=== PATIENT | female | born 1950 | race Caucasian/White ===

== ENCOUNTER → 2020-01-07 | Outpatient (CLI) | payer MEDICARE, OTHER ==
--- NOTE | 2020-01-07 09:48 | Diagnostic Imaging Report ---
Indication: Right foot pain and swelling. Time of exam: 9: 02 AM 3 views of the right foot were obtained. There does appear to be some dorsal soft tissue swelling present. Metatarsals are intact. Midfoot and hindfoot are unremarkable apart from a plantar calcaneal spur. Phalanges are intact. There are no fractures. IMPRESSION: Soft tissue swelling. No acute bony abnormality is detected. Dictated by: Dictated on workstation # [id number]
[2020-01-07 09:54] LABS: ALKALINE PHOSPHATASE 55 U/L (40-136); BILIRUBIN,TOTAL 0.4 MG/DL (0.1-1.0); BUN/CREATININE RATIO 21; CALCIUM 9.8 MG/DL (8.5-10.1); CARBON DIOXIDE 26 MMOL/L (21-32); CHLORIDE 105 MMOL/L (98-107); CREATININE SERUM 0.87 MG/DL (0.60-1.30); GFR ESTIMATED > 60; GLUCOSE 109 MG/DL (70-105); POTASSIUM 4.3 MMOL/L (3.6-5.0); SODIUM 144 MMOL/L (135-145)
[2020-01-07 09:55] LABS: ALANINE AMINOTRANSFERASE 8 U/L (0-55); TOTAL PROTEIN 6.8 GM/DL (6.4-8.2)
[2020-01-07 15:15] LABS: CHOLESTEROL 193 MG/DL (< 200); HDL CHOLESTEROL 59 MG/DL (40-60); TRIGLYCERIDES 145 MG/DL (<150); VLDL CHOLESTEROL 29 MG/DL (5-40)
== END ==
LOC: LAB FS 08:37
PROVIDERS: ATTEND Family Medicine
DX: E11.9 Type 2 diabetes mellitus without complications (principal); M79.671 Pain in right foot
CPT/HCPCS: 36415; 73630; 80053; 80061; 83036

== ENCOUNTER 2020-04-24 11:45 | Inpatient (IN) | payer MEDICARE, OTHER ==
[~2020-04-24] VITALS: Ht 162.5 cm; Wt 139.8 kg
--- NOTE | 2020-04-24 11:45 | NUR ---
Patient arrival to ED via [facility] as weakness but SOA reported. EMS report patient with 3 day hx of this. Weakness was primary discussion but pt reports may have been feeling bad since Tuesday. Pt's dgt in ER Tuesday feeling sx and tested for COVID and since found out it was positive and quarantined. Pt has been around her dgt last week and even Tuesday. Pt is placed in Negative pressure room ED 5 for isolation. Pt is on n.c. at 4L and SaO2 is in upper 70's and O2 turned up to 6L/min while consulting expert opinion of Dr Andersen. At 6L/m patient is beginning to enter low to mid 80's peaking 85%. entering room to assess patient and lung sounds.
--- NOTE | 2020-04-24 12:08 | ED Respiratory ---
General Chief Complaint: Respiratory Problems Stated Complaint: SOB; WEAKNESS Source: patient, EMS Exam Limitations: no limitations History of Present Illness Date Seen by Provider: Apr 24, 2020 Time Seen by Provider: 12:00 Initial Comments 69-year-old female presents with shortness of air today. The previous 3 days she has had a cough which has been nonproductive. Denies fever or body aches, just feeling generalized weakness. States that her daughter, whom she does not live with, but sees frequently was recently tested positive for COVID-19. Denies any heart or lung disease. On EMS arrival, noted to have significant low oxygen saturations in the 60s, however patient alert and awake and in no distress. On arrival oxygen saturation in the mid 80s on 5 L per nasal cannula and patient in no distress Allergies and Home Medications Allergies Coded Allergies: No Known Allergies (Unverified Allergy, Unknown, 04/24/20) Patient Home Medication List Home Medication List Reviewed: Yes Review of Systems Review of Systems Constitutional: see HPI; No chills, No diaphoresis, No dizziness, No fever; malaise, weakness EENTM: no symptoms reported; No ear pain, No eye pain, No nose pain, No throat pain, No throat swelling Respiratory: cough; No hemoptysis, No orthopnea; short of breath; No stridor; wheezing Cardiovascular: No chest pain, No edema, No palpitations, No syncope Gastrointestinal: No abdominal pain, No nausea, No vomiting Genitourinary: No dysuria, No frequency, No hematuria Musculoskeletal: No back pain, No joint pain Skin: No change in color, No rash Psychiatric/Neurological: Denies Headache, Denies Numbness Past [place]zz[place]-Dhedjk Hx Past Med/Social Hx: Reviewed Nursing Past Med/Soc Hx Physical Exam Vital Signs - First Documented 04/24/20 11:45 Temp 37.2 Pulse 99 Resp 28 B/P (MAP) 108/62 (77) Pulse Ox 79 O2 Delivery Nasal Cannula O2 Flow Rate 4.00 Capillary Refill : Height: '" Weight: lbs. oz. kg; BMI Method: General Appearance: WD/WN, no apparent distress Eyes: Bilateral Eye Normal Inspection, Bilateral Eye PERRL, Bilateral Eye EOMI HEENT: PERRL/EOMI, normal ENT inspection Neck: non-tender, supple Respiratory: chest non-tender, no respiratory distress, no accessory muscle use, decreased breath sounds, wheezing, expiration Cardiovascular: regular rate, rhythm, no edema Gastrointestinal: non tender, soft Extremities: normal range of motion, non-tender Neurologic/Psychiatric: alert, normal mood/affect, oriented x 3 Skin: normal color, warm/dry Focused Exam Lactate Level 04/24/20 12:10: Lactic Acid Level 2.35*H Lactic Acid Level Laboratory Tests Test 04/24/20 12:10 Lactic Acid Level 2.35 MMOL/L (0.50-2.00) *H Progress/Results/Core Measures Suspected Sepsis SIRS Temperature: Pulse: Respiratory Rate: Laboratory Tests 04/24/20 12:10: White Blood Count 11.9H Blood Pressure / Mean: 04/24/20 12:10: Lactic Acid Level 2.35*H Laboratory Tests 04/24/20 12:10: Creatinine 0.87, Platelet Count 208, Total Bilirubin 0.8 Results/Orders Lab Results Laboratory Tests Test 04/24/20 12:10 04/24/20 12:15 04/24/20 13:50 Range/Units White Blood Count 11.9 H 4.3-11.0 10^3/uL Red Blood Count 4.32 L 4.35-5.85 10^6/uL Hemoglobin 11.8 11.5-16.0 G/DL Hematocrit 36 35-52 % Mean Corpuscular Volume 83 80-99 FL Mean Corpuscular Hemoglobin 27 25-34 PG Mean Corpuscular Hemoglobin Concent 33 32-36 G/DL Red Cell Distribution Width 15.5 H 10.0-14.5 % Platelet Count 208 130-400 10^3/uL Mean Platelet Volume 10.1 7.4-10.4 FL Immature Granulocyte % (Auto) 1 % Neutrophils (%) (Auto) 91 H 42-75 % Lymphocytes (%) (Auto) 6 L 12-44 % Monocytes (%) (Auto) 3 0-12 % Eosinophils (%) (Auto) 0 0-10 % Basophils (%) (Auto) 0 0-10 % Neutrophils # (Auto) 10.8 H 1.8-7.8 X 10^3 Lymphocytes # (Auto) 0.7 L 1.0-4.0 X 10^3 Monocytes # (Auto) 0.4 0.0-1.0 X 10^3 Eosinophils # (Auto) 0.0 0.0-0.3 10^3/uL Basophils # (Auto) 0.0 0.0-0.1 10^3/uL Immature Granulocyte # (Auto) 0.1 0.0-0.1 10^3/uL Neutrophils % (Manual) 75 % Lymphocytes % (Manual) 8 % Monocytes % (Manual) 5 % Eosinophils % (Manual) 0 % Basophils % (Manual) 0 % Band Neutrophils 12 % Blood Morphology Comment NORMAL Activated Partial Thromboplast Time 29 24-35 SEC D-Dimer 2.11 H 0.00-0.49 UG/ML Sodium Level 133 L 135-145 MMOL/L Potassium Level 4.2 3.6-5.0 MMOL/L Chloride Level 96 L 98-107 MMOL/L Carbon Dioxide Level 22 21-32 MMOL/L Anion Gap 15 H 5-14 MMOL/L Blood Urea Nitrogen 20 H 7-18 MG/DL Creatinine 0.87 0.60-1.30 MG/DL Estimat Glomerular Filtration Rate > 60 BUN/Creatinine Ratio 23 Glucose Level 271 H 70-105 MG/DL Lactic Acid Level 2.35 *H 0.50-2.00 MMOL/L Calcium Level 8.9 8.5-10.1 MG/DL Corrected Calcium 9.7 8.5-10.1 MG/DL Total Bilirubin 0.8 0.1-1.0 MG/DL Aspartate Amino Transf (AST/SGOT) 56 H 5-34 U/L Alanine Aminotransferase (ALT/SGPT) 33 0-55 U/L Alkaline Phosphatase 81 40-136 U/L Troponin I < 0.30 <0.30 NG/ML C-Reactive Protein 22.42 H <0.50 MG/DL Pro-B-Type Natriuretic Peptide 1051.0 H <75.0 PG/ML Total Protein 6.1 L 6.4-8.2 GM/DL Albumin 3.0 L 3.2-4.5 GM/DL Procalcitonin 0.29 H <0.10 NG/ML Blood Gas Puncture Site RT RAD Blood Gas Patient Temperature 37.1 Arterial Blood pH 7.45 H 7.37-7.43 Arterial Blood Partial Pressure CO2 39 35-45 MMHG Arterial Blood Partial Pressure O2 42 L 79-93 MMHG Arterial Blood HCO3 27 23-27 MMOL/L Arterial Blood Total CO2 28.3 21.0-31.0 MMOL/L Arterial Blood Oxygen Saturation 80 L 94-100 % Arterial Blood Base Excess 3.0 H -2.5-2.5 MMOL/L Alexys Test YES-POS Blood Gas Ventilator Setting NO Blood Gas Inspired Oxygen 6L Micro Results Microbiology 04/24/20 Influenza Types A,B Antigen (MARLYS) - Final, Complete My Orders Orders - SAMEERA GLEASON DO Procalcitonin (Pct) (04/24/20 12:04) Ed Iv/Invasive Line Start (04/24/20 12:04) Chest 1 View Ap/Pa Only (04/24/20 12:04) Cbc With Automated Diff (04/24/20 12:04) Comprehensive Metabolic Panel (04/24/20 12:04) Arterial Blood Gas (04/24/20 12:04) Blood Culture (04/24/20 12:04) Influenza A And B Antigens (04/24/20 12:04) Lactic Acid Analyzer (04/24/20 12:04) Partial Thromboplastin Time (04/24/20 12:04) Probnp Fs (04/24/20 12:04) Troponin I Fs (04/24/20 12:04) Dexamethasone Injection (Decadron Inje (04/24/20 12:30) Albuterol/Ipra Inhalation Soln (Duoneb I (04/24/20 12:30) Svn Small Volume Nebulizer (04/24/20 12:21) Manual Differential (04/24/20 12:10) Coronavirus Sars-Cov-2 So 2019 (04/24/20 12:39) Fibrin Degradation Products (04/24/20 12:41) Blood Culture (04/24/20 12:25) Crp Fs (04/24/20 12:10) Ct Angio Chest W (04/24/20 14:02) Enoxaparin Injection (Lovenox Injection) (04/24/20 14:15) Iohexol Injection (Omnipaque 350 Mg/Ml 1 (04/24/20 14:15) Received Contrast (Hold Metformin- Contr (04/24/20 14:15) Sodium Chloride Flush (Catheter Flush Sy (04/24/20 14:15) Ns (Ivpb) (Sodium Chloride 0.9% Ivpb Bag (04/24/20 14:15) Ekg Tracing (04/24/20 14:57) Medications Given in ED Current Medications Medications Dose Ordered Sig/Ainsley Route Start Time Stop Time Status Last Admin Dose Admin Albuterol/ Ipratropium 3 ml ONCE ONCE INH 04/24/20 12:30 04/24/20 12:31 DC 04/24/20 12:37 3 ML Dexamethasone Sodium Phosphate 10 mg ONCE ONCE IV 04/24/20 12:30 04/24/20 12:31 DC 04/24/20 12:38 10 MG Enoxaparin Sodium 120 mg ONCE ONCE SC 04/24/20 14:15 04/24/20 14:16 DC 04/24/20 14:28 120 MG Iohexol 125 ml ONCE ONCE IV 04/24/20 14:15 04/24/20 14:16 DC 04/24/20 14:55 125 ML Sodium Chloride 10 ml NEEDED PRN IV 04/24/20 14:15 04/24/20 14:55 10 ML Sodium Chloride 100 ml ONCE ONCE IV 04/24/20 14:15 04/24/20 14:16 DC 04/24/20 14:55 100 ML Vital Signs/I&O 04/24/20 11:45 Temp 37.2 Pulse 99 Resp 28 B/P (MAP) 108/62 (77) Pulse Ox 79 O2 Delivery Nasal Cannula O2 Flow Rate 4.00 Capillary Refill : Diagnostic Imaging Diagonstic Imaging: Xray Comments IMPRESSION: 1. No findings of pulmonary embolus. 2. Diffuse patchy opacities throughout both lungs, compatible with a multifocal pneumonia. 3. A 1.3 cm right thyroid nodule. Consider dedicated thyroid ultrasound for better characterization in a nonemergent setting. Departure Communication (Admissions) Time/Spoke to Admitting Phy: 15:30 Discussed presentation, HPI, labs, RAD studies and vitals. Max O2 sat @ 88% on NRB. CT r/o PE and confirms patchy infiltrates c/w viral pneumonia. Covid pending. accepts for ICU admission w PUI precautions Impression Primary Impression: Hypoxia Additional Impression: Viral pneumonia Disposition: ADMITTED INPATIENT Condition: Stable Admissions Decision to Admit Reason: Admit from ER (General) Decision to Admit/Date: Apr 24, 2020 Time/Decision to Admit Time: 12:04 Departure-Patient Inst. Referrals: CLIFF BENÍTEZ MD (PCP/Family) Primary Care Physician SAMEERA GLEASON DO Apr 24, 2020 12:08
[2020-04-24] MEDS ORDERED: SUCCINYLCHOLINE INJ 100 MG/5 ML SYR/VIAL INJ ONE (12:18)
[2020-04-24] MEDS ORDERED: MIDAZOLAM 5 MG/5 ML (VERSED) VIAL IJ ONE (12:18)
[2020-04-24] MEDS ORDERED: ROCURONIUM 10 MG/ML 5 ML SYRINGE IV ONE (12:18)
[2020-04-24] MEDS ORDERED: ETOMIDATE IV SOLN 20 MG/10 ML VIAL IV ONE (12:18)
[2020-04-24] MEDS ORDERED: RT-ALBUTEROL/IPRATROPIUM 3 ML (DUONEB) VIAL INH ONE (12:30)
[2020-04-24 12:34] LABS: BASOPHILS % (AUTO) 0 % (0-10); EOSINOPHILS % (AUTO) 0 % (0-10); HEMATOCRIT 36 % (35-52); HEMOGLOBIN 11.8 G/DL (11.5-16.0); LYMPHOCYTES # (AUTO) 0.7 X 10^3 (1.0-4.0); LYMPHOCYTES % (AUTO) 6 % (12-44); MEAN CORPUSCULAR HEMOGLOBIN 27 PG (25-34); MEAN CORPUSCULAR HGB CONC 33 G/DL (32-36); MEAN CORPUSCULAR VOLUME 83 FL (80-99); MEAN PLATELET VOLUME 10.1 FL (7.4-10.4); MONOCYTES # (AUTO) 0.4 X 10^3 (0.0-1.0); MONOCYTES % (AUTO) 3 % (0-12); NEUTROPHILS # (AUTO) 10.8 X 10^3 (1.8-7.8); NEUTROPHILS % (AUTO) 91 % (42-75); PLATELET COUNT 208 10^3/uL (130-400); WHITE BLOOD COUNT 11.9 10^3/uL (4.3-11.0)
--- NOTE | 2020-04-24 12:37 | Diagnostic Imaging Report ---
INDICATION: Cough for three days. TIME OF EXAM: 12:19 p.m. COMPARISON: No prior studies are available for comparison. FINDINGS: Heart size is normal. There are patchy airspace infiltrates throughout both lungs consistent with pneumonia. No effusion or pneumothorax is identified. IMPRESSION: Patchy bilateral airspace pulmonary infiltrates consistent with pneumonia. Dictated by: Dictated on workstation # [id number]
--- NOTE | 2020-04-24 12:37 | NUR ---
DuoNeb began 1237, Decadron 10 IV at 1238.
[2020-04-24 13:05] LABS: BUN/CREATININE RATIO 23; CARBON DIOXIDE 22 MMOL/L (21-32); CHLORIDE 96 MMOL/L (98-107); CREATININE SERUM 0.87 MG/DL (0.60-1.30); GFR ESTIMATED > 60; POTASSIUM 4.2 MMOL/L (3.6-5.0); SODIUM 133 MMOL/L (135-145)
[2020-04-24 13:06] LABS: ALANINE AMINOTRANSFERASE 33 U/L (0-55); ALKALINE PHOSPHATASE 81 U/L (40-136); BILIRUBIN,TOTAL 0.8 MG/DL (0.1-1.0); CALCIUM 8.9 MG/DL (8.5-10.1); GLUCOSE 271 MG/DL (70-105); TOTAL PROTEIN 6.1 GM/DL (6.4-8.2)
[2020-04-24 13:07] LABS: BAND NEUTROPHILS 12 %; BASOPHILS % (MANUAL) 0 %; EOSINOPHILS % (MANUAL) 0 %; LYMPHOCYTES % (MANUAL) 8 %; MONOCYTES % (MANUAL) 5 %; NEUTROPHILS % (MANUAL) 75 %; RBC MORPH NORMAL
[2020-04-24 13:57] LABS: ABG PCO2 39 MMHG (35-45); ABG PH 7.45 (7.37-7.43); ABG PO2 42 MMHG (79-93)
[2020-04-24 13:58] LABS: ABG OXYGEN SATURATION 80 % (94-100); ABG TCO2 28.3 MMOL/L (21.0-31.0); ALLENS TEST YES-POS; INSPIRED O2 6L; PATIENT TEMP 37.1; VENTILATOR NO
[2020-04-24] MEDS ORDERED: IOHEXOL 350 MG/ML 150 ML (OMNIPAQUE 350) VIAL IV ONE (14:15)
[2020-04-24] MEDS ORDERED: NS 100 ML (IVPB) BAG IV ONE (14:15)
[2020-04-24] MEDS ORDERED: CATHETER FLUSH 10 ML SYR IV PRN ×2 (14:15→18:30)
[2020-04-24] MEDS ORDERED: ENOXAPARIN 60 MG/0.6 ML (LOVENOX) SYR SC ONE (14:15)
[2020-04-24] MEDS ORDERED: HOLD METFORMIN - RECEIVED CONTRAST 20 ML VIAL IV SCH (14:15)
--- NOTE | 2020-04-24 14:30 | NUR ---
20 ga SL to LAC (3rd SL placed) but requirement to administer contrast for a CT chest Angio.
--- NOTE | 2020-04-24 14:40 | NUR ---
To CT monitoring patient and to assist in moving patient. Again very poor activity tolerance noted and pt too weak to move self over to CT table.
--- NOTE | 2020-04-24 15:00 | NUR ---
Patient notified due to activity intolerance in bed changing position and poor tolerance to using BSC earlier with desaturating, Dr order vergara catheter placement. Pt was prepared for procedure and the catheter placed per aseptic technique with immediate returns of cookie urine. Urine collected for UA.
--- NOTE | 2020-04-24 15:00 | NUR ---
Patient has been returned to room and maintain all monitoring. Pt is positioned up in bed with [address] scan and slowly returns to upper 80's (87-88%).
--- NOTE | 2020-04-24 15:22 | Diagnostic Imaging Report ---
EXAMINATION: CT angiography of the chest. TECHNIQUE: Contrast enhanced thin section helical images were obtained through the chest with intravenous contrast timed for the optimal opacification of the arterial structures per CTA protocol. Post-processing, reconstructions and interpretation of angiographic images of the vessels was performed. 3D MIP reconstructions were performed and reviewed. All CT scans use one or more of the following dose optimizing techniques: automated exposure control, MA and/or KvP adjustment based on a patient size and exam type, or iterative reconstruction. HISTORY: hypoxia, elevated D-dimer COMPARISON: Chest radiograph of 04/24/2020. FINDINGS: Vascular: No filling defects within the pulmonary arteries. Thoracic aorta is normal in caliber. Calcification of the aorta and coronary vessels. Thyroid: There is a 1.3 cm hypodensity within the right lobe of the thyroid gland (series 3 image 15). Mediastinum: Heart size is normal without significant pericardial effusion. There are multiple mildly enlarged mediastinal lymph nodes measuring up to 1.0 cm in short axis which are likely reactive (series 2 image 30). Lungs and airways: There are diffuse bilateral patchy groundglass opacities and consolidation throughout both lungs with scattered air bronchograms. No pleural effusion or pneumothorax. Upper abdomen: The subphrenic structures are normal. Musculoskeletal: Degenerative changes of the spine without suspicious osseous lesion or compression fracture. IMPRESSION: 1. No findings of pulmonary embolus. 2. Diffuse patchy opacities throughout both lungs, compatible with a multifocal pneumonia. 3. A 1.3 cm right thyroid nodule. Consider dedicated thyroid ultrasound for better characterization in a nonemergent setting. Dictated by: Dictated on workstation # [id number]
--- NOTE | 2020-04-24 16:00 | NUR ---
Report to ICU Parul CURRIE for Julianna CURRIE.
--- NOTE | 2020-04-24 16:15 | NUR ---
EMS notified for transfer to [place].
[2020-04-24 16:29] LABS: CLARITY,URINE CLEAR; COLOR,URINE YELLOW
[2020-04-24 16:30] LABS: BACTERIA,URINE NEGATIVE /HPF; BILIRUBIN,URINE NEGATIVE (NEGATIVE); GLUCOSE, URINE (UA) TRACE (NEGATIVE); KETONES,URINE NEGATIVE (NEGATIVE); LEUKOCYTE ESTERASE ,URINE NEGATIVE (NEGATIVE); NITRITE,URINE NEGATIVE (NEGATIVE); PROTEIN,URINE NEGATIVE (NEGATIVE)
--- NOTE | 2020-04-24 16:45 | NUR ---
Patient being transferred at this time to [place] [facility] ICU. Pt remains on NRB 15 L/m with SaO2 92-94% if not actively moving to commode, transferring to CT table and requesting to sit up on edge of bed. SaO2 is rapid decline to upper 70's with these activities. Sinus Rhythm 80's on monitor, vergara catheter patent, and SL intact L Hand, LAC, and R wrist.
[2020-04-24] MEDS ORDERED: ACETAMINOPHEN 325 MG TABLET PO PRN (18:30)
[2020-04-24] MEDS ORDERED: ENOXAPARIN 100 MG/1 ML (LOVENOX) SYR SC SCH (18:30)
[2020-04-24] MEDS ORDERED: FLU QUAD HIGH DOSE 240 MCG/0.7 ML 2020-21 (FLUZONE) IM ONE (18:30)
[2020-04-24] MEDS ORDERED: ONDANSETRON 4 MG/5 ML ORAL SOLN (ZOFRAN) 5 ML PO PRN (18:30)
[2020-04-24] MEDS ORDERED: guaiFENesin SYRUP 100 MG/5 ML 10 ML (ROBITUSSIN SF) PO PRN (18:30)
[2020-04-24] MEDS ORDERED: RT-ALBUTEROL/IPRATROPIUM 3 ML (DUONEB) VIAL IH PRN (18:30)
[2020-04-24] MEDS: CEFEPIME 1,000 MG/SWFI 10 ML IV PUSH IV SCH ×2 (20:09)
[2020-04-24] MEDS: LACTATED RINGERS 1,000 ML IV SCH (20:09)
[2020-04-24] MEDS: CATHETER FLUSH 10 ML SYR IV SCH (20:10)
[2020-04-24] MEDS ORDERED: NS IV 1000 ML 1,000 ML ONE (20:29)
[2020-04-24] MEDS ORDERED: PROPOFOL DRIP (ICU) 100 ML IV ONE (20:32)
[2020-04-24 21:00] VITALS: BP 180/108
[2020-04-24] MEDS ORDERED: CEFEPIME INJECTION 1,000 MG in NS (IVPB) 50 ML IV SCH (21:00)
--- NOTE | 2020-04-24 21:25 | Diagnostic Imaging Report ---
EXAMINATION: Chest 1 view. HISTORY: Intubated. COMPARISON: Chest radiograph performed earlier the same date. CTA chest performed earlier the same date. FINDINGS: Interval placement of an endotracheal tube is seen with the tip overlying the trachea approximately 2 cm above the martha. Enteric tube is seen descending below the diaphragm with tip not included on this exam. Continued diffuse opacities are seen throughout both lungs, greatest in the right hemithorax. No pleural effusion. No evidence of pneumothorax. The cardiac silhouette is obscured. IMPRESSION: 1. Diffuse consolidative opacities throughout the lungs, concerning for multifocal pneumonia. 2. Interval placement of an endotracheal tube with the tip overlying the trachea approximately 2 cm above the martha. Enteric tube has also been placed with the tip descending below the diaphragm. Dictated by: Dictated on workstation # [id number]
[2020-04-24] MEDS: PROPOFOL DRIP (ICU) 100 ML IV SCH ×2 (21:27→23:37)
--- NOTE | 2020-04-24 21:40 | Anesthesia-Procedure Note ---
Procedures/Interventions Procedure Start/Stop/Diagnosis Date of Procedure: Apr 24, 2020 Start Time: 20:30 Brief History Called to ICU 4 by Carmina dope dry house operator for intubation on Covid + patient. Patient awake, A/0 x3. Introduced myself to patient. Obtained brief history including NKDA. Patient aware of plan to intubate and sedate and agreed. Denied questions. SaO2 88-91% pre-intubation. 100% O2. Versed 2mg, Etomidate 20mg, Succs 100mg given followed by 7.5 ett placed with Martínez x blade. Grade 1 view, easy, atraumatic intubation to 22 cm at teeth. BBS, BCR, positive color change on Etco2 indicator. RT present to take over securing ett and vent settings. After 10 minutes, Rocuronium 50mg given followed by placement of 20g Arterial line in right radial. Pulsatile blood flow noted, followed by easy thread of the catheter and good waveform noted on monitor that correlates with NIBP. Noted high pressure. Propofol gtt started per RN. Art line secured with opsite. State CXR taken for ett placement. Reported off to RT and KUSH Qureshi. Will be available for further consultation as needed. Stop Time: 21:02 Intubation RSI: Yes 100% pre-Ox, [id number]: Yes Intubation Method: orotracheal Videoscope used: Yes (Martínez) Grade View: 1 Medications: Etomidate (20 mg), Rocuronium (50mg), Succinylcholine (100mg), Versed (2mg) Mask Ventilation: negative Positive End Tide CO2: Yes Breath Sounds after Intubation: bilateral-equal ETT Securred @ (cm): 22 Intubated with ease: Yes Intubation Complications: no complications Post Intubation Xray-done: Yes Care turned over to: KUSH Qureshi Arterial Line Arterial Line Catheter: 20G Type: Radial Location: Right Procedure: prepped, draped in sterile fashion, good wave-form was obtained, patient tolerated procedure well, post procedure area cleaned, post procedure dressing applied ALESSANDRA MONTELONGO CRNA Apr 24, 2020 21:40
[2020-04-24 21:48] VITALS: BP 147/61
[2020-04-24] MEDS ORDERED: NOREPINEPHRINE 4 MG/250 ML 250 ML IV ONE (22:21)
[2020-04-24] MEDS: NOREPINEPHRINE 4 MG/250 ML 250 ML IV SCH (22:34)
--- NOTE | 2020-04-24 22:46 | NUR ---
telephone order from Dr. Alford to consult surgery for central line placement d/t need for vasopressors. Hasmukh Ferrer APRN in ED free to insert at this time.
--- NOTE | 2020-04-24 23:32 | NUR ---
*TIMELINE NOTE* 1955 - E-ICU NOTIFIED OF 02 SATS IN THE MID TO UPPER 80'S ON MAX VAPO THERM, RECEIVED ORDER TO INTUBATE AT THIS TIME. NOTIFIED HOUSE SUP WHOM CONTACTED ANESTHESIA 2029 - ANESTHESIA IN ROOM 2039 - 2 VERSED, 20 ETOMODATE, 100 SUCCS 2041 - COLOR CHANGE ACHIEVED. ETT 7.5, 23 @ TEETH, TV 450, RATE 26, PEEP 10, FiO2 100% 2049 - PROP GTT STARTED, 50 MADI GIVEN FOR ART LINE 2099 - RIGHT RADIAL ART LINE PLACED AND RESTRAINTS ON AT THIS TIME DAUGHTER JUANCHO, NOTIFIED BY THIS RN
[2020-04-25] VITALS (14 sets, daily range): BP systolic 87–153; BP diastolic 43–85
[2020-04-25] MEDS ORDERED: ENOXAPARIN 100 MG/1 ML (LOVENOX) SYR ONE (01:14)
[2020-04-25] MEDS ORDERED: ENOXAPARIN 30 MG/0.3 ML (LOVENOX) SYR ONE (01:15)
[2020-04-25] MEDS: PROPOFOL DRIP (ICU) 100 ML IV SCH ×7 (01:16→21:33)
[2020-04-25] MEDS: CEFEPIME 1,000 MG/SWFI 10 ML IV PUSH IV SCH ×8 (01:27→18:16)
[2020-04-25] MEDS: NOREPINEPHRINE 4 MG/250 ML 250 ML IV SCH ×4 (01:42→22:36)
[2020-04-25 01:52] LABS: ABG BASE EXCESS -3.2 MMOL/L (-2.5-2.5); ABG OXYGEN SATURATION 98 % (94-100); ABG PCO2 30 MMHG (35-45); ABG PH 7.44 (7.37-7.43); ABG PO2 102 MMHG (79-93); ABG TCO2 21.4 MMOL/L (21.0-31.0)
[2020-04-25 01:53] LABS: ALLENS TEST POSITIVE; INSPIRED O2 95; VENTILATOR YES
[2020-04-25 02:16] LABS: CHLORIDE 106 MMOL/L (98-107); POTASSIUM 3.9 MMOL/L (3.6-5.0); SODIUM 134 MMOL/L (135-145)
[2020-04-25 02:17] LABS: CALCIUM 7.6 MG/DL (8.5-10.1); GLUCOSE 343 MG/DL (70-105)
[2020-04-25 02:19] LABS: CARBON DIOXIDE 16 MMOL/L (21-32)
[2020-04-25 02:21] LABS: GFR ESTIMATED > 60; PHOSPHORUS 1.8 MG/DL (2.3-4.7)
[2020-04-25 02:22] LABS: BUN/CREATININE RATIO 21
[2020-04-25 02:23] LABS: MAGNESIUM 1.7 MG/DL (1.6-2.4)
[2020-04-25 02:24] LABS: BASOPHILS % (AUTO) 0 % (0-10); EOSINOPHILS % (AUTO) 0 % (0-10); HEMATOCRIT 35 % (35-52); LYMPHOCYTES # (AUTO) 0.6 10^3/uL (1.0-4.0); LYMPHOCYTES % (AUTO) 5 % (12-44); MEAN CORPUSCULAR HEMOGLOBIN 27 pg (25-34); MEAN CORPUSCULAR HGB CONC 32 g/dL (32-36); MEAN CORPUSCULAR VOLUME 85 fL (80-99); MEAN PLATELET VOLUME 10.8 fL (9.0-12.2); MONOCYTES # (AUTO) 0.4 10^3/uL (0.0-1.0); MONOCYTES % (AUTO) 3 % (0-12); NEUTROPHILS # (AUTO) 11.5 10^3/uL (1.8-7.8); NEUTROPHILS % (AUTO) 91 % (42-75); PLATELET COUNT 257 10^3/uL (130-400); WHITE BLOOD COUNT 12.7 10^3/uL (4.3-11.0)
[2020-04-25] MEDS ORDERED: ENOXAPARIN 300 MG/3 ML (LOVENOX) MULTI-DOSE VIAL SQ SCH (03:00)
[2020-04-25] MEDS: POTASSIUM CL 10MEQ/50ML IVPB 50 ML IV SCH (04:24)
[2020-04-25] MEDS: MAGNESIUM 1 GM/100 ML IVPB 100 ML IV SCH ×3 (04:25→06:04)
[2020-04-25] MEDS: KCL 20 MEQ TAB (K-DUR) PO SCH (04:25)
[2020-04-25] MEDS ORDERED: inSUlin ASPART (NovoLOG) 1 UNIT/0.01 ML (CHARGE PER UNIT) ONE (04:27)
[2020-04-25] MEDS: CATHETER FLUSH 10 ML SYR IV SCH ×3 (04:38→22:37)
[2020-04-25] MEDS: inSUlin ASPART (NovoLOG) 1 UNIT/0.01 ML (CHARGE PER UNIT) SC SCH ×4 (04:39→23:27)
--- NOTE | 2020-04-25 07:39 | NUR ---
THIS RN CALLED PT'S DAUGHTER, JUANCHO, TO OBTAIN PHONE CONSENT FOR A CENTRAL LINE PLACEMENT. PHONE CONSENT VERIFIED BY KUSH BOYD.
--- NOTE | 2020-04-25 07:40 | Diagnostic Imaging Report ---
CHEST 1 VIEW, AP/PA ONLY Indication: Central line placement attempt. COMPARISON: 04/24/2020. FINDINGS: No change in multifocal consolidations throughout the lungs, that remain most confluent in the right upper lung zone. Stable ET and enteric tubes. No appreciable pneumothorax. No pleural effusion. Stable cardiac mediastinal silhouette IMPRESSION: 1. No appreciable pneumothorax on either side. 2. No change in diffuse pulmonary consolidation. 3. Stable support devices. Dictated by: Dictated on workstation # [id number]
[2020-04-25] MEDS: PANTOPRAZOLE 40 MG (PROTONIX) VIAL IV SCH (08:03)
[2020-04-25] MEDS ORDERED: NS IV 500 ML 500 ML IV SCH (09:10)
[2020-04-25] MEDS ORDERED: REMDESIVIR INJ 200 MG in NS (IVPB) 210 ML IV NR (09:15)
--- NOTE | 2020-04-25 09:20 | NUR ---
THIS RN CALLED PHARMACY TO NOTIFY THEM OF CHANGE IN PT'S WEIGHT. DOCUMENTED WEIGHT ON ADMISSION WAS 130KG, PT WEIGHED BY BRUSHER TENDER AT 109.3KG. PT HAD LOVENOX ORDERED AT 130MG, AYESHA FROM PHARMACY STATED SHE WOULD CHANGE LOVENOX TO 100MG.
--- NOTE | 2020-04-25 10:09 | History & Physical-Hospitalist ---
History of Present Illness HPI/Chief Complaint Pt is a 69yoCF with a PMH of HTN and NIDDMII who presented to the ER via EMS due to SOB. EMS arrived to her house and she was satting in the 60s. She was placed on 5lpm and only improved to the 70s upon arrival to the ER so was placed on a NRB and got sats around 90. She was transferred here to the ICU and had worsenin g work of breathing so was intubated. Thus all history is obtained from the records and from conversation with her daughterKavya and her PCP Dr Constantino. She was seen in Dr Constantino's clinic on 04/21 for knee pain but otherwise was well. Throughout the week she developed a nonproductive cough and shortness of breath along with weakness. Her daughter was COVID positive and is currently on day 9 of symptoms. Rapid test was performed and Ms Mckeon is positive for COVID as well. Source: patient Date Seen 04/25/20 Time Seen by a Provider: 09:58 Attending Physician Mehdi Tafoya MD PCP Marina Constantino MD Referring Physician Date of Admission Apr 24, 2020 at 17:40 Home Medications & Allergies Home Medications Reviewed patient Home Medication Reconciliation performed by pharmacy medication reconciliations er medical technician and/or nursing. Patients Allergies have been reviewed. Allergies Allergies Coded Allergies No Known Allergies (Unverified Allergy, Unknown, 04/24/20) Past Pggjxph-Gpfzrr-Czevrk Hx Past Med/Social Hx: Reviewed Nursing Past Med/Soc Hx Patient Social History Alcohol Use: Denies Use Recreational Drug Use: No Smoking Status: Never a Smoker 2nd Hand Smoke Exposure: No Recent Foreign Travel: No Contact w/other who traveled: No Recent Hopitalizations: No Recent Infectious Disease Expo: No Immunizations Up To Date Date of Pneumonia Vaccine: Apr 17, 2019 Seasonal Allergies Seasonal Allergies: Yes Past Medical History Cardiac: Hypertension Hx : 2 Hx Para: 2 Endocrine: Diabetes, Non-Insulin dep History of Blood Disorders: No Review of Systems ROS-Unable to Obtain: due to clinical condition Constitutional: see HPI Physical Exam Physical Exam Vital Signs Vital Signs - First Documented 04/24/20 04/24/20 11:45 18:00 Temp 37.2 Pulse 99 Resp 28 B/P (MAP) 108/62 (77) Pulse Ox 79 O2 Delivery Nasal Cannula O2 Flow Rate 4.00 FiO2 80 Capillary Refill : Less Than 3 Seconds Height, Weight, BMI Height: '" Weight: lbs. oz. kg; 49.00 BMI Method: General Appearance: Other (sedated on a vent) HEENT: PERRL/EOMI, Moist Mucous Membranes, Other (ETT in place, OGT) Respiratory: No Crackles; Rhonci; No Wheezing Cardiovascular: Regular Rate, Rhythm, No JVD, No Murmur Gastrointestinal: Normal Bowel Sounds, Non Tender, Soft Genital/Rectal: Other (vergara ) Extremity: No Calf Tenderness, No Pedal Edema Neurologic/Psychiatric: Other (sedated, appears comfortable) Skin: Normal Color, Warm/Dry Results Results/Procedures Labs Laboratory Tests 04/25/20 01:35 04/26/20 02:20 Patient resulted labs reviewed. Assessment/Plan Admission Diagnosis Acute hypoxic respiratory failure Admission Status: Inpatient Order (span 2 midnights) Reason for Inpatient Admission: see below Assessment and Plan Acute hypoxic respiratory failure COVID19 Undifferentiated shock Maintain on vent eICU consulted, appreciate assistance- vent management per them Discussed EUA status of remdesivir and plasma with daughter, she consents to treatment with both- ordered Lovenox Currently on pressors, will attempt to wean sedation and see if BP improves MAT protocol Decadron ordered NIDDMII Anticipate high BS with steroids SSI HTN hypotensive so will monitor DVT ppx: Lovenox Critical Care Critically Ill Patient Diagnosis/Problems Diagnosis/Problems (1) Acute respiratory failure (2) COVID-19 (3) Essential (primary) hypertension (4) Non-insulin dependent type 2 diabetes mellitus (5) Prophylactic measure (6) Shock Clinical Quality Measures DVT/VTE Risk/Contraindication: Risk Factor Score Per Nursin RFS Level Per Nursing on Admit: 4+=Very High MEHDI TAFOYA MD Apr 25, 2020 10:09
--- NOTE | 2020-04-25 10:44 | Procedure/Intervention Note ---
Procedures/Interventions Lumen: triple Central Line Procedure: betadine prep, sterile drapes applied, sterile dressing applied Position: internal jugular (L) Anesthesia: Lidocaine Volume Anesthetic (ccs): 5 Complications: none attempted left IJ central line placement x1 unsuccessful. no complications. Date of ETT Placement: Apr 24, 2020 Time of ETT Placement: 2041 Intubation Method: orotracheal Tube Size: 7.50 Medications: Etomidate (20 mg), Rocuronium (50mg), Succinylcholine (100mg), Versed (2mg) Positive End Tide CO2: Yes Breath Sounds after Intubation: bilateral-equal Intubation Complications: no complications Post Intubation Xray: Yes ELIZABETH HILARIO APRN Apr 25, 2020 10:44
--- NOTE | 2020-04-25 11:38 | NUR ---
THIS RN NOTIFIED DR. CASILLAS OF TWO CONSECUTIVE BLOOD SUGARS >250 PER THE NOVOLOG INSTRUCTION LISTED ON THE E-MAR. NO ORDERS OBTAINED.
--- NOTE | 2020-04-25 12:47 | Diagnostic Imaging Report ---
CLINICAL INDICATION: PICC line placement. Covid positive patient. EXAM: Portable chest x-ray, semiupright view. COMPARISON: Portable chest x-ray semiupright view dated 04/24/2020. FINDINGS: ET tube again seen in good position with tip at the upper T5 vertebral body level. Feeding tube is again seen overlying the left upper quadrant region, but its distal portion not imaged on this exam. There is interval placement of right PICC line with tip overlying the expected region of the mid superior vena cava. There is stable cardiomegaly. Pulmonary vasculature is obscured. There are diffuse bilateral lung infiltrates again seen with some sparing of the left upper lobe which has not significantly changed in interim. There is no pleural effusion or pneumothorax. IMPRESSION: 1: There is no significant change to the diffuse bilateral lung infiltrates with some sparing of the left upper lobe. 2: There is interval placement of a right PICC line with tip in the mid superior vena cava region. 3: The remainder of this exam shows no significant interval change compared to the prior study of comparison. Dictated by: Dictated on workstation # [id number]
[2020-04-25 13:32] LABS: ABG BASE EXCESS -0.1 MMOL/L (-2.5-2.5); ABG OXYGEN SATURATION 99 % (94-100); ABG PCO2 32 MMHG (35-45); ABG PH 7.47 (7.37-7.43); ABG PO2 131 MMHG (79-93); ABG TCO2 24.2 MMOL/L (21.0-31.0); INSPIRED O2 90%; VENTILATOR NO
[2020-04-25 13:33] LABS: PATIENT TEMP 36.8
--- NOTE | 2020-04-25 14:25 | NUR ---
"TF ASSESSMENT Est kcal needs: 1650 kcal | 15 kcal/kg Est Pro needs: 65 g Pro | 0.6 g Pro/kg Note pt currently intubated and NPO x1d, per chart review. If pt is to remain NPO for more than 3days, would recommend the following TF: Pulmocare 1.5 kcal at goal rate of 50ml/hr. Begin at 10ml/hr and increase by 10ml q6h as medically able and as tolerated. Monitor gastric residuals for tolerance. At goal rate, provides 1800 kcal (16 kcal/kg); 75 g Pro (0.7 g Pro/kg); and 942ml free water. Flush with 75ml water q4h for hydration status. With flushes, provides 1394ml free water. Will continue to follow and reassess as pt needs, intake, and status change. Janak Pierson, MS RD LD [phone] (cell)"
--- NOTE | 2020-04-25 16:15 | NUR ---
Received request through RN that pts (a pt here in [phone]) wanted someone to pray over phone where pt could hear it. PCT took phone into room and this commercial leasing manager said prayer for pt and her .
--- NOTE | 2020-04-25 17:54 | NUR ---
DR. CASILLAS NOTIFIED OF DECREASED URINE OUTPUT.
[2020-04-25] MEDS: LACTATED RINGERS 1,000 ML IV SCH (18:01)
[2020-04-25] MEDS: ENOXAPARIN 100 MG/1 ML (LOVENOX) SYR SC SCH (23:10)
[2020-04-26] VITALS (30 sets, daily range): BP systolic 89–172; BP diastolic 45–91
[2020-04-26] MEDS: NOREPINEPHRINE 4 MG/250 ML 250 ML IV SCH ×5 (00:36→23:48)
[2020-04-26] MEDS: PROPOFOL DRIP (ICU) 100 ML IV SCH ×7 (00:36→23:48)
[2020-04-26] MEDS: CEFEPIME 1,000 MG/SWFI 10 ML IV PUSH IV SCH ×8 (02:20→20:24)
[2020-04-26 02:35] LABS: BASOPHILS % (AUTO) 0 % (0-10); EOSINOPHILS % (AUTO) 0 % (0-10); HEMATOCRIT 32 % (35-52); HEMOGLOBIN 10.5 g/dL (11.5-16.0); LYMPHOCYTES # (AUTO) 0.5 10^3/uL (1.0-4.0); LYMPHOCYTES % (AUTO) 6 % (12-44); MEAN CORPUSCULAR HEMOGLOBIN 27 pg (25-34); MEAN CORPUSCULAR HGB CONC 33 g/dL (32-36); MEAN CORPUSCULAR VOLUME 84 fL (80-99); MEAN PLATELET VOLUME 10.5 fL (9.0-12.2); MONOCYTES # (AUTO) 0.2 10^3/uL (0.0-1.0); MONOCYTES % (AUTO) 3 % (0-12); NEUTROPHILS # (AUTO) 8.1 10^3/uL (1.8-7.8); NEUTROPHILS % (AUTO) 91 % (42-75); PLATELET COUNT 243 10^3/uL (130-400); WHITE BLOOD COUNT 8.9 10^3/uL (4.3-11.0)
[2020-04-26 02:36] LABS: ABG BASE EXCESS 1.4 MMOL/L (-2.5-2.5); ABG OXYGEN SATURATION 95 % (94-100); ABG PCO2 38 MMHG (35-45); ABG PH 7.43 (7.37-7.43); ABG PO2 74 MMHG (79-93); ABG TCO2 26.7 MMOL/L (21.0-31.0)
[2020-04-26 02:40] LABS: ALLENS TEST POSITIVE; INSPIRED O2 60; PATIENT TEMP 36.2; VENTILATOR YES
[2020-04-26 02:46] LABS: CHLORIDE 104 MMOL/L (98-107); POTASSIUM 4.1 MMOL/L (3.6-5.0); SODIUM 137 MMOL/L (135-145)
[2020-04-26 02:47] LABS: CALCIUM 8.2 MG/DL (8.5-10.1)
[2020-04-26 02:48] LABS: GLUCOSE 195 MG/DL (70-105)
[2020-04-26 02:49] LABS: CARBON DIOXIDE 22 MMOL/L (21-32)
[2020-04-26 02:50] LABS: BILIRUBIN,TOTAL 0.7 MG/DL (0.1-1.0)
[2020-04-26 02:51] LABS: ALKALINE PHOSPHATASE 43 U/L (40-136); PHOSPHORUS 2.1 MG/DL (2.3-4.7)
[2020-04-26 02:52] LABS: GFR ESTIMATED > 60
[2020-04-26 02:53] LABS: BUN/CREATININE RATIO 28
[2020-04-26 02:54] LABS: ALANINE AMINOTRANSFERASE 22 U/L (0-55); MAGNESIUM 2.3 MG/DL (1.6-2.4)
[2020-04-26] MEDS: inSUlin ASPART (NovoLOG) 1 UNIT/0.01 ML (CHARGE PER UNIT) SC SCH ×4 (06:47→23:51)
[2020-04-26] MEDS: KCL 20 MEQ TAB (K-DUR) PO SCH (06:47)
[2020-04-26] MEDS: MAGNESIUM 1 GM/100 ML IVPB 100 ML IV SCH (06:47)
[2020-04-26] MEDS: CATHETER FLUSH 10 ML SYR IV SCH ×3 (06:48→22:00)
[2020-04-26] MEDS: POTASSIUM CL 10MEQ/50ML IVPB 50 ML IV SCH (06:48)
[2020-04-26] MEDS: LACTATED RINGERS 1,000 ML IV SCH (07:48)
[2020-04-26] MEDS: REMDESIVIR INJ 100 MG in NS (IVPB) 230 ML IV SCH (07:49)
[2020-04-26] MEDS: PANTOPRAZOLE 40 MG (PROTONIX) VIAL IV SCH (07:49)
[2020-04-26] MEDS ORDERED: NS IV 1000 ML 1,000 ML ONE (09:55)
[2020-04-26 09:57] LABS: BILIRUBIN,URINE NEGATIVE (NEGATIVE); CLARITY,URINE CLEAR; COLOR,URINE ORANGE; GLUCOSE, URINE (UA) NEGATIVE (NEGATIVE); KETONES,URINE TRACE (NEGATIVE); LEUKOCYTE ESTERASE ,URINE NEGATIVE (NEGATIVE); NITRITE,URINE NEGATIVE (NEGATIVE); PH,URINE 5.5 (5-9); PROTEIN,URINE 2+ (NEGATIVE)
--- NOTE | 2020-04-26 10:10 | Progress Note - Hospitalist ---
Subjective HPI/CC On Admission Date Seen by Provider: Apr 26, 2020 Time Seen by Provider: 10:00 Pt is a 69yoCF with a PMH of HTN and NIDDMII who presented to the ER via EMS due to SOB. EMS arrived to her house and she was satting in the 60s. She was placed on 5lpm and only improved to the 70s upon arrival to the ER so was placed on a NRB and got sats around 90. She was transferred here to the ICU and had worsening work of breathing so was intubated. Thus all history is obtained from the records and from conversation with her daughter, Kavya and her PCP Dr Constantino. She was seen in Dr Constantino's clinic on 04/21 for knee pain but otherwise was well. Throughout the week she developed a nonproductive cough and shortness of breath along with weakness. Her daughter was COVID positive and is currently on day 9 of symptoms. Rapid test was performed and Ms Mckeon is positive for COVID as well. Subjective/Events-last exam Pt remains intubated and sedated. Discussed with RN. Urine very dark and only 60ml/ 4 hours this morning. Focused Exam Lactate Level 04/24/20 12:10: Lactic Acid Level 2.35*H 04/25/20 09:50: Lactic Acid Level 1.33 Objective Exam Vital Signs Vital Signs Date Time Temp Pulse Resp B/P (MAP) Pulse Ox O2 Delivery O2 Flow Rate FiO2 04/26/20 09:00 56 23 135/64 (87) 95 Mechanical Ventilator 50.00 04/26/20 07:46 36.2 04/26/20 07:44 50 Capillary Refill : Less Than 3 Seconds General Appearance: Other (sedatated and intubated) Respiratory: Rhonci, Other (on vent) Cardiovascular: Regular Rate, Rhythm, No Murmur Gastrointestinal: Normal Bowel Sounds, Non Tender, Soft Genital/Rectal: Other (vergara in place, dark urine) Neurologic/Psychiatric: Other (sedated, appears comfortable) Results/Procedures Lab Laboratory Tests 04/26/20 02:20 Patient resulted labs reviewed. Assessment/Plan Assessment and Plan Assess & Plan/Chief Complaint Acute hypoxic respiratory failure COVID19 Undifferentiated shock Maintain on vent eICU consulted, appreciate assistance- vent management per them Continue Remdesivir s/p plasma x1 Lovenox Off pressors MAT protocol Decadron ordered Oliguria Will give 1 liter bolus Monitor UOP following that Creatinine normal not acidotic NIDDMII Anticipate high BS with steroids SSI HTN hypotensive so will monitor DVT ppx: Lovenox I called and updated daughter with patient status. No concerns or questions. Expressed appreciation of all the care her mom and dad are receiving. Critical Care Critically Ill Patient Diagnosis/Problems Diagnosis/Problems (1) Acute respiratory failure (2) COVID-19 (3) Essential (primary) hypertension (4) Non-insulin dependent type 2 diabetes mellitus (5) Prophylactic measure (6) Shock Clinical Quality Measures DVT/VTE Risk/Contraindication: Risk Factor Score Per Nursin RFS Level Per Nursing on Admit: 4+=Very High MEHDI CASILLAS MD Apr 26, 2020 10:10
[2020-04-26 10:11] LABS: WBC,URINE RARE /HPF
[2020-04-26 10:12] LABS: AMORPHOUS SEDIMENT,UR FEW AMOR URATES /LPF; HYALINE CASTS, URINE 0-2 /LPF; SQUAMOUS EPITHELIAL CELL,UR 0-2 /HPF
[2020-04-26] MEDS ORDERED: NS IV 1000 ML 1,000 ML IV ONE (10:15)
[2020-04-26 10:18] LABS: BACTERIA,URINE NEGATIVE /HPF
[2020-04-26] MEDS: ENOXAPARIN 100 MG/1 ML (LOVENOX) SYR SC SCH ×2 (11:15→23:47)
[2020-04-27] VITALS (30 sets, daily range): BP systolic 106–175; BP diastolic 46–77
[2020-04-27] MEDS: CEFEPIME 1,000 MG/SWFI 10 ML IV PUSH IV SCH ×8 (01:51→17:01)
[2020-04-27] MEDS: NOREPINEPHRINE 4 MG/250 ML 250 ML IV SCH ×4 (01:52→16:56)
[2020-04-27 01:58] LABS: ABG BASE EXCESS -0.3 MMOL/L (-2.5-2.5); ABG OXYGEN SATURATION 94 % (94-100); ABG PCO2 37 MMHG (35-45); ABG PH 7.42 (7.37-7.43); ABG PO2 74 MMHG (79-93); ABG TCO2 24.8 MMOL/L (21.0-31.0)
[2020-04-27 01:59] LABS: BASOPHILS % (AUTO) 0 % (0-10); EOSINOPHILS % (AUTO) 0 % (0-10); MEAN CORPUSCULAR HGB CONC 32 g/dL (32-36); MEAN CORPUSCULAR VOLUME 85 fL (80-99); MEAN PLATELET VOLUME 10.3 fL (9.0-12.2)
[2020-04-27 02:01] LABS: INSPIRED O2 50; PATIENT TEMP 36.7; VENTILATOR YES
[2020-04-27 02:09] LABS: GLUCOSE 120 MG/DL (70-105)
[2020-04-27 02:12] LABS: PHOSPHORUS 1.5 MG/DL (2.3-4.7)
[2020-04-27 02:13] LABS: CREATININE SERUM 0.42 MG/DL (0.60-1.30); GFR ESTIMATED > 60
[2020-04-27 02:14] LABS: BUN/CREATININE RATIO 36
[2020-04-27 02:15] LABS: MAGNESIUM 1.4 MG/DL (1.6-2.4)
[2020-04-27] MEDS: PROPOFOL DRIP (ICU) 100 ML IV SCH ×6 (02:54→18:46)
[2020-04-27 03:21] LABS: HEMATOCRIT 33 % (35-52); HEMOGLOBIN 10.4 g/dL (11.5-16.0); MEAN CORPUSCULAR HEMOGLOBIN 27 pg (25-34)
[2020-04-27 03:22] LABS: LYMPHOCYTES % (AUTO) 9 % (12-44); MONOCYTES % (AUTO) 5 % (0-12); NEUTROPHILS # (AUTO) 5.9 10^3/uL (1.8-7.8); NEUTROPHILS % (AUTO) 84 % (42-75); PLATELET COUNT 287 10^3/uL (130-400)
[2020-04-27 03:23] LABS: LYMPHOCYTES # (AUTO) 0.7 10^3/uL (1.0-4.0); MONOCYTES # (AUTO) 0.3 10^3/uL (0.0-1.0)
[2020-04-27 03:40] LABS: CALCIUM 7.9 MG/DL (8.5-10.1); CHLORIDE 105 MMOL/L (98-107); POTASSIUM 3.8 MMOL/L (3.6-5.0); SODIUM 138 MMOL/L (135-145)
[2020-04-27 03:41] LABS: ALANINE AMINOTRANSFERASE 20 U/L (0-55); ALBUMIN 2.8 GM/DL (3.2-4.5); ALKALINE PHOSPHATASE 47 U/L (40-136); BILIRUBIN,TOTAL 0.5 MG/DL (0.1-1.0); BUN/CREATININE RATIO 33; CARBON DIOXIDE 23 MMOL/L (21-32); GFR ESTIMATED > 60; GLUCOSE 161 MG/DL (70-105); TOTAL PROTEIN 5.7 GM/DL (6.4-8.2)
[2020-04-27] MEDS: POTASSIUM CL 10MEQ/50ML IVPB 50 ML IV SCH (05:53)
[2020-04-27] MEDS: MAGNESIUM 1 GM/100 ML IVPB 100 ML IV SCH ×3 (05:55→07:52)
[2020-04-27] MEDS: KCL 20 MEQ TAB (K-DUR) PO SCH (05:55)
[2020-04-27] MEDS: inSUlin ASPART (NovoLOG) 1 UNIT/0.01 ML (CHARGE PER UNIT) SC SCH ×3 (05:56→18:04)
[2020-04-27] MEDS: CATHETER FLUSH 10 ML SYR IV SCH ×2 (06:01→13:51)
[2020-04-27] MEDS: PANTOPRAZOLE 40 MG (PROTONIX) VIAL IV SCH (07:52)
[2020-04-27] MEDS: REMDESIVIR INJ 100 MG in NS (IVPB) 230 ML IV SCH (08:09)
--- NOTE | 2020-04-27 08:18 | Progress Note - Hospitalist ---
Subjective HPI/CC On Admission Date Seen by Provider: Apr 27, 2020 Time Seen by Provider: 08:12 Pt is a 69yoCF with a PMH of HTN and NIDDMII who presented to the ER via EMS due to SOB. EMS arrived to her house and she was satting in the 60s. She was placed on 5lpm and only improved to the 70s upon arrival to the ER so was placed on a NRB and got sats around 90. She was transferred here to the ICU and had worsening work of breathing so was intubated. Thus all history is obtained from the records and from conversation with her daughter, Kavya and her PCP Dr Constantino. She was seen in Dr Constantino's clinic on 04/21 for knee pain but otherwise was well. Throughout the week she developed a nonproductive cough and shortness of breath along with weakness. Her daughter was COVID positive and is currently on day 9 of symptoms. Rapid test was performed and Ms Mckeon is positive for COVID as well. Subjective/Events-last exam Pt remains intubated and sedated. No ROS possible. RN states no new concerns. Focused Exam Lactate Level 04/24/20 12:10: Lactic Acid Level 2.35*H 04/25/20 09:50: Lactic Acid Level 1.33 Objective Exam Vital Signs Vital Signs Date Time Temp Pulse Resp B/P (MAP) Pulse Ox O2 Delivery O2 Flow Rate FiO2 04/27/20 07:53 58 134/53 04/27/20 06:00 27 95 Mechanical Ventilator 50.00 04/27/20 04:00 50 04/27/20 03:00 37.0 Capillary Refill : Less Than 3 Seconds General Appearance: Obese, Other (intubated and sedated) HEENT: Other (ETT, OGT) Respiratory: Rhonci (diffuse), Other (on vent) Cardiovascular: No Murmur, Bradycardia (50s) Gastrointestinal: Normal Bowel Sounds, Non Tender, Soft Genital/Rectal: Other (vergara in place) Neurologic/Psychiatric: Other (sedated, appears comfortable) Results/Procedures Lab Laboratory Tests 04/27/20 01:38 Patient resulted labs reviewed. Assessment/Plan Assessment and Plan Assess & Plan/Chief Complaint Acute hypoxic respiratory failure COVID19 Undifferentiated shock Maintain on vent eICU consulted, appreciate assistance- vent management per them Continue Remdesivir s/p plasma x1 Consider another unit in the next day or two if no improvement Lovenox MAT protocol Decadron Oliguria Improved some yesterday, slightly under goal Monitor closely, otherwise Creatinine and Bicarb normal Increased IVF and add trophic feeds per dietary recs NIDDMII Anticipate high BS with steroids SSI HTN hypotensive so will monitor DVT ppx: Lovenox Critical Care Critically Ill Patient Diagnosis/Problems Diagnosis/Problems (1) Acute respiratory failure Status: Acute Qualifiers: Respiratory failure complication: hypoxia Qualified Codes: J96.01 - Acute respiratory failure with hypoxia (2) COVID-19 Status: Acute (3) Essential (primary) hypertension Status: Chronic (4) Non-insulin dependent type 2 diabetes mellitus Status: Chronic (5) Prophylactic measure Status: Chronic (6) Shock Status: Resolved Resolution Date/Time: 04/27/20 @ 08:18 Clinical Quality Measures DVT/VTE Risk/Contraindication: Risk Factor Score Per Nursin RFS Level Per Nursing on Admit: 4+=Very High MEHDI CASILLAS MD Apr 27, 2020 08:18
[2020-04-27] MEDS: ENOXAPARIN 100 MG/1 ML (LOVENOX) SYR SC SCH (11:27)
[2020-04-27] MEDS: LACTATED RINGERS 1,000 ML IV SCH (16:56)
[2020-04-28] VITALS (33 sets, daily range): BP systolic 103–174; BP diastolic 45–68
[2020-04-28] MEDS: NOREPINEPHRINE 4 MG/250 ML 250 ML IV SCH ×6 (00:24→22:52)
[2020-04-28] MEDS: ENOXAPARIN 100 MG/1 ML (LOVENOX) SYR SC SCH ×3 (00:25→22:50)
[2020-04-28] MEDS: inSUlin ASPART (NovoLOG) 1 UNIT/0.01 ML (CHARGE PER UNIT) SC SCH ×5 (00:25→22:51)
[2020-04-28] MEDS: CATHETER FLUSH 10 ML SYR IV SCH ×4 (00:26→22:50)
[2020-04-28] MEDS: CEFEPIME 1,000 MG/SWFI 10 ML IV PUSH IV SCH ×8 (00:34→19:50)
[2020-04-28] MEDS: PROPOFOL DRIP (ICU) 100 ML IV SCH ×8 (00:34→22:52)
--- NOTE | 2020-04-28 01:45 | NUR ---
TIMELINE NOTE: 0145 - NOTED PATIENT DESATING AFTER BEING PLACED IN SUPINE POSITION. ATTEMPTED TO OXYGENATE BY INCREASING FIO2 AND ENDOTRACHEAL SUCTIONING, RT NOTIFIED 0215 - PATIENT CONTINUE TO DESAT DESPITE EFFORTS, ORDERED STAT CXR TO CHECK TUBE PLACEMENT. RT INITIATE BAGGING OF PATIENT WITH NO CHANGE. ET TUBE REMOVED PER RT AND BAG AND MASK PLACED, OXYGEN STATS RISING 0230 - ANESTHESIA PRESENT TO REINTUBATE PATIENT, 2 ATTEMPTS MADE. PATIENT HAS THICK SECRETIONS . 100 SUCCS GIVEN AND 10 PROPOFOL. PROPOFOL DRIP INCREASED TO 80CC/HR PATIENT IS COUGHING AND RESTLESS 0245 - 7.5 ET TUBE PLACED, COLOR CHANGE NOTED AND BREATH SOUNDS EQUAL BILATERALLY ON AUSCULTATION. 23 AT THE LIP 0315 - CXR TAKEN AND VERIFIED THAT ET TUBE AND OG TUBE ARE IN THE CORRECT PLACE.
[2020-04-28 02:07] LABS: ABG BASE EXCESS -0.7 MMOL/L (-2.5-2.5); ABG OXYGEN SATURATION 95 % (94-100); ABG PCO2 43 MMHG (35-45); ABG PH 7.36 (7.37-7.43); ABG PO2 85 MMHG (79-93); ABG TCO2 25.2 MMOL/L (21.0-31.0)
[2020-04-28 02:08] LABS: INSPIRED O2 50; PATIENT TEMP 37.4; VENTILATOR YES
[2020-04-28 02:10] LABS: BASOPHILS % (AUTO) 0 % (0-10); EOSINOPHILS % (AUTO) 0 % (0-10); HEMATOCRIT 35 % (35-52); HEMOGLOBIN 11.6 g/dL (11.5-16.0); LYMPHOCYTES # (AUTO) 0.8 10^3/uL (1.0-4.0); LYMPHOCYTES % (AUTO) 8 % (12-44); MEAN CORPUSCULAR HEMOGLOBIN 28 pg (25-34); MEAN CORPUSCULAR HGB CONC 33 g/dL (32-36); MEAN CORPUSCULAR VOLUME 84 fL (80-99); MEAN PLATELET VOLUME 9.7 fL (9.0-12.2); MONOCYTES # (AUTO) 0.4 10^3/uL (0.0-1.0); MONOCYTES % (AUTO) 4 % (0-12); NEUTROPHILS # (AUTO) 8.6 10^3/uL (1.8-7.8); NEUTROPHILS % (AUTO) 86 % (42-75); PLATELET COUNT 356 10^3/uL (130-400)
[2020-04-28] MEDS ORDERED: proPOfol 200 MG/20 ML (DIPRIVAN) VIAL IV ONE (02:33)
[2020-04-28 02:34] LABS: ALBUMIN 2.9 GM/DL (3.2-4.5); CHLORIDE 107 MMOL/L (98-107); SODIUM 139 MMOL/L (135-145)
[2020-04-28 02:35] LABS: CALCIUM 8.1 MG/DL (8.5-10.1)
[2020-04-28 02:36] LABS: GLUCOSE 159 MG/DL (70-105); TOTAL PROTEIN 6.1 GM/DL (6.4-8.2)
[2020-04-28 02:37] LABS: CARBON DIOXIDE 21 MMOL/L (21-32)
[2020-04-28 02:38] LABS: BILIRUBIN,TOTAL 0.7 MG/DL (0.1-1.0)
[2020-04-28 02:40] LABS: ALKALINE PHOSPHATASE 45 U/L (40-136); CREATININE SERUM 0.68 MG/DL (0.60-1.30); GFR ESTIMATED > 60; PHOSPHORUS 2.2 MG/DL (2.3-4.7)
[2020-04-28 02:41] LABS: BUN/CREATININE RATIO 28
[2020-04-28 02:43] LABS: ALANINE AMINOTRANSFERASE 19 U/L (0-55); MAGNESIUM 2.4 MG/DL (1.6-2.4)
--- NOTE | 2020-04-28 03:11 | Anesthesia-Procedure Note ---
Procedures/Interventions Procedure Start/Stop/Diagnosis Date of Procedure: Apr 28, 2020 Start Time: 02:40 Referring Physician: Lottie Preprocedural Diagnosis: Covid Resp Failure Brief History Called by warehouse production worker for emergency intubation on extubated covid pt. On arrival pt was being ventilated by RT with ambu. Pt was minimally sedated and had copious oral secretions. Initially attemptedto intubated with glidescope without paralysis but was unable to visualize. RN administered propofol 100 mg and Anectine 100mg with GR1 view, #7.0 ETT +ETCO2 per capnography and sats increased to low 90's. Sats pre intubation were 70-80's. Tube secured at 23cm per RT. Left pt in care of RN with report. Stop Time: 02:55 Postprocedural Diagnosis: Covid Resp Failure Intubation RSI: Yes 100% pre-Ox, [id number]: No Videoscope used: Yes Grade View: 1 Medications: Propofol, Succinylcholine Mask Ventilation: positive Positive End Tide CO2: Yes Breath Sounds after Intubation: bilateral-equal Intubated with ease: No Intubation Complications: O2 saturation decreased SERAFIN POZO GLASSWARE FINISHER Apr 28, 2020 03:10
--- NOTE | 2020-04-28 04:25 | Pulmonary Consultation ---
History of Present Illness History of Present Illness Date Seen by Provider: Apr 28, 2020 Time Seen by Provider: 04:20 Date of Admission History of Present Illness 69yo presented to ED via EMS secondary to worsening SOB, and weakness that started 3 days prior. Pt's daughter tested positive for COVID recently. Pt was found to be hypoxic on admission and placed on oxygen. No prior episodes like this in the past. Allergies and Home Medications Allergies Coded Allergies: No Known Allergies (Unverified Allergy, Unknown, 04/24/20) Home Medications Glipizide 2.5 Mg Tab, 2.5 MG PO DAILY, (Reported) Lisinopril 10 Mg Tablet, 10 MG PO DAILY, (Reported) Metformin HCl 500 Mg Tablet, 1,000 MG PO BID PRN, (Reported) TAKES 2 (500MG) TABS Past Fmyixnp-Znumym-Wyguwx Hx Past Med/Social Hx: Reviewed Nursing Past Med/Soc Hx Patient Social History Alcohol Use: Denies Use Recreational Drug Use: No Smoking Status: Never a Smoker 2nd Hand Smoke Exposure: No Recent Foreign Travel: No Contact w/Someone Who Travel: No Recent Infectious Disease Expo: No Recent Hopitalizations: No Physical Abuse: No Sexual Abuse: No Mistreated: No Fear: No Immunizations Up To Date Date of Pneumonia Vaccine: Apr 17, 2019 Seasonal Allergies Seasonal Allergies: Yes Past Medical History Surgeries: Yes Respiratory: No Cardiac: Yes Hypertension Neurological: No Hx : 2 Hx Para: 2 Genitourinary: No Gastrointestinal: No Musculoskeletal: No Endocrine: Yes (DM Type II) Diabetes, Non-Insulin dep HEENT: No Cancer: No Psychosocial: No Integumentary: No Blood Disorders: No Review of Systems Time Seen by Provider: 05:14 Sepsis Event Evaluation Height, Weight, BMI Height: '" Weight: lbs. oz. kg; 49.00 BMI Method: Exam Exam Vital Signs Date Time Temp Pulse Resp B/P (MAP) Pulse Ox O2 Delivery O2 Flow Rate FiO2 04/28/20 03:27 67 24 97 50 04/28/20 03:23 37.7 94 Mechanical Ventilator 100.00 04/28/20 03:18 119/52 04/28/20 01:45 37.4 04/28/20 01:25 74 27 94 50 04/28/20 00:34 165/64 04/28/20 00:00 37.0 04/28/20 00:00 95 Mechanical Ventilator 50 04/28/20 00:00 77 25 152/61 (91) 92 Mechanical Ventilator 50.00 04/27/20 23:00 70 23 156/67 (96) 93 Mechanical Ventilator 50.00 04/27/20 22:00 68 23 163/66 (98) 94 Mechanical Ventilator 50.00 04/27/20 21:36 66 24 93 50 04/27/20 21:00 64 24 160/64 (96) 95 Mechanical Ventilator 50.00 04/27/20 20:00 66 159/66 (97) 95 Mechanical Ventilator 50.00 04/27/20 19:55 95 Mechanical Ventilator 50 04/27/20 19:49 36.4 68 18 154/65 (94) 93 Mechanical Ventilator 50.00 04/27/20 19:00 68 18 158/68 (98) 95 Mechanical Ventilator 50.00 04/27/20 19:00 68 04/27/20 18:46 69 154/67 04/27/20 18:46 69 154/67 04/27/20 18:42 68 24 92 50 04/27/20 18:00 68 24 166/70 (102) 95 Mechanical Ventilator 50.00 04/27/20 17:00 79 25 143/71 (95) 95 Mechanical Ventilator 50.00 04/27/20 16:00 92 Mechanical Ventilator 50 04/27/20 16:00 37.1 04/27/20 16:00 67 26 175/77 (109) 98 Mechanical Ventilator 50.00 04/27/20 15:00 66 24 148/69 (95) 93 Mechanical Ventilator 50.00 04/27/20 14:46 66 25 91 50 04/27/20 14:00 58 28 160/65 (96) 93 Mechanical Ventilator 50.00 04/27/20 13:51 61 141/59 04/27/20 13:50 61 141/59 04/27/20 13:00 51 29 137/58 (84) 96 Mechanical Ventilator 50.00 04/27/20 12:28 60 04/27/20 12:00 57 28 123/52 (75) 94 Mechanical Ventilator 50.00 04/27/20 12:00 92 Mechanical Ventilator 50 04/27/20 12:00 36.4 04/27/20 11:10 63 24 92 50 04/27/20 11:00 55 31 158/70 (99) 96 Mechanical Ventilator 50.00 04/27/20 10:00 57 22 106/46 (66) 96 Mechanical Ventilator 50.00 04/27/20 09:00 60 24 130/48 (75) 95 Mechanical Ventilator 50.00 04/27/20 08:00 92 Mechanical Ventilator 50 04/27/20 08:00 37.0 63 26 151/53 (85) 90 Mechanical Ventilator 50.00 04/27/20 08:00 63 91 Mechanical Ventilator 70.00 04/27/20 07:53 58 134/53 04/27/20 07:45 53 97 Mechanical Ventilator 70.00 04/27/20 07:30 53 96 Mechanical Ventilator 70.00 04/27/20 07:15 54 96 Mechanical Ventilator 70.00 04/27/20 07:00 53 95 Mechanical Ventilator 70.00 04/27/20 07:00 54 04/27/20 06:10 58 31 91 50 04/27/20 06:01 156/56 04/27/20 06:00 60 27 154/55 (88) 95 Mechanical Ventilator 50.00 04/27/20 05:00 61 25 156/55 (88) 94 Mechanical Ventilator 50.00 I & O 04/28/20 07:00 Intake Total 400 ml Output Total 1300 ml Balance -900 ml Height & Weight Height: '" Weight: lbs. oz. kg; 49.00 BMI Method: General Appearance: Mild Distress, Obese, Other (intubated and sedated) HEENT: Normal ENT Inspection, Pharynx Normal, Other (ETT, OGT) Neck: Full Range of Motion, Non Tender, Supple Respiratory: Crackles, Decreased Breath Sounds, Rhonci (diffuse), Other (on vent) Cardiovascular: No Murmur, Bradycardia (50s) Capillary Refill: Less Than 3 Seconds Gastrointestinal: non tender, soft Extremity: No Calf Tenderness, No Pedal Edema Neurologic/Psychiatric: Other (sedated, appears comfortable) Skin: Normal Color, Warm/Dry Results Lab Laboratory Tests 04/27/20 01:38 04/28/20 01:48 Assessment/Plan Assessment/Plan Acute respiratory failure secondary to COVID19 with ARDS Pa02/Fi02 is 170 -Maintain on vent- Intubated 04/24 Vt is 450, RR 24, PEEP is 14. -ET tube bacame dislodged during proning early this morning and anesthesia reintubated. -Continue Propofol and add Fentanyl gtt eICU assisted with management through the weekend Continue Remdesivir s/p plasma x1 -- repeat X 1 Lovenox MAT protocol Decadron- Increase to 20mg for now. Will plan on decrease within 2-3 days. -Check BNP Oliguria -improved -Currently on LR at 75cc/hr Monitor closely, otherwise Creatinine and Bicarb normal I trophic feeds NIDDMII Anticipate high BS with steroids SSI HTN - resolved DVT ppx: Lovenox SANGEETHA SWEET DO Apr 28, 2020 04:25
[2020-04-28] MEDS ORDERED: fentaNYL (OMNICELL DRIP KIT ONLY) 250 MCG/5 ML AMP ONE (05:23)
[2020-04-28] MEDS ORDERED: NS (IVPB) 100 ML ONE (05:23)
[2020-04-28] MEDS: POTASSIUM CL 10MEQ/50ML IVPB 50 ML IV SCH (05:36)
[2020-04-28] MEDS: MAGNESIUM 1 GM/100 ML IVPB 100 ML IV SCH (05:36)
[2020-04-28] MEDS: KCL 20 MEQ TAB (K-DUR) PO SCH (05:36)
[2020-04-28] MEDS: fentaNYL INJECTION 1,250 MCG in NS (IVPB) 250 ML IV SCH ×2 (07:07→15:25)
[2020-04-28] MEDS: LACTATED RINGERS 1,000 ML IV SCH ×2 (07:13→19:50)
--- NOTE | 2020-04-28 07:29 | Diagnostic Imaging Report ---
INDICATION: Evaluate tube placement. FINDINGS: Endotracheal tube is at the level of the martha and should be withdrawn a couple of centimeters. Diffuse infiltrate in the right lung. Heart size is normal. Some venous congestion. No pneumothorax. IMPRESSION: The endotracheal tube is at the level of the martha and should be withdrawn approximately 2 cm. Diffuse bilateral airspace disease right greater than left with some likely superimposed central pulmonary venous congestion. Called to Melinda at 7:25 a.m. by cvb. Dictated by: Dictated on workstation # [id number]
[2020-04-28] MEDS ORDERED: NS (IVPB) 250 ML ONE (08:17)
[2020-04-28] MEDS: REMDESIVIR INJ 100 MG in NS (IVPB) 230 ML IV SCH (10:23)
[2020-04-28] MEDS: PANTOPRAZOLE 40 MG (PROTONIX) VIAL IV SCH (10:23)
[2020-04-28] MEDS: dexAMETHasone INJECTION 20 MG in NS (IVPB) 50 ML IV SCH (10:24)
[2020-04-28] MEDS: RT-ALBUTEROL INHALER HFA (VENTOLIN HFA) 18 GM IH SCH ×4 (10:29→21:14)
[2020-04-28] MEDS ORDERED: SUCCINYLCHOLINE INJ 100 MG/5 ML SYR/VIAL INJ ONE (13:44)
[2020-04-28] MEDS ORDERED: METF-397 PO (15:22)
[2020-04-28] MEDS ORDERED: NF-GLIP2.5 PO (15:22)
[2020-04-28] MEDS ORDERED: LISI10TA2 PO (15:22)
--- NOTE | 2020-04-28 15:23 | NUR ---
UNABLE TO SPEAK WITH THE PT AT THIS TIME- I DID CALL JUANCHO (DAUGHTER) BUT SHE UNFORTUNATELY COULD NOT ANSWER ANY QUESTIONS REGARDING HER MOTHERS MEDICATIONS. JUANCHO LET ME KNOW THE PT GOES TO [facility] IN [place], I THEN CALLED [facility] AND HAD THEM SEND OVER AN ACTIVE MEDICATION LIST. WHAT I HAVE ENTERED ON THE MED REC COMES FROM THE EXT MED HISTORY AND THE ACTIVE MED LIST. WHEN I AM ABLE TO SPEAK WITH THE PT I WILL UPDATE NOTES/MED REC WAS NEEDED
--- NOTE | 2020-04-28 15:54 | NUR ---
"TF FOLLOW-UP Est kcal needs: 1650 kcal | 15 kcal/kg Est Pro needs: 65 g Pro | 0.6 g Pro/kg Note pt currently intubated and receiving TF of Pulmocare at rate of 15ml/hr, with bolus flushes. At current rate, provides 540 kcal (5 kcal/kg); 23 g Pro (0.2 g Pro/kg); and 283ml free water. Would recommend continuation of current TF of Pulmocare 1.5 kcal toward goal rate of 50ml/hr. Would recommend increase by 10ml q6h as medically able and as tolerated. At goal rate, provides 1800 kcal (16 kcal/kg); 75 g Pro (0.7 g Pro/kg); and 942ml free water. Flush with 75ml water q4h for hydration status. With flushes, provides 1394ml free water. Will continue to follow and reassess as pt needs, intake, and status change. Janak Pierson MS RD LD [phone] (cell)"
--- NOTE | 2020-04-28 19:50 | NUR ---
Oral care and assessment performed at this time, tube feeding held d/t tube feeding dripping out of pt's mouth and all over bed. Held at this time, OG to LIWS, will reevaluate later.
[2020-04-29] VITALS (33 sets, daily range): BP systolic 118–178; BP diastolic 52–70
[2020-04-29] MEDS: CEFEPIME 1,000 MG/SWFI 10 ML IV PUSH IV SCH ×6 (00:02→14:20)
[2020-04-29] MEDS: RT-ALBUTEROL INHALER HFA (VENTOLIN HFA) 18 GM IH SCH ×6 (01:53→21:03)
[2020-04-29 03:52] LABS: ABG BASE EXCESS -0.9 MMOL/L (-2.5-2.5); ABG OXYGEN SATURATION 97 % (94-100); ABG PCO2 34 MMHG (35-45); ABG PH 7.43 (7.37-7.43); ABG PO2 80 MMHG (79-93); ABG TCO2 24.1 MMOL/L (21.0-31.0)
[2020-04-29 04:00] LABS: ALLENS TEST ART LINE; INSPIRED O2 50%; PATIENT TEMP 35.8; VENTILATOR YES
[2020-04-29 04:13] LABS: BASOPHILS % (AUTO) 0 % (0-10); EOSINOPHILS % (AUTO) 0 % (0-10); HEMATOCRIT 30 % (35-52); HEMOGLOBIN 9.5 g/dL (11.5-16.0); LYMPHOCYTES # (AUTO) 0.5 10^3/uL (1.0-4.0); LYMPHOCYTES % (AUTO) 9 % (12-44); MEAN CORPUSCULAR HEMOGLOBIN 27 pg (25-34); MEAN CORPUSCULAR HGB CONC 32 g/dL (32-36); MEAN CORPUSCULAR VOLUME 85 fL (80-99); MEAN PLATELET VOLUME 10.1 fL (9.0-12.2); MONOCYTES # (AUTO) 0.3 10^3/uL (0.0-1.0); MONOCYTES % (AUTO) 5 % (0-12); NEUTROPHILS # (AUTO) 4.3 10^3/uL (1.8-7.8); NEUTROPHILS % (AUTO) 82 % (42-75); PLATELET COUNT 317 10^3/uL (130-400); WHITE BLOOD COUNT 5.2 10^3/uL (4.3-11.0)
[2020-04-29 04:14] LABS: ALBUMIN 2.4 GM/DL (3.2-4.5); CHLORIDE 106 MMOL/L (98-107); POTASSIUM 4.1 MMOL/L (3.6-5.0); SODIUM 138 MMOL/L (135-145)
[2020-04-29 04:16] LABS: CALCIUM 7.7 MG/DL (8.5-10.1)
[2020-04-29 04:17] LABS: GLUCOSE 215 MG/DL (70-105); TOTAL PROTEIN 5.4 GM/DL (6.4-8.2)
[2020-04-29 04:18] LABS: CARBON DIOXIDE 23 MMOL/L (21-32)
[2020-04-29 04:19] LABS: BILIRUBIN,TOTAL 0.6 MG/DL (0.1-1.0)
[2020-04-29 04:20] LABS: ALKALINE PHOSPHATASE 41 U/L (40-136); CREATININE SERUM 0.62 MG/DL (0.60-1.30); GFR ESTIMATED > 60; PHOSPHORUS 2.2 MG/DL (2.3-4.7)
[2020-04-29 04:22] LABS: BUN/CREATININE RATIO 32
[2020-04-29 04:23] LABS: ALANINE AMINOTRANSFERASE 21 U/L (0-55)
[2020-04-29 04:24] LABS: MAGNESIUM 2.6 MG/DL (1.6-2.4)
[2020-04-29] MEDS: PROPOFOL DRIP (ICU) 100 ML IV SCH ×6 (04:57→21:17)
[2020-04-29] MEDS: inSUlin ASPART (NovoLOG) 1 UNIT/0.01 ML (CHARGE PER UNIT) SC SCH ×4 (04:58→23:01)
[2020-04-29] MEDS: NOREPINEPHRINE 4 MG/250 ML 250 ML IV SCH ×3 (05:12→15:43)
[2020-04-29] MEDS: KCL 20 MEQ TAB (K-DUR) PO SCH (05:15)
[2020-04-29] MEDS: POTASSIUM CL 10MEQ/50ML IVPB 50 ML IV SCH (05:15)
[2020-04-29] MEDS: MAGNESIUM 1 GM/100 ML IVPB 100 ML IV SCH (05:15)
--- NOTE | 2020-04-29 06:00 | NUR ---
DR. SWEET NOTIFIED THAT CHEST X-RAY WAS DONE AFTER TURNING PATIENT FROM PRONE TO SUPINE TO CONFIRM ET TUBE PLACEMENT.
[2020-04-29] MEDS: CATHETER FLUSH 10 ML SYR IV SCH ×3 (06:15→23:01)
--- NOTE | 2020-04-29 07:39 | Diagnostic Imaging Report ---
INDICATION: Intubated patient. Respiratory failure. COMPARISON: 04/28/2020 FINDINGS: Single frontal radiographic view of the chest was obtained and demonstrates interval partial retraction of indwelling endotracheal tube. Endotracheal tube now terminates approximately 1.2 cm above the martha. Indwelling gastric tube extends inferiorly beyond the [id number]. Right upper extremity PICC line is seen with tip in the high SVC. Lungs continue to show scattered bilateral patchy and confluent infiltrates, right greater than left. There is more nodular opacity within the right base that measures 2.6 cm. Overall, aeration is unchanged. There is no large effusion or pneumothorax. Cardiac silhouette and pulmonary vasculature are within normal limits. IMPRESSION: 1. Lines and tubes as above. May want to consider withdrawing indwelling endotracheal tube 4 cm and reimaging. 2. Persistent stable bilateral infiltrates Dictated by: Dictated on workstation # [id number]
--- NOTE | 2020-04-29 07:42 | Pulmonary Progress Note ---
Subjective Time Seen by a Provider: 07:38 Subjective/Events-last exam Sedated on vent. Sepsis Event Evaluation Height, Weight, BMI Height: '" Weight: lbs. oz. kg; 49.00 BMI Method: Exam Exam Vital Signs Date Time Temp Pulse Resp B/P (MAP) Pulse Ox O2 Delivery O2 Flow Rate FiO2 04/29/20 07:14 47 23 94 85 04/29/20 06:21 47 23 130/54 (79) 95 Mechanical Ventilator 65.00 04/29/20 06:00 48 24 128/53 (78) 95 Mechanical Ventilator 75.00 04/29/20 05:00 51 24 145/55 (85) 92 Mechanical Ventilator 75.00 04/29/20 04:58 51 143/54 04/29/20 04:57 51 143/56 04/29/20 04:00 51 23 127/57 (80) 95 Mechanical Ventilator 45.00 04/29/20 04:00 93 Mechanical Ventilator 75 04/29/20 03:00 51 23 121/57 (78) 95 Mechanical Ventilator 45.00 04/29/20 02:00 52 24 121/57 (78) 95 Mechanical Ventilator 45.00 04/29/20 01:53 52 24 95 45 04/29/20 01:00 52 23 120/56 (77) 94 Mechanical Ventilator 45.00 04/29/20 01:00 52 04/29/20 00:05 Mechanical Ventilator 45.00 04/29/20 00:00 56 12 118/56 (76) 95 Mechanical Ventilator 50.00 04/29/20 00:00 94 Mechanical Ventilator 45 04/28/20 23:00 67 23 138/58 (84) 94 Mechanical Ventilator 50.00 04/28/20 22:56 35.9 Mechanical Ventilator 50.00 04/28/20 22:52 52 129/60 04/28/20 22:50 52 129/60 04/28/20 22:00 53 24 122/57 (78) 97 Mechanical Ventilator 50.00 04/28/20 21:14 52 24 95 60 04/28/20 21:00 54 24 122/58 (79) 95 Mechanical Ventilator 50.00 04/28/20 20:00 59 128/58 (81) 94 Mechanical Ventilator 50.00 04/28/20 20:00 97 Mechanical Ventilator 50 04/28/20 19:53 35.9 Mechanical Ventilator 50.00 10/12/20 19:00 62 04/28/20 19:00 Mechanical Ventilator 60.00 04/28/20 19:00 62 24 126/60 (82) 98 Mechanical Ventilator 60.00 04/28/20 18:58 65 133/62 04/28/20 18:05 65 24 98 60 04/28/20 18:00 64 27 132/62 (85) 99 Mechanical Ventilator 80.00 04/28/20 17:00 62 24 128/60 (82) 98 Mechanical Ventilator 80.00 04/28/20 16:51 97 Mechanical Ventilator 60 04/28/20 16:45 65 141/65 04/28/20 16:00 65 23 129/60 (83) 93 Mechanical Ventilator 80.00 04/28/20 15:00 68 23 136/61 (86) 94 Mechanical Ventilator 80.00 04/28/20 14:04 64 24 94 60 04/28/20 14:00 61 24 114/53 (73) 96 Mechanical Ventilator 80.00 04/28/20 13:00 66 24 112/52 (72) 94 Mechanical Ventilator 80.00 04/28/20 12:34 79 04/28/20 12:00 76 24 114/50 (71) 92 Mechanical Ventilator 80.00 04/28/20 12:00 97 Mechanical Ventilator 60 04/28/20 11:00 81 24 113/50 (71) 96 Mechanical Ventilator 80.00 04/28/20 10:54 79 121/54 04/28/20 10:42 37.8 79 37.8 37.2 04/28/20 10:29 73 24 92 60 04/28/20 10:00 80 23 124/53 (76) 98 Mechanical Ventilator 80.00 04/28/20 09:00 78 15 124/55 (78) 97 Mechanical Ventilator 80.00 04/28/20 08:40 65 123/54 04/28/20 08:25 97 Mechanical Ventilator 60 04/28/20 08:00 73 26 122/53 (76) 96 Mechanical Ventilator 80.00 I & O 04/29/20 07:00 Intake Total 1814 ml Output Total 895 ml Balance 919 ml Height & Weight Height: '" Weight: lbs. oz. kg; 49.00 BMI Method: General Appearance: Obese, Other (intubated and sedated) HEENT: Other (ETT, OGT) Respiratory: Rhonci (diffuse), Other (on vent) Cardiovascular: No Murmur, Bradycardia (50s) Capillary Refill: Less Than 3 Seconds Gastrointestinal: non tender, soft Extremity: No Calf Tenderness, No Pedal Edema Neurologic/Psychiatric: Other (sedated, appears comfortable) Skin: Normal Color, Warm/Dry Results Lab Laboratory Tests 04/28/20 01:48 04/29/20 03:22 Assessment/Plan Assessment/Plan Acute respiratory failure secondary to COVID19 with ARDS Pa02/Fi02 is 160 -Maintain on vent- Intubated 04/24 Vt is 450, RR 24, PEEP is 14. -ET tube became dislodged during proning early this morning and anesthesia reintubated. -Continue Propofol and add Fentanyl gtt eICU assisted with management through the weekend Continue Remdesivir s/p plasma x2 -Give Lasix 40mgj IV x 1 Lovenox- therapeutic dosing MAT protocol Decadron- Increase to 20mg for now. Will plan on decrease within 2-3 days. trophic feeds NIDDMII Anticipate high BS with steroids SSI Anemia -Monitor HTN - resolved DVT ppx: Lovenox SANGEETHA SWEET DO Apr 29, 2020 07:42
[2020-04-29] MEDS ORDERED: FUROSEMIDE 40 MG/4 ML INJ (LASIX) IVP NR (07:45)
[2020-04-29] MEDS: dexAMETHasone INJECTION 20 MG in NS (IVPB) 50 ML IV SCH (08:55)
[2020-04-29] MEDS: REMDESIVIR INJ 100 MG in NS (IVPB) 230 ML IV SCH (08:55)
[2020-04-29] MEDS: PANTOPRAZOLE 40 MG (PROTONIX) VIAL IV SCH (08:55)
[2020-04-29] MEDS: LACTATED RINGERS 1,000 ML IV SCH ×2 (09:01→21:18)
--- NOTE | 2020-04-29 10:42 | Diagnostic Imaging Report ---
EXAMINATION: Chest 1 view HISTORY: COVID positive. Intubated. COMPARISON: Chest radiograph performed earlier the same date. FINDINGS: Endotracheal tube is seen overlying the trachea now approximately 3 cm above the martha. Enteric tube is visualized descending below the diaphragm with the tip not included on this exam. The right PICC is stable with the tip overlying the mid SVC. Patchy consolidative opacities are again seen throughout the lungs with relative sparing of the lung apices. These appear more consolidative in the right perihilar and basilar region. The cardiac silhouette is stable. No large pleural effusion or pneumothorax. No acute osseous abnormalities. IMPRESSION: 1. Interval retraction of the endotracheal tube with the tip now overlying the trachea approximately 3 cm above the martha. The remaining support devices are stable in configuration. 2. Interval increase in patchy and consolidative opacities throughout the lungs with the greatest involvement in the right perihilar and basilar region. Dictated by: Dictated on workstation # [id number]
[2020-04-29] MEDS: ENOXAPARIN 100 MG/1 ML (LOVENOX) SYR SC SCH ×2 (11:22→23:00)
--- NOTE | 2020-04-29 14:37 | NUR ---
"TF FOLLOW-UP Est kcal needs: 1650 kcal | 15 kcal/kg Est Pro needs: 65 g Pro | 0.6 g Pro/kg Note pt currently intubated and receiving TF of Pulmocare at rate of 15ml/hr, with flushes of 75ml q6h. At current rate, provides 540 kcal (5 kcal/kg); 23 g Pro (0.2 g Pro/kg); and 583ml free water. Would recommend continuation of current TF of Pulmocare 1.5 kcal toward goal rate of 50ml/hr. Would recommend increase by 10ml q6h as medically able and as tolerated. At goal rate, provides 1800 kcal (16 kcal/kg); 75 g Pro (0.7 g Pro/kg); and 942ml free water. Flush with 75ml water q6h for hydration status. With flushes, provides 1242ml free water. Will continue to follow and reassess as pt needs, intake, and status change. Janak Pierson MS RD LD [phone] (cell)"
[2020-04-29] MEDS: fentaNYL INJECTION 1,250 MCG in NS (IVPB) 250 ML IV SCH (15:06)
--- NOTE | 2020-04-29 15:25 | NUR ---
PT PRONE AND BP NOTED TO BE HIGHER, ART LINE READING NOTED AT 178/68 DR SWEET NOTIFIED AWAITING NEW ORDERS.
[2020-04-29] MEDS ORDERED: ENALAPRILAT 1.25 MG/1 ML (VASOTEC) 1 ML VIAL IV PRN (16:00)
[2020-04-29] MEDS: LORazepam INJ 2 MG/ML (ATIVAN) VIAL IV PRN (16:37)
[2020-04-30] VITALS (30 sets, daily range): BP systolic 112–183; BP diastolic 42–67
[2020-04-30] MEDS: PROPOFOL DRIP (ICU) 100 ML IV SCH ×5 (02:16→20:29)
[2020-04-30] MEDS: RT-ALBUTEROL INHALER HFA (VENTOLIN HFA) 18 GM IH SCH ×6 (02:20→22:43)
[2020-04-30] MEDS ORDERED: fentaNYL (OMNICELL DRIP KIT ONLY) 250 MCG/5 ML AMP ONE (02:22)
[2020-04-30] MEDS ORDERED: NS (IVPB) 100 ML ONE (02:22)
[2020-04-30] MEDS: fentaNYL INJECTION 1,250 MCG in NS (IVPB) 250 ML IV SCH ×2 (02:34→08:57)
[2020-04-30 03:19] LABS: BASOPHILS % (AUTO) 0 % (0-10); EOSINOPHILS % (AUTO) 0 % (0-10); HEMATOCRIT 31 % (35-52); HEMOGLOBIN 9.9 g/dL (11.5-16.0); LYMPHOCYTES # (AUTO) 0.5 10^3/uL (1.0-4.0); LYMPHOCYTES % (AUTO) 8 % (12-44); MEAN CORPUSCULAR HEMOGLOBIN 27 pg (25-34); MEAN CORPUSCULAR HGB CONC 33 g/dL (32-36); MEAN CORPUSCULAR VOLUME 85 fL (80-99); MONOCYTES # (AUTO) 0.4 10^3/uL (0.0-1.0); MONOCYTES % (AUTO) 6 % (0-12); NEUTROPHILS # (AUTO) 4.8 10^3/uL (1.8-7.8); NEUTROPHILS % (AUTO) 80 % (42-75); PLATELET COUNT 351 10^3/uL (130-400); WHITE BLOOD COUNT 5.9 10^3/uL (4.3-11.0)
[2020-04-30 03:45] LABS: ALANINE AMINOTRANSFERASE 20 U/L (0-55); ALBUMIN 2.4 GM/DL (3.2-4.5); ALKALINE PHOSPHATASE 44 U/L (40-136); BILIRUBIN,TOTAL 0.5 MG/DL (0.1-1.0); BUN/CREATININE RATIO 33; CALCIUM 7.7 MG/DL (8.5-10.1); CARBON DIOXIDE 24 MMOL/L (21-32); CHLORIDE 105 MMOL/L (98-107); GFR ESTIMATED > 60; GLUCOSE 255 MG/DL (70-105); MAGNESIUM 2.5 MG/DL (1.6-2.4); PHOSPHORUS 2.1 MG/DL (2.3-4.7); POTASSIUM 3.7 MMOL/L (3.6-5.0); SODIUM 138 MMOL/L (135-145); TOTAL PROTEIN 5.5 GM/DL (6.4-8.2)
[2020-04-30] MEDS: POTASSIUM CL 10MEQ/50ML IVPB 50 ML IV SCH (03:48)
[2020-04-30] MEDS: KCL 20 MEQ TAB (K-DUR) PO SCH (03:49)
[2020-04-30] MEDS: MAGNESIUM 1 GM/100 ML IVPB 100 ML IV SCH (03:49)
[2020-04-30 04:03] LABS: ABG BASE EXCESS 0.9 MMOL/L (-2.5-2.5); ABG OXYGEN SATURATION 96 % (94-100); ABG PCO2 34 MMHG (35-45); ABG PH 7.47 (7.37-7.43); ABG PO2 70 MMHG (79-93); ABG TCO2 25.5 MMOL/L (21.0-31.0); ALLENS TEST ART LINE; INSPIRED O2 35%; PATIENT TEMP 35.9; VENTILATOR YES
[2020-04-30] MEDS: LORazepam INJ 2 MG/ML (ATIVAN) VIAL IV PRN (04:05)
[2020-04-30] MEDS: CATHETER FLUSH 10 ML SYR IV SCH ×3 (04:07→23:33)
[2020-04-30] MEDS: inSUlin ASPART (NovoLOG) 1 UNIT/0.01 ML (CHARGE PER UNIT) SC SCH ×4 (04:10→23:41)
--- NOTE | 2020-04-30 05:37 | Pulmonary Progress Note ---
Subjective Time Seen by a Provider: 05:34 Subjective/Events-last exam Pt is sedated on vent. Sepsis Event Evaluation Height, Weight, BMI Height: '" Weight: lbs. oz. kg; 49.00 BMI Method: Exam Exam Vital Signs Date Time Temp Pulse Resp B/P (MAP) Pulse Ox O2 Delivery O2 Flow Rate FiO2 04/30/20 04:00 96 Mechanical Ventilator 35.00 04/30/20 03:00 46 30 172/66 (101) 93 Mechanical Ventilator 35.00 04/30/20 02:27 45 167/65 04/30/20 02:20 46 24 93 60 04/30/20 02:16 46 159/63 04/30/20 02:13 46 24 155/62 (93) 97 Mechanical Ventilator 35.00 04/30/20 02:00 46 24 172/66 (101) 97 Mechanical Ventilator 45.00 04/30/20 01:00 44 04/30/20 01:00 44 23 168/66 (100) 97 Mechanical Ventilator 45.00 04/30/20 00:00 44 167/66 (99) 97 Mechanical Ventilator 45.00 04/30/20 00:00 97 Mechanical Ventilator 45.00 04/29/20 23:00 44 23 156/62 (93) 98 Mechanical Ventilator 45.00 04/29/20 22:57 48 25 156/65 (95) 97 Mechanical Ventilator 45.00 04/29/20 22:00 46 22 164/65 (98) 99 Mechanical Ventilator 55.00 04/29/20 21:17 160/63 04/29/20 21:16 161/64 04/29/20 21:04 48 24 97 60 04/29/20 21:00 46 24 155/62 (93) 98 Mechanical Ventilator 55.00 04/29/20 20:30 47 24 154/61 (92) 98 Mechanical Ventilator 55.00 04/29/20 20:00 45 24 145/59 (87) 98 Mechanical Ventilator 65.00 04/29/20 20:00 99 Mechanical Ventilator 65.00 04/29/20 19:54 35.8 04/29/20 19:00 50 04/29/20 19:00 50 24 152/62 (92) 98 Mechanical Ventilator 65.00 04/29/20 18:55 48 24 97 60 04/29/20 18:00 52 23 142/59 (86) 98 Mechanical Ventilator 65.00 04/29/20 17:00 55 24 159/58 (91) 98 Mechanical Ventilator 65.00 04/29/20 16:32 64 178/76 04/29/20 16:00 52 23 167/63 (97) 98 Mechanical Ventilator 65.00 04/29/20 15:43 97 Mechanical Ventilator 65.00 04/29/20 15:27 36.5 04/29/20 15:06 36.5 04/29/20 15:04 58 24 97 65 04/29/20 15:00 64 28 178/70 (106) 97 Mechanical Ventilator 65.00 04/29/20 14:00 54 28 160/62 (94) 98 Mechanical Ventilator 65.00 04/29/20 13:00 45 23 127/56 (79) 96 Mechanical Ventilator 65.00 04/29/20 12:48 46 04/29/20 12:30 36.5 04/29/20 12:00 94 Mechanical Ventilator 65 04/29/20 12:00 46 24 131/56 (81) 94 Mechanical Ventilator 65.00 04/29/20 11:32 46 24 93 65 04/29/20 11:00 47 161/71 04/29/20 11:00 59 27 160/68 (98) 91 Mechanical Ventilator 65.00 04/29/20 10:00 47 24 129/56 (80) 96 Mechanical Ventilator 65.00 04/29/20 09:00 50 24 131/55 (80) 93 Mechanical Ventilator 65.00 04/29/20 08:35 94 Mechanical Ventilator 65 04/29/20 08:07 35.6 04/29/20 08:00 46 23 129/54 (79) 94 Mechanical Ventilator 65.00 04/29/20 07:14 47 23 94 85 04/29/20 07:00 48 24 129/53 (78) 95 Mechanical Ventilator 65.00 04/29/20 06:50 48 04/29/20 06:21 47 23 130/54 (79) 95 Mechanical Ventilator 65.00 04/29/20 06:00 48 24 128/53 (78) 95 Mechanical Ventilator 75.00 I & O 04/30/20 06:59 Intake Total 1500 ml Output Total 2950 ml Balance -1450 ml Height & Weight Height: '" Weight: lbs. oz. kg; 49.00 BMI Method: General Appearance: Obese, Other (intubated and sedated) HEENT: Other (ETT, OGT) Respiratory: Rhonci (diffuse), Other (on vent) Cardiovascular: No Murmur, Bradycardia (50s) Capillary Refill: Less Than 3 Seconds Gastrointestinal: non tender, soft Extremity: No Calf Tenderness, No Pedal Edema Neurologic/Psychiatric: Other (sedated, appears comfortable) Skin: Normal Color, Warm/Dry Results Lab Laboratory Tests 04/29/20 03:22 04/30/20 03:15 Assessment/Plan Assessment/Plan Acute respiratory failure secondary to COVID19 with ARDS Pa02/Fi02 160. Now improved to 200 -Maintain on vent- Intubated 04/24 Vt is 450, RR 24, PEEP is 14. -Continue Propofol and add Fentanyl gtt eICU assisted with management through the weekend Continue Remdesivir s/p plasma x2 -Give Lasix 40mgj IV x 1 Lovenox- therapeutic dosing MAT protocol Decadron- Increase to 20mg for now. Will plan on decrease within 2-3 days. trophic feeds Hypertension -Hydralazine PRN -Can use BB secondary to bradycardia -Continue Lisinopril and PRN Vasotec- however may have to hold if renal failure worsens -Norvasc NIDDMII Anticipate high BS with steroids SSI Anemia -Monitor HTN - resolved DVT ppx: Lovenox SANGEETHA SWEET DO Apr 30, 2020 05:37
[2020-04-30] MEDS: PANTOPRAZOLE 40 MG (PROTONIX) VIAL IV SCH (08:04)
[2020-04-30] MEDS: dexAMETHasone INJECTION 20 MG in NS (IVPB) 50 ML IV SCH (08:04)
[2020-04-30] MEDS: hydrALAZINE (APESOLINE) 20 MG/ML VIAL IV SCH ×5 (08:05→23:34)
[2020-04-30] MEDS: amLODIPine 5 MG (NORVASC) TAB PO SCH (08:06)
[2020-04-30] MEDS: lisINopril 10 MG (PRINIVIL) TABLET PO SCH (08:16)
[2020-04-30] MEDS: ARTIFICIAL TEARS OINT (LACRI-LUBE) 3.5 GM TUBE OU SCH ×2 (08:27→20:30)
[2020-04-30] MEDS: ENOXAPARIN 100 MG/1 ML (LOVENOX) SYR SC SCH ×2 (11:26→23:33)
--- NOTE | 2020-04-30 14:24 | NUR ---
"TF FOLLOW-UP Est kcal needs: 1650 kcal | 15 kcal/kg Est Pro needs: 65 g Pro | 0.6 g Pro/kg Note pt currently intubated and receiving TF of Pulmocare at rate of 35ml/hr, with flushes of 75ml q6h. At current rate, provides 1260 kcal (12 kcal/kg); 53 g Pro (0.5 g Pro/kg); and 959ml free water (with flushes). Would recommend continuation of current TF rate until pt is medically stable to progress toward goal rate of 50ml/hr. At goal rate, provides 1800 kcal (16 kcal/kg); 75 g Pro (0.7 g Pro/kg); and 942ml free water. Flush with 75ml water q6h for hydration status. With flushes, provides 1242ml free water. Will continue to follow and reassess as pt needs, intake, and status change. Janak Bell MS RD LD [phone] (cell) Addendum: 04/30/20 at [address] Used wrong wt to calculate calories provided per kg. Note corrected information: At current rate of 35ml/hr, provides 1260 kcal (11 kcal/kg); 53 g Pro (0.5 g Pro/kg); and 959ml free water (with flushes)."
[2020-05-01] VITALS (30 sets, daily range): BP systolic 77–156; BP diastolic 35–53
[2020-05-01] MEDS: fentaNYL INJECTION 1,250 MCG in NS (IVPB) 250 ML IV SCH (00:30)
[2020-05-01] MEDS: PROPOFOL DRIP (ICU) 100 ML IV SCH ×5 (02:14→18:36)
[2020-05-01] MEDS: RT-ALBUTEROL INHALER HFA (VENTOLIN HFA) 18 GM IH SCH ×6 (02:28→22:37)
[2020-05-01 02:50] LABS: CHLORIDE 104 MMOL/L (98-107); POTASSIUM 3.9 MMOL/L (3.6-5.0); SODIUM 138 MMOL/L (135-145)
[2020-05-01] MEDS: POTASSIUM CL 10MEQ/50ML IVPB 50 ML IV SCH ×5 (02:50→11:15)
[2020-05-01 02:51] LABS: CALCIUM 7.7 MG/DL (8.5-10.1)
[2020-05-01] MEDS: KCL 20 MEQ TAB (K-DUR) PO SCH (02:51)
[2020-05-01 02:52] LABS: GLUCOSE 200 MG/DL (70-105)
[2020-05-01 02:53] LABS: CARBON DIOXIDE 24 MMOL/L (21-32)
[2020-05-01 02:55] LABS: CREATININE SERUM 0.63 MG/DL (0.60-1.30); GFR ESTIMATED > 60; PHOSPHORUS 2.2 MG/DL (2.3-4.7)
[2020-05-01 02:56] LABS: BUN/CREATININE RATIO 44
[2020-05-01 02:58] LABS: MAGNESIUM 2.5 MG/DL (1.6-2.4)
[2020-05-01] MEDS: MAGNESIUM 1 GM/100 ML IVPB 100 ML IV SCH (03:00)
[2020-05-01 03:08] LABS: BASOPHILS % (AUTO) 0 % (0-10); EOSINOPHILS % (AUTO) 0 % (0-10); HEMATOCRIT 34 % (35-52); HEMOGLOBIN 10.6 g/dL (11.5-16.0); LYMPHOCYTES # (AUTO) 0.6 10^3/uL (1.0-4.0); LYMPHOCYTES % (AUTO) 7 % (12-44); MEAN CORPUSCULAR HEMOGLOBIN 27 pg (25-34); MEAN CORPUSCULAR HGB CONC 32 g/dL (32-36); MEAN CORPUSCULAR VOLUME 84 fL (80-99); MEAN PLATELET VOLUME 10.1 fL (9.0-12.2); MONOCYTES # (AUTO) 0.6 10^3/uL (0.0-1.0); MONOCYTES % (AUTO) 7 % (0-12); NEUTROPHILS # (AUTO) 7.4 10^3/uL (1.8-7.8); NEUTROPHILS % (AUTO) 80 % (42-75); PLATELET COUNT 431 10^3/uL (130-400); WHITE BLOOD COUNT 9.2 10^3/uL (4.3-11.0)
[2020-05-01 03:26] LABS: ABG BASE EXCESS 1.8 MMOL/L (-2.5-2.5); ABG OXYGEN SATURATION 97 % (94-100); ABG PCO2 39 MMHG (35-45); ABG PH 7.44 (7.37-7.43); ABG PO2 91 MMHG (79-93); ABG TCO2 26.9 MMOL/L (21.0-31.0)
[2020-05-01 03:27] LABS: ALLENS TEST ARTLINE; INSPIRED O2 50%; VENTILATOR YES
[2020-05-01 03:28] LABS: PATIENT TEMP 36.8
[2020-05-01 03:53] LABS: LYMPHOCYTES % (MANUAL) 7 %; MONOCYTES % (MANUAL) 9 %; NEUTROPHILS % (MANUAL) 84 %; RBC MORPH NORMAL
--- NOTE | 2020-05-01 04:16 | Pulmonary Progress Note ---
Subjective Time Seen by a Provider: 04:10 Subjective/Events-last exam Pt is sedated on vent. Sepsis Event Evaluation Height, Weight, BMI Height: '" Weight: lbs. oz. kg; 49.00 BMI Method: Exam Exam Vital Signs Date Time Temp Pulse Resp B/P (MAP) Pulse Ox O2 Delivery O2 Flow Rate FiO2 05/01/20 04:00 69 23 103/46 (65) 96 Mechanical Ventilator 50.00 05/01/20 03:00 71 23 115/47 (69) 95 Mechanical Ventilator 50.00 05/01/20 02:28 73 24 94 50 05/01/20 02:15 71 126/53 05/01/20 02:14 71 123/53 05/01/20 02:00 71 26 124/52 (76) 96 Mechanical Ventilator 50.00 05/01/20 01:00 73 23 112/47 (68) 96 Mechanical Ventilator 50.00 05/01/20 01:00 73 05/01/20 00:00 74 24 119/49 (72) 96 Mechanical Ventilator 50.00 04/30/20 23:32 36.3 04/30/20 23:00 76 24 123/47 (72) 96 Mechanical Ventilator 50.00 04/30/20 22:44 71 24 96 50 04/30/20 22:00 72 23 144/55 (84) 96 Mechanical Ventilator 50.00 04/30/20 21:00 70 24 135/51 (79) 95 Mechanical Ventilator 50.00 04/30/20 21:00 96 Mechanical Ventilator 50.00 04/30/20 20:29 71 164/70 04/30/20 20:29 71 163/69 04/30/20 20:00 36.0 04/30/20 20:00 64 27 142/60 (87) 96 Mechanical Ventilator 50.00 04/30/20 19:39 62 24 96 50 04/30/20 19:00 67 04/30/20 19:00 63 24 147/60 (89) 96 Mechanical Ventilator 50.00 04/30/20 18:00 64 23 152/63 (92) 96 Mechanical Ventilator 50.00 04/30/20 17:00 60 33 155/63 (93) 96 Mechanical Ventilator 50.00 04/30/20 16:28 35.8 04/30/20 16:00 61 150/62 (91) 96 Mechanical Ventilator 50.00 04/30/20 15:17 Mechanical Ventilator 50.00 04/30/20 15:00 67 28 157/66 (96) 94 Mechanical Ventilator 35.00 04/30/20 14:34 62 24 96 55 04/30/20 14:29 63 140/58 04/30/20 14:00 53 27 112/42 (65) 94 Mechanical Ventilator 35.00 04/30/20 13:00 61 25 149/50 (83) 92 Mechanical Ventilator 35.00 04/30/20 12:42 61 04/30/20 12:00 65 26 139/49 (79) 95 Mechanical Ventilator 35.00 04/30/20 11:28 35.8 04/30/20 11:00 45 24 168/62 (97) 93 Mechanical Ventilator 35.00 04/30/20 10:55 47 24 93 55 04/30/20 10:00 44 24 147/53 (84) 93 Mechanical Ventilator 35.00 04/30/20 09:00 49 28 138/48 (78) 96 Mechanical Ventilator 35.00 04/30/20 08:22 96 Mechanical Ventilator 55.00 04/30/20 08:22 35.6 04/30/20 08:16 58 159/60 04/30/20 08:00 50 24 94 55 04/30/20 08:00 41 48 139/52 (81) 94 Mechanical Ventilator 35.00 04/30/20 07:00 43 35 145/53 (83) 96 Mechanical Ventilator 35.00 04/30/20 06:55 44 04/30/20 06:00 58 19 159/60 (93) 94 Mechanical Ventilator 35.00 04/30/20 05:00 46 24 183/67 (105) 95 Mechanical Ventilator 35.00 I & O 05/01/20 07:00 Intake Total 747 ml Output Total 750 ml Balance -3 ml Height & Weight Height: '" Weight: lbs. oz. kg; 49.00 BMI Method: General Appearance: Obese, Other (intubated and sedated) HEENT: Other (ETT, OGT) Respiratory: Rhonci (diffuse), Other (on vent) Cardiovascular: No Murmur, Bradycardia (50s) Capillary Refill: Less Than 3 Seconds Gastrointestinal: non tender, soft Extremity: No Calf Tenderness, No Pedal Edema Neurologic/Psychiatric: Other (sedated, appears comfortable) Skin: Normal Color, Warm/Dry Results Lab Laboratory Tests 04/30/20 03:15 05/01/20 02:25 Assessment/Plan Assessment/Plan Acute respiratory failure secondary to COVID19 with ARDS Pa02/Fi02 160. Now i mproved to 200 -Maintain on vent- Intubated 04/24 Vt is 450, RR 24, PEEP is 14. -- Decrease Vt to 420 and repeat ABG in 1hr - Propofol and add Fentanyl gtt Continue Remdesivir s/p plasma x2 -Give Lasix 40mgj IV x 1 Lovenox- therapeutic dosing MAT protocol Decadron- Increase to 20mg for now. Will plan on decrease within 2-3 days. trophic feeds Hypertension -Hydralazine PRN -Can use BB secondary to bradycardia -Continue Lisinopril and PRN Vasotec- however may have to hold if renal failure worsens -Norvasc NIDDMII Anticipate high BS with steroids SSI Anemia -Monitor HTN - resolved DVT ppx: -Theraputic dose Lovenox -Protonix SANGEETHA SWEET DO May 01, 2020 04:16
[2020-05-01] MEDS: hydrALAZINE (APESOLINE) 20 MG/ML VIAL IV SCH ×6 (04:29→23:30)
--- NOTE | 2020-05-01 05:00 | NUR ---
DR. SWEET NOTIFIED OF DECREASED URINE OUTPUT. RECEIVED ORDERS TO RESTART FLUIDS. SEE EMAR FOR DETAILS. WILL CONTINUE TO MONITOR.
[2020-05-01] MEDS: inSUlin ASPART (NovoLOG) 1 UNIT/0.01 ML (CHARGE PER UNIT) SC SCH ×4 (05:32→23:31)
[2020-05-01] MEDS: LACTATED RINGERS 1,000 ML IV SCH ×2 (05:32→20:09)
[2020-05-01] MEDS: CATHETER FLUSH 10 ML SYR IV SCH ×3 (05:32→23:30)
[2020-05-01 05:45] LABS: ABG BASE EXCESS 1.7 MMOL/L (-2.5-2.5); ABG OXYGEN SATURATION 98 % (94-100); ABG PCO2 40 MMHG (35-45); ABG PH 7.42 (7.37-7.43); ABG PO2 104 MMHG (79-93)
[2020-05-01 05:48] LABS: ALLENS TEST ART LINE; INSPIRED O2 50%; PATIENT TEMP 36.8; VENTILATOR YES
[2020-05-01] MEDS: lisINopril 10 MG (PRINIVIL) TABLET PO SCH (09:00)
[2020-05-01] MEDS: dexAMETHasone INJECTION 20 MG in NS (IVPB) 50 ML IV SCH (09:00)
[2020-05-01] MEDS ORDERED: SODIUM PHOSPHATE INJ 30 MM in NS (IVPB) 250 ML IV ONE (09:00)
[2020-05-01] MEDS: amLODIPine 5 MG (NORVASC) TAB PO SCH (09:00)
[2020-05-01] MEDS: ARTIFICIAL TEARS OINT (LACRI-LUBE) 3.5 GM TUBE OU SCH ×2 (09:01→20:10)
[2020-05-01] MEDS: PANTOPRAZOLE 40 MG (PROTONIX) VIAL IV SCH (09:01)
[2020-05-01] MEDS: FUROSEMIDE 40 MG/4 ML INJ (LASIX) IVP NR ×2 (10:15→10:43)
[2020-05-01] MEDS: ENOXAPARIN 100 MG/1 ML (LOVENOX) SYR SC SCH ×2 (10:44→23:29)
--- NOTE | 2020-05-01 15:13 | NUR ---
"TF FOLLOW-UP Est kcal needs: 1650 kcal | 15 kcal/kg Est Pro needs: 65 g Pro | 0.6 g Pro/kg Note pt currently intubated and receiving TF of Pulmocare at rate of 15ml/hr, with flushes of 75ml q6h. During care rounds, plan of care is to conservatively increase TF by 10ml q8h as medically able and as tolerated. Per Dr. Willams, pt can receive TF while proning unless there is pooling of TF in pt's mouth. Note goal rate of 50ml/hr. At goal rate, provides 1800 kcal (16 kcal/kg); 75 g Pro (0.7 g Pro/kg); and 942ml free water. Flush with 75ml water q6h for hydration status. With flushes, provides 1242ml free water. Will continue to follow and reassess as pt needs, intake, and status change. Janak Pierson, MS RD LD [phone] (cell)"
[2020-05-02] VITALS (32 sets, daily range): BP systolic 100–173; BP diastolic 34–76
[2020-05-02] MEDS: RT-ALBUTEROL INHALER HFA (VENTOLIN HFA) 18 GM IH SCH ×5 (02:55→21:48)
[2020-05-02] MEDS: PROPOFOL DRIP (ICU) 100 ML IV SCH ×3 (03:19→20:15)
[2020-05-02 03:20] LABS: ABG BASE EXCESS 2.2 MMOL/L (-2.5-2.5); ABG OXYGEN SATURATION 95 % (94-100); ABG PCO2 46 MMHG (35-45); ABG PH 7.38 (7.37-7.43); ABG PO2 78 MMHG (79-93); ABG TCO2 28.3 MMOL/L (21.0-31.0); BASOPHILS % (AUTO) 0 % (0-10); EOSINOPHILS # (AUTO) 0.1 10^3/uL (0.0-0.3); EOSINOPHILS % (AUTO) 1 % (0-10); HEMATOCRIT 32 % (35-52); HEMOGLOBIN 10.2 g/dL (11.5-16.0); LYMPHOCYTES # (AUTO) 0.7 10^3/uL (1.0-4.0); LYMPHOCYTES % (AUTO) 8 % (12-44); MEAN CORPUSCULAR HEMOGLOBIN 27 pg (25-34); MEAN CORPUSCULAR HGB CONC 32 g/dL (32-36); MEAN CORPUSCULAR VOLUME 85 fL (80-99); MEAN PLATELET VOLUME 9.8 fL (9.0-12.2); MONOCYTES # (AUTO) 0.6 10^3/uL (0.0-1.0); MONOCYTES % (AUTO) 6 % (0-12); NEUTROPHILS # (AUTO) 7.4 10^3/uL (1.8-7.8); NEUTROPHILS % (AUTO) 80 % (42-75); PLATELET COUNT 387 10^3/uL (130-400); WHITE BLOOD COUNT 9.3 10^3/uL (4.3-11.0)
[2020-05-02 03:21] LABS: ALLENS TEST ART LINE; INSPIRED O2 70%; VENTILATOR YES
[2020-05-02] MEDS: hydrALAZINE (APESOLINE) 20 MG/ML VIAL IV SCH ×6 (03:21→23:45)
[2020-05-02 03:28] LABS: CHLORIDE 106 MMOL/L (98-107); POTASSIUM 3.9 MMOL/L (3.6-5.0); SODIUM 140 MMOL/L (135-145)
[2020-05-02 03:29] LABS: CALCIUM 7.7 MG/DL (8.5-10.1); GLUCOSE 144 MG/DL (70-105)
[2020-05-02 03:31] LABS: CARBON DIOXIDE 24 MMOL/L (21-32)
[2020-05-02 03:33] LABS: CREATININE SERUM 0.62 MG/DL (0.60-1.30); GFR ESTIMATED > 60
[2020-05-02 03:34] LABS: BUN/CREATININE RATIO 50
[2020-05-02 03:36] LABS: MAGNESIUM 2.3 MG/DL (1.6-2.4)
[2020-05-02] MEDS: POTASSIUM CL 10MEQ/50ML IVPB 50 ML IV SCH (04:09)
[2020-05-02] MEDS: KCL 20 MEQ TAB (K-DUR) PO SCH (04:10)
[2020-05-02] MEDS: MAGNESIUM 1 GM/100 ML IVPB 100 ML IV SCH (04:10)
[2020-05-02] MEDS: inSUlin ASPART (NovoLOG) 1 UNIT/0.01 ML (CHARGE PER UNIT) SC SCH ×4 (04:10→23:55)
--- NOTE | 2020-05-02 05:47 | Pulmonary Progress Note ---
Subjective Time Seen by a Provider: 05:41 Subjective/Events-last exam Pt is sedated on vent. Sepsis Event Evaluation Height, Weight, BMI Height: '" Weight: lbs. oz. kg; 49.00 BMI Method: Exam Exam Vital Signs Date Time Temp Pulse Resp B/P (MAP) Pulse Ox O2 Delivery O2 Flow Rate FiO2 05/02/20 04:00 66 26 129/39 (69) 94 Mechanical Ventilator 70.00 05/02/20 03:19 70 132/38 05/02/20 03:19 70 132/38 05/02/20 03:00 37.0 05/02/20 03:00 77 20 139/76 (97) 93 Mechanical Ventilator 70.00 05/02/20 02:56 68 26 93 60 05/02/20 02:00 74 24 115/38 (63) 94 Mechanical Ventilator 70.00 05/02/20 01:00 82 05/02/20 01:00 82 22 119/39 (65) 94 Mechanical Ventilator 70.00 05/02/20 00:00 86 20 115/40 (65) 94 Mechanical Ventilator 70.00 05/01/20 23:30 Mechanical Ventilator 70.00 05/01/20 23:00 93 26 127/45 (72) 91 Mechanical Ventilator 60.00 05/01/20 22:37 96 29 90 60 05/01/20 22:00 97 29 127/46 (73) 92 Mechanical Ventilator 60.00 05/01/20 21:00 98 24 129/46 (73) 91 Mechanical Ventilator 60.00 05/01/20 21:00 92 Mechanical Ventilator 60.00 05/01/20 20:00 98 27 126/46 (72) 92 Mechanical Ventilator 60.00 05/01/20 20:00 37.3 05/01/20 19:08 98 32 92 60 05/01/20 19:00 100 05/01/20 19:00 99 30 129/49 (75) 93 Mechanical Ventilator 60.00 05/01/20 18:36 130/48 05/01/20 18:36 133/51 05/01/20 18:00 105 33 127/49 (75) 91 Mechanical Ventilator 60.00 05/01/20 17:00 106 29 129/49 (75) 92 Mechanical Ventilator 60.00 05/01/20 16:00 93 29 114/51 (72) 85 Mechanical Ventilator 60.00 10/15/20 15:59 37.2 05/01/20 15:00 99 30 126/47 (73) 93 Mechanical Ventilator 60.00 05/01/20 14:53 94 29 97 80 05/01/20 14:00 82 31 89/39 (56) 95 Mechanical Ventilator 80.00 05/01/20 13:03 81 05/01/20 13:00 79 26 100/42 (61) 93 Mechanical Ventilator 80.00 05/01/20 12:00 80 27 115/44 (67) 89 Mechanical Ventilator 80.00 05/01/20 11:29 37.3 05/01/20 11:00 80 26 84/35 (51) 90 Mechanical Ventilator 80.00 05/01/20 10:43 66 25 92 61 05/01/20 10:00 72 22 89/42 (58) 90 Mechanical Ventilator 50.00 05/01/20 09:00 81 28 156/53 (87) 85 Mechanical Ventilator 50.00 05/01/20 08:00 90 Mechanical Ventilator 55.00 05/01/20 08:00 37.2 05/01/20 08:00 74 28 122/46 (71) 92 Mechanical Ventilator 50.00 05/01/20 07:40 74 24 93 50 05/01/20 07:16 71 101/50 05/01/20 07:14 72 101/50 05/01/20 07:05 76 05/01/20 07:00 70 33 105/43 (63) 94 Mechanical Ventilator 50.00 05/01/20 06:00 72 24 113/47 (69) 95 Mechanical Ventilator 50.00 I & O 05/02/20 07:00 Intake Total 200 ml Output Total 1530 ml Balance -1330 ml Height & Weight Height: '" Weight: lbs. oz. kg; 49.00 BMI Method: General Appearance: Obese, Other (intubated and sedated) HEENT: Other (ETT, OGT) Respiratory: Rhonci (diffuse), Other (on vent) Cardiovascular: No Murmur, Bradycardia (50s) Capillary Refill: Less Than 3 Seconds Gastrointestinal: non tender, soft Extremity: No Calf Tenderness, No Pedal Edema Neurologic/Psychiatric: Other (sedated, appears comfortable) Skin: Normal Color, Warm/Dry Results Lab Laboratory Tests 05/01/20 02:25 05/02/20 03:00 Assessment/Plan Assessment/Plan Acute respiratory failure secondary to COVID19 with ARDS Pa02/Fi02 160. Now improved to 200 -Maintain on vent- Intubated 04/24 Vt is 450, RR 24, PEEP is 14. -- Decrease Vt to 420 and repeat ABG in 1hr - Propofol and add Fentanyl gtt s/p Remdesivir s/p plasma x2 -Proning Lovenox- therapeutic dosing MAT protocol Decadron- Increase to 20mg for now. Will plan on decrease within 2-3 days. Restart tube feeds at 15cc/hr increase to goal as tolerated. Hypertension -Hydralazine PRN -Can use BB secondary to bradycardia -Continue Lisinopril and PRN Vasotec- however may have to hold if renal failure worsens -Norvasc NIDDMII Anticipate high BS with steroids SSI Anemia -Monitor HTN - resolved DVT ppx: -Theraputic dose Lovenox -Protonix SANGEETHA SWEET DO May 02, 2020 05:47
[2020-05-02] MEDS: fentaNYL INJECTION 1,250 MCG in NS (IVPB) 250 ML IV SCH (06:07)
[2020-05-02] MEDS: CATHETER FLUSH 10 ML SYR IV SCH ×3 (06:07→20:14)
[2020-05-02] MEDS: dexAMETHasone INJECTION 20 MG in NS (IVPB) 50 ML IV SCH (08:47)
[2020-05-02] MEDS: PANTOPRAZOLE 40 MG (PROTONIX) VIAL IV SCH (08:47)
[2020-05-02] MEDS: lisINopril 10 MG (PRINIVIL) TABLET PO SCH (09:00)
[2020-05-02] MEDS: amLODIPine 5 MG (NORVASC) TAB PO SCH (09:00)
[2020-05-02] MEDS: ARTIFICIAL TEARS OINT (LACRI-LUBE) 3.5 GM TUBE OU SCH ×2 (09:00→20:11)
--- NOTE | 2020-05-02 09:00 | NUR ---
Pt sat 80%, FIO2 increased to 100%, Dr. Willams et RT notified.
--- NOTE | 2020-05-02 09:14 | Diagnostic Imaging Report ---
INDICATION: Shortness of breath. Frontal chest obtained at 8:42 a.m. and compared to 04/29/2020. FINDINGS: Study is technically limited. ET tube tip appears to be just below the thoracic inlet in the upper trachea. NG tube tip is not well visualized. There is cardiomegaly. There are extensive bilateral infiltrates which are unchanged. IMPRESSION: Limited study. No change in extensive bilateral infiltrates. ET tube tip appears to be just below the thoracic inlet. Dictated by: Dictated on workstation # [id number]
--- NOTE | 2020-05-02 09:40 | NUR ---
Noticed diffuse maculo-papular rash from mid chest to upper thighs. Dr. Willams outside room et notified. Benadryl IV ordered
[2020-05-02] MEDS ORDERED: diphenhydrAMINE 50 MG/ML INJ (BENADRYL) ONE (09:53)
[2020-05-02] MEDS ORDERED: diphenhydrAMINE 50 MG/ML INJ (BENADRYL) IVP NR (10:00)
--- NOTE | 2020-05-02 10:00 | NUR ---
Dr. Willams notified of decreased urine output
[2020-05-02] MEDS ORDERED: NS IV 500 ML 500 ML ONE (12:55)
[2020-05-02] MEDS: ENOXAPARIN 100 MG/1 ML (LOVENOX) SYR SC SCH ×2 (13:00→23:45)
--- NOTE | 2020-05-02 13:31 | NUR ---
"TF FOLLOW-UP Est kcal needs: 1650 kcal | 15 kcal/kg Est Pro needs: 65 g Pro | 0.6 g Pro/kg Note pt currently intubated and receiving TF of Pulmocare at rate of 15ml/hr, with flushes of 75ml q6h. Note plan of care is to conservatively increase TF by 10ml q8h as tolerated. Note goal rate of 50ml/hr. At goal rate, provides 1800 kcal (16 kcal/kg); 75 g Pro (0.7 g Pro/kg); and 942ml free water. Flush with 75ml water q6h for hydration status. With flushes, provides 1242ml free water. Will continue to follow and reassess as pt needs, intake, and status change. Janak Pierson MS RD LD [phone] (cell)"
--- NOTE | 2020-05-02 15:00 | NUR ---
Pt placed in prone position
[2020-05-02] MEDS: LACTATED RINGERS 1,000 ML IV SCH (16:06)
[2020-05-02 16:07] LABS: ABG BASE EXCESS 1.4 MMOL/L (-2.5-2.5); ABG OXYGEN SATURATION 97 % (94-100); ABG PCO2 47 MMHG (35-45); ABG PH 7.37 (7.37-7.43); ABG PO2 89 MMHG (79-93); ABG TCO2 27.5 MMOL/L (21.0-31.0)
[2020-05-02 16:13] LABS: INSPIRED O2 100%; PATIENT TEMP 37.2; VENTILATOR YES
[2020-05-03] VITALS (30 sets, daily range): BP systolic 97–161; BP diastolic 34–60
[2020-05-03] MEDS: PROPOFOL DRIP (ICU) 100 ML IV SCH ×6 (01:24→22:51)
[2020-05-03 01:59] LABS: ABG BASE EXCESS 1.9 MMOL/L (-2.5-2.5); ABG OXYGEN SATURATION 95 % (94-100); ABG PCO2 42 MMHG (35-45); ABG PH 7.41 (7.37-7.43); ABG PO2 75 MMHG (79-93); ABG TCO2 27.7 MMOL/L (21.0-31.0)
[2020-05-03 02:02] LABS: ALLENS TEST YES-POS; INSPIRED O2 80%; PATIENT TEMP 36.2; VENTILATOR YES
[2020-05-03] MEDS: RT-ALBUTEROL INHALER HFA (VENTOLIN HFA) 18 GM IH SCH ×6 (02:06→21:49)
[2020-05-03 02:08] LABS: BASOPHILS % (AUTO) 0 % (0-10); EOSINOPHILS % (AUTO) 0 % (0-10); HEMATOCRIT 33 % (35-52); HEMOGLOBIN 10.4 g/dL (11.5-16.0); LYMPHOCYTES # (AUTO) 0.5 10^3/uL (1.0-4.0); LYMPHOCYTES % (AUTO) 4 % (12-44); MEAN CORPUSCULAR HEMOGLOBIN 27 pg (25-34); MEAN CORPUSCULAR HGB CONC 32 g/dL (32-36); MEAN CORPUSCULAR VOLUME 85 fL (80-99); MEAN PLATELET VOLUME 9.9 fL (9.0-12.2); MONOCYTES # (AUTO) 0.6 10^3/uL (0.0-1.0); MONOCYTES % (AUTO) 5 % (0-12); NEUTROPHILS # (AUTO) 11.8 10^3/uL (1.8-7.8); NEUTROPHILS % (AUTO) 88 % (42-75); PLATELET COUNT 371 10^3/uL (130-400); WHITE BLOOD COUNT 13.3 10^3/uL (4.3-11.0)
[2020-05-03 02:12] LABS: CHLORIDE 108 MMOL/L (98-107)
[2020-05-03 02:13] LABS: SODIUM 141 MMOL/L (135-145)
[2020-05-03 02:14] LABS: GLUCOSE 166 MG/DL (70-105)
[2020-05-03 02:16] LABS: CARBON DIOXIDE 24 MMOL/L (21-32)
[2020-05-03 02:18] LABS: CREATININE SERUM 0.62 MG/DL (0.60-1.30); GFR ESTIMATED > 60; PHOSPHORUS 2.1 MG/DL (2.3-4.7)
[2020-05-03 02:19] LABS: BUN/CREATININE RATIO 52
[2020-05-03 02:20] LABS: MAGNESIUM 2.5 MG/DL (1.6-2.4)
[2020-05-03] MEDS: KCL 20 MEQ TAB (K-DUR) PO SCH (02:52)
[2020-05-03] MEDS: POTASSIUM CL 10MEQ/50ML IVPB 50 ML IV SCH (02:52)
[2020-05-03] MEDS: MAGNESIUM 1 GM/100 ML IVPB 100 ML IV SCH (02:52)
[2020-05-03] MEDS: hydrALAZINE (APESOLINE) 20 MG/ML VIAL IV SCH ×6 (04:19→23:01)
--- NOTE | 2020-05-03 05:20 | Pulmonary Progress Note ---
Subjective Time Seen by a Provider: 05:15 Sepsis Event Evaluation Height, Weight, BMI Height: '" Weight: lbs. oz. kg; 49.00 BMI Method: Exam Exam Vital Signs Date Time Temp Pulse Resp B/P (MAP) Pulse Ox O2 Delivery O2 Flow Rate FiO2 05/03/20 04:00 74 20 135/43 (73) 100 Mechanical Ventilator 80.00 05/03/20 03:00 82 22 153/47 (82) 94 Mechanical Ventilator 80.00 05/03/20 02:06 89 28 91 80 05/03/20 02:00 87 14 161/47 (85) 93 Mechanical Ventilator 80.00 05/03/20 01:24 75 138/43 05/03/20 01:20 Mechanical Ventilator 80.00 05/03/20 01:00 75 20 131/40 (70) 100 Mechanical Ventilator 90.00 05/03/20 01:00 76 05/03/20 00:00 86 20 137/41 (73) 94 Mechanical Ventilator 90.00 05/02/20 23:45 36.9 Mechanical Ventilator 90.00 05/02/20 23:00 90 15 165/55 (91) 95 Mechanical Ventilator 80.00 05/02/20 22:00 92 14 153/49 (83) 95 Mechanical Ventilator 80.00 05/02/20 21:49 93 34 95 80 05/02/20 21:00 95 Mechanical Ventilator 80 05/02/20 21:00 97 15 173/55 (94) 95 Mechanical Ventilator 80.00 05/02/20 20:17 Mechanical Ventilator 80.00 05/02/20 20:15 82 151/52 05/02/20 20:00 86 25 166/60 (95) 99 Mechanical Ventilator 90.00 05/02/20 20:00 37.1 85 24 165/55 (91) 98 Mechanical Ventilator 90.00 05/02/20 19:00 97 05/02/20 19:00 98 25 160/59 (92) 96 Mechanical Ventilator 90.00 05/02/20 18:36 101 29 98 100 05/02/20 18:00 99 28 170/63 (98) 98 Mechanical Ventilator 100.00 05/02/20 17:00 106 35 137/56 (83) Mechanical Ventilator 100.00 05/02/20 16:06 76 148/59 05/02/20 16:00 36.6 05/02/20 16:00 96 26 124/53 (76) 93 Mechanical Ventilator 100.00 05/02/20 15:00 76 35 148/59 (88) 91 Mechanical Ventilator 100.00 05/02/20 14:37 77 24 97 100 05/02/20 14:00 76 20 100/41 (60) 97 Mechanical Ventilator 100.00 05/02/20 13:00 88 24 110/43 (65) 96 Mechanical Ventilator 100.00 05/02/20 12:58 37.6 89 24 111/44 96 Mechanical Ventilator 100 05/02/20 12:50 37.6 93 24 126/46 94 Mechanical Ventilator 05/02/20 12:42 83 05/02/20 12:00 87 24 117/46 (69) 90 Mechanical Ventilator 70.00 05/02/20 11:00 76 17 105/40 (61) 97 Mechanical Ventilator 70.00 05/02/20 10:00 89 25 113/34 (60) 93 Mechanical Ventilator 70.00 05/02/20 09:51 75 35 97 100 05/02/20 09:00 88 Mechanical Ventilator 100.00 05/02/20 09:00 80 29 158/45 (82) 98 Mechanical Ventilator 70.00 05/02/20 08:00 84 29 148/42 (77) 94 Mechanical Ventilator 70.00 05/02/20 07:58 37.2 05/02/20 07:17 75 35 97 100 05/02/20 07:00 75 05/02/20 07:00 69 28 162/45 (84) 92 Mechanical Ventilator 70.00 05/02/20 06:00 37.1 05/02/20 06:00 64 25 133/39 (70) 93 Mechanical Ventilator 70.00 I & O 05/03/20 07:00 Intake Total 3126 ml Output Total 825 ml Balance 2301 ml Height & Weight Height: '" Weight: lbs. oz. kg; 49.00 BMI Method: General Appearance: Obese, Other (intubated and sedated) HEENT: Other (ETT, OGT) Respiratory: Rhonci (diffuse), Other (on vent) Cardiovascular: No Murmur, Bradycardia (50s) Capillary Refill: Less Than 3 Seconds Gastrointestinal: non tender, soft Extremity: No Calf Tenderness, No Pedal Edema Neurologic/Psychiatric: Other (sedated, appears comfortable) Skin: Normal Color, Warm/Dry Results Lab Laboratory Tests 05/02/20 03:00 05/03/20 01:45 Assessment/Plan Assessment/Plan Acute respiratory failure secondary to COVID19 with ARDS Pa02/Fi02 160. Now improved to 200 -Maintain on vent- Intubated 04/24 Vt is 450, RR 24, PEEP is 14. -- Decrease Vt to 420 and repeat ABG in 1hr - Propofol and add Fentanyl gtt s/p Remdesivir s/p plasma x2 -Proning Lovenox- therapeutic dosing MAT protocol Decadron- Increase to 20mg for now. Will plan on decrease within 2-3 days. Restart tube feeds at 15cc/hr increase to goal as tolerated. Hypertension -Hydralazine PRN -Can use BB secondary to bradycardia -Continue Lisinopril and PRN Vasotec- however may have to hold if renal failure worsens -Norvasc NIDDMII Anticipate high BS with steroids SSI Anemia -Monitor HTN - resolved DVT ppx: -Theraputic dose Lovenox -Protonix SANGEETHA SWEET DO May 03, 2020 05:20
[2020-05-03] MEDS ORDERED: FUROSEMIDE 40 MG/4 ML INJ (LASIX) ONE (05:25)
[2020-05-03] MEDS: inSUlin ASPART (NovoLOG) 1 UNIT/0.01 ML (CHARGE PER UNIT) SC SCH ×4 (05:31→23:01)
[2020-05-03] MEDS: fentaNYL INJECTION 1,250 MCG in NS (IVPB) 250 ML IV SCH ×2 (05:32→10:35)
[2020-05-03] MEDS: CATHETER FLUSH 10 ML SYR IV SCH ×3 (05:32→20:06)
[2020-05-03 06:27] LABS: BILIRUBIN,URINE NEGATIVE (NEGATIVE); CLARITY,URINE CLEAR; COLOR,URINE YELLOW; GLUCOSE, URINE (UA) NEGATIVE (NEGATIVE); KETONES,URINE NEGATIVE (NEGATIVE); LEUKOCYTE ESTERASE ,URINE NEGATIVE (NEGATIVE); NITRITE,URINE NEGATIVE (NEGATIVE); PROTEIN,URINE NEGATIVE (NEGATIVE)
[2020-05-03 06:54] LABS: BACTERIA,URINE NEGATIVE /HPF; RBC,URINE RARE /HPF
[2020-05-03 06:55] LABS: SQUAMOUS EPITHELIAL CELL,UR RARE /HPF
[2020-05-03] MEDS: amLODIPine 5 MG (NORVASC) TAB PO SCH (08:42)
[2020-05-03] MEDS: FUROSEMIDE 40 MG/4 ML INJ (LASIX) IVP SCH ×2 (08:42→20:02)
[2020-05-03] MEDS: lisINopril 10 MG (PRINIVIL) TABLET PO SCH (08:42)
[2020-05-03] MEDS: PANTOPRAZOLE 40 MG (PROTONIX) VIAL IV SCH (08:43)
[2020-05-03] MEDS: ARTIFICIAL TEARS OINT (LACRI-LUBE) 3.5 GM TUBE OU SCH ×2 (08:43→20:02)
[2020-05-03] MEDS: dexAMETHasone INJECTION 20 MG in NS (IVPB) 50 ML IV SCH (08:44)
[2020-05-03] MEDS ORDERED: POTASSIUM PHOSPHATE INJ 30 MM in NS (IVPB) 250 ML IV ONE (09:00)
--- NOTE | 2020-05-03 09:09 | Diagnostic Imaging Report ---
INDICATION: Tube evaluation Portable AP view of the chest is obtained with comparison made to study of one day earlier. Endotracheal tube is in place with tip at the level of the thoracic inlet. Nasogastric tube reaches the upper stomach. Right upper extremity PICC is in place with catheter tip projecting over the upper to mid superior vena cava. There is bilateral airspace disease which is likely mildly improved compared to previous study. No pneumothorax or new infiltrate is seen. IMPRESSION: Bilateral airspace disease which may be due to edema or superimposed pneumonia. Overall findings have shown mild improvement without new abnormality detected. Dictated by: Dictated on workstation # [id number]
[2020-05-03] MEDS: ENOXAPARIN 100 MG/1 ML (LOVENOX) SYR SC SCH ×3 (11:33→22:50)
--- NOTE | 2020-05-03 15:00 | NUR ---
Pt placed in prone position
[2020-05-03] MEDS: LACTATED RINGERS 1,000 ML IV SCH (20:17)
[2020-05-04] VITALS (29 sets, daily range): BP systolic 99–153; BP diastolic 36–63
[2020-05-04] MEDS: RT-ALBUTEROL INHALER HFA (VENTOLIN HFA) 18 GM IH SCH ×5 (01:52→20:37)
--- NOTE | 2020-05-04 02:00 | NUR ---
Tube feeding stopped at this time. Tube feed suctioned from patient mouth. Dr Willams aware. Tube feed will be started when patient is back to supine position.
[2020-05-04] MEDS: hydrALAZINE (APESOLINE) 20 MG/ML VIAL IV SCH ×6 (03:04→23:34)
[2020-05-04] MEDS: PROPOFOL DRIP (ICU) 100 ML IV SCH ×5 (03:05→23:30)
[2020-05-04 03:06] LABS: ABG BASE EXCESS 5.1 MMOL/L (-2.5-2.5); ABG OXYGEN SATURATION 94 % (94-100); ABG PCO2 45 MMHG (35-45); ABG PH 7.43 (7.37-7.43); ABG PO2 68 MMHG (79-93)
[2020-05-04 03:07] LABS: BASOPHILS % (AUTO) 0 % (0-10); EOSINOPHILS % (AUTO) 0 % (0-10); HEMATOCRIT 31 % (35-52); HEMOGLOBIN 9.8 g/dL (11.5-16.0); INSPIRED O2 45; LYMPHOCYTES # (AUTO) 0.5 10^3/uL (1.0-4.0); LYMPHOCYTES % (AUTO) 3 % (12-44); MEAN CORPUSCULAR HEMOGLOBIN 27 pg (25-34); MEAN CORPUSCULAR HGB CONC 31 g/dL (32-36); MEAN CORPUSCULAR VOLUME 86 fL (80-99); MEAN PLATELET VOLUME 10.2 fL (9.0-12.2); MONOCYTES # (AUTO) 0.6 10^3/uL (0.0-1.0); MONOCYTES % (AUTO) 4 % (0-12); NEUTROPHILS # (AUTO) 13.8 10^3/uL (1.8-7.8); NEUTROPHILS % (AUTO) 91 % (42-75); PATIENT TEMP 36.2; PLATELET COUNT 348 10^3/uL (130-400); VENTILATOR YES; WHITE BLOOD COUNT 15.1 10^3/uL (4.3-11.0)
[2020-05-04 03:27] LABS: BUN/CREATININE RATIO 57; CALCIUM 8.2 MG/DL (8.5-10.1); CARBON DIOXIDE 26 MMOL/L (21-32); CHLORIDE 106 MMOL/L (98-107); CREATININE SERUM 0.67 MG/DL (0.60-1.30); GFR ESTIMATED > 60; GLUCOSE 183 MG/DL (70-105); MAGNESIUM 2.5 MG/DL (1.6-2.4); PHOSPHORUS 2.4 MG/DL (2.3-4.7); POTASSIUM 3.9 MMOL/L (3.6-5.0); SODIUM 143 MMOL/L (135-145)
[2020-05-04] MEDS: POTASSIUM CL 10MEQ/50ML IVPB 50 ML IV SCH ×3 (03:31→20:15)
[2020-05-04] MEDS: MAGNESIUM 1 GM/100 ML IVPB 100 ML IV SCH (03:31)
[2020-05-04] MEDS: KCL 20 MEQ TAB (K-DUR) PO SCH (03:31)
--- NOTE | 2020-05-04 04:59 | Pulmonary Progress Note ---
Subjective Time Seen by a Provider: 04:58 Sepsis Event Evaluation Height, Weight, BMI Height: '" Weight: lbs. oz. kg; 49.00 BMI Method: Focused Exam Lactate Level 05/03/20 05:45: Lactic Acid Level 1.28 Exam Exam Vital Signs Date Time Temp Pulse Resp B/P (MAP) Pulse Ox O2 Delivery O2 Flow Rate FiO2 05/04/20 03:05 76 148/45 05/04/20 03:00 80 23 124/40 (68) 93 Mechanical Ventilator 50.00 05/04/20 02:54 Mechanical Ventilator 50.00 05/04/20 02:51 36.2 Mechanical Ventilator 45.00 05/04/20 02:20 Mechanical Ventilator 45.00 05/04/20 02:00 74 21 121/39 (66) 93 Mechanical Ventilator 50.00 05/04/20 01:52 47 27 96 50 05/04/20 01:00 79 18 126/39 (68) 97 Mechanical Ventilator 50.00 05/04/20 01:00 80 05/04/20 00:00 80 16 127/40 (69) 97 Mechanical Ventilator 50.00 05/03/20 23:00 84 24 148/48 (81) 95 Mechanical Ventilator 50.00 05/03/20 22:51 94 145/46 05/03/20 22:49 37.1 Mechanical Ventilator 50.00 05/03/20 22:00 70 23 124/41 (68) 96 Mechanical Ventilator 50.00 05/03/20 21:49 72 26 96 50 05/03/20 21:21 Mechanical Ventilator 50.00 05/03/20 21:00 73 17 122/42 (68) 97 Mechanical Ventilator 60.00 05/03/20 20:15 96 Mechanical Ventilator 60 05/03/20 20:00 36.8 74 24 131/43 (72) 98 Mechanical Ventilator 60.00 05/03/20 19:00 86 16 126/40 (68) 99 Mechanical Ventilator 70.00 05/03/20 19:00 Mechanical Ventilator 70.00 05/03/20 19:00 80 05/03/20 18:34 78 27 97 70 05/03/20 18:09 75 159/60 05/03/20 18:00 75 22 159/60 (93) 99 Mechanical Ventilator 80.00 05/03/20 17:00 68 14 112/39 (63) 100 Mechanical Ventilator 80.00 05/03/20 16:00 68 13 97/34 (55) 100 Mechanical Ventilator 80.00 05/03/20 15:54 Mechanical Ventilator 80.00 05/03/20 15:04 77 24 98 90 05/03/20 15:00 79 21 108/38 (61) 100 Mechanical Ventilator 100.00 05/03/20 14:00 100 19 145/53 (83) 100 Mechanical Ventilator 100.00 05/03/20 13:45 36.8 05/03/20 13:06 80 136/52 05/03/20 13:00 79 29 129/46 (73) 98 Mechanical Ventilator 100.00 05/03/20 12:48 80 05/03/20 12:00 79 21 147/53 (84) 100 Mechanical Ventilator 100.00 05/03/20 11:00 80 19 140/52 (81) Mechanical Ventilator 100.00 05/03/20 10:44 77 26 97 100 05/03/20 10:00 72 16 116/38 (64) 99 Mechanical Ventilator 100.00 05/03/20 09:00 83 31 134/44 (74) 90 Mechanical Ventilator 100.00 05/03/20 08:51 36.6 05/03/20 08:51 96 Mechanical Ventilator 100 05/03/20 08:43 65 112/38 05/03/20 08:00 65 14 112/38 (62) 100 Mechanical Ventilator 100.00 05/03/20 07:00 70 05/03/20 07:00 76 23 124/39 (67) 95 Mechanical Ventilator 100.00 05/03/20 06:23 75 28 99 100 05/03/20 06:00 80 20 151/44 (79) 94 Mechanical Ventilator 100.00 05/03/20 05:58 Mechanical Ventilator 100.00 05/03/20 05:31 82 159/50 05/03/20 05:00 71 15 133/42 (72) 99 Mechanical Ventilator 80.00 I & O 05/04/20 07:00 Intake Total 2677 ml Output Total 2625 ml Balance 52 ml Height & Weight Height: '" Weight: lbs. oz. kg; 49.00 BMI Method: General Appearance: Obese, Other (intubated and sedated) HEENT: Other (ETT, OGT) Respiratory: Rhonci (diffuse), Other (on vent) Cardiovascular: No Murmur, Bradycardia (50s) Capillary Refill: Less Than 3 Seconds Gastrointestinal: non tender, soft Extremity: No Calf Tenderness, No Pedal Edema Neurologic/Psychiatric: Other (sedated, appears comfortable) Skin: Normal Color, Warm/Dry Results Lab Laboratory Tests 05/03/20 01:45 05/04/20 02:50 Assessment/Plan Assessment/Plan Acute respiratory failure secondary to COVID19 with ARDS Pa02/Fi02 160. Now improved to 200 -Maintain on vent- Intubated 04/24 Vt is 450, RR 24, PEEP is 14. -- Decrease Vt to 420 and repeat ABG in 1hr - Propofol and add Fentanyl gtt -Lasix BID with KCL -Start Reglan 10mg daily secondary to TF intol s/p Remdesivir s/p plasma x2 -Proning Lovenox- therapeutic dosing MAT protocol Decadron- Increase to 20mg for now. Will plan on decrease within 2-3 days. Restart tube feeds at 15cc/hr increase to goal as tolerated. Hypertension -Hydralazine PRN -Can use BB secondary to bradycardia -Continue Lisinopril and PRN Vasotec- however may have to hold if renal failure worsens -Norvasc NIDDMII Anticipate high BS with steroids SSI Anemia -Monitor HTN - resolved DVT ppx: -Theraputic dose Lovenox -Protonix SANGEETHA SWEET DO May 04, 2020 04:59
[2020-05-04] MEDS ORDERED: PIPERACILLIN/TAZO 4.5 GM VIAL (ZOSYN) IV ONE (05:09)
[2020-05-04] MEDS ORDERED: NS (IVPB) 100 ML ONE (05:09)
[2020-05-04] MEDS ORDERED: METOCLOPRAMIDE INJ 10 MG/2 ML (REGLAN) ONE (05:10)
[2020-05-04] MEDS ORDERED: PIPERACILLIN/TAZOBACTAM (BULK) 4.5 GM in NS (IVPB) 100 ML IV SCH (05:15)
[2020-05-04] MEDS: CATHETER FLUSH 10 ML SYR IV SCH ×3 (06:02→22:37)
[2020-05-04] MEDS: inSUlin ASPART (NovoLOG) 1 UNIT/0.01 ML (CHARGE PER UNIT) SC SCH ×4 (06:12→23:48)
--- NOTE | 2020-05-04 07:18 | NUR ---
TF restated at this time 15ml/hr.
[2020-05-04] MEDS: FUROSEMIDE 40 MG/4 ML INJ (LASIX) IVP SCH ×2 (08:55→20:15)
[2020-05-04] MEDS: dexAMETHasone INJECTION 20 MG in NS (IVPB) 50 ML IV SCH (08:55)
[2020-05-04] MEDS: PANTOPRAZOLE 40 MG (PROTONIX) VIAL IV SCH (08:55)
[2020-05-04] MEDS: METOCLOPRAMIDE INJ 10 MG/2 ML (REGLAN) IVP SCH (08:55)
[2020-05-04] MEDS: lisINopril 10 MG (PRINIVIL) TABLET PO SCH (08:56)
[2020-05-04] MEDS: amLODIPine 5 MG (NORVASC) TAB PO SCH (08:56)
[2020-05-04] MEDS: ARTIFICIAL TEARS OINT (LACRI-LUBE) 3.5 GM TUBE OU SCH ×2 (08:56→20:15)
[2020-05-04] MEDS: fentaNYL INJECTION 1,250 MCG in NS (IVPB) 250 ML IV SCH (09:10)
--- NOTE | 2020-05-04 09:20 | Diagnostic Imaging Report ---
Indication: Dyspnea. Comparison: 05/03/2020. Discussion: Single portable upright view of the chest was obtained. Endotracheal tube is stable. Enteric tube tip remains in the distal esophagus, stable. Right upper extremity PICC line is stable with tip in the SVC. Stable heart size. Severe pulmonary infiltrates are not significantly changed given differences in technique. Impression: 1. Stable chest. Endotracheal tube remains in the distal esophagus. Severe infiltrates are again noted. Dictated by: Dictated on workstation # [id number]
[2020-05-04] MEDS: ENOXAPARIN 100 MG/1 ML (LOVENOX) SYR SC SCH ×2 (11:39→23:27)
[2020-05-04] MEDS: PIPERACILLIN/TAZOBACTAM (BULK) 4.5 GM in NS (IVPB) 100 ML IV SCH ×2 (11:39→18:33)
--- NOTE | 2020-05-04 15:15 | NUR ---
Pt placed in prone position
[2020-05-05] VITALS (31 sets, daily range): BP systolic 78–153; BP diastolic 38–61
[2020-05-05] MEDS: RT-ALBUTEROL INHALER HFA (VENTOLIN HFA) 18 GM IH SCH ×4 (03:08→21:38)
[2020-05-05] MEDS: hydrALAZINE (APESOLINE) 20 MG/ML VIAL IV SCH ×6 (03:27→23:20)
[2020-05-05] MEDS: PIPERACILLIN/TAZOBACTAM (BULK) 4.5 GM in NS (IVPB) 100 ML IV SCH ×3 (03:27→17:32)
[2020-05-05 03:39] LABS: ABG BASE EXCESS 8.3 MMOL/L (-2.5-2.5); ABG OXYGEN SATURATION 96 % (94-100); ABG PCO2 50 MMHG (35-45); ABG PH 7.44 (7.37-7.43); ABG PO2 86 MMHG (79-93); ABG TCO2 34.1 MMOL/L (21.0-31.0)
[2020-05-05 03:42] LABS: BASOPHILS % (AUTO) 0 % (0-10); EOSINOPHILS % (AUTO) 0 % (0-10); HEMATOCRIT 29 % (35-52); HEMOGLOBIN 9.3 g/dL (11.5-16.0); LYMPHOCYTES # (AUTO) 0.6 10^3/uL (1.0-4.0); LYMPHOCYTES % (AUTO) 4 % (12-44); MEAN CORPUSCULAR HEMOGLOBIN 27 pg (25-34); MEAN CORPUSCULAR HGB CONC 32 g/dL (32-36); MEAN CORPUSCULAR VOLUME 85 fL (80-99); MEAN PLATELET VOLUME 10.5 fL (9.0-12.2); MONOCYTES # (AUTO) 0.8 10^3/uL (0.0-1.0); MONOCYTES % (AUTO) 5 % (0-12); NEUTROPHILS % (AUTO) 89 % (42-75); PLATELET COUNT 358 10^3/uL (130-400); WHITE BLOOD COUNT 14.5 10^3/uL (4.3-11.0)
[2020-05-05 03:43] LABS: ALLENS TEST ART LINE; INSPIRED O2 60%; PATIENT TEMP 37.7; VENTILATOR YES
[2020-05-05 03:55] LABS: CHLORIDE 103 MMOL/L (98-107); POTASSIUM 3.9 MMOL/L (3.6-5.0); SODIUM 143 MMOL/L (135-145)
[2020-05-05 03:56] LABS: CALCIUM 8.1 MG/DL (8.5-10.1); GLUCOSE 169 MG/DL (70-105)
[2020-05-05 03:58] LABS: CARBON DIOXIDE 29 MMOL/L (21-32)
[2020-05-05 04:00] LABS: CREATININE SERUM 0.71 MG/DL (0.60-1.30); GFR ESTIMATED > 60; PHOSPHORUS 2.6 MG/DL (2.3-4.7)
[2020-05-05 04:01] LABS: BUN/CREATININE RATIO 52
[2020-05-05 04:02] LABS: MAGNESIUM 2.1 MG/DL (1.6-2.4)
[2020-05-05] MEDS: LACTATED RINGERS 1,000 ML IV SCH ×2 (04:14→05:36)
[2020-05-05] MEDS: PROPOFOL DRIP (ICU) 100 ML IV SCH ×5 (04:21→21:35)
--- NOTE | 2020-05-05 04:54 | Pulmonary Progress Note ---
Sepsis Event Evaluation Height, Weight, BMI Height: '" Weight: lbs. oz. kg; 49.00 BMI Method: Focused Exam Lactate Level 05/03/20 05:45: Lactic Acid Level 1.28 Exam Exam Vital Signs Date Time Temp Pulse Resp B/P (MAP) Pulse Ox O2 Delivery O2 Flow Rate FiO2 05/05/20 04:33 102 23 121/49 (73) 94 Mechanical Ventilator 50.00 05/05/20 04:21 100 132/55 05/05/20 04:00 100 23 121/48 (72) 98 Mechanical Ventilator 60.00 05/05/20 03:08 86 24 95 60 05/05/20 03:00 101 23 121/48 (72) 97 Mechanical Ventilator 60.00 05/05/20 02:00 99 21 123/49 (73) 96 Mechanical Ventilator 60.00 05/05/20 01:00 95 18 135/53 (80) 96 Mechanical Ventilator 60.00 05/05/20 01:00 95 05/05/20 00:37 89 24 96 60 05/05/20 00:00 87 23 134/50 (78) 96 Mechanical Ventilator 60.00 05/04/20 23:30 87 141/50 05/04/20 23:00 84 23 127/48 (74) 98 Mechanical Ventilator 60.00 05/04/20 22:00 88 23 142/51 (81) 98 Mechanical Ventilator 60.00 05/04/20 21:00 84 24 138/51 (80) 98 Mechanical Ventilator 60.00 05/04/20 20:37 79 24 98 60 05/04/20 20:33 93 Mechanical Ventilator 60 05/04/20 20:00 77 23 130/48 (75) 99 Mechanical Ventilator 60.00 05/04/20 20:00 37.7 Mechanical Ventilator 60.00 05/04/20 19:23 36.6 05/04/20 19:00 84 24 140/52 (81) 99 Mechanical Ventilator 60.00 05/04/20 19:00 84 05/04/20 18:33 82 126/42 05/04/20 18:00 82 23 126/42 (70) 98 Mechanical Ventilator 70.00 05/04/20 17:00 90 24 121/43 (69) 98 Mechanical Ventilator 70.00 05/04/20 16:00 96 23 153/56 (88) 100 Mechanical Ventilator 70.00 05/04/20 15:24 37.0 05/04/20 15:00 84 24 100/44 (62) 96 Mechanical Ventilator 70.00 05/04/20 14:30 91 27 97 60 05/04/20 14:00 98 21 117/45 (69) 100 Mechanical Ventilator 70.00 05/04/20 13:49 93 116/45 05/04/20 13:00 93 22 116/45 (68) 100 Mechanical Ventilator 70.00 05/04/20 12:58 95 05/04/20 12:00 91 23 124/46 (72) 98 Mechanical Ventilator 70.00 05/04/20 12:00 37.1 05/04/20 11:20 82 27 97 70 05/04/20 11:00 64 18 135/63 (87) 90 Mechanical Ventilator 80.00 05/04/20 10:00 86 19 143/52 (82) 97 Mechanical Ventilator 80.00 05/04/20 09:53 91 Mechanical Ventilator 80 05/04/20 09:00 81 21 141/50 (80) 96 Mechanical Ventilator 80.00 05/04/20 08:54 73 167/51 05/04/20 08:00 37.4 05/04/20 08:00 73 28 114/38 (63) 97 Mechanical Ventilator 80.00 05/04/20 07:20 Mechanical Ventilator 80.00 05/04/20 07:19 Mechanical Ventilator 75.00 05/04/20 07:00 75 22 115/36 (62) 93 Mechanical Ventilator 50.00 05/04/20 07:00 75 05/04/20 06:40 78 25 93 50 05/04/20 06:00 84 18 131/42 (71) 93 Mechanical Ventilator 50.00 05/04/20 05:00 84 19 127/41 (69) 93 Mechanical Ventilator 50.00 I & O 05/05/20 07:00 Intake Total 1117 ml Output Total 3195 ml Balance -2078 ml Height & Weight Height: '" Weight: lbs. oz. kg; 49.00 BMI Method: General Appearance: Obese, Other (intubated and sedated) HEENT: Other (ETT, OGT) Respiratory: Rhonci (diffuse), Other (on vent) Cardiovascular: No Murmur, Bradycardia (50s) Capillary Refill: Less Than 3 Seconds Gastrointestinal: non tender, soft Extremity: No Calf Tenderness, No Pedal Edema Neurologic/Psychiatric: Other (sedated, appears comfortable) Skin: Normal Color, Warm/Dry Results Lab Laboratory Tests 05/04/20 02:50 05/05/20 03:25 Assessment/Plan Assessment/Plan Acute respiratory failure secondary to COVID19 with ARDS Pa02/Fi02 160. Now improved to163 -Maintain on vent- Intubated 04/24 Vt is 450, RR 24, PEEP is 14. -- Decrease Vt to 420 and repeat ABG in 1hr -Daily sedation vacations. - Propofol and add Fentanyl gtt -Lasix BID with KCL -Decrease to daily secondary to contraction alkalosis -Reglan 10mg daily secondary to TF intol s/p Remdesivir s/p plasma x2 -Proning Lovenox- therapeutic dosing MAT protocol Decadron- Increase to 20mg for now. Will plan on decrease within 2-3 days. tube feeds at 15cc/hr increase to goal as tolerated. Pneumonia - Sputum is growing S. Aureus -Add Vanco to zosyn until C&S is finalized Hypertension -Hydralazine PRN -Can use BB secondary to bradycardia -Continue Lisinopril and PRN Vasotec- however may have to hold if renal failure worsens -Norvasc NIDDMII Anticipate high BS with steroids SSI Anemia -Monitor HTN - resolved DVT ppx: -Theraputic dose Lovenox -Protonix SANGEETHA SWEET DO May 05, 2020 04:54
[2020-05-05] MEDS ORDERED: PHARMACY TO DOSE IV SCH (05:00)
[2020-05-05] MEDS: POTASSIUM CL 10MEQ/50ML IVPB 50 ML IV SCH ×2 (05:09→08:35)
[2020-05-05] MEDS: KCL 20 MEQ TAB (K-DUR) PO SCH (05:09)
[2020-05-05] MEDS: MAGNESIUM 1 GM/100 ML IVPB 100 ML IV SCH (05:09)
[2020-05-05] MEDS: inSUlin ASPART (NovoLOG) 1 UNIT/0.01 ML (CHARGE PER UNIT) SC SCH ×4 (05:10→23:21)
[2020-05-05] MEDS: CATHETER FLUSH 10 ML SYR IV SCH ×3 (05:37→21:36)
[2020-05-05] MEDS ORDERED: VANCOMYCIN INJECTION 2,000 MG in NS IV 500 ML 500 ML IV SCH (06:30)
[2020-05-05 07:48] LABS: ABG OXYGEN SATURATION 100 % (94-100); ABG PCO2 54 MMHG (35-45); ABG PO2 244 MMHG (79-93); ABG TCO2 34.5 MMOL/L (21.0-31.0)
[2020-05-05 07:58] LABS: ALLENS TEST ARTLINE; PATIENT TEMP 37.1; VENTILATOR YES
--- NOTE | 2020-05-05 08:36 | Diagnostic Imaging Report ---
INDICATION: Respiratory failure. Frontal chest obtained at 0735 a.m. and is compared to 05/04/2018. ET tube tip is just below the thoracic inlet. NG tube tip is not well visualized but appears to be overlying the lower esophagus. Patchy bilateral infiltrates are unchanged compared to the prior study. There is no pneumothorax or pleural fluid. IMPRESSION: ET tube tip is slightly below the thoracic inlet. NG tube tip appears to be overlying the lower esophagus but is not well seen. Bilateral infiltrates are unchanged. Dictated by: Dictated on workstation # [id number]
[2020-05-05] MEDS: amLODIPine 5 MG (NORVASC) TAB PO SCH (08:37)
[2020-05-05] MEDS: PANTOPRAZOLE 40 MG (PROTONIX) VIAL IV SCH (08:37)
[2020-05-05] MEDS: lisINopril 10 MG (PRINIVIL) TABLET PO SCH (08:37)
[2020-05-05] MEDS: dexAMETHasone INJECTION 20 MG in NS (IVPB) 50 ML IV SCH (08:37)
[2020-05-05] MEDS: ARTIFICIAL TEARS OINT (LACRI-LUBE) 3.5 GM TUBE OU SCH ×2 (08:38→20:46)
[2020-05-05] MEDS: METOCLOPRAMIDE INJ 10 MG/2 ML (REGLAN) IVP SCH (08:45)
[2020-05-05] MEDS: fentaNYL INJECTION 1,250 MCG in NS (IVPB) 250 ML IV SCH (08:51)
[2020-05-05] MEDS ORDERED: FUROSEMIDE 40 MG/4 ML INJ (LASIX) IVP SCH (09:00)
[2020-05-05] MEDS: ENOXAPARIN 100 MG/1 ML (LOVENOX) SYR SC SCH ×2 (10:44→23:19)
--- NOTE | 2020-05-05 12:55 | NUR ---
"TF FOLLOW-UP Est kcal needs: 1650 kcal | 15 kcal/kg Est Pro needs: 65 g Pro | 0.6 g Pro/kg Note pt currently intubated and receiving TF of [facility] at rate of 15ml/hr, with flushes of 75ml q6h. Note plan of care is to conservatively increase TF by 10ml q8h as tolerated. Note goal rate of 50ml/hr. Pt would benefit from holding TF while proning, d/t recent pooling of formula in mouth. At goal rate, provides 1800 kcal (16 kcal/kg); 75 g Pro (0.7 g Pro/kg); and 942ml free water. Flush with 75ml water q6h for hydration status. With flushes, provides 1242ml free water. Will continue to follow and reassess as pt needs, intake, and status change. Janak Pierson, MS RD LD [phone] (cell)"
--- NOTE | 2020-05-05 15:36 | NUR ---
PT PLACED IN PRONE POSITION. FOLLOWING POSITION CHANGE PT BECAME HYPOTENSIVE WITH SBP IN THE 80S. DR. SWEET NOTIFIED. ORDERS TO GIVE PT A 500ML IV BOLUS OF LR AND TO GIVE ANOTHER 500ML IV BOLUS OF LR IF STILL HYPOTENSIVE FOLLOWING INITIAL BOLUS. ORDER PLACED BY THIS RN.
[2020-05-05] MEDS ORDERED: LACTATED RINGERS 1,000 ML IV ONE (15:45)
[2020-05-05] MEDS ORDERED: VANCOMYCIN INJECTION 2,000 MG in NS IV 500 ML 500 ML IV NR (20:30)
[2020-05-06] VITALS (34 sets, daily range): BP systolic 85–143; BP diastolic 40–60
[2020-05-06] MEDS: RT-ALBUTEROL INHALER HFA (VENTOLIN HFA) 18 GM IH SCH ×6 (02:03→22:15)
[2020-05-06 02:57] LABS: BASOPHILS % (AUTO) 0 % (0-10); EOSINOPHILS % (AUTO) 0 % (0-10); HEMATOCRIT 23 % (35-52); HEMOGLOBIN 7.3 g/dL (11.5-16.0); LYMPHOCYTES % (AUTO) 6 % (12-44); MEAN CORPUSCULAR HEMOGLOBIN 27 pg (25-34); MEAN CORPUSCULAR HGB CONC 31 g/dL (32-36); MEAN CORPUSCULAR VOLUME 86 fL (80-99); MEAN PLATELET VOLUME 11.1 fL (9.0-12.2); MONOCYTES # (AUTO) 1.1 10^3/uL (0.0-1.0); MONOCYTES % (AUTO) 7 % (0-12); NEUTROPHILS # (AUTO) 13.6 10^3/uL (1.8-7.8); NEUTROPHILS % (AUTO) 86 % (42-75); PLATELET COUNT 396 10^3/uL (130-400); WHITE BLOOD COUNT 15.9 10^3/uL (4.3-11.0)
[2020-05-06 03:10] LABS: CHLORIDE 104 MMOL/L (98-107); POTASSIUM 4.2 MMOL/L (3.6-5.0); SODIUM 142 MMOL/L (135-145)
[2020-05-06 03:11] LABS: ABG OXYGEN SATURATION 95 % (94-100); ABG PCO2 40 MMHG (35-45); ABG PH 7.46 (7.37-7.43); ABG PO2 72 MMHG (79-93); ABG TCO2 29.1 MMOL/L (21.0-31.0); CALCIUM 7.8 MG/DL (8.5-10.1)
[2020-05-06 03:12] LABS: GLUCOSE 280 MG/DL (70-105)
[2020-05-06 03:13] LABS: CARBON DIOXIDE 26 MMOL/L (21-32)
[2020-05-06 03:15] LABS: PHOSPHORUS 3.9 MG/DL (2.3-4.7)
[2020-05-06 03:16] LABS: GFR ESTIMATED > 60
[2020-05-06 03:17] LABS: BUN/CREATININE RATIO 66
[2020-05-06 03:18] LABS: ALLENS TEST ART LINE; INSPIRED O2 50%; MAGNESIUM 2.4 MG/DL (1.6-2.4)
[2020-05-06 03:19] LABS: PATIENT TEMP 36.6; VENTILATOR YES
[2020-05-06] MEDS: PIPERACILLIN/TAZOBACTAM (BULK) 4.5 GM in NS (IVPB) 100 ML IV SCH ×3 (03:24→19:31)
[2020-05-06] MEDS: PROPOFOL DRIP (ICU) 100 ML IV SCH ×5 (03:26→20:15)
[2020-05-06] MEDS: hydrALAZINE (APESOLINE) 20 MG/ML VIAL IV SCH (03:26)
--- NOTE | 2020-05-06 05:58 | Pulmonary Progress Note ---
Subjective Time Seen by a Provider: 05:58 Subjective/Events-last exam sedated on vent Sepsis Event Evaluation Height, Weight, BMI Height: '" Weight: lbs. oz. kg; 49.00 BMI Method: Exam Exam Vital Signs Date Time Temp Pulse Resp B/P (MAP) Pulse Ox O2 Delivery O2 Flow Rate FiO2 05/06/20 05:32 92 23 103/46 (65) 93 Mechanical Ventilator 50.00 05/06/20 04:00 90 23 102/46 (64) 97 Mechanical Ventilator 50.00 05/06/20 03:26 92 98/42 05/06/20 03:00 93 23 96/46 (63) 99 Mechanical Ventilator 50.00 05/06/20 02:07 Mechanical Ventilator 50.00 05/06/20 02:04 89 24 98 50 05/06/20 02:00 92 24 105/49 (67) 99 Mechanical Ventilator 55.00 05/06/20 01:00 82 24 92/42 (59) 96 Mechanical Ventilator 55.00 05/06/20 01:00 82 05/06/20 00:00 93 23 102/46 (64) 98 Mechanical Ventilator 55.00 05/05/20 23:00 85 25 130/53 (78) 95 Mechanical Ventilator 55.00 05/05/20 22:00 94 26 127/48 (74) 94 Mechanical Ventilator 55.00 05/05/20 21:42 Mechanical Ventilator 55.00 05/05/20 21:38 87 24 94 55 05/05/20 21:35 80 151/60 05/05/20 21:00 75 23 115/50 (71) 96 Mechanical Ventilator 60.00 05/05/20 21:00 97 Mechanical Ventilator 60 05/05/20 20:00 78 23 116/52 (73) 97 Mechanical Ventilator 60.00 05/05/20 19:00 75 05/05/20 19:00 75 24 104/51 (68) 96 Mechanical Ventilator 60.00 05/05/20 19:00 36.7 05/05/20 18:20 71 24 98 60 05/05/20 18:00 73 23 109/51 (70) 99 Mechanical Ventilator 60.00 05/05/20 17:25 36.7 05/05/20 17:00 71 23 149/60 (89) 94 Mechanical Ventilator 60.00 05/05/20 16:19 80 153/57 05/05/20 16:00 74 24 143/57 (85) 91 Mechanical Ventilator 60.00 05/05/20 15:24 89 83/47 05/05/20 15:00 84 16 125/56 (79) 96 Mechanical Ventilator 60.00 05/05/20 14:00 89 17 119/52 (74) 95 Mechanical Ventilator 60.00 05/05/20 13:55 95 29 94 60 05/05/20 13:23 87 121/55 05/05/20 13:00 90 15 113/51 (71) 99 Mechanical Ventilator 60.00 05/05/20 12:59 91 05/05/20 12:00 87 8 78/38 (51) 90 Mechanical Ventilator 60.00 05/05/20 11:49 37.7 05/05/20 11:00 94 25 153/61 (91) 96 Mechanical Ventilator 60.00 05/05/20 10:50 86 25 93 55 05/05/20 10:00 81 19 117/46 (69) 94 Mechanical Ventilator 60.00 05/05/20 09:53 Mechanical Ventilator 60.00 05/05/20 09:00 84 42 136/50 (78) 96 Mechanical Ventilator 50.00 05/05/20 09:00 93 Mechanical Ventilator 55 05/05/20 08:52 37.0 05/05/20 08:51 84 147/55 05/05/20 08:44 81 119/47 05/05/20 08:26 83 27 92 55 05/05/20 08:00 81 97/41 (59) 91 Mechanical Ventilator 50.00 05/05/20 07:00 90 20 116/45 (68) 94 Mechanical Ventilator 50.00 05/05/20 06:47 101 05/05/20 06:00 99 20 124/50 (74) 98 Mechanical Ventilator 50.00 I & O 05/06/20 07:00 Intake Total 1392 ml Output Total 600 ml Balance 792 ml Height & Weight Height: '" Weight: lbs. oz. kg; 49.00 BMI Method: General Appearance: Obese, Other (intubated and sedated) HEENT: Other (ETT, OGT) Respiratory: Rhonci (diffuse), Other (on vent) Cardiovascular: No Murmur, Bradycardia (50s) Capillary Refill: Less Than 3 Seconds Gastrointestinal: non tender, soft Extremity: No Calf Tenderness, No Pedal Edema Neurologic/Psychiatric: Other (sedated, appears comfortable) Skin: Normal Color, Warm/Dry Results Lab Laboratory Tests 05/05/20 03:25 05/06/20 02:28 Assessment/Plan Assessment/Plan Acute respiratory failure secondary to COVID19 with ARDS Pa02/Fi02 160. Now improved to163 -Maintain on vent- Intubated 04/24 Vt is 450, RR 24, PEEP is 12. -- Decrease Vt to 420 and repeat ABG in 1hr -Daily sedation vacations. - Propofol and add Fentanyl gtt -Hold Lasix secondary to hypotension -Reglan 10mg daily secondary to TF intol s/p Remdesivir s/p plasma x2 -Proning Lovenox- therapeutic dosing MAT protocol Decadron- Increase to 20mg for now. Will plan on decrease within 2-3 days. tube feeds at 15cc/hr increase to goal as tolerated. Pneumonia - Sputum is growing S. Aureus- MSSA -Zosyn Anemia -Recheck labs at 0800 -May need to hold Lovenox - currently theraputic dosing. Hypertension -Hydralazine PRN -Can use BB secondary to bradycardia -Continue Lisinopril and PRN Vasotec- however may have to hold if renal failure worsens -Norvasc NIDDMII Anticipate high BS with steroids SSI Anemia -Monitor HTN - resolved DVT ppx: -Theraputic dose Lovenox -Protonix SANGEETHA SWEET DO May 06, 2020 05:58
[2020-05-06] MEDS: CATHETER FLUSH 10 ML SYR IV SCH ×3 (06:18→20:15)
[2020-05-06] MEDS: MAGNESIUM 1 GM/100 ML IVPB 100 ML IV SCH (06:19)
[2020-05-06] MEDS: inSUlin ASPART (NovoLOG) 1 UNIT/0.01 ML (CHARGE PER UNIT) SC SCH ×4 (06:19→23:18)
[2020-05-06] MEDS: KCL 20 MEQ TAB (K-DUR) PO SCH (06:19)
[2020-05-06] MEDS: POTASSIUM CL 10MEQ/50ML IVPB 50 ML IV SCH ×2 (06:19→09:00)
[2020-05-06] MEDS: RT-ALBUTEROL INHALER HFA (VENTOLIN HFA) 18 GM IH PRN ×2 (06:29→10:19)
--- NOTE | 2020-05-06 07:43 | NUR ---
VERBAL ORDERS RECEIVED TO GIVE 500 ML IV BOLUS OF LR FOR PT'S HYPOTENSION, ORDERS RECEIVED TO GIVE OTHER 500ML IF PT'S SYSTOLIC BP <90. CURRENTLY PT'S BLOOD PRESSURE NOTED AT 87/47 WITH ART LINE READING. PT NOW IN SUPINE POSITION WITH PILLOWS UNDER RIGHT SIDE.
--- NOTE | 2020-05-06 07:59 | Diagnostic Imaging Report ---
Indication: Respiratory failure 0726 hours Since examination of one day earlier, the endotracheal tube has been slightly withdrawn with tip just above the thoracic inlet. Nasogastric tube reaches the distal esophagus. Extensive bilateral airspace disease has shown mild worsening. There is no evidence for pneumothorax or significant pleural fluid. IMPRESSION: Worsening bilateral airspace disease likely due to pulmonary edema although superimposed pneumonia is not excluded. Both endotracheal tube and nasogastric tube could be further advanced for optimal positioning. Dictated by: Dictated on workstation # [id number]
[2020-05-06] MEDS: dexAMETHasone INJECTION 20 MG in NS (IVPB) 50 ML IV SCH (08:07)
[2020-05-06] MEDS: PANTOPRAZOLE 40 MG (PROTONIX) VIAL IV SCH ×2 (08:07→20:14)
[2020-05-06] MEDS: ARTIFICIAL TEARS OINT (LACRI-LUBE) 3.5 GM TUBE OU SCH ×2 (08:08→20:14)
[2020-05-06] MEDS: DOCUSATE SODIUM 10 MG/ML 10 ML UDC (COLACE) PO SCH ×2 (08:08→20:15)
[2020-05-06] MEDS: METOCLOPRAMIDE INJ 10 MG/2 ML (REGLAN) IVP SCH (08:08)
[2020-05-06] MEDS ORDERED: LACTATED RINGERS 1,000 ML IV ONE ×2 (08:15→18:45)
[2020-05-06 08:24] LABS: BASOPHILS % (AUTO) 0 % (0-10); EOSINOPHILS % (AUTO) 0 % (0-10); HEMATOCRIT 21 % (35-52); LYMPHOCYTES % (AUTO) 6 % (12-44); MEAN CORPUSCULAR HEMOGLOBIN 28 pg (25-34); MEAN CORPUSCULAR HGB CONC 32 g/dL (32-36); MEAN CORPUSCULAR VOLUME 87 fL (80-99); MEAN PLATELET VOLUME 11.2 fL (9.0-12.2); MONOCYTES # (AUTO) 1.1 10^3/uL (0.0-1.0); MONOCYTES % (AUTO) 6 % (0-12); NEUTROPHILS # (AUTO) 14.7 10^3/uL (1.8-7.8); NEUTROPHILS % (AUTO) 86 % (42-75); PLATELET COUNT 425 10^3/uL (130-400); WHITE BLOOD COUNT 17.1 10^3/uL (4.3-11.0)
[2020-05-06] MEDS ORDERED: NOREPINEPHRINE 4 MG/250 ML 250 ML IV ONE (08:25)
[2020-05-06 08:29] LABS: HEMOGLOBIN 6.8 g/dL (11.5-16.0)
--- NOTE | 2020-05-06 08:36 | NUR ---
DR SWEET NOTIFIED OF PT'S CONTINUED HYPOTENSION, NEW TELEPHONE ORDERS RECEIVED TO START LEVOPHED AND TITRATE PARAMETERS GIVEN. DR SWEET NOTIFIED OF PT'S CRITICAL HEMOGLOBIN RESULTS OF 6.8 NEW ORDERS RECEIVED TO GIVE 1 UNITS OF PRBCS, HOLD TUBE FEEDINGS WHEN PT HYPOTENSIVE AND INCREASE PROTONIX TO BID, AND TO HOLD LOVENOX. ORDERS ALSO RECEIVED TO OBTAIN h&H Q6HRS.
[2020-05-06] MEDS: NOREPINEPHRINE 4 MG/250 ML 250 ML IV SCH ×3 (08:41→19:34)
[2020-05-06] MEDS ORDERED: NS IV 500 ML 500 ML IV SCH (08:45)
[2020-05-06 08:57] LABS: ANISOCYTOSIS SLIGHT; BAND NEUTROPHILS 2 %; BASOPHILS % (MANUAL) 0 %; EOSINOPHILS % (MANUAL) 0 %; LYMPHOCYTES % (MANUAL) 5 %; MONOCYTES % (MANUAL) 3 %; NEUTROPHILS % (MANUAL) 90 %
[2020-05-06] MEDS ORDERED: NS IV 500 ML 500 ML ONE (10:09)
--- NOTE | 2020-05-06 10:54 | NUR ---
DR SWEET NOTIFIED OF URINE OUTPUT OF 40ML, NO NEW ORDERS RECEIVED. THIS RN REMAINS IN ROOM, BLOOD STARTED, WILL MONITOR CLOSELY.
[2020-05-06] MEDS: fentaNYL INJECTION 1,250 MCG in NS (IVPB) 250 ML IV SCH (11:33)
[2020-05-06] MEDS ORDERED: ALBUMIN 25% 25 GM/100 ML 100 ML IV ONE (12:15)
--- NOTE | 2020-05-06 14:04 | NUR ---
TF FOLLOW-UP Note pt currently intubated and receiving TF of [facility] at rate of 15ml/hr, with flushes of 75ml q6h. Note plan of care is to conservatively increase TF by 10ml q8h as tolerated. Note goal rate of 50ml/hr. Sara CURRIE stated during rounds that pt had some high residuals while in prone position. Would recommend to decrease to 15ml/hr while pt is proning. Monitor for high residuals and regurgitation. At goal rate, provides 1800 kcal (16 kcal/kg); 75 g Pro (0.7 g Pro/kg); and 942ml free water. Flush with 75ml water q6h for hydration status. With flushes, provides 1242ml free water. Will continue to follow and reassess as pt needs, intake, and status change. MS KAREN Mcclelland [phone] (cell) Addendum: 05/06/20 at [address] Note information about high residuals during proning is for the wrong patient. MS KAREN Mcclelland
[2020-05-06 15:00] LABS: HEMOGLOBIN 7.6 g/dL (11.5-16.0)
--- NOTE | 2020-05-06 18:39 | NUR ---
DR SWEET NOTIFIED OF PT'S URINE OUTPUT TOTAL FOR THE DAY, ORDERS RECEIVED TO GIVE A 500ML LR BOLUS. ORDERS ALSO RECEIVED TO GIVE A UNIT OF PRBC FOR HGB < 7
[2020-05-07] VITALS (37 sets, daily range): BP systolic 107–187; BP diastolic 45–92
[2020-05-07 00:33] LABS: HEMOGLOBIN 6.3 g/dL (11.5-16.0)
[2020-05-07] MEDS ORDERED: NS IV 500 ML 500 ML ONE (00:36)
[2020-05-07] MEDS: PROPOFOL DRIP (ICU) 100 ML IV SCH ×5 (01:00→20:49)
[2020-05-07] MEDS: NOREPINEPHRINE 4 MG/250 ML 250 ML IV SCH ×4 (01:01→20:36)
[2020-05-07] MEDS: PIPERACILLIN/TAZOBACTAM (BULK) 4.5 GM in NS (IVPB) 100 ML IV SCH ×3 (01:56→20:36)
[2020-05-07] MEDS: LACTATED RINGERS 1,000 ML IV SCH ×3 (01:57→23:43)
[2020-05-07] MEDS: RT-ALBUTEROL INHALER HFA (VENTOLIN HFA) 18 GM IH SCH ×6 (02:02→21:48)
[2020-05-07 03:31] LABS: ABG BASE EXCESS 0.5 MMOL/L (-2.5-2.5); ABG OXYGEN SATURATION 99 % (94-100); ABG PCO2 42 MMHG (35-45); ABG PH 7.39 (7.37-7.43); ABG PO2 129 MMHG (79-93); ABG TCO2 26.4 MMOL/L (21.0-31.0)
[2020-05-07 03:32] LABS: BASOPHILS # (AUTO) 0.1 10^3/uL (0.0-0.1); BASOPHILS % (AUTO) 0 % (0-10); EOSINOPHILS % (AUTO) 0 % (0-10); HEMATOCRIT 23 % (35-52); HEMOGLOBIN 7.9 g/dL (11.5-16.0); LYMPHOCYTES # (AUTO) 1.6 10^3/uL (1.0-4.0); LYMPHOCYTES % (AUTO) 6 % (12-44); MEAN CORPUSCULAR HEMOGLOBIN 29 pg (25-34); MEAN CORPUSCULAR HGB CONC 34 g/dL (32-36); MEAN CORPUSCULAR VOLUME 86 fL (80-99); MONOCYTES # (AUTO) 2.2 10^3/uL (0.0-1.0); MONOCYTES % (AUTO) 8 % (0-12); NEUTROPHILS # (AUTO) 22.5 10^3/uL (1.8-7.8); NEUTROPHILS % (AUTO) 81 % (42-75); PLATELET COUNT 397 10^3/uL (130-400); WHITE BLOOD COUNT 27.7 10^3/uL (4.3-11.0)
[2020-05-07 03:33] LABS: ALLENS TEST ART LINE; INSPIRED O2 65%; VENTILATOR YES
[2020-05-07 03:41] LABS: POTASSIUM 4.1 MMOL/L (3.6-5.0)
[2020-05-07 03:42] LABS: CALCIUM 7.4 MG/DL (8.5-10.1)
[2020-05-07 03:46] LABS: PHOSPHORUS 5.2 MG/DL (2.3-4.7)
[2020-05-07 03:47] LABS: CREATININE SERUM 1.62 MG/DL (0.60-1.30)
[2020-05-07 03:49] LABS: MAGNESIUM 2.4 MG/DL (1.6-2.4)
[2020-05-07] MEDS: CATHETER FLUSH 10 ML SYR IV SCH ×3 (04:21→20:39)
[2020-05-07] MEDS: MAGNESIUM 1 GM/100 ML IVPB 100 ML IV SCH (04:21)
[2020-05-07] MEDS: POTASSIUM CL 10MEQ/50ML IVPB 50 ML IV SCH (04:21)
[2020-05-07] MEDS: KCL 20 MEQ TAB (K-DUR) PO SCH (04:22)
[2020-05-07] MEDS ORDERED: FLUCONAZOLE 200 MG/100 ML 100 ML IV ONE (05:00)
--- NOTE | 2020-05-07 05:12 | Pulmonary Progress Note ---
Subjective Time Seen by a Provider: 05:16 Subjective/Events-last exam Pt is sedated on vent. Sepsis Event Evaluation Height, Weight, BMI Height: '" Weight: lbs. oz. kg; 49.00 BMI Method: Exam Exam Vital Signs Date Time Temp Pulse Resp B/P (MAP) Pulse Ox O2 Delivery O2 Flow Rate FiO2 05/07/20 03:10 36.0 79 24 136/62 (86) 95 Mechanical Ventilator 65.00 05/07/20 03:09 35.9 79 24 116/56 95 Mechanical Ventilator 65 05/07/20 03:00 81 24 127/59 (81) 95 Mechanical Ventilator 65.00 05/07/20 02:02 82 23 94 65 05/07/20 02:00 82 24 125/57 (79) 94 Mechanical Ventilator 65.00 05/07/20 01:01 86 134/59 05/07/20 01:00 84 05/07/20 01:00 85 131/54 05/07/20 01:00 84 24 136/60 (85) 94 Mechanical Ventilator 65.00 05/07/20 01:00 36.6 85 24 123/55 94 Mechanical Ventilator 65 05/07/20 00:43 35.9 86 24 116/52 94 Mechanical Ventilator 65 05/07/20 00:00 89 24 118/53 (74) 94 Mechanical Ventilator 65.00 05/06/20 23:15 35.7 Mechanical Ventilator 65.00 05/06/20 23:00 92 17 122/54 (76) 92 Mechanical Ventilator 65.00 05/06/20 22:30 92 26 125/54 (77) 93 Mechanical Ventilator 65.00 05/06/20 22:24 92 22 87 50 05/06/20 22:00 96 126/59 (81) 96 Mechanical Ventilator 55.00 05/06/20 21:00 94 20 121/53 (75) 91 Mechanical Ventilator 55.00 05/06/20 20:45 93 Mechanical Ventilator 55 05/06/20 20:37 Mechanical Ventilator 55.00 05/06/20 20:15 93 132/54 05/06/20 20:00 96 18 143/54 (83) 97 Mechanical Ventilator 60.00 05/06/20 19:44 Mechanical Ventilator 60.00 05/06/20 19:34 161/61 05/06/20 19:15 35.8 05/06/20 19:00 Mechanical Ventilator 50.00 05/06/20 19:00 83 05/06/20 19:00 83 20 137/52 (80) 93 Mechanical Ventilator 60.00 05/06/20 18:22 82 22 96 50 05/06/20 18:00 80 21 91/45 (60) 94 Mechanical Ventilator 45.00 05/06/20 17:00 87 20 126/46 (72) 95 Mechanical Ventilator 45.00 05/06/20 16:26 85 111/45 05/06/20 16:00 81 22 137/53 (81) 92 Mechanical Ventilator 45.00 05/06/20 15:52 35.4 05/06/20 15:21 Mechanical Ventilator 45.00 05/06/20 15:00 96 21 103/43 (63) 98 Mechanical Ventilator 50.00 05/06/20 14:50 92 22 99 50 05/06/20 14:00 98 27 120/56 (77) 88 Mechanical Ventilator 50.00 05/06/20 13:04 89 114/53 05/06/20 13:00 87 18 130/60 (83) 95 Mechanical Ventilator 50.00 05/06/20 12:45 93 05/06/20 12:45 93 107/51 05/06/20 12:43 36.3 93 16 107/51 94 Mechanical Ventilator 50 05/06/20 12:00 97 15 127/53 (77) 92 Mechanical Ventilator 50.00 05/06/20 11:10 35.8 98 14 128/52 94 Mechanical Ventilator 50 05/06/20 11:00 96 19 140/60 (86) 90 Mechanical Ventilator 50.00 05/06/20 10:55 Mechanical Ventilator 50.00 05/06/20 10:49 35.8 103 22 115/49 90 Mechanical Ventilator 50 05/06/20 10:19 101 22 95 50 05/06/20 10:00 103 16 108/50 (69) 94 Mechanical Ventilator 40.00 05/06/20 09:00 109 27 102/45 (64) 91 Mechanical Ventilator 40.00 05/06/20 08:41 107 92/42 05/06/20 08:11 107 92/42 05/06/20 08:00 102 25 85/40 (55) 93 Mechanical Ventilator 40.00 05/06/20 08:00 92 Mechanical Ventilator 60 05/06/20 07:41 36.2 05/06/20 07:00 106 21 93/41 (58) 89 Mechanical Ventilator 40.00 05/06/20 06:53 Mechanical Ventilator 40.00 05/06/20 06:33 102 05/06/20 06:29 101 22 95 50 05/06/20 06:15 103 24 98/42 (60) 95 Mechanical Ventilator 50.00 05/06/20 05:32 92 23 103/46 (65) 93 Mechanical Ventilator 50.00 I & O 05/07/20 07:00 Intake Total 4265 ml Output Total 375 ml Balance 3890 ml Height & Weight Height: '" Weight: lbs. oz. kg; 49.00 BMI Method: General Appearance: Obese, Other (intubated and sedated) HEENT: Other (ETT, OGT) Respiratory: Rhonci (diffuse), Other (on vent) Cardiovascular: No Murmur, Bradycardia (50s) Capillary Refill: Greater Than 3 Seconds Gastrointestinal: non tender, soft Extremity: No Calf Tenderness, No Pedal Edema Neurologic/Psychiatric: Other (sedated, appears comfortable) Skin: Normal Color, Warm/Dry Results Lab Laboratory Tests 05/06/20 02:28 05/06/20 08:16 05/06/20 14:15 05/07/20 00:25 05/07/20 03:20 Assessment/Plan Assessment/Plan Acute respiratory failure secondary to COVID19 with ARDS Pa02/Fi02 160. Now improved to163 -Maintain on vent- Intubated 04/24 Vt is 450, RR 24, PEEP is 12. -- Decrease Vt to 420 and repeat ABG in 1hr -Daily sedation vacations. - Propofol and add Fentanyl gtt -Reglan 10mg daily secondary to TF intol s/p Remdesivir s/p plasma x2 -Proning Lovenox- Hold secondary to bleeding MAT protocol Decadron- Increase to 20mg for now. Will plan on decrease within 2-3 days. tube feeds currently on Hold severe sepsis with shock with PNA --Sputum is growing S. Aureus- MSSA --Zosyn\\ -Secondary to worsening leukocytosis add Zyvox, and Diflucan - Anemia- with GIB -s/p 4 units of PRBC -Lovenox on hold -Consult surgery -Continue Vasopressin -Start Octreotide -Protonix BID -Recheck labs at 0800 -May need to hold Lovenox - currently theraputic dosing. Hypertension -Hydralazine PRN -Can use BB secondary to bradycardia -Continue Lisinopril and PRN Vasotec- however may have to hold if renal failure worsens -Norvasc NIDDMII Anticipate high BS with steroids SSI Anemia -Monitor HTN - resolved DVT ppx: -Theraputic dose Lovenox -Protonix SANGEETHA SWEET DO May 07, 2020 05:12
[2020-05-07] MEDS ORDERED: LACTATED RINGERS 1,000 ML IV SCH (05:15)
[2020-05-07] MEDS: inSUlin ASPART (NovoLOG) 1 UNIT/0.01 ML (CHARGE PER UNIT) SC SCH ×4 (05:30→23:43)
[2020-05-07] MEDS: VASOPRESSIN INJECTION 20 UNIT in NS (IVPB) 100 ML IV SCH ×2 (05:43→13:05)
[2020-05-07] MEDS: fentaNYL INJECTION 1,250 MCG in NS (IVPB) 250 ML IV SCH (06:04)
[2020-05-07 06:05] LABS: HEMOGLOBIN 7.6 g/dL (11.5-16.0)
[2020-05-07 06:25] LABS: FIBRIN DEGRADATION PRODUCTS 0.58 UG/ML (0.00-0.49); INR 1.2 (0.8-1.4); PROTHROMBIN TIME PATIENT 15.7 SEC (12.2-14.7)
--- NOTE | 2020-05-07 07:51 | Diagnostic Imaging Report ---
INDICATION: Respiratory distress Portable chest shows cardiomegaly with normal vascularity. There are bilateral infiltrates. No large area of consolidation is seen. There is no effusion or pneumothorax. The ET tube is in good position. The OG tube has been removed since 05/06/2020. Right arm PICC line remains in place. IMPRESSION: Slightly improving bilateral infiltrates. The ET tube has been removed since 05/06/2020. Dictated by: Dictated on workstation # [id number]
[2020-05-07] MEDS ORDERED: FLUCONAZOLE 200 MG/100 ML 100 ML IV NR (08:22)
--- NOTE | 2020-05-07 08:56 | Physician Query Clarification ---
PQ-Conflicting Diagnosis Admission/Discharge Admission Date: Apr 24, 2020 at 17:40 Discharge Date: Dr. Tafoya, The medical record reflects the following clinical scenario: History/Risk Factors: Acute hypoxic respiratory failure COVID 19 positive Clinical Findings: 04/24 chest xray impression: Patchy bilateral airspace pulmonary infiltrates consistent with pneumonia. 04/24 CT angiogram of the chest impression:2. Diffuse patchy opacities throughout both lungs, compatible with a multifocal pneumonia. Treatment:IV Decadron, Albuterol inhalation therapy, Remdesivir 200mg/Sodium Chloride (Antiviral). Question: Do you agree with the impression of the Viral Pneumonia per Dr. Andersen, ED physician? Please document a response in Progress Note or Discharge Summary. 1. Yes 2. No 3. Other, with explanation of clinical findings 4. Clinically undetermined, no explanation for clinical findings. PHYSICIAN RESPONSE Do you agree w/Consulting Dx?: Yes Please remember a lack of response to the above will prompt a phone page by CDI/Coding staff. In responding to this query, please exercise your independent professional judgment. The purpose of this communication is to more accurately reflect the complexity of your patients condition. The fact that a question is asked does not imply that any particular answer is desired or expected. Thank you for your timely response to this clarification. Requestors name: Isabella Ntahan [facility] Phone # ext [phone] or [phone] THIS PHYSICIAN QUERY FORM IS A PERMANENT PART OF THE MEDICAL RECORD ISABELLA NATHAN May 07, 2020 08:56 MEHDI TAFOYA MD May 07, 2020 12:05
[2020-05-07] MEDS: dexAMETHasone INJECTION 20 MG in NS (IVPB) 50 ML IV SCH (09:09)
[2020-05-07] MEDS: DOCUSATE SODIUM 10 MG/ML 10 ML UDC (COLACE) PO SCH ×2 (09:10→20:37)
[2020-05-07] MEDS: LINEZOLID IVPB 300 ML IV SCH ×2 (09:10→20:37)
[2020-05-07] MEDS: ARTIFICIAL TEARS OINT (LACRI-LUBE) 3.5 GM TUBE OU SCH ×2 (09:10→20:37)
[2020-05-07] MEDS: PANTOPRAZOLE 40 MG (PROTONIX) VIAL IV SCH ×2 (09:11→20:37)
[2020-05-07 13:20] LABS: HEMOGLOBIN 6.3 g/dL (11.5-16.0)
[2020-05-07] MEDS ORDERED: NS (IVPB) 250 ML ONE (13:41)
[2020-05-07] MEDS ORDERED: NS IV 500 ML 500 ML IV SCH (14:00)
--- NOTE | 2020-05-07 14:10 | NUR ---
During care rounds, it was noted that TF were currently on hold as pt has GI bleed. Would recommend continuation of hold until bleed is resolved. Will continue to follow and reassess as pt needs, intake, and status change. Janak Pierson, MS RD LD
[2020-05-07 20:42] LABS: HEMOGLOBIN 7.8 g/dL (11.5-16.0)
[2020-05-08] VITALS (34 sets, daily range): BP systolic 88–149; BP diastolic 48–102
[2020-05-08] MEDS: PROPOFOL DRIP (ICU) 100 ML IV SCH ×2 (00:50→04:54)
[2020-05-08] MEDS: VASOPRESSIN INJECTION 20 UNIT in NS (IVPB) 100 ML IV SCH ×3 (00:51→16:32)
[2020-05-08] MEDS: NOREPINEPHRINE 4 MG/250 ML 250 ML IV SCH ×4 (02:21→20:37)
[2020-05-08] MEDS: PIPERACILLIN/TAZOBACTAM (BULK) 4.5 GM in NS (IVPB) 100 ML IV SCH ×3 (02:24→20:35)
[2020-05-08] MEDS: fentaNYL INJECTION 1,250 MCG in NS (IVPB) 250 ML IV SCH ×2 (02:29→23:11)
[2020-05-08 02:51] LABS: BASOPHILS % (AUTO) 0 % (0-10); EOSINOPHILS % (AUTO) 0 % (0-10); LYMPHOCYTES # (AUTO) 0.7 10^3/uL (1.0-4.0); LYMPHOCYTES % (AUTO) 5 % (12-44); MEAN CORPUSCULAR HEMOGLOBIN 30 pg (25-34); MEAN CORPUSCULAR HGB CONC 34 g/dL (32-36); MEAN CORPUSCULAR VOLUME 87 fL (80-99); MONOCYTES # (AUTO) 0.9 10^3/uL (0.0-1.0); MONOCYTES % (AUTO) 7 % (0-12); NEUTROPHILS # (AUTO) 11.1 10^3/uL (1.8-7.8); NEUTROPHILS % (AUTO) 82 % (42-75); PLATELET COUNT 228 10^3/uL (130-400); WHITE BLOOD COUNT 13.5 10^3/uL (4.3-11.0)
[2020-05-08 03:07] LABS: CALCIUM 7.1 MG/DL (8.5-10.1); CREATININE SERUM 1.38 MG/DL (0.60-1.30); MAGNESIUM 2.5 MG/DL (1.6-2.4); PHOSPHORUS 4.4 MG/DL (2.3-4.7); POTASSIUM 4.2 MMOL/L (3.6-5.0)
[2020-05-08] MEDS: RT-ALBUTEROL INHALER HFA (VENTOLIN HFA) 18 GM IH SCH ×6 (03:07→22:20)
[2020-05-08 03:16] LABS: ABG BASE EXCESS 1.1 MMOL/L (-2.5-2.5); ABG OXYGEN SATURATION 97 % (94-100); ABG PCO2 47 MMHG (35-45); ABG PH 7.36 (7.37-7.43); ABG PO2 90 MMHG (79-93); ABG TCO2 27.3 MMOL/L (21.0-31.0)
[2020-05-08 04:31] LABS: HEMOGLOBIN 6.9 g/dL (11.5-16.0)
[2020-05-08 04:32] LABS: HEMATOCRIT 20 % (35-52)
[2020-05-08] MEDS: KCL 20 MEQ TAB (K-DUR) PO SCH (04:34)
[2020-05-08] MEDS: POTASSIUM CL 10MEQ/50ML IVPB 50 ML IV SCH (04:34)
[2020-05-08] MEDS: MAGNESIUM 1 GM/100 ML IVPB 100 ML IV SCH (04:34)
[2020-05-08] MEDS ORDERED: NS IV 500 ML 500 ML ONE (04:37)
[2020-05-08 04:48] LABS: ALLENS TEST POS; INSPIRED O2 65%; PATIENT TEMP 36.9; VENTILATOR YES
[2020-05-08] MEDS: LACTATED RINGERS 1,000 ML IV SCH (04:53)
[2020-05-08] MEDS: inSUlin ASPART (NovoLOG) 1 UNIT/0.01 ML (CHARGE PER UNIT) SC SCH ×4 (04:57→23:17)
[2020-05-08] MEDS: CATHETER FLUSH 10 ML SYR IV SCH ×3 (04:57→23:10)
[2020-05-08] MEDS ORDERED: NS IV 500 ML 500 ML IV SCH (06:00)
[2020-05-08] MEDS ORDERED: OCTREOTIDE INJECTION 500 MCG in NS (IVPB) 99 ML IV SCH (06:00)
[2020-05-08 06:16] LABS: ANISOCYTOSIS SLIGHT; BAND NEUTROPHILS 2 %; LYMPHOCYTES % (MANUAL) 2 %; MONOCYTES % (MANUAL) 6 %; NEUTROPHILS % (MANUAL) 90 %; POLYCHROMASIA SLIGHT
[2020-05-08 06:30] LABS: INR 1.1 (0.8-1.4); PROTHROMBIN TIME PATIENT 14.6 SEC (12.2-14.7)
[2020-05-08] MEDS ORDERED: OCTREOTIDE INJECTION 500 MCG in NS (IVPB) 97.5 ML IV SCH (07:00)
[2020-05-08] MEDS: dexAMETHasone INJECTION 20 MG in NS (IVPB) 50 ML IV SCH (08:24)
[2020-05-08] MEDS: PANTOPRAZOLE 40 MG (PROTONIX) VIAL IV SCH ×2 (08:25→20:36)
[2020-05-08] MEDS: OCTREOTIDE IV SCH ×4 (08:25→16:16)
[2020-05-08] MEDS: LINEZOLID IVPB 300 ML IV SCH ×2 (08:25→20:36)
[2020-05-08] MEDS: ARTIFICIAL TEARS OINT (LACRI-LUBE) 3.5 GM TUBE OU SCH ×2 (08:26→20:36)
[2020-05-08] MEDS: DOCUSATE SODIUM 10 MG/ML 10 ML UDC (COLACE) PO SCH ×3 (08:26→20:46)
--- NOTE | 2020-05-08 08:52 | Diagnostic Imaging Report ---
INDICATION: Respiratory distress. Compared 05/07/2020 FINDINGS: Five lobe pulmonary infiltrates showed no evidence for an improvement. Progressive lung density bilaterally, greater left than right, is likely in large part attributed to differing technique and diminished penetration, however, some component of genuine progression of disease could not be confidently excluded. ET tube and right central line in stable position. IMPRESSION: No evidence for an improvement in bilateral infiltrates and element of progression of consolidation could not be excluded but is probably artifact. Dictated by: Dictated on workstation # [id number]
[2020-05-08] MEDS ORDERED: FLUCONAZOLE 200 MG/100 ML 50 ML, EMPTY IV BAG (PVC) 1 EA IV SCH ×2 (09:00)
[2020-05-08] MEDS: METOCLOPRAMIDE INJ 10 MG/2 ML (REGLAN) IVP SCH (09:10)
[2020-05-08] MEDS ORDERED: FUROSEMIDE 40 MG/4 ML INJ (LASIX) IVP NR (10:00)
--- NOTE | 2020-05-08 10:13 | Conscious Sedation/ASA ---
Conscious Sedation Pre-Proced Time 10:00 ASA Score 4 For ASA 3 and 4: Consider anesthesia and medical clearance. Also, for patients with a history of failed moderate sedation consider anesthesia. Airway Lungs Heart ASA score ASA 1: a normal healthy patient ASA 2: a patient with a mild systemic disease (mid diabetes, controlled hypertension, obesity ASA 3: a patient with a severe systemic disease that limits activity (angina, COPD, prior Myocardial infarction) ASA 4: a patient with an incapacitating disease that is a constant threat to life (CHF, renal failure) ASA 5: a moribund patient not expected to survive 24 hrs. (ruptured aneurysm) ASA 6: a declared brain- patient whose organs are being harvested. For emergent operations, add the letter E after the classification Mallampati Classification Grade 3 Sedation Plan Analgesia, Amnesia, Plan communicated to team members, Discussed options with patient/fam, Discussed risks with patient/fam The patient is an appropriate candidate to undergo the planned procedure, sedation, and anesthesia. The patient immediately re-assessed prior to indication. JHONATAN CASTRO MD May 08, 2020 10:13
--- NOTE | 2020-05-08 10:13 | Progress Note-Pre Operative ---
Pre-Operative Progress Note H&P Reviewed The H&P was reviewed, patient examined and no changes noted. Date Seen by Provider: May 08, 2020 Time Seen by Provider: 10:00 Date H&P Reviewed: Apr 28, 2020 Time H&P Reviewed: 10:00 Pre-Operative Diagnosis: sx anemia and GI bleed JHONATAN CASTRO MD May 08, 2020 10:13
[2020-05-08] MEDS: MIDAZOLAM INJECTION FOR DRIPS 50 MG in NS (IVPB) 90 ML IV SCH ×2 (10:27→20:56)
--- NOTE | 2020-05-08 10:29 | CONSULTATION REPORT ---
DATE OF SERVICE: 05/08/2020 ADMITTING PHYSICIAN: Dr. July Tafoya. ATTENDING PRIMARY CARE PHYSICIAN: Dr. Marina Constantino. HISTORY OF PRESENT ILLNESS: The patient is a 69-year-old female with past medical history including diabetes, hypertension, who presented to the Emergency Department with a very low saturations on 04/24/2020 and required intubation and admission to the ICU. Upon further questioning, the family reports that she had developed a nonproductive cough as well as shortness of breath and weakness. She is COVID-19 positive. The patient has continued to require mechanical ventilation and also has developed bacterial and fungal pneumonia on top of her coronavirus lung injury. She has also developed a significant anemia requiring 4 units of transfusion of packed red blood cells. She was on Lovenox; however, is currently being held. PAST MEDICAL HISTORY: Hypertension, diabetes, degenerative joint disease. PAST SURGICAL HISTORY: Unknown. ALLERGIES: No known drug allergies. MEDICATIONS: Glipizide 2.5 mg daily, lisinopril 10 mg daily, metformin 1000 mg b.i.d. SOCIAL HISTORY: Negative smoke, negative alcohol. FAMILY HISTORY: Noncontributory. VITAL SIGNS: Temperature 35.9, blood pressure 146/72, pulse 57, respirations 21, pulse oximeter 95% on 70% FiO2 ventilator. REVIEW OF SYSTEMS: A well-nourished female, who is obese, on a ventilator and sedated. She has been this way for the past two weeks. She does have coronavirus-19 injured lungs as well as a superinfection with bacteria and fungus. She has also developed anemia requiring 4 units of blood transfusion. She was started on Protonix b.i.d. as well as octreotide. PHYSICAL EXAMINATION: CHEST: Scattered rales and rhonchi bilaterally. HEART: Regular, no murmurs. EXTREMITIES: +1/3 bilateral lower extremity edema, negative Homans sign. HEENT: No scleral icterus. NECK: No cervical lymphadenopathy. ABDOMEN: Soft, nontender, nondistended. SKIN: Warm, dry. LABORATORY DATA: WBC 13.5, hemoglobin 6.9, hematocrit 20, platelets 228, BUN 60, creatinine 1.38. ASSESSMENT AND PLAN: A 69-year-old female with gastrointestinal bleed with symptomatic anemia. This is most likely upper gastrointestinal due to stress gastritis and her Lovenox is currently held and she is on proper therapy with Protonix 40 mg b.i.d. as well as octreotide. We will also proceed with an EGD as well as intervention as necessary. Job ID: [id number] DocumentID: [id number] Dictated Date: 05/08/2020 10:12:28 Developer Support Engineer Date: 05/08/2020 10:28:29 Dictated By: JHONATAN CASTRO MD
--- NOTE | 2020-05-08 13:11 | OPERATIVE REPORT ---
DATE OF SERVICE: 05/08/2020 ATTENDING PRIMARY CARE PHYSICIAN: Dr. Marina Constantino. PREOPERATIVE DIAGNOSES: Respiratory failure secondary to coronavirus-19 lung injury as well as a superinfection with bacteria and fungus with symptomatic anemia. POSTOPERATIVE DIAGNOSES: Reflux esophagitis stage II, Yung's ulcer with overlying clot, no active bleed, small to moderate size hiatal hernia approximately 2 to 3 cm in size, moderate gastritis. No distal obstructions. PROCEDURE: EGD. SURGEON: Jhonatan Castro MD. ANESTHESIA: General. ESTIMATED BLOOD LOSS: Minimal. FINDINGS: Reflux esophagitis stage II, Yung's ulcer with overlying clot, no active bleed, small to moderate size hiatal hernia approximately 2 to 3 cm in size, moderate gastritis. No distal obstructions. DISPOSITION: The patient tolerated the procedure well. INDICATIONS: The patient is a 69-year-old female, who developed shortness of breath as well as productive cough. She does have medical comorbidities including morbid obesity, diabetes and hypertension. She was found to be coronavirus-19 positive and did have respiratory complications associated with this requiring intubation. She was admitted approximately 2 weeks ago. She has been ventilator dependent and sedated for the duration of her hospital course. She was found to be anemic more recently requiring 4 units of packed red blood cells transfusion. She did have an orogastric tube; however, this was removed. She has not had a bowel movement in over 4 days. Her Lovenox was discontinued and she was placed on Protonix 40 mg b.i.d. as well as octreotide. Under general anesthesia, the endoscope was placed in the mouth, visualizing the pharynx and hypopharyngeal region. Vocal cords, epiglottis and vallecula identified and appeared to be normal. The endoscope was then intubated into the esophageal opening and esophagus insufflated. The endoscope was then advanced to the first, second and third portion of the esophagus at the level of GE junction, reflux esophagitis stage II identified. Just below this was an ulceration with an overlying blood clot with no active bleed as well as intrathoracic portion of the stomach consistent with a hiatal hernia. This ulcer is consistent with a Yung's ulcer. The endoscope was then advanced in the stomach and endoscope retroflexed, visualizing the hiatal hernia, which is approximately 2 to 3 cm in size with the ulceration identified as well. Again, no active bleeding was identified. There was a moderate severity gastritis. The endoscope was then advanced through the pylorus and the first and second portion of the duodenum, which appeared normal with no duodenal ulcers or bleeding as well as no distal obstructions. The endoscope was then slowly withdrawn while taking a second look and suctioning of residual air with no additional findings. The patient tolerated the procedure well. Due to her Yung's ulcer, we will recommend holding anticoagulation for now and continuation of Protonix on a b.i.d. basis. Due to her current poor condition, we will recommend continued conservative management with blood transfusions as necessary and continued medical management. Job ID: [id number] DocumentID: [id number] Dictated Date: 05/08/2020 12:49:52 Chimney Builder Date: 05/08/2020 13:10:22 Dictated By: JHONATAN CASTRO MD
[2020-05-08 13:35] LABS: HEMOGLOBIN 8.4 g/dL (11.5-16.0)
--- NOTE | 2020-05-08 14:00 | Progress Note-Post Operative ---
Post-Operative Progess Note Surgeon (s)/Filament Coil Winder (s) Surgeon JHONATAN CASTRO MD Filament Coil Winder: none Pre-Operative Diagnosis sx anemia and GI bleed Post-Operative Diagnosis reflux esophagitis(stage 2), dayanara ulcer with overlying blood clot, no active bleed, moderate size HH(2-3cm), moderate gastritis. Procedure & Operative Findings Date of Procedure 05/08/20 Procedure Performed/Findings EGD Anesthesia Type general Estimated Blood Loss Estimated blood loss (mL): minimal Specimens/Packing Specimens Removed none JHONATAN CASTRO MD May 08, 2020 14:00
[2020-05-08] MEDS ORDERED: ANIDULAFUNGIN INJECTION 200 MG in NS (IVPB) 250 ML IV NR (15:30)
--- NOTE | 2020-05-08 15:36 | NUR ---
1515 DR SWEET CALLED NEW ORDERS RECEIVED TO D/C PICC LINE AND SENT TIP FOR CULTURE PT'S BLOOD CULTURE GREW OUT YEAST, AND TO OBTAIN A NEW PICC LINE OR CENTRAL LINE PLACEMENT. 1535 DR CASTRO NOTIFIED OF CENTRAL LINE NEED PICC LINE TEAM NOT AVAILABLE AT THIS TIME, ORDERS RECEIVED TO MAINTAIN CURRENT PICC LINE AND OBTAIN NEW PICC LINE PLACEMENT TOMORROW. DR CASTRO NOTIFIED OF BLOOD CULTURE RESULTS.
--- NOTE | 2020-05-08 15:39 | NUR ---
During care rounds, it was noted that pt has GI bleed. Tube feeding is currently on hold. Will continue to follow and reassess as pt needs, intake, and status change. Janak Pierson MS RD LD [phone] (cell)
--- NOTE | 2020-05-08 15:50 | NUR ---
DR BILL NOTIFIED OF CONSULT FOR CENTRAL LINE PLACEMENT.
--- NOTE | 2020-05-08 17:30 | NUR ---
CENTRAL LINE PLACED BY DR. IBLL INTO LEFT IJ. PICC LINE DC'D WITH TIP INTACT, TIP SENT TO LAB FOR CULTURE. PATIENT SUPINE AT THIS TIME, PATIENT REMAINS ON 70% FIO2 SAT 94%.
--- NOTE | 2020-05-08 17:54 | Progress Note-Post Operative ---
Post-Operative Progess Note Surgeon (s)/Installation Drafter (s) Surgeon MARICARMEN BILL DO Installation Drafter: none Pre-Operative Diagnosis Venous Insufficiency, Hypotension, Covid-19 Post-Operative Diagnosis same Procedure & Operative Findings Date of Procedure 05/08/20 Procedure Performed/Findings PROCEDURE: [Right] internal jugular central line placement using ultrasound guidance. COMPLICATIONS: None. INDICATIONS: The patient is a 69 year old female [with Venous insufficiency, hypotension Covid-19 Resp failure]. Patient is intubated and sedated. PROCEDURE: The patient was in her bed in the ICU, was prepped and draped in the sterile fashion. A surgical pause was performed. Ultrasound was used to locate the internal jugular vein. Once located anesthetic was infiltrated above it. Using an 18 gauge finder needle, it was advanced with negative inspiration and watched it enter the vein on the first attempt. Dark nonpulsatile blood was withdrawn. The wire was inserted. US assured proper placement. The needle was removed. A [#11] blade scalpel was used to make a stab incision along the wire and then advanced the dilator over the wire using the seldinger technique. Quickly removed the dilator and placed the triple lumen catheter over wire using the seldinger technique. It went in easily and the wire was removed. Locking ports had been placed on all 3 ports of catheter. Then easily aspirated in all 3 ports and got a good flash of blood, flushed with saline. The triple lumen catheter was then sutured to the skin using 3-0 silk on a Butch needle. The area was then washed and dried. Sterile dressing was placed over catheter. The patient tolerated the procedure well without complication. Anesthesia Type none, pt already sedated on vent Estimated Blood Loss Estimated blood loss (mL): scant Specimens/Packing Specimens Removed none MARICARMEN BILL DO May 08, 2020 17:54
[2020-05-08 18:07] LABS: HEMOGLOBIN 8.2 g/dL (11.5-16.0)
[2020-05-09] VITALS (31 sets, daily range): BP systolic 123–208; BP diastolic 53–97
[2020-05-09] MEDS: VASOPRESSIN INJECTION 20 UNIT in NS (IVPB) 100 ML IV SCH (00:47)
[2020-05-09 02:16] LABS: HEMOGLOBIN 7.6 g/dL (11.5-16.0)
[2020-05-09] MEDS: OCTREOTIDE IV SCH ×6 (02:24→22:33)
[2020-05-09] MEDS: PIPERACILLIN/TAZOBACTAM (BULK) 4.5 GM in NS (IVPB) 100 ML IV SCH ×3 (02:25→18:05)
[2020-05-09] MEDS: NOREPINEPHRINE 4 MG/250 ML 250 ML IV SCH ×4 (02:25→20:35)
[2020-05-09 03:08] LABS: BASOPHILS % (AUTO) 0 % (0-10); EOSINOPHILS % (AUTO) 0 % (0-10); HEMATOCRIT 22 % (35-52); LYMPHOCYTES # (AUTO) 0.5 10^3/uL (1.0-4.0); LYMPHOCYTES % (AUTO) 5 % (12-44); MEAN CORPUSCULAR HEMOGLOBIN 28 pg (25-34); MEAN CORPUSCULAR HGB CONC 32 g/dL (32-36); MEAN CORPUSCULAR VOLUME 87 fL (80-99); MEAN PLATELET VOLUME 10.9 fL (9.0-12.2); MONOCYTES # (AUTO) 0.8 10^3/uL (0.0-1.0); MONOCYTES % (AUTO) 7 % (0-12); NEUTROPHILS % (AUTO) 83 % (42-75); PLATELET COUNT 222 10^3/uL (130-400); WHITE BLOOD COUNT 10.9 10^3/uL (4.3-11.0)
[2020-05-09 03:16] LABS: HEMOGLOBIN 6.9 g/dL (11.5-16.0)
[2020-05-09 03:33] LABS: POTASSIUM 4.4 MMOL/L (3.6-5.0)
[2020-05-09 03:34] LABS: CALCIUM 7.3 MG/DL (8.5-10.1)
[2020-05-09 03:39] LABS: CREATININE SERUM 1.05 MG/DL (0.60-1.30); PHOSPHORUS 3.9 MG/DL (2.3-4.7)
[2020-05-09 03:41] LABS: MAGNESIUM 2.4 MG/DL (1.6-2.4)
[2020-05-09 04:02] LABS: ABG BASE EXCESS 2.6 MMOL/L (-2.5-2.5); ABG OXYGEN SATURATION 79 % (94-100); ABG PCO2 50 MMHG (35-45); ABG PH 7.36 (7.37-7.43); ABG PO2 45 MMHG (79-93); ABG TCO2 29.4 MMOL/L (21.0-31.0)
[2020-05-09 04:04] LABS: ALLENS TEST POSITIVE; INSPIRED O2 50
[2020-05-09 04:05] LABS: PATIENT TEMP 36; VENTILATOR YES
[2020-05-09] MEDS: POTASSIUM CL 10MEQ/50ML IVPB 50 ML IV SCH (06:08)
[2020-05-09] MEDS: MAGNESIUM 1 GM/100 ML IVPB 100 ML IV SCH (06:09)
[2020-05-09] MEDS: KCL 20 MEQ TAB (K-DUR) PO SCH (06:09)
[2020-05-09] MEDS ORDERED: NS IV 500 ML 500 ML IV SCH (06:30)
--- NOTE | 2020-05-09 06:43 | Pulmonary Progress Note ---
Subjective Time Seen by a Provider: 06:38 Subjective/Events-last exam Pt is sedated on vent. Sepsis Event Evaluation Height, Weight, BMI Height: '" Weight: lbs. oz. kg; 49.00 BMI Method: Focused Exam Lactate Level 05/07/20 05:45: Lactic Acid Level 1.25 Exam Exam Vital Signs Date Time Temp Pulse Resp B/P (MAP) Pulse Ox O2 Delivery O2 Flow Rate FiO2 05/09/20 05:00 46 32 142/67 (92) 97 Mechanical Ventilator 70.00 05/09/20 04:00 49 22 127/67 (87) 96 Mechanical Ventilator 70.00 05/09/20 03:00 56 16 127/62 (83) 94 Mechanical Ventilator 70.00 05/09/20 02:00 58 19 124/57 (79) 96 Mechanical Ventilator 70.00 05/09/20 01:00 57 23 126/61 (82) 95 Mechanical Ventilator 70.00 05/09/20 01:00 60 05/09/20 00:47 56 133/63 05/09/20 00:00 57 19 141/67 (91) 97 Mechanical Ventilator 70.00 05/09/20 00:00 36.0 05/08/20 23:00 59 29 148/70 (96) 97 Mechanical Ventilator 70.00 05/08/20 22:21 57 24 98 65 05/08/20 22:00 54 10 127/54 (78) 97 Mechanical Ventilator 70.00 05/08/20 21:00 59 23 137/60 (85) 98 Mechanical Ventilator 70.00 05/08/20 21:00 98 Mechanical Ventilator 65 05/08/20 20:56 56 22 149/56 05/08/20 20:00 35.8 05/08/20 20:00 56 20 135/60 (85) 97 Mechanical Ventilator 70.00 05/08/20 19:48 57 22 99 70 05/08/20 19:00 60 05/08/20 19:00 54 15 140/53 (82) 99 Mechanical Ventilator 70.00 05/08/20 18:00 61 10 127/59 (81) 97 Mechanical Ventilator 70.00 05/08/20 17:00 64 12 136/66 (89) 95 Mechanical Ventilator 70.00 05/08/20 16:32 61 128/55 05/08/20 16:07 35.6 05/08/20 16:00 58 10 126/58 (80) 97 Mechanical Ventilator 70.00 05/08/20 15:00 69 32 149/77 (101) 100 Mechanical Ventilator 70.00 05/08/20 14:59 65 24 99 70 05/08/20 14:00 32 109/57 (74) 94 Mechanical Ventilator 70.00 05/08/20 13:05 70 05/08/20 13:00 69 22 143/73 (96) 95 Mechanical Ventilator 70.00 05/08/20 12:00 65 26 117/58 (77) 94 Mechanical Ventilator 70.00 05/08/20 11:00 70 30 146/67 (93) 92 Mechanical Ventilator 70.00 05/08/20 10:41 68 28 91 70 05/08/20 10:27 57 21 146/72 05/08/20 10:00 65 13 110/67 (81) 94 Mechanical Ventilator 70.00 05/08/20 09:13 35.9 57 21 146/72 95 Mechanical Ventilator 70 05/08/20 09:00 56 22 92/71 (78) 88 Mechanical Ventilator 65.00 05/08/20 08:58 57 137/71 05/08/20 08:45 94 Mechanical Ventilator 70 05/08/20 08:44 35.9 05/08/20 08:00 62 12 92/73 (79) 89 Mechanical Ventilator 65.00 05/08/20 07:38 64 28 88 65 05/08/20 07:00 67 05/08/20 07:00 64 16 98/77 (84) 90 Mechanical Ventilator 65.00 I & O 05/09/20 07:00 Intake Total 400 ml Output Total 2675 ml Balance -2275 ml Height & Weight Height: '" Weight: lbs. oz. kg; 49.00 BMI Method: General Appearance: Obese, Other (intubated and sedated) HEENT: Other (ETT, OGT) Respiratory: Rhonci (diffuse), Other (on vent) Cardiovascular: No Murmur, Bradycardia (50s) Capillary Refill: Less Than 3 Seconds Gastrointestinal: non tender, soft Extremity: No Calf Tenderness, No Pedal Edema Neurologic/Psychiatric: Other (sedated, appears comfortable) Skin: Normal Color, Warm/Dry Results Lab Laboratory Tests 05/07/20 13:00 05/07/20 20:32 05/08/20 02:00 05/08/20 13:15 05/08/20 17:55 05/09/20 00:50 05/09/20 02:40 Assessment/Plan Assessment/Plan Acute respiratory failure secondary to COVID19 with ARDS -- Intubated on admission 04/24 -Maintain on vent- Intubated 04/24 Vt is 400, RR 22, PEEP is 14. -Fentanyl at 100 and Versed at 5 -Decrease Fentanyl to 50 -Propofol was d/c'd -Daily sedation vacations. - Propofol and add Fentanyl gtt s/p Remdesivir 04/29 s/p plasma x2 -Proning Lovenox- Hold secondary to bleeding MAT protocol s/p Decadron- tube feeds currently on Hold severe sepsis with shock with PNA --Sputum is growing S. Aureus- MSSA --Zosyn started 05/04 -05/07 Zyvox, and Diflucan changed to eraxis 05/08 Candidasis bacteremia -Picc line d/c'd. Tip cultured and pending -Central line placed after picc line d/c'd -Diflucan changed to Eraxis 05/08 - Anemia- with GIB s/p EGD per Dr. Sprague -EGD showed bleeding gastric ulcer -Surgery following. Pt is still bleeding. -s/p 5 units of PRBC -Lovenox on hold -Consult surgery -Continue Vasopressin -Continue Octreotide -Protonix BID -Recheck labs at 0800 Hypertension -Hydralazine PRN -Can use BB secondary to bradycardia -Continue Lisinopril and PRN Vasotec- however may have to hold if renal failure worsens -Norvasc NIDDMII Anticipate high BS with steroids SSI -Increase levemir to 12 units Q 12 secondary to hyperglycemia mid 200's Anemia -Monitor HTN - resolved DVT ppx: -Theraputic dose Lovenox -Protonix SANGEETHA SWEET DO May 09, 2020 06:42
[2020-05-09] MEDS: inSUlin ASPART (NovoLOG) 1 UNIT/0.01 ML (CHARGE PER UNIT) SC SCH ×3 (07:03→18:01)
[2020-05-09] MEDS: CATHETER FLUSH 10 ML SYR IV SCH ×3 (07:03→22:33)
[2020-05-09] MEDS: fentaNYL INJECTION 1,250 MCG in NS (IVPB) 250 ML IV SCH (08:07)
[2020-05-09] MEDS: LINEZOLID IVPB 300 ML IV SCH ×2 (08:08→20:34)
[2020-05-09] MEDS: ARTIFICIAL TEARS OINT (LACRI-LUBE) 3.5 GM TUBE OU SCH ×2 (08:09→20:35)
[2020-05-09] MEDS: PANTOPRAZOLE 40 MG (PROTONIX) VIAL IV SCH ×2 (08:10→20:35)
[2020-05-09] MEDS: DOCUSATE SODIUM 10 MG/ML 10 ML UDC (COLACE) PO SCH ×2 (08:10→20:35)
[2020-05-09] MEDS: METOCLOPRAMIDE INJ 10 MG/2 ML (REGLAN) IVP SCH (08:11)
[2020-05-09] MEDS: RT-ALBUTEROL INHALER HFA (VENTOLIN HFA) 18 GM IH SCH ×5 (08:35→21:04)
--- NOTE | 2020-05-09 08:39 | Diagnostic Imaging Report ---
INDICATION: Initiated prone position, check tube placement. Intubated. TECHNIQUE: Single view chest 7:55 AM. CORRELATION STUDY: 05/08/2020 FINDINGS: Endotracheal tube remains in place. Tip is projecting over the trachea just below the level of the clavicular heads. Left-sided central line via the neck with the tip at the low SVC near the cavoatrial junction. Heart size and mediastinum are unremarkable. Scattered patchy bilateral pulmonary infiltrates most pronounced in the mid and lower lung jones are present. IMPRESSION: 1. Stable appearance of endotracheal tube positioning. 2. Extensive bilateral pulmonary infiltrates. Given differences in technique, overall likely relatively stable. Dictated by: Dictated on workstation # [id number]
[2020-05-09] MEDS ORDERED: NS IV 500 ML 500 ML ONE ×2 (09:27→15:31)
[2020-05-09 14:20] LABS: HEMOGLOBIN 8.8 g/dL (11.5-16.0)
--- NOTE | 2020-05-09 14:52 | NUR ---
Note pt has GI bleed issues. Note tube feeding is still being held. Will continue to follow and reassess as pt needs, intake, and status change. Janak Pierson, MS RD LD [phone] (cell)
[2020-05-09] MEDS: ANIDULAFUNGIN INJECTION 100 MG in NS (IVPB) 100 ML IV SCH (15:54)
[2020-05-09] MEDS: MIDAZOLAM INJECTION FOR DRIPS 50 MG in NS (IVPB) 90 ML IV SCH (16:07)
[2020-05-10] VITALS (29 sets, daily range): BP systolic 136–188; BP diastolic 57–90
[2020-05-10] MEDS: inSUlin ASPART (NovoLOG) 1 UNIT/0.01 ML (CHARGE PER UNIT) SC SCH ×4 (00:55→18:15)
[2020-05-10] MEDS: MIDAZOLAM INJECTION FOR DRIPS 50 MG in NS (IVPB) 90 ML IV SCH ×3 (01:09→21:27)
[2020-05-10 01:39] LABS: ABG BASE EXCESS 3.3 MMOL/L (-2.5-2.5); ABG OXYGEN SATURATION 93 % (94-100); ABG PCO2 49 MMHG (35-45); ABG PH 7.38 (7.37-7.43); ABG PO2 67 MMHG (79-93); ABG TCO2 29.6 MMOL/L (21.0-31.0); BASOPHILS % (AUTO) 0 % (0-10); EOSINOPHILS # (AUTO) 0.2 10^3/uL (0.0-0.3); EOSINOPHILS % (AUTO) 1 % (0-10); HEMATOCRIT 29 % (35-52); HEMOGLOBIN 9.7 g/dL (11.5-16.0); LYMPHOCYTES # (AUTO) 0.9 10^3/uL (1.0-4.0); LYMPHOCYTES % (AUTO) 7 % (12-44); MEAN CORPUSCULAR HEMOGLOBIN 30 pg (25-34); MEAN CORPUSCULAR HGB CONC 33 g/dL (32-36); MEAN CORPUSCULAR VOLUME 89 fL (80-99); MEAN PLATELET VOLUME 10.6 fL (9.0-12.2); MONOCYTES # (AUTO) 0.7 10^3/uL (0.0-1.0); MONOCYTES % (AUTO) 5 % (0-12); NEUTROPHILS % (AUTO) 83 % (42-75); PLATELET COUNT 226 10^3/uL (130-400); WHITE BLOOD COUNT 13.4 10^3/uL (4.3-11.0)
[2020-05-10 01:42] LABS: ALLENS TEST POSITIVE; INSPIRED O2 40; PATIENT TEMP 36.9; VENTILATOR YES
[2020-05-10 01:49] LABS: CHLORIDE 106 MMOL/L (98-107); SODIUM 142 MMOL/L (135-145)
[2020-05-10 01:50] LABS: CALCIUM 7.6 MG/DL (8.5-10.1)
[2020-05-10 01:51] LABS: GLUCOSE 129 MG/DL (70-105); TRIGLYCERIDES 324 MG/DL (<150)
[2020-05-10 01:52] LABS: CARBON DIOXIDE 26 MMOL/L (21-32)
[2020-05-10 01:54] LABS: PHOSPHORUS 2.3 MG/DL (2.3-4.7)
[2020-05-10 01:55] LABS: CREATININE SERUM 0.83 MG/DL (0.60-1.30); GFR ESTIMATED > 60
[2020-05-10 01:56] LABS: BUN/CREATININE RATIO 47
[2020-05-10 01:57] LABS: MAGNESIUM 2.4 MG/DL (1.6-2.4)
[2020-05-10] MEDS: RT-ALBUTEROL INHALER HFA (VENTOLIN HFA) 18 GM IH SCH ×5 (02:36→19:57)
[2020-05-10] MEDS: PIPERACILLIN/TAZOBACTAM (BULK) 4.5 GM in NS (IVPB) 100 ML IV SCH ×3 (02:49→18:16)
[2020-05-10] MEDS: NOREPINEPHRINE 4 MG/250 ML 250 ML IV SCH ×4 (02:49→20:59)
[2020-05-10] MEDS: fentaNYL INJECTION 1,250 MCG in NS (IVPB) 250 ML IV SCH ×2 (04:19→18:31)
[2020-05-10] MEDS: MAGNESIUM 1 GM/100 ML IVPB 100 ML IV SCH (04:45)
[2020-05-10] MEDS: KCL 20 MEQ TAB (K-DUR) PO SCH (04:45)
[2020-05-10] MEDS: POTASSIUM CL 10MEQ/50ML IVPB 50 ML IV SCH (04:45)
[2020-05-10] MEDS: CATHETER FLUSH 10 ML SYR IV SCH ×3 (06:20→21:16)
--- NOTE | 2020-05-10 06:33 | Progress Note - Hospitalist ---
Subjective HPI/CC On Admission Date Seen by Provider: May 10, 2020 Time Seen by Provider: 11:00 Pt is a 69yoCF with a PMH of HTN and NIDDMII who presented to the ER via EMS due to SOB. EMS arrived to her house and she was satting in the 60s. She was placed on 5lpm and only improved to the 70s upon arrival to the ER so was placed on a NRB and got sats around 90. She was transferred here to the ICU and had worsening work of breathing so was intubated. Thus all history is obtained from the records and from conversation with her daughter, Kavya and her PCP Dr Constantino. She was seen in Dr Constantino's clinic on 04/21 for knee pain but otherwise was well. Throughout the week she developed a nonproductive cough and shortness of breath along with weakness. Her daughter was COVID positive and is currently on day 9 of symptoms. Rapid test was performed and Ms Mckeon is positive for COVID as well. Subjective/Events-last exam Discussed the case with eicu Sedation maintained Reviewed labs and meds and imaging No concerns per RN at this current time Abx maintained Objective Exam Vital Signs Vital Signs Date Time Temp Pulse Resp B/P (MAP) Pulse Ox O2 Delivery O2 Flow Rate FiO2 05/10/20 17:08 36.8 05/10/20 17:00 82 21 150/65 (93) 89 Mechanical Ventilator 35.00 05/10/20 15:15 35 Capillary Refill : Less Than 3 Seconds General Appearance: No Apparent Distress, WD/WN, Chronically ill, Other (intubated) Respiratory: Normal Breath Sounds, Decreased Breath Sounds Cardiovascular: Regular Rate, Rhythm Results/Procedures Lab Laboratory Tests 05/09/20 18:05 05/10/20 01:20 05/10/20 12:18 Patient resulted labs reviewed. Assessment/Plan Assessment and Plan Assess & Plan/Chief Complaint Dr Willams's note with my additions at bottom: Acute respiratory failure secondary to COVID19 with ARDS -- Intubated on admission 04/24 -Maintain on vent- Intubated 04/24 Vt is 400, RR 22, PEEP is 14. -Fentanyl at 100 and Versed at 5 -Decrease Fentanyl to 50 -Propofol was d/c'd -Daily sedation vacations. - Propofol and add Fentanyl gtt s/p Remdesivir 04/29 s/p plasma x2 -Proning Lovenox- Hold secondary to bleeding MAT protocol s/p Decadron- tube feeds currently on Hold severe sepsis with shock with PNA --Sputum is growing S. Aureus- MSSA --Zosyn started 05/04 -05/07 Zyvox, and Diflucan changed to eraxis 05/08 Candidasis bacteremia -Picc line d/c'd. Tip cultured and pending -Central line placed after picc line d/c'd -Diflucan changed to Eraxis 05/08 - Anemia- with GIB s/p EGD per Dr. Sprague -EGD showed bleeding gastric ulcer -Surgery following. Pt is still bleeding. -s/p 5 units of PRBC -Lovenox on hold -Consult surgery -Continue Vasopressin -Continue Octreotide -Protonix BID -Recheck labs at 0800 Hypertension -Hydralazine PRN -Can use BB secondary to bradycardia -Continue Lisinopril and PRN Vasotec- however may have to hold if renal failure worsens -Norvasc NIDDMII Anticipate high BS with steroids SSI -Increase levemir to 12 units Q 12 secondary to hyperglycemia mid 200's Anemia -Monitor HTN - resolved DVT ppx: -Theraputic dose Lovenox -Protonix Prognosis overall guarded to poor GI bleed complicating situation Add back in Hydralazine for HTN Family updated yesterday by Dr Willams Critical Care Critically Ill Patient Diagnosis/Problems Diagnosis/Problems (1) COVID-19 Status: Acute (2) Non-insulin dependent type 2 diabetes mellitus Status: Chronic (3) Acute respiratory failure Status: Acute Qualifiers: Respiratory failure complication: hypoxia Qualified Codes: J96.01 - Acute respiratory failure with hypoxia (4) Shock Status: Resolved Resolution Date/Time: 04/27/20 @ 08:18 (5) Hypoxia Status: Acute Clinical Quality Measures DVT/VTE Risk/Contraindication: Risk Factor Score Per Nursin RFS Level Per Nursing on Admit: 4+=Very High ROJAS PACHECO DO May 10, 2020 06:33
[2020-05-10] MEDS: PANTOPRAZOLE 40 MG (PROTONIX) VIAL IV SCH ×2 (08:08→20:50)
[2020-05-10] MEDS: OCTREOTIDE IV SCH ×4 (08:09→18:25)
[2020-05-10] MEDS: ARTIFICIAL TEARS OINT (LACRI-LUBE) 3.5 GM TUBE OU SCH ×2 (08:09→20:51)
[2020-05-10] MEDS: LINEZOLID IVPB 300 ML IV SCH ×2 (08:09→20:50)
[2020-05-10] MEDS: DOCUSATE SODIUM 10 MG/ML 10 ML UDC (COLACE) PO SCH ×2 (08:09→20:51)
[2020-05-10] MEDS: METOCLOPRAMIDE INJ 10 MG/2 ML (REGLAN) IVP SCH (08:09)
--- NOTE | 2020-05-10 08:33 | Diagnostic Imaging Report ---
HISTORY: Covid positive, follow-up, on ventilator. COMPARISON: 05/09/2020 TECHNIQUE: Frontal view of the chest. FINDINGS: The endotracheal tube is approximately 4 cm above the martha. The left jugular line tip projects over the low SVC. There are scattered patchy airspace opacities throughout the lungs bilaterally, similar to the prior study. No pleural effusion or pneumothorax is seen. There is mild cardiomegaly. Lung volumes are mildly low. IMPRESSION: 1. Scattered patchy airspace opacities throughout the lungs bilaterally, stable since the prior study. 2. Stable endotracheal tube. Dictated by: Dictated on workstation # [id number]
[2020-05-10] MEDS ORDERED: hydrALAZINE (APESOLINE) 20 MG/ML VIAL IV PRN (11:00)
[2020-05-10 12:29] LABS: HEMOGLOBIN 8.8 g/dL (11.5-16.0)
[2020-05-10] MEDS: ANIDULAFUNGIN INJECTION 100 MG in NS (IVPB) 100 ML IV SCH (16:13)
[2020-05-11] VITALS (29 sets, daily range): BP systolic 113–184; BP diastolic 60–98
[2020-05-11] MEDS: RT-ALBUTEROL INHALER HFA (VENTOLIN HFA) 18 GM IH SCH ×5 (01:38→23:04)
[2020-05-11] MEDS: inSUlin ASPART (NovoLOG) 1 UNIT/0.01 ML (CHARGE PER UNIT) SC SCH ×5 (03:39→22:58)
[2020-05-11] MEDS: NOREPINEPHRINE 4 MG/250 ML 250 ML IV SCH ×4 (03:40→20:52)
[2020-05-11 03:43] LABS: BASOPHILS % (AUTO) 0 % (0-10); EOSINOPHILS # (AUTO) 0.4 10^3/uL (0.0-0.3); EOSINOPHILS % (AUTO) 5 % (0-10); HEMATOCRIT 26 % (35-52); HEMOGLOBIN 8.5 g/dL (11.5-16.0); LYMPHOCYTES # (AUTO) 0.8 10^3/uL (1.0-4.0); LYMPHOCYTES % (AUTO) 10 % (12-44); MEAN CORPUSCULAR HEMOGLOBIN 30 pg (25-34); MEAN CORPUSCULAR HGB CONC 32 g/dL (32-36); MEAN CORPUSCULAR VOLUME 91 fL (80-99); MEAN PLATELET VOLUME 10.5 fL (9.0-12.2); MONOCYTES # (AUTO) 0.3 10^3/uL (0.0-1.0); MONOCYTES % (AUTO) 3 % (0-12); NEUTROPHILS # (AUTO) 6.4 10^3/uL (1.8-7.8); NEUTROPHILS % (AUTO) 80 % (42-75); PLATELET COUNT 177 10^3/uL (130-400)
[2020-05-11 03:45] LABS: ABG BASE EXCESS 3.7 MMOL/L (-2.5-2.5); ABG OXYGEN SATURATION 97 % (94-100); ABG PCO2 48 MMHG (35-45); ABG PH 7.39 (7.37-7.43); ABG PO2 93 MMHG (79-93); ABG TCO2 29.8 MMOL/L (21.0-31.0)
[2020-05-11 03:46] LABS: INSPIRED O2 50; PATIENT TEMP 37; VENTILATOR YES
[2020-05-11] MEDS: PIPERACILLIN/TAZOBACTAM (BULK) 4.5 GM in NS (IVPB) 100 ML IV SCH ×3 (03:52→18:16)
[2020-05-11] MEDS: OCTREOTIDE IV SCH ×6 (03:52→23:00)
[2020-05-11 04:05] LABS: BUN/CREATININE RATIO 35; CALCIUM 7.4 MG/DL (8.5-10.1); CARBON DIOXIDE 26 MMOL/L (21-32); CHLORIDE 109 MMOL/L (98-107); CREATININE SERUM 0.68 MG/DL (0.60-1.30); GFR ESTIMATED > 60; GLUCOSE 97 MG/DL (70-105); MAGNESIUM 2.2 MG/DL (1.6-2.4); PHOSPHORUS 1.7 MG/DL (2.3-4.7); POTASSIUM 3.8 MMOL/L (3.6-5.0); SODIUM 144 MMOL/L (135-145); TRIGLYCERIDES 208 MG/DL (<150)
[2020-05-11] MEDS: POTASSIUM CL 10MEQ/50ML IVPB 50 ML IV SCH (04:23)
[2020-05-11] MEDS: MAGNESIUM 1 GM/100 ML IVPB 100 ML IV SCH (04:24)
[2020-05-11] MEDS: KCL 20 MEQ TAB (K-DUR) PO SCH (04:24)
[2020-05-11] MEDS: CATHETER FLUSH 10 ML SYR IV SCH ×3 (07:43→22:58)
[2020-05-11] MEDS: LINEZOLID IVPB 300 ML IV SCH ×2 (08:12→19:58)
[2020-05-11] MEDS: DOCUSATE SODIUM 10 MG/ML 10 ML UDC (COLACE) PO SCH ×3 (08:12→20:02)
[2020-05-11] MEDS: ARTIFICIAL TEARS OINT (LACRI-LUBE) 3.5 GM TUBE OU SCH ×2 (08:13→19:58)
[2020-05-11] MEDS: PANTOPRAZOLE 40 MG (PROTONIX) VIAL IV SCH ×2 (08:13→19:58)
[2020-05-11] MEDS: METOCLOPRAMIDE INJ 10 MG/2 ML (REGLAN) IVP SCH (08:13)
[2020-05-11] MEDS: MIDAZOLAM INJECTION FOR DRIPS 50 MG in NS (IVPB) 90 ML IV SCH ×2 (09:16→18:15)
[2020-05-11] MEDS: fentaNYL INJECTION 1,250 MCG in NS (IVPB) 250 ML IV SCH ×2 (09:28→23:03)
--- NOTE | 2020-05-11 10:27 | Diagnostic Imaging Report ---
HISTORY: COVID positive, follow-up pneumonia COMPARISON: 05/10/2020 TECHNIQUE: Frontal view chest FINDINGS: The endotracheal tube is 3.8 cm above the martha. The left jugular line tip projects over the mid SVC. The cardiac silhouette is obscured, but appears to be stable in size. Diffuse airspace opacities are seen throughout the lungs bilaterally, with relative sparing of the left upper lobe. Aeration is moderately worse compared to the prior study. No pleural effusion or pneumothorax is seen. IMPRESSION: 1. Worsening airspace opacities in the lungs bilaterally, with relative sparing of the left upper lobe. Dictated by: Dictated on workstation # [id number]
--- NOTE | 2020-05-11 11:41 | Progress Note - Hospitalist ---
Subjective HPI/CC On Admission Date Seen by Provider: May 11, 2020 Time Seen by Provider: 11:30 Pt is a 69yoCF with a PMH of HTN and NIDDMII who presented to the ER via EMS due to SOB. EMS arrived to her house and she was satting in the 60s. She was placed on 5lpm and only improved to the 70s upon arrival to the ER so was placed on a NRB and got sats around 90. She was transferred here to the ICU and had worsening work of breathing so was intubated. Thus all history is obtained from the records and from conversation with her daughter, Kavya and her PCP Dr Constantino. She was seen in Dr Constantino's clinic on 04/21 for knee pain but otherwise was well. Throughout the week she developed a nonproductive cough and shortness of breath along with weakness. Her daughter was COVID positive and is currently on day 9 of symptoms. Rapid test was performed and Ms Mckeon is positive for COVID as well. Subjective/Events-last exam No significant changes Poor prognosis remains Family updated by nurse Requiring higher oxygen supplement Objective Exam Vital Signs Vital Signs Date Time Temp Pulse Resp B/P (MAP) Pulse Ox O2 Delivery O2 Flow Rate FiO2 05/11/20 15:00 95 21 184/79 (114) Mechanical Ventilator 40.00 05/11/20 14:00 91 05/11/20 11:17 50 05/11/20 07:57 36.2 Capillary Refill : Less Than 3 Seconds General Appearance: No Apparent Distress, WD/WN, Chronically ill, Obese Respiratory: Normal Breath Sounds, Decreased Breath Sounds Cardiovascular: Regular Rate, Rhythm Results/Procedures Lab Laboratory Tests 05/11/20 03:30 Patient resulted labs reviewed. Assessment/Plan Assessment and Plan Assess & Plan/Chief Complaint Dr Willams's note with my additions at bottom: Acute respiratory failure secondary to COVID19 with ARDS -- Intubated on admission 04/24 -Maintain on vent- Intubated 04/24 Vt is 400, RR 22, PEEP is 14. -Fentanyl at 100 and Versed at 5 -Decrease Fentanyl to 50 -Propofol was d/c'd -Daily sedation vacations. - Propofol and add Fentanyl gtt s/p Remdesivir 04/29 s/p plasma x2 -Proning Lovenox- Hold secondary to bleeding MAT protocol s/p Decadron- tube feeds currently on Hold severe sepsis with shock with PNA --Sputum is growing S. Aureus- MSSA --Zosyn started 05/04 -05/07 Zyvox, and Diflucan changed to eraxis 05/08 Candidasis bacteremia -Picc line d/c'd. Tip cultured and pending -Central line placed after picc line d/c'd -Diflucan changed to Eraxis 05/08 - Anemia- with GIB s/p EGD per Dr. Sprague -EGD showed bleeding gastric ulcer -Surgery following. Pt is still bleeding. -s/p 5 units of PRBC -Lovenox on hold -Consult surgery -Continue Vasopressin -Continue Octreotide -Protonix BID -Recheck labs at 0800 Hypertension -Hydralazine PRN -Can use BB secondary to bradycardia -Continue Lisinopril and PRN Vasotec- however may have to hold if renal failure worsens -Norvasc NIDDMII Anticipate high BS with steroids SSI -Increase levemir to 12 units Q 12 secondary to hyperglycemia mid 200's Anemia -Monitor HTN - resolved DVT ppx: -Theraputic dose Lovenox -Protonix Prognosis overall guarded to poor GI bleed complicating situation Add back in Hydralazine for HTN Family updated yesterday by Dr Willams 05/11/20: May need trach and PEG tube Full code maintained Poor prognosis Maintain vent Appreciate eicu Critical Care Critically Ill Patient Diagnosis/Problems Diagnosis/Problems (1) COVID-19 Status: Acute (2) Non-insulin dependent type 2 diabetes mellitus Status: Chronic (3) Acute respiratory failure Status: Acute Qualifiers: Respiratory failure complication: hypoxia Qualified Codes: J96.01 - Acute respiratory failure with hypoxia (4) Shock Status: Resolved Resolution Date/Time: 04/27/20 @ 08:18 (5) Hypoxia Status: Acute Clinical Quality Measures DVT/VTE Risk/Contraindication: Risk Factor Score Per Nursin RFS Level Per Nursing on Admit: 4+=Very High ROJAS PACHECO DO May 11, 2020 11:41
[2020-05-11] MEDS: ANIDULAFUNGIN INJECTION 100 MG in NS (IVPB) 100 ML IV SCH (16:27)
[2020-05-11] MEDS ORDERED: DEXTROSE 50% 50 ML (IMS) SYR ONE (17:19)
[2020-05-11] MEDS ORDERED: DEXTROSE 50% 50 ML (IMS) SYR IV ONE (17:30)
--- NOTE | 2020-05-11 21:32 | NUR ---
PT HS ACCBENY 73. HS STEPHANIE HELD PER E-ICU ORDERS
[2020-05-12] VITALS (29 sets, daily range): BP systolic 92–179; BP diastolic 48–92
[2020-05-12] MEDS: RT-ALBUTEROL INHALER HFA (VENTOLIN HFA) 18 GM IH SCH ×6 (01:14→21:46)
[2020-05-12] MEDS: PIPERACILLIN/TAZOBACTAM (BULK) 4.5 GM in NS (IVPB) 100 ML IV SCH ×3 (01:54→18:59)
[2020-05-12] MEDS: MIDAZOLAM INJECTION FOR DRIPS 50 MG in NS (IVPB) 90 ML IV SCH ×2 (02:03→21:51)
[2020-05-12 02:14] LABS: ABG BASE EXCESS 3.9 MMOL/L (-2.5-2.5); ABG OXYGEN SATURATION 94 % (94-100); ABG PCO2 46 MMHG (35-45); ABG PH 7.41 (7.37-7.43); ABG PO2 67 MMHG (79-93); ABG TCO2 29.8 MMOL/L (21.0-31.0); BASOPHILS % (AUTO) 0 % (0-10); EOSINOPHILS # (AUTO) 0.5 10^3/uL (0.0-0.3); EOSINOPHILS % (AUTO) 7 % (0-10); HEMATOCRIT 28 % (35-52); HEMOGLOBIN 8.8 g/dL (11.5-16.0); LYMPHOCYTES # (AUTO) 0.7 10^3/uL (1.0-4.0); LYMPHOCYTES % (AUTO) 8 % (12-44); MEAN CORPUSCULAR HEMOGLOBIN 29 pg (25-34); MEAN CORPUSCULAR HGB CONC 31 g/dL (32-36); MEAN CORPUSCULAR VOLUME 92 fL (80-99); MEAN PLATELET VOLUME 10.5 fL (9.0-12.2); MONOCYTES # (AUTO) 0.3 10^3/uL (0.0-1.0); MONOCYTES % (AUTO) 4 % (0-12); NEUTROPHILS # (AUTO) 6.6 10^3/uL (1.8-7.8); NEUTROPHILS % (AUTO) 80 % (42-75); PLATELET COUNT 168 10^3/uL (130-400); WHITE BLOOD COUNT 8.2 10^3/uL (4.3-11.0)
[2020-05-12 02:18] LABS: ALLENS TEST POSITIVE; INSPIRED O2 22; PATIENT TEMP 36.6; VENTILATOR YES
[2020-05-12 02:24] LABS: CHLORIDE 110 MMOL/L (98-107); POTASSIUM 3.9 MMOL/L (3.6-5.0); SODIUM 144 MMOL/L (135-145)
[2020-05-12 02:25] LABS: CALCIUM 7.4 MG/DL (8.5-10.1)
[2020-05-12 02:26] LABS: GLUCOSE 83 MG/DL (70-105); TRIGLYCERIDES 228 MG/DL (<150)
[2020-05-12 02:27] LABS: CARBON DIOXIDE 26 MMOL/L (21-32)
[2020-05-12 02:30] LABS: CREATININE SERUM 0.68 MG/DL (0.60-1.30); GFR ESTIMATED > 60; PHOSPHORUS 1.9 MG/DL (2.3-4.7)
[2020-05-12 02:31] LABS: BUN/CREATININE RATIO 26
[2020-05-12 02:32] LABS: MAGNESIUM 2.3 MG/DL (1.6-2.4)
[2020-05-12] MEDS: POTASSIUM CL 10MEQ/50ML IVPB 50 ML IV SCH (02:43)
[2020-05-12] MEDS: KCL 20 MEQ TAB (K-DUR) PO SCH (02:43)
[2020-05-12] MEDS: NOREPINEPHRINE 4 MG/250 ML 250 ML IV SCH ×4 (02:43→21:40)
[2020-05-12] MEDS: MAGNESIUM 1 GM/100 ML IVPB 100 ML IV SCH (02:43)
--- NOTE | 2020-05-12 04:56 | Pulmonary Progress Note ---
Subjective Time Seen by a Provider: 04:51 Sepsis Event Evaluation Height, Weight, BMI Height: '" Weight: lbs. oz. kg; 49.00 BMI Method: Exam Exam Vital Signs Date Time Temp Pulse Resp B/P (MAP) Pulse Ox O2 Delivery O2 Flow Rate FiO2 05/12/20 04:00 75 22 170/76 (107) 94 Mechanical Ventilator 40.00 05/12/20 03:00 75 24 166/74 (104) 93 Mechanical Ventilator 40.00 05/12/20 03:00 76 05/12/20 02:56 36.6 05/12/20 02:03 83 05/12/20 02:00 79 21 174/90 (118) 92 Mechanical Ventilator 40.00 05/12/20 01:14 71 22 93 40 05/12/20 01:00 71 21 169/73 (105) 93 Mechanical Ventilator 40.00 05/12/20 01:00 71 05/12/20 00:00 72 21 159/74 (102) 93 Mechanical Ventilator 40.00 05/11/20 23:04 69 22 94 40 05/11/20 23:00 69 21 161/74 (103) 93 Mechanical Ventilator 40.00 05/11/20 22:59 36.7 05/11/20 22:00 69 21 160/74 (102) 92 Mechanical Ventilator 40.00 05/11/20 21:00 70 13 154/66 (95) 91 Mechanical Ventilator 40.00 05/11/20 20:51 91 Mechanical Ventilator 40 05/11/20 20:05 36.8 Mechanical Ventilator 40.00 05/11/20 20:00 71 17 151/68 (95) 93 Mechanical Ventilator 40.00 05/11/20 19:00 73 05/11/20 19:00 73 22 149/70 (96) 93 Mechanical Ventilator 40.00 05/11/20 18:19 86 22 91 40 05/11/20 18:15 80 22 156/69 05/11/20 18:00 80 22 156/69 (98) 93 Mechanical Ventilator 40.00 05/11/20 17:00 92 33 170/82 (111) 93 Mechanical Ventilator 40.00 05/11/20 16:00 96 10 173/78 (109) 89 Mechanical Ventilator 40.00 05/11/20 16:00 36.8 05/11/20 15:56 94 23 92 40 05/11/20 15:00 95 21 184/79 (114) Mechanical Ventilator 40.00 05/11/20 14:00 66 21 136/63 (87) 91 Mechanical Ventilator 40.00 05/11/20 13:00 73 05/11/20 13:00 69 21 132/65 (87) 93 Mechanical Ventilator 40.00 05/11/20 12:00 70 21 135/61 (85) 93 Mechanical Ventilator 40.00 05/11/20 11:42 Mechanical Ventilator 40.00 05/11/20 11:17 70 22 92 50 05/11/20 11:00 71 22 143/67 (92) 96 Mechanical Ventilator 50.00 05/11/20 10:00 70 17 132/63 (86) 95 Mechanical Ventilator 50.00 05/11/20 09:16 74 19 146/74 05/11/20 09:00 67 16 141/64 (89) 98 Mechanical Ventilator 50.00 05/11/20 08:32 Mechanical Ventilator 60.00 05/11/20 08:26 85 Mechanical Ventilator 50 05/11/20 08:00 74 19 146/74 (98) 93 Mechanical Ventilator 50.00 05/11/20 07:57 36.2 05/11/20 07:00 75 23 161/98 (119) 99 Mechanical Ventilator 50.00 05/11/20 07:00 74 05/11/20 06:00 73 17 154/60 (91) 94 Mechanical Ventilator 50.00 05/11/20 05:00 73 22 157/62 (93) 95 Mechanical Ventilator 50.00 I & O 05/12/20 07:00 Intake Total 1840 ml Output Total 750 ml Balance 1090 ml Height & Weight Height: '" Weight: lbs. oz. kg; 49.00 BMI Method: General Appearance: No Apparent Distress, WD/WN, Chronically ill, Obese HEENT: Other (ETT, OGT) Respiratory: Normal Breath Sounds, Decreased Breath Sounds Cardiovascular: Regular Rate, Rhythm Capillary Refill: Less Than 3 Seconds Gastrointestinal: non tender, soft Extremity: No Calf Tenderness, No Pedal Edema Neurologic/Psychiatric: Other (sedated, appears comfortable) Skin: Normal Color, Warm/Dry Results Lab Laboratory Tests 05/10/20 12:18 05/11/20 03:30 05/12/20 01:45 Assessment/Plan Assessment/Plan Acute respiratory failure secondary to COVID19 with ARDS -- Intubated on admission 04/24 -Maintain on vent- Intubated 04/24 Vt is 400, RR 22, PEEP is 14. -OG tube was discontinued by Dr. Bennett - 05/08 -Consider reinserting Dobhoff. -Fentanyl at 100 and Versed at 5 -Decrease Fentanyl to 50 -Propofol was d/c'd -Daily sedation vacations. - Propofol and add Fentanyl gtt s/p Remdesivir 04/29 s/p plasma x2 -Proning Lovenox- Hold secondary to bleeding MAT protocol s/p Decadron- tube feeds currently on Hold severe sepsis with shock with PNA --Sputum is growing S. Aureus- MSSA --Zosyn started 05/04 -05/07 Zyvox, and Diflucan changed to eraxis 05/08 Candidasis bacteremia -Picc line d/c'd. Tip cultured and pending -Central line placed after picc line d/c'd -Diflucan changed to Eraxis 05/08 - Anemia- with GIB s/p EGD per Dr. Sprague -EGD showed bleeding gastric ulcer -Surgery following. Pt is still bleeding. -s/p 5 units of PRBC -Lovenox on hold -Consult surgery -Continue Vasopressin -Continue Octreotide -Protonix BID -Recheck labs at 0800 Hypertension -Hydralazine PRN -Can use BB secondary to bradycardia -Continue Lisinopril and PRN Vasotec- however may have to hold if renal failure worsens -Norvasc NIDDMII Anticipate high BS with steroids SSI -Increase levemir to 12 units Q 12 secondary to hyperglycemia mid 200's Anemia -Monitor HTN - resolved DVT ppx: -Theraputic dose Lovenox -Protonix SANGEETHA SWEET DO May 12, 2020 04:56
[2020-05-12] MEDS ORDERED: SODIUM PHOSPHATE INJ 30 MM in NS (IVPB) 250 ML IV ONE (05:00)
[2020-05-12] MEDS: inSUlin ASPART (NovoLOG) 1 UNIT/0.01 ML (CHARGE PER UNIT) SC SCH ×3 (05:41→18:19)
[2020-05-12] MEDS: OCTREOTIDE IV SCH ×2 (05:44)
[2020-05-12] MEDS: CATHETER FLUSH 10 ML SYR IV SCH ×3 (05:45→21:41)
--- NOTE | 2020-05-12 07:40 | Diagnostic Imaging Report ---
EXAMINATION: Chest 1 view HISTORY: COVID positive, intubation. COMPARISON: Chest radiograph 05/11/2020 FINDINGS: Heart size and pulmonary vasculature are stable. Stable patchy airspace opacities throughout both lungs. No new pleural effusion or pneumothorax. Support lines and tubes are unchanged. The endotracheal tube is 4.5 cm above the martha. The osseous structures are intact. IMPRESSION: 1. Stable patchy opacities throughout both lungs compatible with multifocal pneumonia. 2. Support lines and tubes are unchanged. Dictated by: Dictated on workstation # [id number]
[2020-05-12] MEDS ORDERED: FUROSEMIDE 40 MG/4 ML INJ (LASIX) ONE (08:08)
[2020-05-12] MEDS ORDERED: FUROSEMIDE 40 MG/4 ML INJ (LASIX) IVP NR (08:15)
[2020-05-12] MEDS: PANTOPRAZOLE 40 MG (PROTONIX) VIAL IV SCH ×2 (08:30→21:39)
[2020-05-12] MEDS: METOCLOPRAMIDE INJ 10 MG/2 ML (REGLAN) IVP SCH (08:31)
[2020-05-12] MEDS: ARTIFICIAL TEARS OINT (LACRI-LUBE) 3.5 GM TUBE OU SCH ×2 (08:31→21:39)
[2020-05-12] MEDS: DOCUSATE SODIUM 10 MG/ML 10 ML UDC (COLACE) PO SCH ×2 (08:31→21:39)
--- NOTE | 2020-05-12 10:02 | NUR ---
SPOKE WITH PATIENTS DAUGHTER AFTER [employer] VERIFIED. UPDATED ON MORNING AND OVERNIGHT EVENTS. NOT ACCEPTING OF PATIENTS CRITICAL ILLNESS. STATED " DAD IS GOING TO BE HOME ALONE THIS WEEK AND SHE NEEDS TO BE THERE SO TELL HER TO GET IT TOGETHER."
[2020-05-12] MEDS ORDERED: DEXTROSE 50% 50 ML (IMS) SYR ONE (11:35)
[2020-05-12] MEDS ORDERED: DEXTROSE 50% 50 ML (IMS) SYR IV ONE (11:45)
--- NOTE | 2020-05-12 14:10 | Diagnostic Imaging Report ---
INDICATION: Dobbhoff placement. Time of exam 2:04 p.m. Correlation is made with prior chest earlier the same day. ET tube remains in good position with tip above the martha. Left-sided central line has tip overlying the SVC. Dobbhoff has been placed. Tip of the Dobbhoff is not included on this study but does appear to pass below the diaphragm. Extensive bilateral airspace pulmonary infiltrates are noted. There is no effusion or pneumothorax. IMPRESSION: 1. Continued extensive bilateral pulmonary infiltrates. 2. Dobbhoff passes below the diaphragm. Dictated by: Dictated on workstation # [id number]
[2020-05-12] MEDS ORDERED: OCTREOTIDE IV SCH ×2 (15:00)
[2020-05-12] MEDS: ANIDULAFUNGIN INJECTION 100 MG in NS (IVPB) 100 ML IV SCH (16:52)
[2020-05-12] MEDS ORDERED: DexMEDEtomidine PRE MIX 0 ML IV ONE (21:25)
[2020-05-13] VITALS (30 sets, daily range): BP systolic 108–169; BP diastolic 53–87
[2020-05-13] MEDS: inSUlin ASPART (NovoLOG) 1 UNIT/0.01 ML (CHARGE PER UNIT) SC SCH ×4 (01:45→17:41)
[2020-05-13] MEDS: fentaNYL INJECTION 1,250 MCG in NS (IVPB) 250 ML IV SCH (01:46)
[2020-05-13] MEDS: PIPERACILLIN/TAZOBACTAM (BULK) 4.5 GM in NS (IVPB) 100 ML IV SCH ×3 (01:46→17:41)
[2020-05-13 02:13] LABS: ABG BASE EXCESS 3.8 MMOL/L (-2.5-2.5); ABG OXYGEN SATURATION 80 % (94-100); ABG PCO2 51 MMHG (35-45); ABG PH 7.37 (7.37-7.43); ABG PO2 58 MMHG (79-93); ABG TCO2 30.3 MMOL/L (21.0-31.0)
[2020-05-13 02:15] LABS: INSPIRED O2 50; PATIENT TEMP 36.6; VENTILATOR YES
[2020-05-13] MEDS: RT-ALBUTEROL INHALER HFA (VENTOLIN HFA) 18 GM IH SCH ×6 (03:09→21:05)
[2020-05-13] MEDS: NOREPINEPHRINE 4 MG/250 ML 250 ML IV SCH (03:59)
[2020-05-13 05:31] LABS: BASOPHILS % (AUTO) 0 % (0-10); EOSINOPHILS # (AUTO) 0.4 10^3/uL (0.0-0.3); EOSINOPHILS % (AUTO) 6 % (0-10); HEMATOCRIT 29 % (35-52); LYMPHOCYTES # (AUTO) 0.5 10^3/uL (1.0-4.0); LYMPHOCYTES % (AUTO) 6 % (12-44); MEAN CORPUSCULAR HEMOGLOBIN 29 pg (25-34); MEAN CORPUSCULAR HGB CONC 31 g/dL (32-36); MEAN CORPUSCULAR VOLUME 93 fL (80-99); MEAN PLATELET VOLUME 10.3 fL (9.0-12.2); MONOCYTES # (AUTO) 0.4 10^3/uL (0.0-1.0); MONOCYTES % (AUTO) 5 % (0-12); NEUTROPHILS # (AUTO) 6.6 10^3/uL (1.8-7.8); NEUTROPHILS % (AUTO) 83 % (42-75); PLATELET COUNT 163 10^3/uL (130-400); WHITE BLOOD COUNT 7.9 10^3/uL (4.3-11.0)
[2020-05-13 05:51] LABS: BUN/CREATININE RATIO 23; CALCIUM 7.6 MG/DL (8.5-10.1); CARBON DIOXIDE 24 MMOL/L (21-32); CHLORIDE 110 MMOL/L (98-107); CREATININE SERUM 0.77 MG/DL (0.60-1.30); GFR ESTIMATED > 60; GLUCOSE 112 MG/DL (70-105); PHOSPHORUS 2.8 MG/DL (2.3-4.7); POTASSIUM 3.8 MMOL/L (3.6-5.0); SODIUM 146 MMOL/L (135-145); TRIGLYCERIDES 249 MG/DL (<150)
[2020-05-13] MEDS ORDERED: D5W 1000 ML IV SOLUTION 1,000 ML ONE (06:11)
[2020-05-13] MEDS: D5W 1000 ML IV SOLUTION 1,000 ML IV SCH (06:15)
--- NOTE | 2020-05-13 06:15 | Pulmonary Progress Note ---
Subjective Time Seen by a Provider: 06:12 Subjective/Events-last exam Pt is sedated on vent. Sepsis Event Evaluation Height, Weight, BMI Height: '" Weight: lbs. oz. kg; 49.00 BMI Method: Exam Exam Vital Signs Date Time Temp Pulse Resp B/P (MAP) Pulse Ox O2 Delivery O2 Flow Rate FiO2 05/13/20 05:00 94 22 155/73 (100) 96 Mechanical Ventilator 40.00 05/13/20 04:00 36.7 Mechanical Ventilator 40.00 05/13/20 04:00 100 17 160/71 (100) 93 Mechanical Ventilator 40.00 05/13/20 03:09 85 22 95 50 05/13/20 03:00 96 21 168/80 (109) 94 Mechanical Ventilator 50.00 05/13/20 02:00 96 15 169/66 (100) 97 Mechanical Ventilator 50.00 05/13/20 01:00 90 22 156/79 (104) 96 Mechanical Ventilator 50.00 05/13/20 01:00 90 05/13/20 00:00 94 14 162/87 (112) 96 Mechanical Ventilator 50.00 05/12/20 23:00 100 21 163/83 (109) 96 Mechanical Ventilator 50.00 05/12/20 22:00 99 14 137/77 (97) 96 Mechanical Ventilator 50.00 05/12/20 21:51 101 22 126/89 05/12/20 21:46 88 22 96 50 05/12/20 21:25 36.8 05/12/20 21:00 86 22 146/65 (92) 98 Mechanical Ventilator 50.00 05/12/20 21:00 95 Mechanical Ventilator 50 05/12/20 20:00 89 22 138/70 (92) 96 Mechanical Ventilator 50.00 05/12/20 19:24 92 22 99 60 05/12/20 19:00 Mechanical Ventilator 50.00 05/12/20 19:00 97 05/12/20 19:00 97 21 146/67 (93) 98 Mechanical Ventilator 50.00 05/12/20 17:00 104 23 163/89 (113) 98 Mechanical Ventilator 70.00 05/12/20 16:00 105 18 166/77 (106) 97 Mechanical Ventilator 70.00 05/12/20 16:00 37.2 05/12/20 15:58 36.2 05/12/20 15:00 112 23 179/92 (121) 97 Mechanical Ventilator 70.00 05/12/20 14:00 92 19 151/81 (104) 94 Mechanical Ventilator 70.00 05/12/20 13:34 96 22 92 60 05/12/20 13:00 89 17 158/77 (104) 96 Mechanical Ventilator 70.00 05/12/20 12:42 70.00 05/12/20 12:37 37.2 05/12/20 12:00 84 19 134/61 (85) 97 Mechanical Ventilator 70.00 05/12/20 11:29 37.0 05/12/20 11:00 89 19 133/60 (84) 99 Mechanical Ventilator 70.00 05/12/20 10:40 93 29 98 60 05/12/20 10:00 91 14 136/70 (92) 97 Mechanical Ventilator 70.00 05/12/20 09:00 92 18 136/77 (96) 99 Mechanical Ventilator 70.00 05/12/20 08:29 36.4 05/12/20 08:29 Mechanical Ventilator 70.00 05/12/20 08:00 92 Mechanical Ventilator 70 05/12/20 08:00 85 26 159/68 (98) 91 Mechanical Ventilator 40.00 05/12/20 07:00 71 21 147/74 (98) 92 Mechanical Ventilator 40.00 05/12/20 06:17 75 22 92 40 I & O 05/13/20 07:00 Intake Total 610 ml Output Total 2850 ml Balance -2240 ml Height & Weight Height: '" Weight: lbs. oz. kg; 49.00 BMI Method: General Appearance: No Apparent Distress, WD/WN, Chronically ill, Obese HEENT: Other (ETT, OGT) Respiratory: Normal Breath Sounds, Decreased Breath Sounds Cardiovascular: Regular Rate, Rhythm Capillary Refill: Less Than 3 Seconds Gastrointestinal: non tender, soft Extremity: No Calf Tenderness, No Pedal Edema Neurologic/Psychiatric: Other (sedated, appears comfortable) Skin: Normal Color, Warm/Dry Results Lab Laboratory Tests 05/12/20 01:45 05/13/20 05:20 Assessment/Plan Assessment/Plan Acute respiratory failure secondary to COVID19 with ARDS -- Intubated on admission 04/24 -Maintain on vent- Intubated 04/24 Vt is 400, RR 22, PEEP is 10 -- Decrease to 8 -OG tube was discontinued by Dr. Bennett - 05/08 -Pt now has Dobhoff. -Fentanyl at 100 and Versed at 5 -Decrease Fentanyl to 50 -Propofol was d/c'd -Daily sedation vacations. - Propofol and add Fentanyl gtt s/p Remdesivir 04/29 s/p plasma x2 -Proning Lovenox- Hold secondary to bleeding MAT protocol s/p Decadron- tube feeds currently on Hold severe sepsis with shock with PNA --Sputum is growing S. Aureus- MSSA --Zosyn started 05/04 - Diflucan changed to eraxis 05/08 Candidasis bacteremia -Picc line d/c'd. Tip cultured and pending -Central line placed after picc line d/c'd -Diflucan changed to Eraxis 05/08 - Anemia- with GIB s/p EGD per Dr. Sprague -EGD showed bleeding gastric ulcer -Surgery following. HB is now stable -s/p 5 units of PRBC -Lovenox on hold -Consult surgery -Protonix BID -Recheck labs at 0800 Hypertension -Hydralazine PRN -Can use BB secondary to bradycardia -Continue Lisinopril and PRN Vasotec- however may have to hold if renal failure worsens -Norvasc NIDDMII Anticipate high BS with steroids SSI -Increase levemir to 12 units Q 12 secondary to hyperglycemia mid 200's Anemia -Monitor HTN - resolved DVT ppx: -Theraputic dose Lovenox -Protonix SANGEETHA SWEET DO May 13, 2020 06:15
[2020-05-13] MEDS: CATHETER FLUSH 10 ML SYR IV SCH ×3 (06:17→22:49)
[2020-05-13] MEDS: POTASSIUM CL 10MEQ/50ML IVPB 50 ML IV SCH (06:20)
[2020-05-13] MEDS: KCL 20 MEQ TAB (K-DUR) PO SCH (06:21)
[2020-05-13] MEDS: MAGNESIUM 1 GM/100 ML IVPB 100 ML IV SCH (06:21)
[2020-05-13] MEDS ORDERED: MIDAZOLAM 5 MG/5 ML (VERSED) VIAL ONE (08:11)
[2020-05-13] MEDS: MIDAZOLAM INJECTION FOR DRIPS 50 MG in NS (IVPB) 90 ML IV SCH ×2 (08:16→17:40)
--- NOTE | 2020-05-13 08:35 | Diagnostic Imaging Report ---
INDICATION: Covid positive, mechanical ventilation. TECHNIQUE: Single view chest at 7:05 AM. CORRELATION STUDY: 05/12/2020. FINDINGS: The endotracheal tube tip projects over the expected location of the trachea just below the clavicles. The left IJ central line is over the right para mediastinal region, likely SVC, stable. There has been apparent retraction of the enteral feeding tube. The tip projects over the mid chest, likely in the mid esophagus. This is well above the level of the gastroesophageal junction. Extensive infiltrate throughout all 5 lobes is present and overall appears progressed from prior. This does obscure heart size which appears to be enlarged. Underlying vascular congestion is not excluded. IMPRESSION: 1. Extensive 5 lobe infiltrate and/or edema, overall progressed from prior. 2. Cardiac enlargement. A component of vascular congestion is not excluded. 3. An enteral feeding tube is currently malpositioned projecting over the mid chest. This is likely positioned within the mid esophagus. This should either be repositioned or removed. A telephone call was made to Dr. Willams. The report was faxed to Infection Control by mira@8:40 AM. Dictated by: Dictated on workstation # [id number]
--- NOTE | 2020-05-13 09:07 | Diagnostic Imaging Report ---
EXAMINATION: Chest radiograph, portable AP view. DATE: 05/13/2020 9:03 AM hours. INDICATION: 69-year-old female, orogastric tube placement. COMPARISON: May 13, 2020 at 0705 hours. FINDINGS: The endotracheal tube is approximately 2.8 cm above the martha. The enteric tube extends to the level of the stomach. There is a left sided central venous line with tip at the level of the cavoatrial junction. Stable overall appearance of the cardiomediastinal silhouette. There is no identified pneumothorax. There is unchanged nonspecific multifocal bilateral lung consolidation. IMPRESSION: 1. Unchanged nonspecific multifocal bilateral lung consolidation. 2. Interval advancement of the enteric tube with tip currently at the level of the stomach. Additional support lines and tubes as above. Dictated by: Dictated on workstation # [id number]
[2020-05-13] MEDS: METOCLOPRAMIDE INJ 10 MG/2 ML (REGLAN) IVP SCH (09:35)
[2020-05-13] MEDS: ARTIFICIAL TEARS OINT (LACRI-LUBE) 3.5 GM TUBE OU SCH ×2 (09:35→19:53)
[2020-05-13] MEDS: PANTOPRAZOLE 40 MG (PROTONIX) VIAL IV SCH ×2 (09:35→19:53)
--- NOTE | 2020-05-13 13:00 | NUR ---
UNABLE TO FLUSH NG TUBE. TUBE DC'D. APPEARS TO HAVE BEEN KINKED. NEW TUBE PLACED. AIR BOLUS AUSCULTATED OVER GASTRIC REGION. XRAY ORDERED.
--- NOTE | 2020-05-13 13:22 | Diagnostic Imaging Report ---
INDICATION: OG tube placement. TIME OF EXAM: 1:04 PM Correlation made with prior study earlier same day. FINDINGS: ET tube remains with tip above the martha. Left-sided line has tip overlying SVC. Dobbhoff passes below the diaphragm with tip in region of gastric body. Diffuse bilateral airspace pulmonary infiltrates are noted. There is no pneumothorax or pleural fluid. IMPRESSION: Continued extensive bilateral airspace pulmonary infiltrates. Lines and catheters appear to be in satisfactory position. Dictated by: Dictated on workstation # [id number]
[2020-05-13] MEDS: DOCUSATE SODIUM 10 MG/ML 10 ML UDC (COLACE) PO SCH ×2 (14:56→19:53)
[2020-05-13] MEDS: MICONAZOLE 2% POWDER (DESENEX AF) 90 GM TOP SCH (14:56)
[2020-05-13] MEDS: ANIDULAFUNGIN INJECTION 100 MG in NS (IVPB) 100 ML IV SCH (15:10)
[2020-05-14] VITALS (27 sets, daily range): BP systolic 108–161; BP diastolic 55–78
[2020-05-14] MEDS: inSUlin ASPART (NovoLOG) 1 UNIT/0.01 ML (CHARGE PER UNIT) SC SCH ×4 (00:17→17:11)
[2020-05-14] MEDS: MIDAZOLAM INJECTION FOR DRIPS 50 MG in NS (IVPB) 90 ML IV SCH ×3 (00:17→17:17)
[2020-05-14] MEDS: RT-ALBUTEROL INHALER HFA (VENTOLIN HFA) 18 GM IH SCH ×6 (01:08→23:42)
[2020-05-14 01:34] LABS: BASOPHILS % (AUTO) 0 % (0-10); EOSINOPHILS # (AUTO) 0.4 10^3/uL (0.0-0.3); EOSINOPHILS % (AUTO) 5 % (0-10); HEMATOCRIT 28 % (35-52); HEMOGLOBIN 8.3 g/dL (11.5-16.0); LYMPHOCYTES # (AUTO) 0.7 10^3/uL (1.0-4.0); LYMPHOCYTES % (AUTO) 8 % (12-44); MEAN CORPUSCULAR HEMOGLOBIN 29 pg (25-34); MEAN CORPUSCULAR HGB CONC 30 g/dL (32-36); MEAN CORPUSCULAR VOLUME 95 fL (80-99); MEAN PLATELET VOLUME 10.5 fL (9.0-12.2); MONOCYTES # (AUTO) 0.6 10^3/uL (0.0-1.0); MONOCYTES % (AUTO) 7 % (0-12); NEUTROPHILS # (AUTO) 7.1 10^3/uL (1.8-7.8); NEUTROPHILS % (AUTO) 80 % (42-75); PLATELET COUNT 151 10^3/uL (130-400); WHITE BLOOD COUNT 8.8 10^3/uL (4.3-11.0)
[2020-05-14 02:21] LABS: BUN/CREATININE RATIO 26; CALCIUM 7.5 MG/DL (8.5-10.1); CARBON DIOXIDE 23 MMOL/L (21-32); CHLORIDE 110 MMOL/L (98-107); CREATININE SERUM 0.74 MG/DL (0.60-1.30); GFR ESTIMATED > 60; GLUCOSE 173 MG/DL (70-105); MAGNESIUM 2.2 MG/DL (1.6-2.4); PHOSPHORUS 2.3 MG/DL (2.3-4.7); POTASSIUM 3.6 MMOL/L (3.6-5.0); SODIUM 146 MMOL/L (135-145); TRIGLYCERIDES 240 MG/DL (<150)
[2020-05-14] MEDS: PIPERACILLIN/TAZOBACTAM (BULK) 4.5 GM in NS (IVPB) 100 ML IV SCH (02:40)
[2020-05-14] MEDS: POTASSIUM CL 10MEQ/50ML IVPB 50 ML IV SCH ×6 (02:40→09:10)
[2020-05-14 03:13] LABS: ABG BASE EXCESS 0.2 MMOL/L (-2.5-2.5); ABG OXYGEN SATURATION 97 % (94-100); ABG PCO2 49 MMHG (35-45); ABG PO2 93 MMHG (79-93)
[2020-05-14 03:17] LABS: ABG PH 7.34 (7.37-7.43); INSPIRED O2 45; PATIENT TEMP 36.7; VENTILATOR YES
[2020-05-14] MEDS ORDERED: FUROSEMIDE 40 MG/4 ML INJ (LASIX) IVP ONE (05:30)
--- NOTE | 2020-05-14 05:33 | Pulmonary Progress Note ---
Subjective Time Seen by a Provider: 05:31 Subjective/Events-last exam Sedated on vent. Sepsis Event Evaluation Height, Weight, BMI Height: '" Weight: lbs. oz. kg; 49.00 BMI Method: Exam Exam Vital Signs Date Time Temp Pulse Resp B/P (MAP) Pulse Ox O2 Delivery O2 Flow Rate FiO2 05/14/20 01:06 84 23 92 45 05/14/20 01:00 84 05/14/20 00:17 82 22 118/64 05/14/20 00:00 Mechanical Ventilator 45.00 05/14/20 00:00 36.8 05/13/20 23:00 87 22 112/56 (74) 93 Mechanical Ventilator 40.00 05/13/20 22:00 89 22 108/55 (72) 98 Mechanical Ventilator 40.00 05/13/20 21:05 89 22 96 40 05/13/20 21:00 86 14 118/61 (80) 95 Mechanical Ventilator 40.00 05/13/20 21:00 94 Mechanical Ventilator 45 05/13/20 20:00 93 17 127/53 (77) 98 Mechanical Ventilator 40.00 05/13/20 20:00 36.7 Mechanical Ventilator 40.00 05/13/20 19:14 36.9 05/13/20 19:00 85 17 127/60 (82) 98 Mechanical Ventilator 45.00 05/13/20 19:00 85 05/13/20 19:00 Mechanical Ventilator 45.00 05/13/20 18:31 60.00 05/13/20 18:30 92 19 127/62 (83) 97 Mechanical Ventilator 45.00 05/13/20 18:19 93 23 96 45 05/13/20 18:00 96 21 138/64 (88) 97 Mechanical Ventilator 45.00 05/13/20 17:45 45.00 05/13/20 17:40 81 140/60 05/13/20 17:00 100 18 140/60 (86) 98 Mechanical Ventilator 60.00 05/13/20 16:14 60.00 05/13/20 16:03 36.7 05/13/20 16:00 105 19 134/78 (96) 100 Mechanical Ventilator 55.00 05/13/20 15:00 106 26 93 80 05/13/20 15:00 104 29 160/78 (105) 94 Mechanical Ventilator 55.00 05/13/20 14:00 78 12 149/61 (90) 97 Mechanical Ventilator 55.00 05/13/20 13:00 88 13 134/72 (92) 94 Mechanical Ventilator 55.00 05/13/20 12:37 73 05/13/20 12:00 75 147/63 (91) 96 Mechanical Ventilator 55.00 05/13/20 11:17 36.8 05/13/20 11:00 68 21 159/53 (88) 93 Mechanical Ventilator 55.00 05/13/20 10:00 75 22 149/60 (89) 95 Mechanical Ventilator 55.00 05/13/20 09:58 78 22 95 55 05/13/20 09:52 55.00 05/13/20 09:34 36.3 05/13/20 09:30 94 Mechanical Ventilator 55 05/13/20 09:00 73 9 163/81 (108) 96 Mechanical Ventilator 40.00 05/13/20 08:16 73 22 145/81 05/13/20 08:01 36.2 05/13/20 08:00 74 20 149/72 (97) 93 Mechanical Ventilator 40.00 05/13/20 07:24 80 22 96 60 05/13/20 07:00 81 12 138/74 (95) 100 Mechanical Ventilator 40.00 05/13/20 06:55 83 05/13/20 06:00 83 14 148/57 (87) 97 Mechanical Ventilator 40.00 I & O 05/14/20 07:00 Intake Total 640 ml Output Total 700 ml Balance -60 ml Height & Weight Height: '" Weight: lbs. oz. kg; 49.00 BMI Method: General Appearance: No Apparent Distress, WD/WN, Chronically ill, Obese HEENT: Other (ETT, OGT) Respiratory: Normal Breath Sounds, Decreased Breath Sounds Cardiovascular: Regular Rate, Rhythm Capillary Refill: Less Than 3 Seconds Gastrointestinal: non tender, soft Extremity: No Calf Tenderness, No Pedal Edema Neurologic/Psychiatric: Other (sedated, appears comfortable) Skin: Normal Color, Warm/Dry Results Lab Laboratory Tests 05/13/20 05:20 05/14/20 00:35 Assessment/Plan Assessment/Plan Acute respiratory failure secondary to COVID19 with ARDS -- Intubated on admission 04/24 -Maintain on vent- Intubated 04/24 Vt is 400, RR 22, PEEP 8 -OG tube was discontinued by Dr. Bennett - 05/08 - Dobhoff. -- tolerating TF -Fentanyl at 100 and Versed at 5 -Decrease Fentanyl to 50 and Versed -Propofol was d/c'd -Daily sedation vacations. - Fentanyl gtt s/p Remdesivir 04/29 s/p plasma x2 -Proning Lovenox- Hold secondary to bleeding MAT protocol s/p Decadron- tube feeds currently on Hold severe sepsis with shock with PNA --Sputum is growing S. Aureus- MSSA --Zosyn started 05/04 - eraxis 05/08 Candidasis bacteremia -Picc line d/c'd. Tip cultured and pending -Central line placed after picc line d/c'd - Eraxis 05/08 - Anemia- with GIB s/p EGD per Dr. Sprague -EGD showed bleeding gastric ulcer -Surgery following. HB is now stable -s/p 5 units of PRBC -Lovenox on hold -Consult surgery -Protonix BID -Recheck labs at 0800 Hypertension -Hydralazine PRN -Can use BB secondary to bradycardia -Continue Lisinopril and PRN Vasotec- however may have to hold if renal failure worsens -Norvasc NIDDMII Anticipate high BS with steroids SSI -Increase levemir to 12 units Q 12 secondary to hyperglycemia mid 200's Anemia -Monitor HTN - resolved DVT ppx: -Theraputic dose Lovenox -Protonix SANGEETHA SWEET DO May 14, 2020 05:33
[2020-05-14] MEDS ORDERED: MAGNESIUM 1 GM/100 ML IVPB 100 ML IV SCH (06:00)
[2020-05-14] MEDS ORDERED: POTASSIUM CL 10MEQ/50ML IVPB 50 ML IV SCH (06:00)
[2020-05-14] MEDS ORDERED: KCL 20 MEQ TAB (K-DUR) PO SCH (06:00)
[2020-05-14] MEDS: CATHETER FLUSH 10 ML SYR IV SCH ×2 (07:12→17:09)
[2020-05-14] MEDS: MAGNESIUM 1 GM/100 ML IVPB 100 ML IV SCH (07:13)
[2020-05-14] MEDS: KCL 20 MEQ TAB (K-DUR) PO SCH (07:13)
[2020-05-14] MEDS: D5W 1000 ML IV SOLUTION 1,000 ML IV SCH (07:14)
--- NOTE | 2020-05-14 08:09 | Diagnostic Imaging Report ---
INDICATION: Respiratory distress. COMPARISON: 05/13/2020. FINDINGS: ET tube and left jugular line are in good position. Dobbhoff tube is present extending below the diaphragm. Diffuse bilateral alveolar infiltrates are again noted. Infiltrates have decreased in density, however when compared with previous exam. The left hemidiaphragm is less obscured today. No bony abnormalities. IMPRESSION: 1. Tubes and lines remain in good position. 2. Bilateral alveolar infiltrates show some decrease in density on today's exam. Dictated by: Dictated on workstation # [id number]
[2020-05-14] MEDS ORDERED: morphine INJ 10 MG/ML 1ML (SYR OR VIAL) IVP STA (08:13)
[2020-05-14] MEDS: PANTOPRAZOLE 40 MG (PROTONIX) VIAL IV SCH ×2 (09:14→20:12)
[2020-05-14] MEDS: METOCLOPRAMIDE INJ 10 MG/2 ML (REGLAN) IVP SCH (09:14)
[2020-05-14] MEDS: ARTIFICIAL TEARS OINT (LACRI-LUBE) 3.5 GM TUBE OU SCH ×2 (09:15→20:12)
[2020-05-14] MEDS: DOCUSATE SODIUM 10 MG/ML 10 ML UDC (COLACE) PO SCH ×2 (09:15→20:12)
[2020-05-14] MEDS: MICONAZOLE 2% POWDER (DESENEX AF) 90 GM TOP SCH ×2 (09:21→20:12)
--- NOTE | 2020-05-14 09:45 | NUR ---
PER DR SWEET'S REQUEST, SPOKE WITH DR CASTRO VIA TELEPHONE. OK'D TO RESTART LOVENOX 1X DAILY. ADD'L ORDER TO GIVE CARAFATE SLURRY TID.
--- NOTE | 2020-05-14 10:34 | NUR ---
DR SWEET SPOKE WITH DAUGHTER, JUANCHO, VIA TELEPHONE. UPDATED ON PT'S CONDITION. DISCUSSED TRANSFER TO [facility] FOR [facility]ARE ET TRACHEOSTOMY PLACEMENT IF NEEDED. DAUGHTER AGREEABLE TO BOTH.
--- NOTE | 2020-05-14 10:50 | NUR ---
During care rounds, it was noted that pt had received Dobhoff on 05/13, but it had kinked and DC'ed. Note new tube was placed and TF had been restarted. Note pt receiving Pulmocare 1.5 kcal at rate of 15ml/hr with flushes of 25ml water q4h. Would recommend conservative increases of 10ml q8h as tolerated. Note goal rate of 50ml/hr. Will continue to follow and reassess as pt needs, intake, and status change. Janak Pierson, MS RD LD [phone] (cell)
[2020-05-14] MEDS: ENOXAPARIN 40 MG/0.4 ML (LOVENOX) SYR SC SCH (11:05)
[2020-05-14] MEDS: SUCRALFATE 1 GM (CARAFATE) TAB NG SCH ×2 (11:05→20:12)
[2020-05-14] MEDS: ANIDULAFUNGIN INJECTION 100 MG in NS (IVPB) 100 ML IV SCH (14:21)
--- NOTE | 2020-05-14 16:41 | NUR ---
CM/SS: Information - facesheet, and medication information is faxed to [facility] per request of Richie - per Dr Willams. .
[2020-05-15] VITALS (32 sets, daily range): BP systolic 102–178; BP diastolic 51–84
[2020-05-15] MEDS: CATHETER FLUSH 10 ML SYR IV SCH ×4 (00:45→21:42)
[2020-05-15] MEDS: inSUlin ASPART (NovoLOG) 1 UNIT/0.01 ML (CHARGE PER UNIT) SC SCH ×5 (00:46→23:22)
[2020-05-15] MEDS: RT-ALBUTEROL INHALER HFA (VENTOLIN HFA) 18 GM IH SCH ×6 (02:30→21:30)
[2020-05-15] MEDS: D5W 1000 ML IV SOLUTION 1,000 ML IV SCH (03:34)
[2020-05-15] MEDS: MIDAZOLAM INJECTION FOR DRIPS 50 MG in NS (IVPB) 90 ML IV SCH ×3 (03:34→23:50)
[2020-05-15 04:23] LABS: ABG BASE EXCESS 4.3 MMOL/L (-2.5-2.5); ABG OXYGEN SATURATION 91 % (94-100); ABG PCO2 48 MMHG (35-45); ABG PO2 59 MMHG (79-93); ABG TCO2 30.4 MMOL/L (21.0-31.0)
[2020-05-15 04:30] LABS: ALLENS TEST POS; INSPIRED O2 50%; VENTILATOR YES
[2020-05-15 04:31] LABS: PATIENT TEMP 36.8
[2020-05-15 04:55] LABS: CHLORIDE 107 MMOL/L (98-107); POTASSIUM 3.8 MMOL/L (3.6-5.0); SODIUM 141 MMOL/L (135-145)
[2020-05-15 04:57] LABS: CALCIUM 7.8 MG/DL (8.5-10.1); GLUCOSE 212 MG/DL (70-105); TRIGLYCERIDES 268 MG/DL (<150)
[2020-05-15 04:59] LABS: CARBON DIOXIDE 26 MMOL/L (21-32)
[2020-05-15 05:01] LABS: CREATININE SERUM 0.76 MG/DL (0.60-1.30); GFR ESTIMATED > 60; PHOSPHORUS 1.6 MG/DL (2.3-4.7)
[2020-05-15 05:02] LABS: BUN/CREATININE RATIO 21
[2020-05-15] MEDS: POTASSIUM CL 10MEQ/50ML IVPB 50 ML IV SCH ×4 (05:23→08:59)
[2020-05-15] MEDS: MAGNESIUM 1 GM/100 ML IVPB 100 ML IV SCH (05:23)
[2020-05-15] MEDS: KCL 20 MEQ TAB (K-DUR) PO SCH (05:24)
[2020-05-15 05:59] LABS: BASOPHILS % (AUTO) 0 % (0-10); EOSINOPHILS # (AUTO) 0.5 10^3/uL (0.0-0.3); EOSINOPHILS % (AUTO) 5 % (0-10); HEMATOCRIT 28 % (35-52); HEMOGLOBIN 8.5 g/dL (11.5-16.0); LYMPHOCYTES # (AUTO) 0.7 10^3/uL (1.0-4.0); LYMPHOCYTES % (AUTO) 8 % (12-44); MEAN CORPUSCULAR HEMOGLOBIN 29 pg (25-34); MEAN CORPUSCULAR HGB CONC 31 g/dL (32-36); MEAN CORPUSCULAR VOLUME 94 fL (80-99); MEAN PLATELET VOLUME 10.4 fL (9.0-12.2); MONOCYTES % (AUTO) 12 % (0-12); NEUTROPHILS # (AUTO) 6.3 10^3/uL (1.8-7.8); NEUTROPHILS % (AUTO) 74 % (42-75); PLATELET COUNT 144 10^3/uL (130-400); WHITE BLOOD COUNT 8.5 10^3/uL (4.3-11.0)
--- NOTE | 2020-05-15 06:02 | Pulmonary Progress Note ---
Subjective Time Seen by a Provider: 06:01 Sepsis Event Evaluation Height, Weight, BMI Height: '" Weight: lbs. oz. kg; 49.00 BMI Method: Exam Exam Vital Signs Date Time Temp Pulse Resp B/P (MAP) Pulse Ox O2 Delivery O2 Flow Rate FiO2 05/15/20 04:00 Mechanical Ventilator 50.00 05/15/20 04:00 93 22 159/77 (104) 91 Mechanical Ventilator 50.00 05/15/20 03:34 93 22 166/77 05/15/20 03:00 90 19 171/84 (113) 92 Mechanical Ventilator 45.00 05/15/20 02:30 89 28 92 45 05/15/20 02:00 92 21 142/69 (93) 93 Mechanical Ventilator 45.00 05/15/20 01:00 Mechanical Ventilator 45.00 05/15/20 01:00 89 05/15/20 01:00 87 25 162/77 (105) 93 Mechanical Ventilator 45.00 05/15/20 00:00 36.9 05/15/20 00:00 81 22 145/80 (101) 96 Mechanical Ventilator 50.00 05/14/20 23:42 87 23 97 50 05/14/20 23:00 83 22 150/69 (96) 98 Mechanical Ventilator 50.00 05/14/20 22:00 86 15 151/72 (98) 96 Mechanical Ventilator 50.00 05/14/20 21:00 95 Mechanical Ventilator 50 05/14/20 21:00 90 24 160/76 (104) 95 Mechanical Ventilator 50.00 05/14/20 20:00 36.4 Mechanical Ventilator 50.00 05/14/20 20:00 85 21 143/73 (96) 98 Mechanical Ventilator 50.00 05/14/20 19:19 36.2 05/14/20 19:00 88 05/14/20 19:00 Mechanical Ventilator 60.00 05/14/20 19:00 80 22 147/74 (98) 96 Mechanical Ventilator 60.00 05/14/20 18:59 85 22 99 65 05/14/20 18:00 90 22 145/75 (98) 86 Mechanical Ventilator 45.00 05/14/20 17:17 101 28 142/73 05/14/20 17:00 89 21 148/72 (97) 95 Mechanical Ventilator 45.00 05/14/20 16:20 35.7 05/14/20 16:00 102 22 161/71 (101) 96 Mechanical Ventilator 45.00 05/14/20 15:40 36.0 05/14/20 15:00 95 22 155/78 (103) 95 Mechanical Ventilator 45.00 05/14/20 14:47 101 28 93 65 05/14/20 14:00 75 135/72 (93) 93 Mechanical Ventilator 45.00 05/14/20 13:45 36.3 05/14/20 13:00 78 127/67 (87) 93 Mechanical Ventilator 45.00 05/14/20 12:43 80 05/14/20 12:00 80 121/62 (81) 93 Mechanical Ventilator 45.00 05/14/20 11:00 87 118/59 (78) 95 Mechanical Ventilator 45.00 05/14/20 10:22 83 22 94 65 05/14/20 10:03 88 20 117/57 05/14/20 10:00 91 113/56 (75) 95 Mechanical Ventilator 45.00 05/14/20 09:00 93 114/56 (75) 94 Mechanical Ventilator 45.00 05/14/20 08:00 94 Mechanical Ventilator 65 05/14/20 08:00 101 20 127/60 (82) 93 Mechanical Ventilator 45.00 05/14/20 07:18 95 25 96 100 05/14/20 07:00 89 25 155/70 (98) 94 Mechanical Ventilator 45.00 05/14/20 06:50 80 I & O 05/15/20 07:00 Intake Total 590 ml Output Total 1975 ml Balance -1385 ml Height & Weight Height: '" Weight: lbs. oz. kg; 49.00 BMI Method: General Appearance: No Apparent Distress, WD/WN, Chronically ill, Obese HEENT: Other (ETT, OGT) Respiratory: Normal Breath Sounds, Decreased Breath Sounds Cardiovascular: Regular Rate, Rhythm Capillary Refill: Less Than 3 Seconds Gastrointestinal: non tender, soft Extremity: No Calf Tenderness, No Pedal Edema Neurologic/Psychiatric: Other (sedated, appears comfortable) Skin: Normal Color, Warm/Dry Results Lab Laboratory Tests 05/14/20 00:35 05/15/20 04:05 Assessment/Plan Assessment/Plan Acute respiratory failure secondary to COVID19 with ARDS -- Intubated on admission 04/24 -Maintain on vent- Intubated 04/24 Vt is 400, RR 22, PEEP 8 -OG tube was discontinued by Dr. Bennett - 05/08 - Dobhoff. -- tolerating TF -Fentanyl at 100 and Versed at 5 -Decrease Fentanyl to 50 and Versed -Propofol was d/c'd -Daily sedation vacations. - Fentanyl gtt s/p Remdesivir 04/29 s/p plasma x2 -Proning Lovenox- Hold secondary to bleeding MAT protocol s/p Decadron- tube feeds currently on Hold severe sepsis with shock with PNA --Sputum is growing S. Aureus- MSSA --Zosyn started 05/04 - eraxis 05/08 Candidasis bacteremia -Picc line d/c'd. Tip cultured and pending -Central line placed after picc line d/c'd - Eraxis 05/08 - Anemia- with GIB s/p EGD per Dr. Sprague -EGD showed bleeding gastric ulcer -Surgery following. HB is now stable -s/p 5 units of PRBC -Lovenox on hold -Consult surgery -Protonix BID -Recheck labs at 0800 Hypertension -Hydralazine PRN -Can use BB secondary to bradycardia -Continue Lisinopril and PRN Vasotec- however may have to hold if renal failure worsens -Norvasc NIDDMII Anticipate high BS with steroids SSI -Increase levemir to 12 units Q 12 secondary to hyperglycemia mid 200's Anemia -Monitor HTN - resolved DVT ppx: -Theraputic dose Lovenox -Protonix SANGEETHA SWEET DO May 15, 2020 06:02
--- NOTE | 2020-05-15 06:15 | Pulmonary Progress Note ---
Subjective Time Seen by a Provider: 06:14 Subjective/Events-last exam Pt is sedated on vent. Sepsis Event Evaluation Height, Weight, BMI Height: '" Weight: lbs. oz. kg; 49.00 BMI Method: Exam Exam Vital Signs Date Time Temp Pulse Resp B/P (MAP) Pulse Ox O2 Delivery O2 Flow Rate FiO2 05/15/20 04:00 Mechanical Ventilator 50.00 05/15/20 04:00 93 22 159/77 (104) 91 Mechanical Ventilator 50.00 05/15/20 03:34 93 22 166/77 05/15/20 03:00 90 19 171/84 (113) 92 Mechanical Ventilator 45.00 05/15/20 02:30 89 28 92 45 05/15/20 02:00 92 21 142/69 (93) 93 Mechanical Ventilator 45.00 05/15/20 01:00 Mechanical Ventilator 45.00 05/15/20 01:00 89 05/15/20 01:00 87 25 162/77 (105) 93 Mechanical Ventilator 45.00 05/15/20 00:00 36.9 05/15/20 00:00 81 22 145/80 (101) 96 Mechanical Ventilator 50.00 05/14/20 23:42 87 23 97 50 05/14/20 23:00 83 22 150/69 (96) 98 Mechanical Ventilator 50.00 05/14/20 22:00 86 15 151/72 (98) 96 Mechanical Ventilator 50.00 05/14/20 21:00 95 Mechanical Ventilator 50 05/14/20 21:00 90 24 160/76 (104) 95 Mechanical Ventilator 50.00 05/14/20 20:00 36.4 Mechanical Ventilator 50.00 05/14/20 20:00 85 21 143/73 (96) 98 Mechanical Ventilator 50.00 05/14/20 19:19 36.2 05/14/20 19:00 88 05/14/20 19:00 Mechanical Ventilator 60.00 05/14/20 19:00 80 22 147/74 (98) 96 Mechanical Ventilator 60.00 05/14/20 18:59 85 22 99 65 05/14/20 18:00 90 22 145/75 (98) 86 Mechanical Ventilator 45.00 05/14/20 17:17 101 28 142/73 05/14/20 17:00 89 21 148/72 (97) 95 Mechanical Ventilator 45.00 05/14/20 16:20 35.7 05/14/20 16:00 102 22 161/71 (101) 96 Mechanical Ventilator 45.00 05/14/20 15:40 36.0 05/14/20 15:00 95 22 155/78 (103) 95 Mechanical Ventilator 45.00 05/14/20 14:47 101 28 93 65 05/14/20 14:00 75 135/72 (93) 93 Mechanical Ventilator 45.00 05/14/20 13:45 36.3 05/14/20 13:00 78 127/67 (87) 93 Mechanical Ventilator 45.00 05/14/20 12:43 80 05/14/20 12:00 80 121/62 (81) 93 Mechanical Ventilator 45.00 05/14/20 11:00 87 118/59 (78) 95 Mechanical Ventilator 45.00 05/14/20 10:22 83 22 94 65 05/14/20 10:03 88 20 117/57 05/14/20 10:00 91 113/56 (75) 95 Mechanical Ventilator 45.00 05/14/20 09:00 93 114/56 (75) 94 Mechanical Ventilator 45.00 05/14/20 08:00 94 Mechanical Ventilator 65 05/14/20 08:00 101 20 127/60 (82) 93 Mechanical Ventilator 45.00 05/14/20 07:18 95 25 96 100 05/14/20 07:00 89 25 155/70 (98) 94 Mechanical Ventilator 45.00 05/14/20 06:50 80 I & O 05/15/20 07:00 Intake Total 590 ml Output Total 1975 ml Balance -1385 ml Height & Weight Height: '" Weight: lbs. oz. kg; 49.00 BMI Method: General Appearance: No Apparent Distress, WD/WN, Chronically ill, Obese HEENT: Other (ETT, OGT) Respiratory: Normal Breath Sounds, Decreased Breath Sounds Cardiovascular: Regular Rate, Rhythm Capillary Refill: Less Than 3 Seconds Gastrointestinal: non tender, soft Extremity: No Calf Tenderness, No Pedal Edema Neurologic/Psychiatric: Other (sedated, appears comfortable) Skin: Normal Color, Warm/Dry Results Lab Laboratory Tests 05/14/20 00:35 05/15/20 04:05 05/15/20 05:50 Assessment/Plan Assessment/Plan Acute respiratory failure secondary to COVID19 with ARDS -- Intubated on admission 04/24 -Maintain on vent- Intubated 04/24 Vt is 400, RR 22, PEEP 8 -OG tube was discontinued by Dr. Bennett - 05/08 - Dobhoff. -- tolerating TF -Discussed tracheotomy with Dr. Bennett -Family is agreeable for tracheotomy. -Fentanyl at 100 and Versed at 5 -Decrease Fentanyl to 50 and Versed -Propofol was d/c'd -Daily sedation vacations. - Fentanyl gtt s/p Remdesivir 04/29 s/p plasma x2 -Proning Lovenox- Hold secondary to bleeding MAT protocol s/p Decadron- tube feeds currently on Hold severe sepsis with shock with PNA --Sputum is growing S. Aureus- MSSA --Zosyn started 05/04 - eraxis 05/08 Candidasis bacteremia -Picc line d/c'd. Tip cultured and pending -Central line placed after picc line d/c'd - Eraxis 05/08 - Anemia- with GIB s/p EGD per Dr. Sprague -EGD showed bleeding gastric ulcer -Surgery following. HB is now stable -s/p 5 units of PRBC -Lovenox on hold -Consult surgery -Protonix BID -Recheck labs at 0800 Hypertension -Hydralazine PRN -Can use BB secondary to bradycardia -Continue Lisinopril and PRN Vasotec- however may have to hold if renal failure worsens -Norvasc NIDDMII Anticipate high BS with steroids SSI -Increase levemir to 12 units Q 12 secondary to hyperglycemia mid 200's Anemia -Monitor HTN - resolved DVT ppx: -Theraputic dose Lovenox -Protonix SANGEETHA SWEET DO May 15, 2020 06:15
[2020-05-15 06:36] LABS: ANISOCYTOSIS SLIGHT; EOSINOPHILS % (MANUAL) 8 %; LYMPHOCYTES % (MANUAL) 5 %; MONOCYTES % (MANUAL) 9 %; NEUTROPHILS % (MANUAL) 78 %
--- NOTE | 2020-05-15 08:04 | Diagnostic Imaging Report ---
INDICATION: Respiratory failure Portable chest 7:32 AM There is ET tube projects over the trachea. Feeding tube objects of the stomach. Left IJ central line tip projects over the SVC. There are severe diffuse pulmonary infiltrates both lungs. There are no appreciable effusions or pneumothoraces. IMPRESSION: Severe diffuse pulmonary infiltrates. These overall appear slightly worse compared to the previous day. Dictated by: Dictated on workstation # [id number]
--- NOTE | 2020-05-15 08:13 | NUR ---
SASHA WITH CHIDI (DAUGHTER) FOR CONSENT FOR ARTERIAL LINE.
[2020-05-15] MEDS: ARTIFICIAL TEARS OINT (LACRI-LUBE) 3.5 GM TUBE OU SCH ×2 (08:59→20:43)
[2020-05-15] MEDS: DOCUSATE SODIUM 10 MG/ML 10 ML UDC (COLACE) PO SCH ×2 (09:00→20:43)
[2020-05-15] MEDS: SUCRALFATE 1 GM (CARAFATE) TAB NG SCH ×3 (09:00→20:43)
[2020-05-15] MEDS: MICONAZOLE 2% POWDER (DESENEX AF) 90 GM TOP SCH ×2 (09:00→20:44)
[2020-05-15] MEDS ORDERED: FUROSEMIDE 40 MG/4 ML INJ (LASIX) IVP SCH ×2 (09:00)
[2020-05-15] MEDS ORDERED: ENOXAPARIN 100 MG/1 ML (LOVENOX) SYR SC SCH (09:00)
--- NOTE | 2020-05-15 09:00 | NUR ---
DOBHOFF TUBE OUT ON THE FLOOR. TUBE FEEDING HELD. NG TUBE REPLACED RIGHT NARE, 65 CM AT TIP OF NOSE. XRAY ORDERED.
[2020-05-15] MEDS: ENOXAPARIN 40 MG/0.4 ML (LOVENOX) SYR SC SCH (09:01)
[2020-05-15] MEDS: METOCLOPRAMIDE INJ 10 MG/2 ML (REGLAN) IVP SCH (09:04)
[2020-05-15] MEDS: PANTOPRAZOLE 40 MG (PROTONIX) VIAL IV SCH ×2 (09:04→20:43)
--- NOTE | 2020-05-15 09:30 | NUR ---
DR CASTRO AT BEDSIDE FOR EVAL. ORDERS REC'D
--- NOTE | 2020-05-15 09:51 | NUR ---
SPOKE WITH DAUGHTER, JUANCHO, VIA TELEPHONE TO OBTAIN CONSENT FOR TRACH ET PEG TUBE PLACEMENT
--- NOTE | 2020-05-15 10:16 | Progress Note-Pre Operative ---
Pre-Operative Progress Note H&P Reviewed The H&P was reviewed, patient examined and no changes noted. Date Seen by Provider: May 15, 2020 Time Seen by Provider: 10:00 Date H&P Reviewed: May 15, 2020 Time H&P Reviewed: 10:00 Pre-Operative Diagnosis: respiratory failure JHONATAN CASTRO MD May 15, 2020 10:16
--- NOTE | 2020-05-15 10:19 | Diagnostic Imaging Report ---
Portable semi-erect chest at 9:48 Indication: Respiratory distress The cardiomegaly and the diffuse alveolar/interstitial pulmonary infiltrates seen on the prior exam performed earlier today at 7:32 AM are again evident and not significantly changed. The heart is stable in size as well. The ET tube remains in good position with the tip overlying the midportion of the tracheal air shadow. The central venous catheter on the left is also stable in position. In the interval since the prior exam of the Dobbhoff feeding tube has been advanced. The tip of the tube now overlies the right upper quadrant in the region of the duodenal bulb. I would recommend the tip of the tube be advanced another 10 cm to assure it is well within the small bowel before feedings are initiated. Impression: 1. The overall appearance of the chest has not changed significantly since the prior exam. No new abnormality has developed. 2. The tip of the Dobbhoff feeding tube has been advanced. Recommendations as above. Dictated by: Dictated on workstation # [id number]
--- NOTE | 2020-05-15 10:55 | NUR ---
Patient meets all criteria per CDC guidelines to have isolation removed. Evaluated by myself and Dr Diana. I spoke to the nurses about this. Her room will be terminally cleaned and UV light used as well as her bed. Full PPE will be used in OR today. Notified Dr Willams.
--- NOTE | 2020-05-15 13:10 | NUR ---
During care rounds, plan of care was discussed and pt is to receive a PEG tube today. Note current TF is being held d/t procedure. Would recommend resuming previous TF of Pulmocare 1.5 kcal at rate of 15ml/hr with flushes of 25ml water q4h, when medically able and as tolerated. Will continue to follow and reassess as pt needs, intake, and status change. Janak Pierson MS RD LD [phone] (cell)
--- NOTE | 2020-05-15 13:33 | NUR ---
LUNG SOUNDS REASSESSED. DIMINISHED THROUGHOUT ANTERIORLY.
[2020-05-15] MEDS: ANIDULAFUNGIN INJECTION 100 MG in NS (IVPB) 100 ML IV SCH (15:08)
[2020-05-15] MEDS ORDERED: MIDAZOLAM 2 MG/2 ML (VERSED) VIAL ONE (16:57)
[2020-05-15] MEDS ORDERED: ROCURONIUM 10 MG/ML 5 ML SYRINGE IV ONE (16:57)
--- NOTE | 2020-05-15 17:35 | NUR ---
pt to OR via cart with OR staff.
[2020-05-15] MEDS ORDERED: LIDOCAINE/EPI 1%-1:200,000 (XYLOCAINE) 30 ML VIAL ONE (17:40)
[2020-05-15] MEDS ORDERED: PHENYLEPHRINE 100 MCG/ML 10 ML (ANESTHESIA) SYR ONE (18:48)
[2020-05-15] MEDS ORDERED: GLYCOPYRROLATE 0.2 MG/ML (ROBINUL) 2 ML VIAL ONE (18:48)
[2020-05-15] MEDS ORDERED: NEOSTIGMINE 3 MG/3 ML VIAL ONE (18:48)
--- NOTE | 2020-05-15 18:56 | NUR ---
80ml of versed drip wasted by this rn et rui henderson. room decontaminated to dc covid isolation.
--- NOTE | 2020-05-15 19:01 | Progress Note-Post Operative ---
Post-Operative Progess Note Surgeon (s)/Sausage Meat Trimmer (s) Surgeon JHONATAN CASTRO MD Sausage Meat Trimmer: dorie coats END WORKER Pre-Operative Diagnosis respiratory failure Post-Operative Diagnosis same Procedure & Operative Findings Date of Procedure 05/15/20 Procedure Performed/Findings open tracheostomy placement. EGD with bx and percutaneous gastrostomy tube placement. Anesthesia Type get Estimated Blood Loss Estimated blood loss (mL): minimal Specimens/Packing Specimens Removed ge jxn, antrum JHONATAN CASTRO MD May 15, 2020 19:01
[2020-05-15] MEDS ORDERED: MIDAZOLAM 5 MG/5 ML (VERSED) VIAL ONE (20:18)
--- NOTE | 2020-05-15 20:36 | NUR ---
This nurse spoke with Kavya, daughter, att to give her an update on patient.
[2020-05-15] MEDS: FUROSEMIDE 40 MG/4 ML INJ (LASIX) IVP SCH (20:42)
[2020-05-16] VITALS (29 sets, daily range): BP systolic 105–169; BP diastolic 35–74
[2020-05-16] MEDS: RT-ALBUTEROL INHALER HFA (VENTOLIN HFA) 18 GM IH SCH ×5 (01:28→20:00)
[2020-05-16 03:22] LABS: BASOPHILS % (AUTO) 0 % (0-10); EOSINOPHILS # (AUTO) 0.5 10^3/uL (0.0-0.3); EOSINOPHILS % (AUTO) 6 % (0-10); HEMATOCRIT 28 % (35-52); HEMOGLOBIN 8.4 g/dL (11.5-16.0); LYMPHOCYTES # (AUTO) 0.9 10^3/uL (1.0-4.0); LYMPHOCYTES % (AUTO) 10 % (12-44); MEAN CORPUSCULAR HEMOGLOBIN 29 pg (25-34); MEAN CORPUSCULAR HGB CONC 30 g/dL (32-36); MEAN CORPUSCULAR VOLUME 94 fL (80-99); MEAN PLATELET VOLUME 10.4 fL (9.0-12.2); MONOCYTES % (AUTO) 13 % (0-12); NEUTROPHILS # (AUTO) 5.7 10^3/uL (1.8-7.8); NEUTROPHILS % (AUTO) 70 % (42-75); PLATELET COUNT 147 10^3/uL (130-400); WHITE BLOOD COUNT 8.2 10^3/uL (4.3-11.0)
[2020-05-16 03:34] LABS: CHLORIDE 103 MMOL/L (98-107); POTASSIUM 3.7 MMOL/L (3.6-5.0); SODIUM 141 MMOL/L (135-145)
[2020-05-16 03:36] LABS: GLUCOSE 184 MG/DL (70-105); TRIGLYCERIDES 241 MG/DL (<150)
[2020-05-16 03:37] LABS: CARBON DIOXIDE 29 MMOL/L (21-32)
[2020-05-16 03:39] LABS: PHOSPHORUS 1.5 MG/DL (2.3-4.7)
[2020-05-16 03:40] LABS: CREATININE SERUM 0.77 MG/DL (0.60-1.30); GFR ESTIMATED > 60
[2020-05-16 03:41] LABS: BUN/CREATININE RATIO 18
[2020-05-16 03:42] LABS: MAGNESIUM 1.8 MG/DL (1.6-2.4)
[2020-05-16] MEDS: MAGNESIUM 1 GM/100 ML IVPB 100 ML IV SCH (04:09)
[2020-05-16] MEDS: POTASSIUM CL 10MEQ/50ML IVPB 50 ML IV SCH (04:09)
[2020-05-16] MEDS: KCL 20 MEQ TAB (K-DUR) PO SCH (04:10)
--- NOTE | 2020-05-16 04:20 | Pulmonary Progress Note ---
FRANCISCO DUKES MED STUDENT 05/16/20 0420: Subjective Date Seen by a Provider: May 16, 2020 Time Seen by a Provider: 04:17 Subjective/Events-last exam pt sedated and appears to be resting comfortably on the vent. Pt is post-op percutaneous tracheostomy and feeding tube placement. Sepsis Event Evaluation Sepsis Stage: Sepsis Possible Source: Pulmonary Height, Weight, BMI Height: '" Weight: lbs. oz. kg; 49.00 BMI Method: Exam Exam Vital Signs Date Time Temp Pulse Resp B/P (MAP) Pulse Ox O2 Delivery O2 Flow Rate FiO2 05/16/20 03:00 100 144/47 (79) 97 Mechanical Ventilator 70.00 05/16/20 02:00 96 124/39 (67) 92 Mechanical Ventilator 70.00 05/16/20 01:35 Mechanical Ventilator 70.00 05/16/20 01:28 96 30 98 70 05/16/20 01:00 90 05/16/20 01:00 89 133/41 (71) 95 Mechanical Ventilator 80.00 05/16/20 00:00 81 134/41 (72) 96 Mechanical Ventilator 80.00 05/15/20 23:50 92 22 144/79 05/15/20 23:00 80 145/72 (96) 96 Mechanical Ventilator 80.00 05/15/20 22:53 80.00 05/15/20 22:00 92 144/79 (100) 100 Mechanical Ventilator 90.00 05/15/20 21:38 Mechanical Ventilator 90.00 05/15/20 21:35 90.00 05/15/20 21:30 76 22 100 90 05/15/20 21:00 82 18 169/57 (94) 98 Mechanical Ventilator 100.00 05/15/20 21:00 95 Mechanical Ventilator 100 05/15/20 20:00 36.8 24 164/73 (103) 95 Mechanical Ventilator 05/15/20 20:00 36.8 05/15/20 20:00 80 21 164/75 (104) 93 Mechanical Ventilator 100.00 05/15/20 19:55 Mechanical Ventilator 05/15/20 19:50 27 178/76 (110) 94 Mechanical Ventilator 05/15/20 19:45 Mechanical Ventilator 05/15/20 19:40 24 173/79 (110) 93 Mechanical Ventilator 05/15/20 19:35 Mechanical Ventilator 05/15/20 19:30 24 171/80 (110) 96 Mechanical Ventilator 05/15/20 19:25 Mechanical Ventilator 05/15/20 19:20 22 177/82 (113) 94 Mechanical Ventilator 05/15/20 19:15 Mechanical Ventilator 05/15/20 19:10 22 157/71 (99) 95 Mechanical Ventilator 05/15/20 19:07 87 22 94 60 05/15/20 19:05 36.5 22 168/61 (96) 95 Mechanical Ventilator 05/15/20 19:05 100.00 05/15/20 19:05 Mechanical Ventilator 45.00 05/15/20 19:00 88 05/15/20 19:00 87 21 157/71 (99) 97 Mechanical Ventilator 50.00 05/15/20 18:00 Mechanical Ventilator 50.00 05/15/20 17:00 86 22 109/51 (70) 92 Mechanical Ventilator 50.00 05/15/20 16:12 36.4 05/15/20 16:00 36.4 05/15/20 16:00 86 21 128/64 (85) 93 Mechanical Ventilator 50.00 05/15/20 15:24 85 22 94 60 05/15/20 15:07 85 21 117/60 05/15/20 15:00 85 22 117/60 (79) 93 Mechanical Ventilator 50.00 05/15/20 14:00 86 21 126/63 (84) 93 Mechanical Ventilator 50.00 05/15/20 13:00 80 22 115/56 (75) 94 Mechanical Ventilator 50.00 05/15/20 12:00 83 21 102/53 (69) 94 Mechanical Ventilator 50.00 05/15/20 11:58 83 05/15/20 11:30 37.1 05/15/20 11:00 83 9 159/82 (107) 95 Mechanical Ventilator 50.00 05/15/20 10:44 81 22 96 60 05/15/20 10:00 84 12 159/82 (107) 95 Mechanical Ventilator 50.00 05/15/20 09:25 94 60.00 05/15/20 09:24 36.8 05/15/20 09:00 94 Mechanical Ventilator 65 05/15/20 09:00 82 22 159/82 (107) 94 Mechanical Ventilator 50.00 05/15/20 08:23 36.9 05/15/20 08:00 82 Mechanical Ventilator 50.00 05/15/20 07:00 92 21 154/72 (99) 95 Mechanical Ventilator 50.00 05/15/20 06:51 99 05/15/20 06:00 90 22 157/76 (103) 94 Mechanical Ventilator 50.00 05/15/20 05:00 101 24 152/74 (100) 93 Mechanical Ventilator 50.00 I & O 05/16/20 07:00 Intake Total 385 ml Output Total 2305 ml Balance -1920 ml Height & Weight Height: '" Weight: lbs. oz. kg; 49.00 BMI Method: General Appearance: No Apparent Distress, WD/WN, Chronically ill, Obese HEENT: Other (ETT, OGT) Respiratory: Normal Breath Sounds, Decreased Breath Sounds Cardiovascular: Regular Rate, Rhythm Capillary Refill: Less Than 3 Seconds Gastrointestinal: non tender, soft Extremity: No Calf Tenderness, No Pedal Edema Neurologic/Psychiatric: Other (sedated, appears comfortable) Skin: Normal Color, Warm/Dry Results Lab Laboratory Tests 05/15/20 04:05 05/15/20 05:50 05/16/20 03:00 SANGEETHA WILLAMS DO 05/16/20 0438: Assessment/Plan Assessment/Plan Acute respiratory failure secondary to COVID19 with ARDS -- s/p trach and PEG 05/16 Intubated on admission 04/24 -Maintain on vent- Intubated 04/24 Vt is 400, RR 22, PEEP 8 -OG tube was discontinued by Dr. Bennett - 05/08 -Fentanyl at 100 and Versed at 5 -Decrease Fentanyl to 50 and Versed -Propofol was d/c'd -Daily sedation vacations. - Fentanyl gtt s/p Remdesivir 04/29 s/p plasma x2 -Proning Lovenox- Hold secondary to bleeding MAT protocol s/p Decadron- Resume TF and proning -Lasix 40mg IV BID currently severe sepsis with shock with PNA --Sputum is growing S. Aureus- MSSA --S/p Zosyn - eraxis 05/08 -CXR shows worsening repeat sputum and PCT Candidasis bacteremia -Picc line d/c'd. Tip cultured and pending -Central line placed after picc line d/c'd - Eraxis 05/08 - Anemia- with s/p GIB s/p EGD per Dr. Sprague -EGD showed bleeding gastric ulcer -Surgery following. HB is now stable -s/p 5 units of PRBC -Lovenox on hold -Protonix BID Hypertension -Hydralazine PRN -Can use BB secondary to bradycardia -Continue Lisinopril and PRN Vasotec- however may have to hold if renal failure worsens -Norvasc NIDDMII Anticipate high BS with steroids SSI -Increase levemir to 12 units Q 12 secondary to hyperglycemia mid 200's Anemia -Monitor HTN - resolved DVT ppx: -Theraputic dose Lovenox -Protonix Supervisory-Addendum Brief Verification & Attestation Participated in pt care: history, MDM, physical Personally performed: exam, history, MDM, supervision of care Care discussed with: Medical Student Procedures: n/a Verification and Attestation of Medical Student E/M Service A medical student performed and documented this service in my presence. I reviewed and verified all information documented by the medical student and made modifications to such information, when appropriate. I personally performed the physical exam and medical decision making. Sangeetha Willams, May 16, 2020,11:19 FRANCISCO DUKES MED STUDENT May 16, 2020 04:20 SANGEETHA WILLAMS DO May 16, 2020 04:38
--- NOTE | 2020-05-16 04:39 | OPERATIVE REPORT ---
DATE OF SERVICE: 05/15/2020 ATTENDING PRIMARY CARE PHYSICIAN: Dr. Marina Constantino. ADMITTING PHYSICIAN: Dr. July Tafoya. PREOPERATIVE DIAGNOSES: Coronavirus 19, acute lung injury with bacterial and fungal pneumonia superinfection and respiratory failure. POSTOPERATIVE DIAGNOSES: Coronavirus 19, acute lung injury with bacterial and fungal pneumonia superinfection and respiratory failure. PROCEDURE: Open tracheostomy placement, EGD with biopsy and percutaneous endoscopic gastrostomy tube placement. SURGEON: Jhonatan Castro MD. ANESTHESIA: General. ESTIMATED BLOOD LOSS: Minimal. FINDINGS: The previous Ynug ulcer identified and looked to have healed with no active bleeding. Short neck and a #8 extra-long tracheostomy tube was placed. DISPOSITION: The patient tolerated the procedure well. INDICATIONS: The patient is a 69-year-old female with past medical history including diabetes and hypertension who presented to the Emergency Department with very low saturations on 04/24/2020 which required intubation and admission to the ICU. Upon further questioning, the family had reported that she had developed a nonproductive cough and shortness of breath as well as weakness. She was found to be coronavirus 19 positive. The patient continued to require mechanical ventilation and also developed bacterial and fungal superinfection pneumonia on top of her coronavirus acute lung injury. She also developed a significant anemia requiring 4 units of transfused packed red blood cells and was symptomatic at that time. An EGD was performed, which did show a Yung's ulcer with overlying clot and no active bleed and she was treated medically. The patient continues to require mechanical ventilation with high ventilator settings with FiO2 at the 70% cydney for the past two weeks. She has otherwise slowly improved from other body system standpoint and will need a tracheostomy and percutaneous gastrostomy tube for transfer to a long-term acute care facility. DESCRIPTION OF PROCEDURE: The patient was brought to the operating room, laid supine on the table. After adequate IV pain and sedative medications and general anesthesia, the patient was placed in a semi-recumbent position with neck extension and the arms tucked. The neck and chest were prepped and draped in standard surgical fashion. At approximately 2 fingerbreadths below the thyroid cartilage, the area was then anesthetized and a curvilinear incision was then made using a 15 blade. Subcutaneous tissue as well as the platysma was then opened using electrocautery. The strap muscles were identified and the median raphe opened using electrocautery as well as blunt dissection. The patient did have a short neck and the isthmus of the thyroid gland at the inferior pole was transected using electrocautery with visualization of good hemostasis. At approximately the second tracheal ring, a 0 silk stay suture was placed and a 3-sided box shaped flap was created and used for retraction. The tracheal opening was then stretched with tracheal agricultural commodities inspector and an extra-long #8 Shiley tracheostomy placed without any resistance and the balloon insufflated. A good tidal volume and end tidal CO2 identified. The skin and subcutaneous tissue on bilateral sides of the incision were then loosely approximated using 0 silk sutures. Straps were placed onto the tracheostomy collar and tied, 0 silk sutures were also placed through the substance of the trach collar onto the skin for extra support. Good hemostasis was observed. Drain sponges were then placed. Under the same anesthesia, we then proceeded with the EGD as well as a percutaneous endoscopic gastrostomy tube placement. The mouthpiece was applied. The endoscope was placed in the mouth, visualizing the pharynx and hypopharyngeal region. Vocal cords, epiglottis and vallecula identified and appeared to be normal. The endoscope was gently intubated at esophageal opening and esophagus insufflated. The endoscope was then advanced to the first, second and third portions of esophagus at the level of GE junction, a reflux esophagitis stage III identified. The previous ulceration just inferior to this was identified and appeared to be healing. The endoscope was then advanced in the stomach and the endoscope retroflexed again visualizing a moderate size hiatal hernia approximately 3 cm in size. There was a moderate severity gastritis; however, improved from previous EGD. Pylorus and duodenum appeared normal with no distal obstructions. Biopsies were taken of the antrum and GE junction with forceps with visualization of good hemostasis. The abdominal wall was then prepped and draped in standard surgical fashion. The localization needle was then used to identify the anterior abdominal wall in the left upper abdominal quadrant under direct visualization using the endoscope and the stomach and the abdominal wall layers anesthetized. A vertical skin incision was then made using 11 blade and the trocar and sheath were introduced under direct visualization through the endoscope. The trocar removed and the guidewire placed and looped with a snare through the endoscope and pulled out the mouth. The gastrostomy tube was then placed onto the wire and pulled through under direct visualization until the internal bolster was firmly opposing the anterior stomach wall. Triple antibiotic ointment was then placed onto the skin and drain sponge was placed. The external bolster was then placed on top of the skin snug, but not too tight. The gastrostomy tube was then cut down to size and the rubber stopper placed on the end. The patient tolerated the procedure well. We will send her back to the Intensive Care Unit. The gastrostomy tube may be accessed and used at any time. We will also recommend keeping the tracheotomy clean and dry with daily and p.r.n. drains sponges to absorb moisture. Job ID: [id number] DocumentID: [id number] Dictated Date: 05/15/2020 19:15:52 Tnt Powder Worker Date: 05/16/2020 04:39:00 Dictated By: JHONATAN CASTRO MD MTDD
[2020-05-16 04:59] LABS: ABG BASE EXCESS 8.2 MMOL/L (-2.5-2.5); ABG OXYGEN SATURATION 95 % (94-100); ABG PCO2 43 MMHG (35-45); ABG PH 7.49 (7.37-7.43); ABG PO2 75 MMHG (79-93); ABG TCO2 33.4 MMOL/L (21.0-31.0)
[2020-05-16 05:01] LABS: INSPIRED O2 100%; PATIENT TEMP NOT INDICATED; VENTILATOR YES
[2020-05-16] MEDS: CATHETER FLUSH 10 ML SYR IV SCH ×3 (05:07→22:22)
[2020-05-16] MEDS: FUROSEMIDE 40 MG/4 ML INJ (LASIX) IVP SCH ×3 (05:07→19:57)
[2020-05-16] MEDS: MIDAZOLAM INJECTION FOR DRIPS 50 MG in NS (IVPB) 90 ML IV SCH ×3 (05:07→18:14)
[2020-05-16] MEDS: LACTATED RINGERS 1,000 ML IV SCH (05:07)
[2020-05-16] MEDS ORDERED: proPOfol 200 MG/20 ML (DIPRIVAN) VIAL IV ONE (06:05)
[2020-05-16] MEDS: inSUlin ASPART (NovoLOG) 1 UNIT/0.01 ML (CHARGE PER UNIT) SC SCH ×3 (06:18→17:53)
[2020-05-16] MEDS ORDERED: proPOfol 500 MG/50 ML (DIPRIVAN) VIAL IV ONE (06:30)
[2020-05-16] MEDS ORDERED: SODIUM PHOSPHATE INJ 30 MM in NS (IVPB) 250 ML IV ONE (06:30)
--- NOTE | 2020-05-16 06:51 | Anesthesia-General Post-Op ---
General Significant Intra-Op Events Notes Pt remains sedated on vent. No complication reported per nursing Patient Condition Mental Status/LOC: Same as Preop Cardiovascular: Satisfactory Nausea/Vomiting: Absent Respiratory: Unsatisfactory Pain: Controlled Complications: Absent Post Op Complications Complications None Follow Up Care/Instructions Patient Instructions None needed. Anesthesia/Patient Condition Patient Condition Patient is doing well, no complaints, stable vital signs, no apparent adverse anesthesia problems. No complications reported per nursing. D/C home per [facility] Criteria: SERAFIN Prasad CRNA May 16, 2020 06:51
--- NOTE | 2020-05-16 08:13 | Diagnostic Imaging Report ---
EXAMINATION: Chest 1 view HISTORY: COVID positive. COMPARISON: Chest radiograph on 05/15/2020. FINDINGS: Tracheostomy and left internal jugular central line are stable in configuration. Lung volumes are decreased. There are continued diffuse patchy opacities throughout both lungs. No large pleural effusion or pneumothorax. The cardiac silhouette is obscured secondary to the diffuse patchy opacities. IMPRESSION: 1. Decreased lung volumes with relatively unchanged patchy opacities throughout both lungs. 2. Stable support devices. Dictated by: Dictated on workstation # [id number]
[2020-05-16] MEDS: PANTOPRAZOLE 40 MG (PROTONIX) VIAL IV SCH ×2 (09:25→19:57)
[2020-05-16] MEDS: ARTIFICIAL TEARS OINT (LACRI-LUBE) 3.5 GM TUBE OU SCH ×2 (09:25→19:57)
[2020-05-16] MEDS: METOCLOPRAMIDE INJ 10 MG/2 ML (REGLAN) IVP SCH (09:26)
[2020-05-16] MEDS: DOCUSATE SODIUM 10 MG/ML 10 ML UDC (COLACE) PO SCH ×2 (09:26→19:57)
[2020-05-16] MEDS: ENOXAPARIN 40 MG/0.4 ML (LOVENOX) SYR SC SCH (09:26)
[2020-05-16] MEDS: MICONAZOLE 2% POWDER (DESENEX AF) 90 GM TOP SCH ×2 (09:26→19:57)
[2020-05-16] MEDS: SUCRALFATE 1 GM (CARAFATE) TAB NG SCH ×4 (09:26→19:57)
--- NOTE | 2020-05-16 09:32 | Progress Note ---
Subjective Date Seen by a Provider: May 16, 2020 Time Seen by a Provider: 09:00 Subjective/Events-last exam patient stable. on vent/sedated. tracheostomy and PEG intact. Objective Exam Vital Signs Date Time Temp Pulse Resp B/P (MAP) Pulse Ox O2 Delivery O2 Flow Rate FiO2 05/16/20 09:00 83 128/66 (86) 96 Mechanical Ventilator 70.00 05/16/20 08:00 111 128/42 (70) 95 Mechanical Ventilator 70.00 05/16/20 07:52 38.0 05/16/20 07:00 112 05/16/20 07:00 109 130/48 (75) 95 Mechanical Ventilator 70.00 05/16/20 06:00 108 138/46 (76) 92 Mechanical Ventilator 70.00 05/16/20 05:07 100 30 144/47 05/16/20 05:00 112 146/49 (81) 91 Mechanical Ventilator 70.00 05/16/20 04:00 100 141/45 (77) 96 Mechanical Ventilator 70.00 05/16/20 03:00 100 144/47 (79) 97 Mechanical Ventilator 70.00 05/16/20 02:00 96 124/39 (67) 92 Mechanical Ventilator 70.00 05/16/20 01:35 Mechanical Ventilator 70.00 05/16/20 01:28 96 30 98 70 05/16/20 01:00 90 05/16/20 01:00 89 133/41 (71) 95 Mechanical Ventilator 80.00 05/16/20 00:00 81 134/41 (72) 96 Mechanical Ventilator 80.00 05/15/20 23:50 92 22 144/79 05/15/20 23:00 80 145/72 (96) 96 Mechanical Ventilator 80.00 05/15/20 22:53 80.00 05/15/20 22:00 92 144/79 (100) 100 Mechanical Ventilator 90.00 05/15/20 21:38 Mechanical Ventilator 90.00 05/15/20 21:35 90.00 05/15/20 21:30 76 22 100 90 05/15/20 21:00 82 18 169/57 (94) 98 Mechanical Ventilator 100.00 05/15/20 21:00 95 Mechanical Ventilator 100 05/15/20 20:00 36.8 24 164/73 (103) 95 Mechanical Ventilator 05/15/20 20:00 36.8 05/15/20 20:00 80 21 164/75 (104) 93 Mechanical Ventilator 100.00 05/15/20 19:55 Mechanical Ventilator 05/15/20 19:50 27 178/76 (110) 94 Mechanical Ventilator 05/15/20 19:45 Mechanical Ventilator 05/15/20 19:40 24 173/79 (110) 93 Mechanical Ventilator 05/15/20 19:35 Mechanical Ventilator 05/15/20 19:30 24 171/80 (110) 96 Mechanical Ventilator 05/15/20 19:25 Mechanical Ventilator 05/15/20 19:20 22 177/82 (113) 94 Mechanical Ventilator 05/15/20 19:15 Mechanical Ventilator 05/15/20 19:10 22 157/71 (99) 95 Mechanical Ventilator 05/15/20 19:07 87 22 94 60 05/15/20 19:05 36.5 22 168/61 (96) 95 Mechanical Ventilator 05/15/20 19:05 100.00 05/15/20 19:05 Mechanical Ventilator 45.00 05/15/20 19:00 88 05/15/20 19:00 87 21 157/71 (99) 97 Mechanical Ventilator 50.00 05/15/20 18:00 Mechanical Ventilator 50.00 05/15/20 17:00 86 22 109/51 (70) 92 Mechanical Ventilator 50.00 05/15/20 16:12 36.4 05/15/20 16:00 36.4 05/15/20 16:00 86 21 128/64 (85) 93 Mechanical Ventilator 50.00 05/15/20 15:24 85 22 94 60 05/15/20 15:07 85 21 117/60 05/15/20 15:00 85 22 117/60 (79) 93 Mechanical Ventilator 50.00 05/15/20 14:00 86 21 126/63 (84) 93 Mechanical Ventilator 50.00 05/15/20 13:00 80 22 115/56 (75) 94 Mechanical Ventilator 50.00 05/15/20 12:00 83 21 102/53 (69) 94 Mechanical Ventilator 50.00 05/15/20 11:58 83 05/15/20 11:30 37.1 05/15/20 11:00 83 9 159/82 (107) 95 Mechanical Ventilator 50.00 05/15/20 10:44 81 22 96 60 05/15/20 10:00 84 12 159/82 (107) 95 Mechanical Ventilator 50.00 I & O 05/16/20 07:00 Intake Total 385 ml Output Total 4505 ml Balance -4120 ml Capillary Refill : Less Than 3 Seconds General Appearance: No Apparent Distress HEENT: PERRL/EOMI Neck: Full Range of Motion Respiratory: Decreased Breath Sounds, Rhonci, Wheezing Cardiovascular: Regular Rate, Rhythm Gastrointestinal: normal bowel sounds, non tender, soft Extremity: Normal Capillary Refill Skin: Warm/Dry Lymphatic: No Adenopathy Results Lab Laboratory Tests 05/15/20 11:18: Glucometer 221H 05/15/20 17:25: Glucometer 172H 05/15/20 23:19: Glucometer 192H 05/16/20 03:00: White Blood Count 8.2, Red Blood Count 2.93L, Hemoglobin 8.4L, Hematocrit 28L, Mean Corpuscular Volume 94, Mean Corpuscular Hemoglobin 29, Mean Corpuscular Hemoglobin Concent 30L, Red Cell Distribution Width 17.1H, Platelet Count 147, Mean Platelet Volume 10.4, Immature Granulocyte % (Auto) 1, Neutrophils (%) (Auto) 70, Lymphocytes (%) (Auto) 10L, Monocytes (%) (Auto) 13H, Eosinophils (%) (Auto) 6, Basophils (%) (Auto) 0, Neutrophils # (Auto) 5.7, Lymphocytes # (Auto) 0.9L, Monocytes # (Auto) 1.0, Eosinophils # (Auto) 0.5H, Basophils # (Auto) 0.0, Immature Granulocyte # (Auto) 0.1, Sodium Level 141, Potassium Level 3.7, Chloride Level 103, Carbon Dioxide Level 29, Anion Gap 9, Blood Urea Nitrogen 14, Creatinine 0.77, Estimat Glomerular Filtration Rate > 60, BUN/Creatinine Ratio 18, Glucose Level 184H, Calcium Level 8.0L, Phosphorus Level 1.5L, Magnesium Level 1.8, Triglycerides Level 241H, Procalcitonin 0.22H 05/16/20 04:50: Blood Gas Puncture Site NOT INDICATED, Blood Gas Patient Temperature NOT INDICATED, Arterial Blood pH 7.49H, Arterial Blood Partial Pressure CO2 43, Arterial Blood Partial Pressure O2 75L, Arterial Blood HCO3 32H, Arterial Blood Total CO2 33.4H, Arterial Blood Oxygen Saturation 95, Arterial Blood Base Excess 8.2H, Alexys Test NA, Blood Gas Ventilator Setting YES, Blood Gas Inspired Oxygen 100% Microbiology 05/08/20 Catheter Tip Culture - Final, Complete No growth 05/03/20 Gram Stain - Final, Complete 05/03/20 Sputum Culture - Final, Complete Staphylococcus aureus YEAST Assessment/Plan Assessment/Plan Assess & Plan/Chief Complaint covid acute lung injury with bacterial and fungal pneumonia superinfection s/p trach and PEG. ok for prone ventilation. ok to use PEG. Clinical Quality Measures DVT/VTE Risk/Contraindication: Risk Factor Score Per Nursin RFS Level Per Nursing on Admit: 4+=Very High JHONATAN CASTRO MD May 16, 2020 09:32
--- NOTE | 2020-05-16 13:25 | NUR ---
During care rounds, plan of care was discussed and pt is to receive a PEG tube today. Note current TF is being held d/t procedure. Per Dr. Bennett's note on 05/16, it is okay to feed through PEG tube, per chart review. Would recommend resuming previous TF of Pulmocare 1.5 kcal at rate of 15ml/hr with flushes of 25ml water q4h. Will continue to follow and reassess as pt needs, intake, and status change. Janak Pierson, MS RD LD [phone] (cell)
--- NOTE | 2020-05-16 13:42 | NUR ---
THIS RN CONFIRMED WITH DR. CASTRO THAT THE PT CAN BE PLACED IN PRONE POSITION. DR. CASTRO STATED PT CAN BE PLACED IN PRONE POSITION AND THAT THE PT DOES NOT NEED TO BE A SPECIFIC AMOUNT OF TIME POST-OP FOR THIS POSITION CHANGE.
--- NOTE | 2020-05-16 13:54 | NUR ---
DR. SWEET NOTIFIED OF PLATEAU PRESSURE OF 41. NO NEW ORDERS OBTAINED.
[2020-05-16] MEDS: ANIDULAFUNGIN INJECTION 100 MG in NS (IVPB) 100 ML IV SCH (14:25)
--- NOTE | 2020-05-16 14:30 | NUR ---
DR. ABDUL AT PT BEDSIDE TO ASSESS PT'S PRESSURE WOUND TO LT KNEE.
--- NOTE | 2020-05-16 16:47 | Wound Care Assessment ---
Wound Care Assessment Date Seen by Provider: May 16, 2020 Time Seen by Provider: 14:30 Chief Complaint Pressure ulcer L anterior knee. HPI The patient is a 69 year old female with prolonged, severe respiratory failure due to COVID-19, requiring proning for respiratory management, with an unstageable pressure injury to the L anterior knee, among others. The eschar covering the wound has loosened and the area has become inflamed. I have been asked to evaluate and recommend dressing. Past Medical History: Admits Diabetes Type II, Admits Heart Disease (Hypertension. Respiratory failure, COVID-19.) Smoking Status: Never a Smoker Recreational Drug Use: No Alcohol Use: Denies Use Review of Systems Pulmonary: Other (On ventilator, sedated.) Exam Vital Signs Date Time Temp Pulse Resp B/P (MAP) Pulse Ox O2 Delivery O2 Flow Rate FiO2 05/16/20 16:00 37.6 05/16/20 16:00 107 29 129/45 (73) 94 Mechanical Ventilator 100.00 05/16/20 13:42 90 Capillary Refill : Less Than 3 Seconds Extremities: other (L anterior knee -- 2.5 x 4.5 x 0.5 cm, base 50% eschar, 50% slough, mod. s.s. drainage, periwound is erythematous and indurated.) Results Laboratory Tests 05/15/20 17:25: Glucometer 172H 05/15/20 23:19: Glucometer 192H 05/16/20 03:00: White Blood Count 8.2, Red Blood Count 2.93L, Hemoglobin 8.4L, Hematocrit 28L, Mean Corpuscular Volume 94, Mean Corpuscular Hemoglobin 29, Mean Corpuscular Hemoglobin Concent 30L, Red Cell Distribution Width 17.1H, Platelet Count 147, Mean Platelet Volume 10.4, Immature Granulocyte % (Auto) 1, Neutrophils (%) (Auto) 70, Lymphocytes (%) (Auto) 10L, Monocytes (%) (Auto) 13H, Eosinophils (%) (Auto) 6, Basophils (%) (Auto) 0, Neutrophils # (Auto) 5.7, Lymphocytes # (Auto) 0.9L, Monocytes # (Auto) 1.0, Eosinophils # (Auto) 0.5H, Basophils # (Auto) 0.0, Immature Granulocyte # (Auto) 0.1, Sodium Level 141, Potassium Level 3.7, Chloride Level 103, Carbon Dioxide Level 29, Anion Gap 9, Blood Urea Nitrogen 14, Creatinine 0.77, Estimat Glomerular Filtration Rate > 60, BUN/Creatinine Ratio 18, Glucose Level 184H, Calcium Level 8.0L, Phosphorus Level 1.5L, Magnesium Level 1.8, Triglycerides Level 241H, Procalcitonin 0.22H 05/16/20 04:50: Blood Gas Puncture Site NOT INDICATED, Blood Gas Patient Temperature NOT INDICATED, Arterial Blood pH 7.49H, Arterial Blood Partial Pressure CO2 43, Arterial Blood Partial Pressure O2 75L, Arterial Blood HCO3 32H, Arterial Blood Total CO2 33.4H, Arterial Blood Oxygen Saturation 95, Arterial Blood Base Excess 8.2H, Alexys Test NA, Blood Gas Ventilator Setting YES, Blood Gas Inspired Oxygen 100% 05/16/20 12:20: Glucometer 197H Microbiology 05/08/20 Catheter Tip Culture - Final, Complete No growth 05/03/20 Gram Stain - Final, Complete 05/03/20 Sputum Culture - Final, Complete Staphylococcus aureus YEAST Assessment/Plan/Dx 1. Pressure ulcer, L anterior knee, unstageable. 2. Cellulitis. 3. Respiratory failure. 4. COVID-19. Plan: Dakin's dressings BID to L anterior knee. FRANCISCO ABDUL MD May 16, 2020 16:47
--- NOTE | 2020-05-16 18:29 | NUR ---
TUBE FEEDINGS RESUMED AT THIS TIME BY THIS RN. PULMOCARE TO RUN AT 15ML/HR WITH 25ML FLUSHES TO OCCUR Q4H. THIS RN CLARIFIED WITH DR. CASTRO THAT PEG WAS ABLE TO BE ACCESSED. DR. CASTRO CONFIRMED THAT THE PEG TUBE WAS ABLE TO BE USED.
--- NOTE | 2020-05-16 23:29 | NUR ---
This nurse called teleICU, patients oxygen saturation is in the mid to low 80's%, patient has been suctioned as well as possible by this nurse and RT considering patient is prone. Patient is on 100% O2 via Ventilator. Orders received to get a stat chest xray and have it stat read by a radiologist and obtain a stat ABG. 2331- Patient's oxygen saturation remains in the 80's% and she is now hypotensive. Order received from teleICU for Levophed. TeleICU placing order. TeleICU stated that it would be fine to supine the patient from her prone position which will hopefully lead to better access for suctioning. 1251- this nurse called RT due to oxygen saturation remaining in the 80's%, it occasionally dips in the 70's%. RT came to bedside. 0101- this nurse called teleICU- to update them on patients saturation remaining in the 70's%. stated that we have exhausted all measures att and that there is nothing else that can be done d/t patient being on 100% oxygen, I read the ventilator settings to . 0224- this nurse called teleICU and spoke with with the same reports of patients low oxygen saturation. stated that there is nothing else that can be done at this point. stated that I should update the patients family. 0238- This nurse spoke with patients daughter Kavya on the phone. I updated nikki on patients low oxygen saturation levels in the 80's% and 70's% on 100% oxygen and updated her on patient now being on levophed to keep her blood pressure up. I asked Kavya if patients heart were to stop if she would want us to do everything possible, Kavya stated that she would want all measures taken, she wants everything done for her mom. 0310- Patients heart rate in the 140's, up to 160. She is now in AFib. This nurse called teleICU to update them on patient now being in AFib and that patients oxygen is 77% att. TeleICU ordering IV cardizem drip and Bumex 1mg IV stat.
[2020-05-17] VITALS (31 sets, daily range): BP systolic 85–141; BP diastolic 40–71
[2020-05-17 00:25] LABS: ABG BASE EXCESS 8.8 MMOL/L (-2.5-2.5); ABG OXYGEN SATURATION 91 % (94-100); ABG PCO2 57 MMHG (35-45); ABG PH 7.39 (7.37-7.43); ABG PO2 66 MMHG (79-93); ABG TCO2 35.7 MMOL/L (21.0-31.0)
[2020-05-17 00:26] LABS: ALLENS TEST YES-POS; INSPIRED O2 NOT INDICATED; PATIENT TEMP 36.8
[2020-05-17] MEDS ORDERED: NOREPINEPHRINE 4 MG/250 ML 250 ML IV ONE (00:34)
[2020-05-17] MEDS: inSUlin ASPART (NovoLOG) 1 UNIT/0.01 ML (CHARGE PER UNIT) SC SCH ×4 (01:28→17:31)
[2020-05-17] MEDS: RT-ALBUTEROL INHALER HFA (VENTOLIN HFA) 18 GM IH SCH ×6 (02:35→21:49)
[2020-05-17] MEDS ORDERED: dilTIAZem DRIP PRE-MIX 125 ML IV ONE (03:14)
[2020-05-17] MEDS ORDERED: BUMETANIDE 1 MG/4 ML (BUMEX) VIAL IV ONE (03:30)
[2020-05-17] MEDS: dilTIAZem DRIP PRE-MIX 125 ML IV SCH ×2 (03:36→14:51)
[2020-05-17] MEDS: NOREPINEPHRINE 4 MG/250 ML 250 ML IV SCH ×8 (03:37→14:51)
[2020-05-17 03:58] LABS: BASOPHILS % (AUTO) 0 % (0-10); EOSINOPHILS # (AUTO) 0.6 10^3/uL (0.0-0.3); EOSINOPHILS % (AUTO) 4 % (0-10); HEMATOCRIT 28 % (35-52); HEMOGLOBIN 8.8 g/dL (11.5-16.0); LYMPHOCYTES # (AUTO) 0.9 10^3/uL (1.0-4.0); LYMPHOCYTES % (AUTO) 7 % (12-44); MEAN CORPUSCULAR HEMOGLOBIN 29 pg (25-34); MEAN CORPUSCULAR HGB CONC 31 g/dL (32-36); MEAN CORPUSCULAR VOLUME 93 fL (80-99); MEAN PLATELET VOLUME 10.3 fL (9.0-12.2); MONOCYTES # (AUTO) 1.2 10^3/uL (0.0-1.0); MONOCYTES % (AUTO) 9 % (0-12); NEUTROPHILS % (AUTO) 79 % (42-75); PLATELET COUNT 195 10^3/uL (130-400); WHITE BLOOD COUNT 12.7 10^3/uL (4.3-11.0)
[2020-05-17 04:02] LABS: ABG BASE EXCESS 7.3 MMOL/L (-2.5-2.5); ABG OXYGEN SATURATION 84 % (94-100); ABG PCO2 52 MMHG (35-45); ABG PH 7.41 (7.37-7.43); ABG PO2 56 MMHG (79-93); ABG TCO2 33.7 MMOL/L (21.0-31.0)
[2020-05-17 04:03] LABS: INSPIRED O2 100%; VENTILATOR YES
[2020-05-17 04:19] LABS: CHLORIDE 104 MMOL/L (98-107); POTASSIUM 3.1 MMOL/L (3.6-5.0); SODIUM 144 MMOL/L (135-145)
[2020-05-17 04:20] LABS: CALCIUM 7.8 MG/DL (8.5-10.1)
[2020-05-17 04:21] LABS: GLUCOSE 116 MG/DL (70-105); TRIGLYCERIDES 233 MG/DL (<150)
[2020-05-17 04:22] LABS: CARBON DIOXIDE 28 MMOL/L (21-32)
[2020-05-17 04:25] LABS: GFR ESTIMATED > 60; PHOSPHORUS 2.8 MG/DL (2.3-4.7)
[2020-05-17 04:26] LABS: BUN/CREATININE RATIO 19
[2020-05-17 04:27] LABS: MAGNESIUM 1.5 MG/DL (1.6-2.4)
[2020-05-17] MEDS ORDERED: ROCURONIUM 50 MG/5 ML (ZEMURON) VIAL IV ONE (04:56)
--- NOTE | 2020-05-17 05:00 | NUR ---
0500 at bedside. Verbal order received to give 50 of Rocuronium. Verbal order received from to give 125 Solumedrol
[2020-05-17] MEDS ORDERED: ROCURONIUM 10 MG/ML 5 ML SYRINGE IV STA (05:02)
[2020-05-17] MEDS: LACTATED RINGERS 1,000 ML IV SCH ×2 (05:05→14:58)
[2020-05-17] MEDS: CATHETER FLUSH 10 ML SYR IV SCH ×3 (05:14→23:57)
[2020-05-17] MEDS: KCL 20 MEQ TAB (K-DUR) PO SCH (05:18)
[2020-05-17] MEDS: POTASSIUM CL 10MEQ/50ML IVPB 50 ML IV SCH ×5 (05:18→09:51)
[2020-05-17] MEDS: MAGNESIUM 1 GM/100 ML IVPB 100 ML IV SCH ×3 (05:18→10:08)
[2020-05-17] MEDS ORDERED: methylPREDNISolone 125 MG (Solu-MEDROL) VIAL ONE (05:34)
[2020-05-17] MEDS ORDERED: methylPREDNISolone 125 MG (Solu-MEDROL) VIAL IVP ONE (05:45)
--- NOTE | 2020-05-17 07:10 | Diagnostic Imaging Report ---
INDICATION: Hypoxia. TECHNIQUE: Single view chest 12:19 AM. CORRELATION STUDY: 05/16/2020 FINDINGS: Imaging obtained in prone position. Tracheostomy tube is present, tip at the level of the clavicles. A central line via the neck on the left is present. There is extensive dense infiltrate throughout both lung jones. Given difference technique, overall stable to perhaps slightly progressed. The mediastinum structures are largely obscured and not well visualized. IMPRESSION: 1. Extensive 5 lobe infiltrate is again demonstrated. Stable slightly progressed from prior. Dictated by: Dictated on workstation # [id number]
--- NOTE | 2020-05-17 07:19 | Pulmonary Progress Note ---
Subjective Time Seen by a Provider: 07:15 Subjective/Events-last exam Pt is sedated on vent. Sepsis Event Evaluation Height, Weight, BMI Height: '" Weight: lbs. oz. kg; 49.00 BMI Method: Exam Exam Vital Signs Date Time Temp Pulse Resp B/P (MAP) Pulse Ox O2 Delivery O2 Flow Rate FiO2 05/17/20 06:22 128 140/58 05/17/20 06:00 131 21 105/52 (69) 90 Mechanical Ventilator 100.00 05/17/20 05:20 37.2 05/17/20 05:00 128 33 140/58 (85) 91 Mechanical Ventilator 100.00 05/17/20 04:53 100 05/17/20 04:00 123 29 118/58 (78) 84 Mechanical Ventilator 100.00 05/17/20 03:37 104 114/47 05/17/20 03:00 106 30 106/44 (64) 87 Mechanical Ventilator 100.00 05/17/20 02:36 104 34 84 100 05/17/20 02:00 101 22 119/49 (72) 86 Mechanical Ventilator 100.00 05/17/20 01:00 105 34 98/40 (59) 88 Mechanical Ventilator 100.00 05/17/20 01:00 111 05/17/20 00:00 109 24 116/42 (66) 88 Mechanical Ventilator 100.00 05/17/20 00:00 36.8 05/16/20 23:00 110 22 120/44 (69) 90 Mechanical Ventilator 100.00 05/16/20 22:00 110 15 119/41 (67) 90 Mechanical Ventilator 100.00 05/16/20 21:00 94 Mechanical Ventilator 100 05/16/20 21:00 108 10 129/44 (72) 91 Mechanical Ventilator 100.00 05/16/20 20:00 37.6 05/16/20 20:00 105 30 129/43 (71) 92 Mechanical Ventilator 100.00 05/16/20 19:59 105 24 91 100 05/16/20 19:00 105 05/16/20 19:00 105 26 132/44 (73) 92 Mechanical Ventilator 100.00 05/16/20 18:14 104 22 122/41 05/16/20 18:00 105 126/42 (70) 92 Mechanical Ventilator 100.00 05/16/20 17:00 105 24 134/45 (74) 94 Mechanical Ventilator 100.00 05/16/20 16:00 37.6 05/16/20 16:00 107 29 129/45 (73) 94 Mechanical Ventilator 100.00 05/16/20 15:00 84 31 121/74 (90) 92 Mechanical Ventilator 100.00 05/16/20 14:00 98 22 111/37 (61) 95 Mechanical Ventilator 90.00 05/16/20 13:42 101 24 94 90 05/16/20 13:20 Mechanical Ventilator 90.00 05/16/20 13:00 92 23 126/70 (88) 99 Mechanical Ventilator 100.00 05/16/20 12:48 100 05/16/20 12:26 37.3 05/16/20 12:00 102 19 122/61 (81) 99 Mechanical Ventilator 100.00 05/16/20 11:46 80 30 123/60 05/16/20 11:00 80 123/60 (81) 95 Mechanical Ventilator 100.00 05/16/20 10:59 102 22 100 100 05/16/20 10:00 90 130/69 (89) 98 Mechanical Ventilator 100.00 05/16/20 09:00 83 128/66 (86) 96 Mechanical Ventilator 100.00 05/16/20 09:00 94 Mechanical Ventilator 100 05/16/20 08:00 111 128/42 (70) 95 Mechanical Ventilator 70.00 05/16/20 07:52 38.0 I & O 05/17/20 06:59 Intake Total 740 ml Output Total 3220 ml Balance -2480 ml Height & Weight Height: '" Weight: lbs. oz. kg; 49.00 BMI Method: General Appearance: No Apparent Distress HEENT: PERRL/EOMI Neck: Full Range of Motion Respiratory: Decreased Breath Sounds, Rhonci, Wheezing Cardiovascular: Regular Rate, Rhythm Capillary Refill: Less Than 3 Seconds Gastrointestinal: normal bowel sounds, non tender, soft Extremity: Normal Capillary Refill Neurologic/Psychiatric: Other (sedated, appears comfortable) Skin: Warm/Dry Lymphatic: No Adenopathy Results Lab Laboratory Tests 05/16/20 03:00 05/17/20 03:26 Assessment/Plan Assessment/Plan Acute respiratory failure secondary to COVID19 with ARDS -- s/p trach and PEG 05/16 Intubated on admission 04/24 -Pt now on PC with 100% Fi02 and PEEP of 20 Sp02 is 86% -Repeat ABG -Repeat CXR -Start Nimbex -EICU has assisted with vent management through the night. -S/p Bumex -OG tube was discontinued by Dr. Bennett - 05/08 -Fentanyl at 100 and Versed at 5 -Decrease Fentanyl to 50 and Versed -Propofol was d/c'd -Daily sedation vacations. - Fentanyl gtt s/p Remdesivir 04/29 s/p plasma x2 -Proning Lovenox- Hold secondary to bleeding MAT protocol s/p Decadron- Hold TF for now severe sepsis with shock with PNA --Sputum is growing S. Aureus- MSSA --S/p Zosyn - eraxis 05/08 -CXR shows worsening repeat sputum and PCT Candidasis bacteremia -Picc line d/c'd. Tip cultured and pending -Central line placed after picc line d/c'd - Eraxis 05/08 - Anemia- with s/p GIB s/p EGD per Dr. Sprague -EGD showed bleeding gastric ulcer -Surgery following. HB is now stable -s/p 5 units of PRBC -Lovenox on hold -Protonix BID Hypertension -Hydralazine PRN -Can use BB secondary to bradycardia -Continue Lisinopril and PRN Vasotec- however may have to hold if renal failure worsens -Norvasc NIDDMII Anticipate high BS with steroids SSI -Increase levemir to 12 units Q 12 secondary to hyperglycemia mid 200's Anemia -Monitor -Lovenox held secondary to bleeding. HTN - resolved DVT ppx: -Theraputic dose Lovenox -Protonix SANGEETHA SWEET DO May 17, 2020 07:19
[2020-05-17 07:27] LABS: ABG BASE EXCESS 3.8 MMOL/L (-2.5-2.5); ABG OXYGEN SATURATION 86 % (94-100); ABG PCO2 63 MMHG (35-45); ABG PO2 66 MMHG (79-93); ABG TCO2 31.7 MMOL/L (21.0-31.0)
[2020-05-17 07:30] LABS: ALLENS TEST YES-POS; INSPIRED O2 100%; PATIENT TEMP 37.2; VENTILATOR YES
[2020-05-17] MEDS ORDERED: VANCOMYCIN INJECTION 1,000 MG in NS (IVPB) 250 ML IV SCH (07:30)
[2020-05-17] MEDS ORDERED: CISATRACURIUM 2MG/ML (NIMBEX) 10ML VIAL IV ONE (07:30)
[2020-05-17] MEDS ORDERED: PHARMACY TO DOSE IV SCH (07:30)
--- NOTE | 2020-05-17 07:52 | Diagnostic Imaging Report ---
INDICATION: Mechanical ventilation, COVID positive. TECHNIQUE: Single view chest 6:59 AM. CORRELATION STUDY: 05/17/2020 FINDINGS: Tracheostomy tube and left-sided central line remain in place. Heart size and mediastinum largely secured but grossly stable. Extensive 5 lobe infiltrate does persist but overall appears to be somewhat improved from previous. IMPRESSION: 1. Extensive 5 lobe infiltrate persisting perhaps slightly improved from previous. Dictated by: Dictated on workstation # [id number]
[2020-05-17] MEDS ORDERED: PIPERACILLIN/TAZOBACTAM (BULK) 4.5 GM in NS (IVPB) 100 ML IV NR (08:00)
[2020-05-17] MEDS ORDERED: VANCOMYCIN 2000 MG/NS 500 ML IVPB IV NR ×2 (09:00)
[2020-05-17] MEDS: CISATRACURIUM 100 MG/NS 200 ML (TOTAL VOLUME 250 ML) IV SCH ×4 (09:07→15:54)
[2020-05-17] MEDS: METOCLOPRAMIDE INJ 10 MG/2 ML (REGLAN) IVP SCH (09:23)
[2020-05-17] MEDS: PANTOPRAZOLE 40 MG (PROTONIX) VIAL IV SCH ×2 (09:23→20:53)
[2020-05-17] MEDS: SUCRALFATE 1 GM (CARAFATE) TAB NG SCH ×3 (09:23→20:53)
[2020-05-17] MEDS: DOCUSATE SODIUM 10 MG/ML 10 ML UDC (COLACE) PO SCH ×2 (09:23→20:53)
[2020-05-17] MEDS: FUROSEMIDE 40 MG/4 ML INJ (LASIX) IVP SCH ×2 (09:23→20:53)
[2020-05-17] MEDS: ENOXAPARIN 40 MG/0.4 ML (LOVENOX) SYR SC SCH (09:24)
[2020-05-17] MEDS: ARTIFICIAL TEARS OINT (LACRI-LUBE) 3.5 GM TUBE OU SCH ×2 (09:24→20:56)
[2020-05-17] MEDS: MICONAZOLE 2% POWDER (DESENEX AF) 90 GM TOP SCH ×2 (09:24→20:56)
--- NOTE | 2020-05-17 09:52 | NUR ---
DR. SWEET NOTIFIED OF PT'S DECREASED URINE OUTPUT OF 25ML/4HR TIME PERIOD.
[2020-05-17] MEDS: MIDAZOLAM INJECTION FOR DRIPS 50 MG in NS (IVPB) 90 ML IV SCH ×2 (11:41→20:55)
--- NOTE | 2020-05-17 11:51 | Progress Note ---
Subjective Date Seen by a Provider: May 17, 2020 Time Seen by a Provider: 10:00 Subjective/Events-last exam patient on vent/sedated. clinical condition unchanged. functional PEG and trach. no bleeding. Objective Exam Vital Signs Date Time Temp Pulse Resp B/P (MAP) Pulse Ox O2 Delivery O2 Flow Rate FiO2 05/17/20 11:41 84 108/44 05/17/20 11:29 36.3 05/17/20 11:17 83 22 94 100 05/17/20 11:02 84 102/43 05/17/20 11:00 83 22 108/45 (66) 94 Mechanical Ventilator 100.00 05/17/20 10:00 94 25 105/47 (66) 95 Mechanical Ventilator 100.00 05/17/20 09:57 91 110/48 05/17/20 09:56 92 110/48 05/17/20 09:00 112 21 119/56 (77) 91 Mechanical Ventilator 100.00 05/17/20 08:53 126 75/42 05/17/20 08:41 90 Mechanical Ventilator 100 05/17/20 08:39 116 90/56 05/17/20 08:34 131 122/56 05/17/20 08:00 138 39 124/57 (79) 89 Mechanical Ventilator 100.00 05/17/20 08:00 36.3 05/17/20 07:44 134 112/55 05/17/20 07:32 124 31 82 100 05/17/20 07:00 137 05/17/20 07:00 156 15 107/65 (79) 89 Mechanical Ventilator 100.00 05/17/20 06:22 128 140/58 05/17/20 06:00 131 21 105/52 (69) 90 Mechanical Ventilator 100.00 05/17/20 05:20 37.2 05/17/20 05:00 128 33 140/58 (85) 91 Mechanical Ventilator 100.00 05/17/20 04:53 100 05/17/20 04:00 123 29 118/58 (78) 84 Mechanical Ventilator 100.00 05/17/20 03:37 104 114/47 05/17/20 03:00 106 30 106/44 (64) 87 Mechanical Ventilator 100.00 05/17/20 02:36 104 34 84 100 05/17/20 02:00 101 22 119/49 (72) 86 Mechanical Ventilator 100.00 05/17/20 01:00 105 34 98/40 (59) 88 Mechanical Ventilator 100.00 05/17/20 01:00 111 05/17/20 00:00 109 24 116/42 (66) 88 Mechanical Ventilator 100.00 05/17/20 00:00 36.8 05/16/20 23:00 110 22 120/44 (69) 90 Mechanical Ventilator 100.00 05/16/20 22:00 110 15 119/41 (67) 90 Mechanical Ventilator 100.00 05/16/20 21:00 94 Mechanical Ventilator 100 05/16/20 21:00 108 10 129/44 (72) 91 Mechanical Ventilator 100.00 05/16/20 20:00 37.6 05/16/20 20:00 105 30 129/43 (71) 92 Mechanical Ventilator 100.00 05/16/20 19:59 105 24 91 100 05/16/20 19:00 105 05/16/20 19:00 105 26 132/44 (73) 92 Mechanical Ventilator 100.00 05/16/20 18:14 104 22 122/41 05/16/20 18:00 105 126/42 (70) 92 Mechanical Ventilator 100.00 05/16/20 17:00 105 24 134/45 (74) 94 Mechanical Ventilator 100.00 05/16/20 16:00 37.6 05/16/20 16:00 107 29 129/45 (73) 94 Mechanical Ventilator 100.00 05/16/20 15:00 84 31 121/74 (90) 92 Mechanical Ventilator 100.00 05/16/20 14:00 98 22 111/37 (61) 95 Mechanical Ventilator 90.00 05/16/20 13:42 101 24 94 90 05/16/20 13:20 Mechanical Ventilator 90.00 05/16/20 13:00 92 23 126/70 (88) 99 Mechanical Ventilator 100.00 05/16/20 12:48 100 05/16/20 12:26 37.3 05/16/20 12:00 102 19 122/61 (81) 99 Mechanical Ventilator 100.00 I & O 05/17/20 07:00 Intake Total 740 ml Output Total 3220 ml Balance -2480 ml Capillary Refill : Less Than 3 Seconds General Appearance: No Apparent Distress HEENT: TMs Normal Neck: Full Range of Motion Respiratory: Decreased Breath Sounds, Rhonci, Wheezing Cardiovascular: Regular Rate, Rhythm Gastrointestinal: normal bowel sounds, non tender, soft Extremity: Normal Capillary Refill Skin: Normal Color Lymphatic: No Adenopathy Results Lab Laboratory Tests 05/16/20 12:20: Glucometer 197H 05/16/20 17:52: Glucometer 95 05/17/20 00:15: Blood Gas Puncture Site LEFT RADIAL, Blood Gas Patient Temperature 36.8, Arterial Blood pH 7.39, Arterial Blood Partial Pressure CO2 57H, Arterial Blood Partial Pressure O2 66L, Arterial Blood HCO3 34H, Arterial Blood Total CO2 35.7H , Arterial Blood Oxygen Saturation 91L, Arterial Blood Base Excess 8.8H, Alexys Test YES-POS, Blood Gas Ventilator Setting NA, Blood Gas Inspired Oxygen NOT INDICATED 05/17/20 01:27: Glucometer 104 05/17/20 03:20: B-Type Natriuretic Peptide 263.7H, Procalcitonin 0.58H 05/17/20 03:26: White Blood Count 12.7H, Red Blood Count 3.03L, Hemoglobin 8.8L, Hematocrit 28L, Mean Corpuscular Volume 93, Mean Corpuscular Hemoglobin 29, Mean Corpuscular Hemoglobin Concent 31L, Red Cell Distribution Width 17.1H, Platelet Count 195, Mean Platelet Volume 10.3, Immature Granulocyte % (Auto) 1, Neutrophils (%) (Auto) 79H, Lymphocytes (%) (Auto) 7L, Monocytes (%) (Auto) 9, Eosinophils (%) (Auto) 4, Basophils (%) (Auto) 0, Neutrophils # (Auto) 10.0H, Lymphocytes # (Auto) 0.9L, Monocytes # (Auto) 1.2H, Eosinophils # (Auto) 0.6H, Basophils # (Auto) 0.0, Immature Granulocyte # (Auto) 0.1, Sodium Level 144, Potassium Level 3.1L, Chloride Level 104, Carbon Dioxide Level 28, Anion Gap 12, Blood Urea Nitrogen 13, Creatinine 0.70, Estimat Glomerular Filtration Rate > 60, BUN/Creatinine Ratio 19, Glucose Level 116H, Calcium Level 7.8L, Phosphorus Level 2.8, Magnesium Level 1.5L, Triglycerides Level 233H 05/17/20 03:30: Blood Gas Puncture Site NOT INDICATED, Blood Gas Patient Temperature 37.0, Arterial Blood pH 7.41, Arterial Blood Partial Pressure CO2 52H, Arterial Blood Partial Pressure O2 56L, Arterial Blood HCO3 32H, Arterial Blood Total CO2 33.7H , Arterial Blood Oxygen Saturation 84L, Arterial Blood Base Excess 7.3H, Alexys Test NA, Blood Gas Ventilator Setting YES, Blood Gas Inspired Oxygen 100% 05/17/20 07:08: Blood Gas Puncture Site L RAD ART LINE, Blood Gas Patient Temperature 37.2, Arterial Blood pH 7.30*L, Arterial Blood Partial Pressure CO2 63H, Arterial Blood Partial Pressure O2 66L, Arterial Blood HCO3 30H, Arterial Blood Total CO2 31.7H, Arterial Blood Oxygen Saturation 86L, Arterial Blood Base Excess 3.8H, Alexys Test YES-POS, Blood Gas Ventilator Setting YES, Blood Gas Inspired Oxygen 100% 05/17/20 11:09: Glucometer 251H Microbiology 05/16/20 Gram Stain - Final, Resulted 05/16/20 Sputum Culture, Resulted Pending 05/08/20 Catheter Tip Culture - Final, Complete No growth Assessment/Plan Assessment/Plan Assess & Plan/Chief Complaint covid acute lung injury with bacterial and fungal pneumonia superinfection s/p trach and PEG. ok for prone ventilation. ok to use PEG. ok for LTAC from surg standpoint. Clinical Quality Measures DVT/VTE Risk/Contraindication: Risk Factor Score Per Nursin RFS Level Per Nursing on Admit: 4+=Very High JHONATAN CASTRO MD May 17, 2020 11:51
[2020-05-17] MEDS: PIPERACILLIN/TAZO 4.5 GM/NS 100 ML IV SCH ×4 (14:50→23:59)
[2020-05-17] MEDS: ANIDULAFUNGIN INJECTION 100 MG in NS (IVPB) 100 ML IV SCH (15:48)
[2020-05-17] MEDS ORDERED: PROPOFOL DRIP (ICU) 100 ML IV ONE (16:48)
[2020-05-17] MEDS: NOREPINEPHRINE IV SCH ×4 (16:50→23:58)
[2020-05-17] MEDS: NORMAL SALINE IV SCH ×4 (16:50→23:58)
[2020-05-17] MEDS: VANCOMYCIN 1250 MG/NS 250 ML IVPB IV SCH ×2 (17:31)
[2020-05-17] MEDS: DAKIN'S 1/4 STRENGTH (0.125%) 473 ML BTL TOP SCH (17:35)
--- NOTE | 2020-05-17 18:10 | NUR ---
DR. SWEET NOTIFIED OF PT'S URINE OUTPUT OF 50ML/4HOUR TIME PERIOD.
[2020-05-17] MEDS ORDERED: LACTATED RINGERS 1,000 ML IV ONE (18:15)
[2020-05-18] VITALS (28 sets, daily range): BP systolic 116–151; BP diastolic 38–53
[2020-05-18] MEDS: inSUlin ASPART (NovoLOG) 1 UNIT/0.01 ML (CHARGE PER UNIT) SC SCH ×4 (00:45→17:30)
[2020-05-18] MEDS: CISATRACURIUM 100 MG/NS 200 ML (TOTAL VOLUME 250 ML) IV SCH ×2 (00:46)
[2020-05-18] MEDS: VANCOMYCIN 1250 MG/NS 250 ML IVPB IV SCH ×2 (02:36)
[2020-05-18] MEDS: NORMAL SALINE IV SCH ×4 (02:37→10:40)
[2020-05-18] MEDS: NOREPINEPHRINE IV SCH ×4 (02:37→10:40)
[2020-05-18 03:01] LABS: BASOPHILS % (AUTO) 0 % (0-10); EOSINOPHILS % (AUTO) 0 % (0-10); HEMATOCRIT 27 % (35-52); HEMOGLOBIN 8.3 g/dL (11.5-16.0); LYMPHOCYTES # (AUTO) 0.6 10^3/uL (1.0-4.0); LYMPHOCYTES % (AUTO) 5 % (12-44); MEAN CORPUSCULAR HEMOGLOBIN 29 pg (25-34); MEAN CORPUSCULAR HGB CONC 31 g/dL (32-36); MEAN CORPUSCULAR VOLUME 94 fL (80-99); MEAN PLATELET VOLUME 10.4 fL (9.0-12.2); MONOCYTES # (AUTO) 0.9 10^3/uL (0.0-1.0); MONOCYTES % (AUTO) 7 % (0-12); NEUTROPHILS # (AUTO) 10.9 10^3/uL (1.8-7.8); NEUTROPHILS % (AUTO) 87 % (42-75); PLATELET COUNT 239 10^3/uL (130-400); WHITE BLOOD COUNT 12.5 10^3/uL (4.3-11.0)
[2020-05-18 03:03] LABS: ABG BASE EXCESS 1.3 MMOL/L (-2.5-2.5); ABG OXYGEN SATURATION 97 % (94-100); ABG PCO2 58 MMHG (35-45); ABG PO2 99 MMHG (79-93); ABG TCO2 28.9 MMOL/L (21.0-31.0)
[2020-05-18 03:05] LABS: ABG PH 7.29 (7.37-7.43); ALLENS TEST ART LINE; INSPIRED O2 85%; VENTILATOR YES
[2020-05-18 03:11] LABS: POTASSIUM 3.9 MMOL/L (3.6-5.0)
[2020-05-18 03:12] LABS: CALCIUM 7.6 MG/DL (8.5-10.1)
[2020-05-18 03:16] LABS: PHOSPHORUS 3.6 MG/DL (2.3-4.7)
[2020-05-18 03:17] LABS: CREATININE SERUM 1.27 MG/DL (0.60-1.30)
[2020-05-18] MEDS: POTASSIUM CL 10MEQ/50ML IVPB 50 ML IV SCH (03:26)
[2020-05-18] MEDS: MAGNESIUM 1 GM/100 ML IVPB 100 ML IV SCH (03:26)
[2020-05-18] MEDS: KCL 20 MEQ TAB (K-DUR) PO SCH (03:26)
[2020-05-18] MEDS: RT-ALBUTEROL INHALER HFA (VENTOLIN HFA) 18 GM IH SCH ×6 (03:33→23:21)
--- NOTE | 2020-05-18 04:18 | Pulmonary Progress Note ---
Subjective Time Seen by a Provider: 04:13 Subjective/Events-last exam Pt is sedated on vent. Sepsis Event Evaluation Height, Weight, BMI Height: '" Weight: lbs. oz. kg; 49.00 BMI Method: Exam Exam Vital Signs Date Time Temp Pulse Resp B/P (MAP) Pulse Ox O2 Delivery O2 Flow Rate FiO2 05/18/20 03:33 62 22 96 85 05/18/20 03:00 65 22 128/48 (74) 96 Mechanical Ventilator 85.00 05/18/20 02:00 67 21 132/49 (76) 96 Mechanical Ventilator 85.00 05/18/20 01:00 70 05/18/20 01:00 62 21 137/52 (80) 96 Mechanical Ventilator 85.00 05/18/20 00:00 64 21 135/50 (78) 95 Mechanical Ventilator 85.00 05/18/20 00:00 36.0 05/17/20 23:53 61 22 95 85 05/17/20 23:00 61 21 133/50 (77) 95 Mechanical Ventilator 85.00 05/17/20 22:00 62 21 133/49 (77) 95 Mechanical Ventilator 85.00 05/17/20 21:50 61 22 95 85 05/17/20 21:00 58 22 117/46 (69) 95 Mechanical Ventilator 85.00 05/17/20 21:00 90 Mechanical Ventilator 85 05/17/20 20:55 60 22 135/50 05/17/20 20:03 36.4 05/17/20 20:00 60 21 130/51 (77) 94 Mechanical Ventilator 85.00 05/17/20 19:33 60 22 93 85 05/17/20 19:00 61 21 128/50 (76) 94 Mechanical Ventilator 85.00 05/17/20 19:00 65 05/17/20 18:13 Mechanical Ventilator 85.00 05/17/20 18:00 67 21 121/46 (71) 96 Mechanical Ventilator 100.00 05/17/20 17:00 67 21 132/49 (76) 95 Mechanical Ventilator 100.00 05/17/20 16:37 71 127/47 05/17/20 16:00 74 21 114/44 (67) 95 Mechanical Ventilator 100.00 05/17/20 15:54 73 99/65 05/17/20 15:48 72 128/47 05/17/20 15:47 36.0 05/17/20 15:00 74 21 117/45 (69) 94 Mechanical Ventilator 100.00 05/17/20 14:56 72 22 94 100 05/17/20 14:55 72 138/50 05/17/20 14:51 73 132/51 05/17/20 14:00 74 21 128/48 (74) 94 Mechanical Ventilator 100.00 05/17/20 13:40 81 133/50 05/17/20 13:00 84 22 141/53 (82) 94 Mechanical Ventilator 100.00 05/17/20 12:56 85 05/17/20 12:27 80 52/27 05/17/20 12:00 85 21 112/45 (67) 93 Mechanical Ventilator 100.00 05/17/20 11:41 84 108/44 05/17/20 11:29 36.3 05/17/20 11:17 83 22 94 100 05/17/20 11:02 84 102/43 05/17/20 11:00 83 22 108/45 (66) 94 Mechanical Ventilator 100.00 05/17/20 10:00 94 25 105/47 (66) 95 Mechanical Ventilator 100.00 05/17/20 09:57 91 110/48 05/17/20 09:56 92 110/48 05/17/20 09:00 112 21 119/56 (77) 91 Mechanical Ventilator 100.00 05/17/20 08:53 126 75/42 05/17/20 08:41 90 Mechanical Ventilator 100 05/17/20 08:39 116 90/56 05/17/20 08:34 131 122/56 05/17/20 08:00 138 39 124/57 (79) 89 Mechanical Ventilator 100.00 05/17/20 08:00 36.3 05/17/20 07:44 134 112/55 05/17/20 07:32 124 31 82 100 05/17/20 07:00 137 05/17/20 07:00 156 15 107/65 (79) 89 Mechanical Ventilator 100.00 05/17/20 06:22 128 140/58 05/17/20 06:00 131 21 105/52 (69) 90 Mechanical Ventilator 100.00 05/17/20 05:20 37.2 05/17/20 05:00 128 33 140/58 (85) 91 Mechanical Ventilator 100.00 05/17/20 04:53 100 I & O 05/18/20 07:00 Intake Total 5931 ml Output Total 260 ml Balance 5671 ml Height & Weight Height: '" Weight: lbs. oz. kg; 49.00 BMI Method: General Appearance: No Apparent Distress HEENT: TMs Normal Neck: Full Range of Motion Respiratory: Decreased Breath Sounds, Rhonci, Wheezing Cardiovascular: Regular Rate, Rhythm Capillary Refill: Less Than 3 Seconds Gastrointestinal: normal bowel sounds, non tender, soft Extremity: Normal Capillary Refill Neurologic/Psychiatric: Other (sedated, appears comfortable) Skin: Normal Color Lymphatic: No Adenopathy Results Lab Laboratory Tests 05/17/20 03:26 05/18/20 02:55 Assessment/Plan Assessment/Plan Acute respiratory failure secondary to COVID19 with ARDS -- s/p trach and PEG 05/16 Intubated on admission 04/24 -Pt now on PC with 100% Fi02 and PEEP of 15 -Titrate Fi02 -D/C Nimbex, cardizem, lasix -Give liter bolus of LR then increase to 150 secondary to decreased UO. -D/C cardizem pt is now in NSR. Continue to hold TF for now. -Will change vanco to zyvox secondary to oliguria and pending renal failure. -EICU has assisted with vent management through the night. -S/p Bumex -OG tube was discontinued by Dr. Bennett - 05/08 -Fentanyl at 100 and Versed at 5 -Decrease Fentanyl to 50 and Versed -Propofol was d/c'd -Daily sedation vacations. - Fentanyl gtt s/p Remdesivir 04/29 s/p plasma x2 -Proning Lovenox- Hold secondary to bleeding MAT protocol s/p Decadron- Hold TF for now severe sepsis with shock with PNA --Sputum is growing S. Aureus- MSSA --S/p Zosyn - eraxis 05/08 -CXR shows worsening repeat sputum and PCT Candidasis bacteremia -Picc line d/c'd. Tip cultured and pending -Central line placed after picc line d/c'd - Eraxis 05/08 - Anemia- with s/p GIB s/p EGD per Dr. Sprague -EGD showed bleeding gastric ulcer -Surgery following. HB is now stable -s/p 5 units of PRBC -Lovenox on hold -Protonix BID Hypertension -Hydralazine PRN -Can use BB secondary to bradycardia -Continue Lisinopril and PRN Vasotec- however may have to hold if renal failure worsens -Norvasc NIDDMII Anticipate high BS with steroids SSI -Increase levemir to 12 units Q 12 secondary to hyperglycemia mid 200's Anemia -Monitor -Lovenox held secondary to bleeding. HTN - resolved DVT ppx: -Theraputic dose Lovenox -Protonix SANGEETHA SWEET DO May 18, 2020 04:18
[2020-05-18] MEDS ORDERED: LACTATED RINGERS 1,000 ML IV SCH (04:30)
[2020-05-18] MEDS: PIPERACILLIN/TAZO 4.5 GM/NS 100 ML IV SCH ×6 (05:33→22:44)
[2020-05-18] MEDS: CATHETER FLUSH 10 ML SYR IV SCH ×3 (05:33→22:44)
[2020-05-18] MEDS: MIDAZOLAM INJECTION FOR DRIPS 50 MG in NS (IVPB) 90 ML IV SCH ×3 (05:35→22:21)
--- NOTE | 2020-05-18 07:34 | Diagnostic Imaging Report ---
INDICATION: Shortness of breath. COMPARISON: 05/17/2020. FINDINGS: Tracheostomy tube appears in good position unchanged as does the left PICC line. The 5 lobe alveolar infiltrates are again noted. There has been slight overall improvement however with some decrease in density of the infiltrates bilaterally. There are also lesser bronchograms today. Probable small bilateral pleural effusion. Lungs do appear well relatively well aerated. IMPRESSION: 1. Tubes and lines unchanged. 2. 5 lobe infiltrates show some decrease in density today. There is also good aeration noted of the lungs bilaterally. Dictated by: Dictated on workstation # [id number]
[2020-05-18] MEDS: SUCRALFATE 1 GM (CARAFATE) TAB NG SCH ×3 (08:07→20:14)
[2020-05-18] MEDS: DOCUSATE SODIUM 10 MG/ML 10 ML UDC (COLACE) PO SCH ×2 (08:07→20:14)
[2020-05-18] MEDS: PANTOPRAZOLE 40 MG (PROTONIX) VIAL IV SCH ×2 (08:07→20:14)
[2020-05-18] MEDS: ENOXAPARIN 40 MG/0.4 ML (LOVENOX) SYR SC SCH (08:07)
[2020-05-18] MEDS: MICONAZOLE 2% POWDER (DESENEX AF) 90 GM TOP SCH ×2 (08:07→20:14)
[2020-05-18] MEDS: METOCLOPRAMIDE INJ 10 MG/2 ML (REGLAN) IVP SCH (08:07)
[2020-05-18] MEDS: ARTIFICIAL TEARS OINT (LACRI-LUBE) 3.5 GM TUBE OU SCH ×2 (08:07→20:15)
[2020-05-18] MEDS: LINEZOLID IVPB 300 ML IV SCH ×2 (08:40→20:15)
[2020-05-18] MEDS: DAKIN'S 1/4 STRENGTH (0.125%) 473 ML BTL TOP SCH (10:54)
[2020-05-18] MEDS: LACTATED RINGERS 1,000 ML IV SCH ×2 (11:53→18:49)
[2020-05-18] MEDS: NOREPINEPHRINE 4 MG/250 ML 250 ML IV SCH ×2 (13:52→18:49)
--- NOTE | 2020-05-18 13:56 | NUR ---
DR. SWEET NOTIFIED OF URINE OUTPUT OF 50ML IN 4HR TIME PERIOD.
[2020-05-18] MEDS: ANIDULAFUNGIN INJECTION 100 MG in NS (IVPB) 100 ML IV SCH (15:49)
[2020-05-19] VITALS (29 sets, daily range): BP systolic 109–141; BP diastolic 41–56
[2020-05-19] MEDS: inSUlin ASPART (NovoLOG) 1 UNIT/0.01 ML (CHARGE PER UNIT) SC SCH ×4 (00:22→18:40)
[2020-05-19] MEDS: LACTATED RINGERS 1,000 ML IV SCH ×3 (00:25→14:31)
[2020-05-19] MEDS: NOREPINEPHRINE 4 MG/250 ML 250 ML IV SCH ×4 (00:25→15:20)
[2020-05-19] MEDS: RT-ALBUTEROL INHALER HFA (VENTOLIN HFA) 18 GM IH SCH ×6 (02:56→21:59)
[2020-05-19 03:46] LABS: ABG BASE EXCESS 0.9 MMOL/L (-2.5-2.5); ABG OXYGEN SATURATION 97 % (94-100); ABG PCO2 45 MMHG (35-45); ABG PH 7.37 (7.37-7.43); ABG PO2 81 MMHG (79-93); ABG TCO2 26.9 MMOL/L (21.0-31.0); ALLENS TEST ART LINE
[2020-05-19 03:47] LABS: BASOPHILS % (AUTO) 0 % (0-10); EOSINOPHILS # (AUTO) 0.1 10^3/uL (0.0-0.3); EOSINOPHILS % (AUTO) 2 % (0-10); HEMATOCRIT 25 % (35-52); HEMOGLOBIN 7.9 g/dL (11.5-16.0); INSPIRED O2 100%; LYMPHOCYTES # (AUTO) 0.4 10^3/uL (1.0-4.0); LYMPHOCYTES % (AUTO) 5 % (12-44); MEAN CORPUSCULAR HEMOGLOBIN 29 pg (25-34); MEAN CORPUSCULAR HGB CONC 32 g/dL (32-36); MEAN CORPUSCULAR VOLUME 92 fL (80-99); MEAN PLATELET VOLUME 10.4 fL (9.0-12.2); MONOCYTES # (AUTO) 0.3 10^3/uL (0.0-1.0); MONOCYTES % (AUTO) 4 % (0-12); NEUTROPHILS # (AUTO) 7.1 10^3/uL (1.8-7.8); NEUTROPHILS % (AUTO) 89 % (42-75); PATIENT TEMP NOT INDICATED; PLATELET COUNT 155 10^3/uL (130-400); VENTILATOR YES
[2020-05-19 03:53] LABS: POTASSIUM 3.3 MMOL/L (3.6-5.0)
[2020-05-19 03:54] LABS: CALCIUM 7.3 MG/DL (8.5-10.1)
[2020-05-19 03:59] LABS: CREATININE SERUM 1.5 MG/DL (0.60-1.30); PHOSPHORUS 2.4 MG/DL (2.3-4.7)
[2020-05-19 04:01] LABS: MAGNESIUM 1.6 MG/DL (1.6-2.4)
[2020-05-19] MEDS: POTASSIUM CL 10MEQ/50ML IVPB 50 ML IV SCH ×4 (04:10→07:28)
[2020-05-19] MEDS: MAGNESIUM 1 GM/100 ML IVPB 100 ML IV SCH ×3 (04:10→05:28)
[2020-05-19] MEDS: KCL 20 MEQ TAB (K-DUR) PO SCH (04:10)
--- NOTE | 2020-05-19 04:47 | Pulmonary Progress Note ---
Subjective Time Seen by a Provider: 04:42 Subjective/Events-last exam Sedated on vent. Sepsis Event Evaluation Height, Weight, BMI Height: '" Weight: lbs. oz. kg; 49.00 BMI Method: Exam Exam Vital Signs Date Time Temp Pulse Resp B/P (MAP) Pulse Ox O2 Delivery O2 Flow Rate FiO2 05/19/20 04:00 85 29 123/44 (70) 88 Mechanical Ventilator 100.00 05/19/20 03:00 80 24 133/50 (77) 93 Mechanical Ventilator 100.00 05/19/20 02:56 80 22 92 100 05/19/20 02:00 85 23 137/53 (81) 87 Mechanical Ventilator 100.00 05/19/20 01:16 77 05/19/20 01:00 79 22 130/43 (72) 94 Mechanical Ventilator 100.00 05/19/20 00:25 79 130/44 05/19/20 00:00 75 17 133/45 (74) 92 Mechanical Ventilator 100.00 05/19/20 00:00 36.6 05/18/20 23:22 71 23 90 100 05/18/20 23:00 72 27 143/50 (81) 90 Mechanical Ventilator 100.00 05/18/20 22:21 141/46 05/18/20 22:00 69 136/45 (75) 90 Mechanical Ventilator 100.00 05/18/20 21:00 94 Mechanical Ventilator 100 05/18/20 21:00 77 23 144/48 (80) 88 Mechanical Ventilator 100.00 05/18/20 20:04 35.7 05/18/20 20:00 68 23 139/43 (75) 91 Mechanical Ventilator 100.00 05/18/20 19:00 69 24 151/50 (83) 94 Mechanical Ventilator 100.00 05/18/20 19:00 72 05/18/20 18:49 69 90/30 05/18/20 18:42 62 23 98 100 05/18/20 18:00 63 22 146/46 (79) 96 Mechanical Ventilator 100.00 05/18/20 17:25 Mechanical Ventilator 100.00 05/18/20 17:24 73 99/38 05/18/20 17:21 68 126/40 05/18/20 17:14 71 135/43 05/18/20 17:14 65 131/41 05/18/20 17:00 59 25 149/48 (81) 92 Mechanical Ventilator 90.00 05/18/20 16:58 35.6 05/18/20 16:35 Mechanical Ventilator 90.00 05/18/20 16:01 75 22 116/40 (65) 93 Mechanical Ventilator 85.00 05/18/20 16:00 70 109/39 05/18/20 15:52 53 132/40 05/18/20 15:52 53 131/40 05/18/20 15:00 52 22 136/42 (73) 92 Mechanical Ventilator 75.00 05/18/20 14:33 56 22 90 72 05/18/20 14:00 55 21 130/41 (70) 93 Mechanical Ventilator 75.00 05/18/20 13:52 51 148/47 05/18/20 13:20 56 146/46 05/18/20 13:00 51 21 136/46 (76) 91 Mechanical Ventilator 75.00 05/18/20 12:21 58 05/18/20 12:00 66 31 146/53 (84) 90 Mechanical Ventilator 75.00 05/18/20 11:51 36.0 05/18/20 11:00 57 21 127/41 (69) 91 Mechanical Ventilator 75.00 05/18/20 10:20 Mechanical Ventilator 75.00 05/18/20 10:00 60 22 141/46 (77) 97 Mechanical Ventilator 85.00 05/18/20 09:00 56 21 141/45 (77) 98 Mechanical Ventilator 85.00 05/18/20 08:31 94 Mechanical Ventilator 85 05/18/20 08:28 65 21 139/43 05/18/20 08:00 35.9 05/18/20 08:00 54 21 148/45 (79) 97 Mechanical Ventilator 85.00 05/18/20 07:00 56 05/18/20 07:00 54 21 141/40 (73) 94 Mechanical Ventilator 85.00 05/18/20 06:00 68 21 144/43 (76) 98 Mechanical Ventilator 85.00 05/18/20 05:35 61 22 133/41 05/18/20 05:00 65 22 131/38 (69) 97 Mechanical Ventilator 85.00 I & O 05/19/20 07:00 Intake Total 2528 ml Output Total 545 ml Balance 1983 ml Height & Weight Height: '" Weight: lbs. oz. kg; 49.00 BMI Method: General Appearance: No Apparent Distress HEENT: TMs Normal Neck: Full Range of Motion Respiratory: Decreased Breath Sounds, Rhonci, Wheezing Cardiovascular: Regular Rate, Rhythm Capillary Refill: Less Than 3 Seconds Gastrointestinal: normal bowel sounds, non tender, soft Extremity: Normal Capillary Refill Neurologic/Psychiatric: Other (sedated, appears comfortable) Skin: Normal Color Lymphatic: No Adenopathy Results Lab Laboratory Tests 05/18/20 02:55 05/19/20 03:35 Assessment/Plan Assessment/Plan Acute respiratory failure secondary to COVID19 with ARDS -- s/p trach and PEG 10/30 Intubated on admission 04/24 -Pt now on PC with 100% Fi02 and PEEP of 15 -Increase PEEP to 18 -Titrate Fi02 -D/C Nimbex, cardizem, lasix -Restart TF at 15cc/hr -Decrease IVF to 75cc/hr -Will change vanco to zyvox secondary to oliguria and pending renal failure. -EICU has assisted with vent management through the night. -S/p Bumex -OG tube was discontinued by Dr. Bennett - 05/08 -Fentanyl at 100 and Versed at 5 -Decrease Fentanyl to 50 and Versed -Propofol was d/c'd -Daily sedation vacations. - Fentanyl gtt s/p Remdesivir 04/29 s/p plasma x2 -Proning Lovenox- Hold secondary to bleeding MAT protocol s/p Decadron- Hold TF for now severe sepsis with shock with PNA --Sputum is growing S. Aureus- MSSA -D/C Zosyn and continue zyvox and add 20mg of Decadron secondary to worsening pulmonary status. - continue eraxis 05/08 -CXR shows worsening repeat sputum and PCT Candidasis bacteremia -Picc line d/c'd. Tip cultured and pending -Central line placed after picc line d/c'd - Eraxis 05/08 - Anemia- with s/p GIB s/p EGD per Dr. Sprague -EGD showed bleeding gastric ulcer -Surgery following. HB is now stable -s/p 5 units of PRBC -Lovenox on hold -Protonix BID Hypertension -Hydralazine PRN -Can use BB secondary to bradycardia -Continue Lisinopril and PRN Vasotec- however may have to hold if renal failure worsens -Norvasc NIDDMII Anticipate high BS with steroids SSI -Increase levemir to 12 units Q 12 secondary to hyperglycemia mid 200's Anemia -Monitor -Lovenox held secondary to bleeding. HTN - resolved DVT ppx: -Theraputic dose Lovenox -Protonix SANGEETHA SWEET DO May 19, 2020 04:47
[2020-05-19] MEDS: CATHETER FLUSH 10 ML SYR IV SCH ×3 (05:26→23:27)
[2020-05-19 06:04] LABS: CLARITY,URINE CLOUDY; COLOR,URINE YELLOW; GLUCOSE, URINE (UA) NEGATIVE (NEGATIVE); KETONES,URINE NEGATIVE (NEGATIVE); LEUKOCYTE ESTERASE ,URINE TRACE (NEGATIVE); NITRITE,URINE NEGATIVE (NEGATIVE); PH,URINE 7.5 (5-9); PROTEIN,URINE 1+ (NEGATIVE)
[2020-05-19 06:19] LABS: BACTERIA,URINE TRACE /HPF; BILIRUBIN,URINE 1+ (NEGATIVE); RBC,URINE >100 /HPF; SQUAMOUS EPITHELIAL CELL,UR 0-2 /HPF
--- NOTE | 2020-05-19 07:19 | Diagnostic Imaging Report ---
INDICATION: Hypoxia. COMPARISON: 05/18/2020. FINDINGS: Single view of the chest demonstrates stable support devices. Bilateral pulmonary infiltrates are unchanged. There is no pneumothorax or large effusion. Osseous structures stable. IMPRESSION: Unchanged aeration lungs. Dictated by: Dictated on workstation # [id number]
[2020-05-19] MEDS ORDERED: LACTATED RINGERS 1,000 ML IV ONE (07:30)
[2020-05-19 07:38] LABS: ALBUMIN 1.7 GM/DL (3.2-4.5); CALCIUM 6.9 MG/DL (8.5-10.1); CREATININE SERUM 1.46 MG/DL (0.60-1.30); POTASSIUM 3.4 MMOL/L (3.6-5.0); TOTAL PROTEIN 4.7 GM/DL (6.4-8.2)
[2020-05-19] MEDS: DOCUSATE SODIUM 10 MG/ML 10 ML UDC (COLACE) PO SCH ×2 (08:46→20:56)
[2020-05-19] MEDS: dexAMETHasone INJECTION 20 MG in NS (IVPB) 50 ML IV SCH (08:46)
[2020-05-19] MEDS: ENOXAPARIN 40 MG/0.4 ML (LOVENOX) SYR SC SCH (08:46)
[2020-05-19] MEDS: METOCLOPRAMIDE INJ 10 MG/2 ML (REGLAN) IVP SCH (08:46)
[2020-05-19] MEDS: ARTIFICIAL TEARS OINT (LACRI-LUBE) 3.5 GM TUBE OU SCH ×2 (08:46→20:56)
[2020-05-19] MEDS: SUCRALFATE 1 GM (CARAFATE) TAB NG SCH ×3 (08:46→20:56)
[2020-05-19] MEDS: LINEZOLID IVPB 300 ML IV SCH ×2 (08:46→20:56)
[2020-05-19] MEDS: MICONAZOLE 2% POWDER (DESENEX AF) 90 GM TOP SCH ×2 (08:46→20:56)
[2020-05-19] MEDS: PANTOPRAZOLE 40 MG (PROTONIX) VIAL IV SCH ×2 (08:46→20:56)
--- NOTE | 2020-05-19 09:17 | NUR ---
THIS RN NOTIFIED DR. SWEET OF PT O2 SATURATION OF 85-88% ON 100% FIO2. THIS RN INSTRUCTED TO INCREASE PEEP FROM 18 TO 20 AND TO REPEAT AN ABG 30 MINUTES AFTER CHANGE. ORDERS PLACED BY THIS RN.
[2020-05-19 09:51] LABS: ABG BASE EXCESS -1.1 MMOL/L (-2.5-2.5); ABG OXYGEN SATURATION 89 % (94-100); ABG PCO2 40 MMHG (35-45); ABG PH 7.39 (7.37-7.43); ABG PO2 61 MMHG (79-93); ABG TCO2 24.6 MMOL/L (21.0-31.0)
[2020-05-19 09:52] LABS: ALLENS TEST YES-POS; PATIENT TEMP 36.5; VENTILATOR YES
[2020-05-19 09:53] LABS: INSPIRED O2 100%
[2020-05-19] MEDS: ALBUMIN 25% 25 GM/100 ML 50 ML IV SCH ×2 (12:46→21:48)
[2020-05-19] MEDS: MIDAZOLAM INJECTION FOR DRIPS 50 MG in NS (IVPB) 90 ML IV SCH ×2 (13:42→20:58)
[2020-05-19] MEDS: DAKIN'S 1/4 STRENGTH (0.125%) 473 ML BTL TOP SCH (13:45)
[2020-05-19] MEDS: VASOPRESSIN INJECTION 20 UNIT in NS (IVPB) 100 ML IV SCH ×2 (13:56→21:45)
--- NOTE | 2020-05-19 15:00 | NUR ---
PRONING TEAM HERE TO ASSIST THIS RN IN PLACING PT IN PRONE POSITION. IN PRONE POSITION, PRESSURE NOTED TO TRACHEOSTOMY WELL A CUFF LEAK NOTED BY YUMIKO AMES. GLASS LATHE OPERATOR BALLOON WITH ADEQUATE PRESSURE. PT PULLING 200 TIDAL VOLUMES. YUMIKO AMES VOICED CONCERN OF PRESSURE TO THE TRACHEAL WALL DUE TO THE PRESSURE AGAINST THE EXTERNAL SURFACE OF TRACHEOSTOMY. DR. SWEET NOTIFIED. PT PLACED BACK IN SUPINE POSITION. TIDAL VOLUMES NOTED ABOVE 400. PT SATURATING 90% ON 100% FIO2.
[2020-05-19] MEDS: ANIDULAFUNGIN INJECTION 100 MG in NS (IVPB) 100 ML IV SCH (15:27)
[2020-05-19] MEDS ORDERED: FUROSEMIDE 40 MG/4 ML INJ (LASIX) IVP SCH ×2 (15:30→23:30)
--- NOTE | 2020-05-19 16:24 | NUR ---
Palliative Care RN called and spoke to patient's daughter and . Updated them on the difficulties we are having in making a turn for the better. Discussed CODE status and suggested that they have a discussion with all concerned parties in the family to see DNR status if her heart should stop. They asked if they could come in and see her to get the full picture of her situation. I told them I would ask the receiving and processing supervisor and then let them know in the morning.
[2020-05-19] MEDS ORDERED: RT-ALBUTEROL/IPRATROPIUM 3 ML (DUONEB) VIAL ONE (16:42)
[2020-05-19] MEDS ORDERED: aCETylcysteine 20% (MUCOMYST) 30ML SOLN VIAL ONE (16:42)
[2020-05-19] MEDS ORDERED: aCETylcysteine 20% (MUCOMYST) 30ML SOLN VIAL INH NR (16:45)
[2020-05-19] MEDS ORDERED: RT-ALBUTEROL/IPRATROPIUM 3 ML (DUONEB) VIAL INH ONE (16:45)
--- NOTE | 2020-05-19 16:49 | NUR ---
AFTER CONSULTING WITH PATIENTS PRIMARY NURSE WITH PATIENT DETERIORATING, THIS RN CALLED THE PATIENTS DAUGHTER AND NOTIFIED THAT FAMILY WOULD BE ALLOWED TO BE AT BEDSIDE X2 PATIENT CONDITION CONTINUES TO DETERIORATE DESPITE AGGRESSIVE INTERVENTION. PRIMARY NURSE UPDATED PHYSICIANS AND EICU WITH MAX INTERVENTIONS BEING DONE AND PATIENT CONDITION CONTINUES TO DETERIORATE.
[2020-05-19 16:52] LABS: ABG BASE EXCESS -1.9 MMOL/L (-2.5-2.5); ABG OXYGEN SATURATION 93 % (94-100); ABG PCO2 52 MMHG (35-45); ABG PO2 72 MMHG (79-93); ABG TCO2 25.6 MMOL/L (21.0-31.0)
[2020-05-19 16:54] LABS: ABG PH 7.28 (7.37-7.43); ALLENS TEST POS; INSPIRED O2 100%; PATIENT TEMP 36.4; VENTILATOR YES
--- NOTE | 2020-05-19 17:39 | Diagnostic Imaging Report ---
INDICATION: Desaturation COMPARISON: 05/19/2020 at 03:50 PM TECHNIQUE: Single radiograph of the chest dated 05/19/2020 at 1700 FINDINGS: Tracheostomy appliance is again identified. Left IJ central venous catheter is stable. Cardiac silhouette is predominantly obscured. Pulmonary vasculature is obscured. Extensive bilateral pulmonary infiltrates are again identified. This appears minimally improved improved, particularly within the left upper lung. No pneumothorax. No acute osseous abnormality. IMPRESSION: Slightly improved extensive bilateral pulmonary infiltrates, particularly within the left upper lung. Unchanged lines and tubes. Dictated by: Dictated on workstation # [id number]
--- NOTE | 2020-05-19 18:00 | NUR ---
TIMELINE NOTE BELOW: 05/19/2020 AT 1603: THIS RN CALLED JUANCHO (PT'S DAUGHTER) TO UPDATE HER ON PT STATUS. THIS RN INFORMED HER THAT THE TEAM ATTEMPTED TO PRONE THE PT AND THAT THE PT DID NOT TOLERATE THE POSITION CHANGE. THIS RN ALSO INFORMED HER THAT THE PT WAS SATURATING IN THE 80S. 05/19/2020 AT 1637: THIS RN NOTIFIED DR. SWEET OF PT DESATURATING. THIS RN INFORMED HIM THAT THE PT WAS SATURATING IN THE HIGH 70S. ORDERS FOR CXR, ABG, AND MUCOMYST/DUONEB AEROSOLIZED TREATMENTS OBTAINED. DR. SWEET ALSO INSTRUCTED [facility] RN TO HAVE E-ICU [facility] IN TO LOOK AT THE VENTILATOR SETTINGS TO SEE IF THEY HAVE ANY SUGGESTIONS FOR VENTILATOR SETTINGS CHANGES. DR. SWEET REQUESTED TO HAVE THE FAMILY COME IN TO SEE THE PT, HOME HEALTH CLINICAL SUPERVISOR NOTIFIED. ORDERS PLACED BY THIS RN. 05/19/2020 AT 1649: PT'S FAMILY CALLED BY KUSH BOYD (ENGINEERING PROGRAM ANALYST) ABOUT COMING TO SEE THE PT. THE PT'S DAUGHTER STATED SHE WOULD CALL DEB BACK. 05/19/2020 AT 1654: THIS RN CALLED E-ICU PER DR. SWEET'S REQUEST. ORDERS TO INCREASE RESPIRATION RATE FROM 22 TO 24 GIVEN TO THIS RN. RT NOTIFIED. 05/19/2020 AT 1739: THIS RN CALLED JUANCHO (PT'S DAUGHTER) ABOUT STATUS ON COMING TO SEE THE PT. JUANCHO STATED THAT SHE WAS ABOUT TO LEAVE [facility].
--- NOTE | 2020-05-19 18:13 | NUR ---
THIS RN CALLED E-ICU TO REPORT OXYGEN SATURATION OF 78%. DR. ALVAREZ TOLD THIS RN THAT SHE HAS NO OTHER SUGGESTIONS TO TRY. THIS RN INFORMED HER THAT THE FAMILY IS ON THEIR WAY AND SHOULD BE ARRIVING SOON.
--- NOTE | 2020-05-19 19:00 | NUR ---
PT'S AND FOREIGN LANGUAGE INSTRUCTOR HERE TO SEE PT. THIS RN INFORMED PT'S OF PT'S CONDITION. THIS RN EXPLAINED THE OPTIONS OF LEAVING PT A FULL CODE AND CONTINUING ALL CURRENT TREATMENTS, EXPLAINED DNR, AND EXPLAINED COMFORT CARE. PT AND FOREIGN LANGUAGE INSTRUCTOR SUPPLIED WITH CHAIRS, TISSUES, WATER, AND CALL LIGHT. THIS RN AND KUSH RILEY AT BEDSIDE TO ANSWER QUESTIONS. PT'S AND FOREIGN LANGUAGE INSTRUCTOR LEFT AT PT'S BEDSIDE TO PRAY AND SPEND TIME WITH PT WHILE DECIDING ON COURSE OF ACTION. THIS RN INFORMED PT'S THAT IF THEY NEEDED ANYTHING TO USE THE CALL LIGHT.
[2020-05-20] VITALS (13 sets, daily range): BP systolic 110–133; BP diastolic 41–55
[2020-05-20] MEDS: inSUlin ASPART (NovoLOG) 1 UNIT/0.01 ML (CHARGE PER UNIT) SC SCH ×2 (01:17→04:30)
[2020-05-20] MEDS: RT-ALBUTEROL INHALER HFA (VENTOLIN HFA) 18 GM IH SCH ×3 (02:12→10:15)
[2020-05-20 03:27] LABS: BASOPHILS % (AUTO) 0 % (0-10); EOSINOPHILS % (AUTO) 0 % (0-10); HEMATOCRIT 23 % (35-52); HEMOGLOBIN 7.2 g/dL (11.5-16.0); LYMPHOCYTES # (AUTO) 0.3 10^3/uL (1.0-4.0); LYMPHOCYTES % (AUTO) 4 % (12-44); MEAN CORPUSCULAR HEMOGLOBIN 29 pg (25-34); MEAN CORPUSCULAR HGB CONC 31 g/dL (32-36); MEAN CORPUSCULAR VOLUME 93 fL (80-99); MEAN PLATELET VOLUME 10.8 fL (9.0-12.2); MONOCYTES # (AUTO) 0.3 10^3/uL (0.0-1.0); MONOCYTES % (AUTO) 4 % (0-12); NEUTROPHILS # (AUTO) 6.7 10^3/uL (1.8-7.8); NEUTROPHILS % (AUTO) 91 % (42-75); PLATELET COUNT 140 10^3/uL (130-400); WHITE BLOOD COUNT 7.4 10^3/uL (4.3-11.0)
[2020-05-20 03:28] LABS: ABG BASE EXCESS -3.1 MMOL/L (-2.5-2.5); ABG OXYGEN SATURATION 81 % (94-100); ABG PCO2 49 MMHG (35-45); ABG PO2 57 MMHG (79-93); ABG TCO2 24.1 MMOL/L (21.0-31.0)
[2020-05-20 03:33] LABS: ABG PH 7.29 (7.37-7.43); ALLENS TEST ART LINE; INSPIRED O2 100%; PATIENT TEMP 36.6; VENTILATOR YES
[2020-05-20 03:38] LABS: POTASSIUM 4.2 MMOL/L (3.6-5.0)
[2020-05-20 03:39] LABS: CALCIUM 7.5 MG/DL (8.5-10.1)
[2020-05-20 03:43] LABS: PHOSPHORUS 3.5 MG/DL (2.3-4.7)
[2020-05-20 03:44] LABS: CREATININE SERUM 1.76 MG/DL (0.60-1.30)
[2020-05-20 03:54] LABS: BAND NEUTROPHILS 4 %; LYMPHOCYTES % (MANUAL) 8 %; MONOCYTES % (MANUAL) 2 %; NEUTROPHILS % (MANUAL) 86 %
[2020-05-20 03:55] LABS: ANISOCYTOSIS SLIGHT; POLYCHROMASIA SLIGHT
[2020-05-20] MEDS: MIDAZOLAM INJECTION FOR DRIPS 50 MG in NS (IVPB) 90 ML IV SCH (04:04)
[2020-05-20] MEDS: NOREPINEPHRINE 4 MG/250 ML 250 ML IV SCH (04:05)
[2020-05-20] MEDS: MAGNESIUM 1 GM/100 ML IVPB 100 ML IV SCH (04:30)
[2020-05-20] MEDS: KCL 20 MEQ TAB (K-DUR) PO SCH (04:30)
[2020-05-20] MEDS: POTASSIUM CL 10MEQ/50ML IVPB 50 ML IV SCH ×3 (04:30→06:21)
--- NOTE | 2020-05-20 04:44 | Pulmonary Progress Note ---
Subjective Time Seen by a Provider: 04:39 Subjective/Events-last exam Pt has been hypoxic in the 70's through the night. Peep is at 20. Sepsis Event Evaluation Height, Weight, BMI Height: '" Weight: lbs. oz. kg; 49.00 BMI Method: Exam Exam Vital Signs Date Time Temp Pulse Resp B/P (MAP) Pulse Ox O2 Delivery O2 Flow Rate FiO2 05/20/20 04:05 94 122/48 05/20/20 04:04 82 28 124/46 05/20/20 02:13 92 28 68 100 05/20/20 02:00 75 28 123/47 (72) 69 Mechanical Ventilator 100.00 05/20/20 01:00 92 24 125/46 (72) 76 Mechanical Ventilator 100.00 05/20/20 01:00 92 05/20/20 00:00 36.6 05/20/20 00:00 89 30 123/48 (73) 75 Mechanical Ventilator 100.00 05/19/20 23:00 80 23 125/45 (71) 73 Mechanical Ventilator 100.00 05/19/20 22:00 88 35 135/54 (81) 81 Mechanical Ventilator 100.00 05/19/20 21:59 85 27 80 100 05/19/20 21:45 94 111/41 05/19/20 21:00 84 123/48 (73) 76 Mechanical Ventilator 100.00 05/19/20 21:00 Mechanical Ventilator 100 05/19/20 20:58 81 27 124/51 05/19/20 20:16 84 27 75 100 05/19/20 20:00 85 116/46 (69) 77 Mechanical Ventilator 100.00 05/19/20 19:45 36.4 05/19/20 19:00 92 05/19/20 19:00 92 27 120/48 (72) 77 Mechanical Ventilator 100.00 05/19/20 18:00 87 23 116/43 (67) 77 Mechanical Ventilator 100.00 05/19/20 17:05 84 24 124/48 05/19/20 17:00 85 21 119/44 (69) 85 Mechanical Ventilator 100.00 05/19/20 16:50 36.4 05/19/20 16:00 86 22 119/47 (71) 86 Mechanical Ventilator 100.00 05/19/20 15:45 36.5 05/19/20 15:20 98 106/40 11/2/20 15:18 85 28 123/45 05/19/20 15:00 80 22 127/56 (79) 92 Mechanical Ventilator 100.00 05/19/20 14:41 88 28 88 100 05/19/20 14:30 86 148/62 05/19/20 14:18 85 149/63 05/19/20 14:00 88 25 127/51 (76) 86 Mechanical Ventilator 100.00 05/19/20 13:56 90 117/47 05/19/20 13:42 96 23 114/47 05/19/20 13:00 93 24 114/48 (70) 86 Mechanical Ventilator 100.00 05/19/20 12:46 93 05/19/20 12:05 89 130/52 05/19/20 12:00 87 21 135/54 (81) 88 Mechanical Ventilator 100.00 05/19/20 11:47 36.6 05/19/20 11:00 89 22 140/55 (83) 88 Mechanical Ventilator 100.00 05/19/20 10:24 87 22 90 100 05/19/20 10:10 87 123/46 05/19/20 10:00 87 22 136/50 (78) 89 Mechanical Ventilator 100.00 05/19/20 09:48 36.5 05/19/20 09:00 84 36 140/48 (78) 85 Mechanical Ventilator 100.00 05/19/20 09:00 90 Mechanical Ventilator 100 05/19/20 08:52 96 81/31 05/19/20 08:00 86 21 121/43 (69) 91 Mechanical Ventilator 100.00 05/19/20 07:00 91 36 91 100 05/19/20 07:00 91 32 120/43 (68) 91 Mechanical Ventilator 100.00 05/19/20 06:44 90 05/19/20 06:00 84 22 126/44 (71) 93 Mechanical Ventilator 100.00 05/19/20 05:26 84 120/45 05/19/20 05:00 82 19 124/45 (71) 91 Mechanical Ventilator 100.00 I & O 05/20/20 07:00 Intake Total 3154 ml Output Total 1375 ml Balance 1779 ml Height & Weight Height: '" Weight: lbs. oz. kg; 49.00 BMI Method: General Appearance: Other (sedated on vent) HEENT: TMs Normal Neck: Full Range of Motion Respiratory: Decreased Breath Sounds, Rhonci, Wheezing Cardiovascular: Regular Rate, Rhythm Capillary Refill: Less Than 3 Seconds Gastrointestinal: normal bowel sounds, non tender, soft Extremity: Normal Capillary Refill Neurologic/Psychiatric: Other (sedated, appears comfortable) Skin: Normal Color Lymphatic: No Adenopathy Results Lab Laboratory Tests 05/19/20 03:35 05/19/20 07:00 05/20/20 03:15 Assessment/Plan Assessment/Plan Acute respiratory failure secondary to COVID19 with ARDS -- s/p trach and PEG 05/16 -EICU has been running ventilator through the night. -Pt's Sp02 has been running in the 60's-70's through the night. - was allowed back to see pt yesterday however pt is still a full code. -Will give Bumex 2mg IV x 1 Intubated on admission 04/24 -Pt now on PC with 100% Fi02 and PEEP of 20 and RR 24 -D/C Nimbex, cardizem, lasix -Hold TF -Decrease IVF to 75cc/hr -Will change vanco to zyvox secondary to oliguria and pending renal failure. -EICU has assisted with vent management through the night. -S/p Lasix 40mg x 2 plus albumin -OG tube was discontinued by Dr. Bennett - 05/08 -Fentanyl at 100 and Versed at 5 -Decrease Fentanyl to 50 and Versed -Propofol was d/c'd -Daily sedation vacations. - Fentanyl gtt s/p Remdesivir 04/29 s/p plasma x2 -Proning Lovenox- Hold secondary to bleeding MAT protocol s/p Decadron- Hold TF for now severe sepsis with shock with PNA --Sputum is growing S. Aureus- MSSA -D/C Zosyn and continue zyvox and add 20mg of Decadron secondary to worsening pulmonary status. - continue eraxis 05/08 -CXR shows worsening repeat sputum and PCT Candidasis bacteremia -Picc line d/c'd. Tip cultured and pending -Central line placed after picc line d/c'd - Eraxis 05/08 - Anemia- with s/p GIB s/p EGD per Dr. Sprague -EGD showed bleeding gastric ulcer -Surgery following. HB is now stable -s/p 5 units of PRBC -Lovenox on hold -Protonix BID Hypertension -Hydralazine PRN -Can use BB secondary to bradycardia -Continue Lisinopril and PRN Vasotec- however may have to hold if renal failure worsens -Norvasc NIDDMII Anticipate high BS with steroids SSI -Increase levemir to 12 units Q 12 secondary to hyperglycemia mid 200's Anemia -Monitor -Lovenox held secondary to bleeding. HTN - resolved DVT ppx: -Theraputic dose Lovenox -Protonix SANGEETHA SWEET DO May 20, 2020 04:44
[2020-05-20] MEDS ORDERED: BUMETANIDE 1 MG/4 ML (BUMEX) VIAL IV ONE (04:45)
[2020-05-20] MEDS: CATHETER FLUSH 10 ML SYR IV SCH (06:17)
[2020-05-20] MEDS: VASOPRESSIN INJECTION 20 UNIT in NS (IVPB) 100 ML IV SCH (06:26)
[2020-05-20] MEDS: LACTATED RINGERS 1,000 ML IV SCH (06:28)
--- NOTE | 2020-05-20 07:32 | Diagnostic Imaging Report ---
Indication: Respiratory distress. Compared: 05/19/2020 Findings: 5 lobe airspace disease while severe has mildly improved in the interim. Trach tube tip above the martha, vascular catheter stable. Impression: Improvements in 5 lobe airspace disease with no adverse change. Dictated by: Dictated on workstation # [id number]
[2020-05-20] MEDS: LINEZOLID IVPB 300 ML IV SCH (09:19)
[2020-05-20] MEDS: ENOXAPARIN 40 MG/0.4 ML (LOVENOX) SYR SC SCH (09:20)
[2020-05-20] MEDS: DOCUSATE SODIUM 10 MG/ML 10 ML UDC (COLACE) PO SCH (09:21)
[2020-05-20] MEDS: MICONAZOLE 2% POWDER (DESENEX AF) 90 GM TOP SCH (09:21)
[2020-05-20] MEDS: PANTOPRAZOLE 40 MG (PROTONIX) VIAL IV SCH (09:21)
[2020-05-20] MEDS: SUCRALFATE 1 GM (CARAFATE) TAB NG SCH (09:21)
[2020-05-20] MEDS: METOCLOPRAMIDE INJ 10 MG/2 ML (REGLAN) IVP SCH (09:21)
[2020-05-20] MEDS: ARTIFICIAL TEARS OINT (LACRI-LUBE) 3.5 GM TUBE OU SCH (09:22)
[2020-05-20] MEDS: dexAMETHasone INJECTION 20 MG in NS (IVPB) 50 ML IV SCH (09:22)
[2020-05-20] MEDS ORDERED: LORazepam INJ 2 MG/ML (ATIVAN) VIAL IVP PRN (12:15)
--- NOTE | 2020-05-20 13:11 | NUR ---
PT FAMILY PRESENT AT BEDSIDE AT 1205, FAMILY CHOSE COMFORT CARE. PT EXTUBATED AT 1210. PT PASSED AT 1227 WITH FAMILY AT BEDSIDE. CONTACTED [facility] AND PT WAS DECLINED DUE TO COVID DIAGNOSIS, REFERRAL NUMBER [id number] PT TO BE RELEASED TO [facility]
--- NOTE | 2020-05-22 04:30 | Physician Query Clarification ---
PQ-Uncertain Diagnosis Admission/Discharge Admission Date: Apr 24, 2020 at 17:40 Discharge Date: May 20, 2020 at 14:45 MEHDI Alonso MD The medical record reflects the following clinical scenario: History/Risk Factors: [list no more than 2] Clinical Findings: [list no more than 2] Treatment: [list no more than 2] Question: Is [diagnosis] a clinically valid diagnosis? [diagnosis] was documented in the [dates and type of documents] with no further documentation in the medical record. Please document a response in Progress Note or Discharge Summary. 1. Yes, clinically valid, condition resolved. 2. No, condition ruled out. 3. Other, with explanation of clinical findings. 4. Undetermined, no explanation for clinical findings. Please remember a lack of response to the above will prompt a phone page by [facility]Coding staff. In responding to this query, please exercise your independent professional judgment. The purpose of this communication is to more accurately reflect the complexity of your patients condition. The fact that a question is asked does not imply that any particular answer is desired or expected. Thank you for your timely response to this clarification. Requestors name: [ ] Phone # [ ] THIS PHYSICIAN QUERY FORM IS A PERMANENT PART OF THE MEDICAL RECORD LUCERO,YOKO May 22, 2020 04:30
== END 2020-05-20 14:45 | disposition expired | DRG 4 ==
LOC: EDUNIT# 11:47 → ER FS 11:48 → ICU 17:40 → UNDOADMIN 18:12 → ICU 18:12
PROVIDERS: ADMIT Family Medicine; ATTEND Internal Medicine Critical Care Medicine
PROC: 5A1955Z Respiratory Ventilation, Greater than 96 Consecutive Hours (ICD-10-PCS; principal; 2020-04-24)
PROC: 0BH17EZ Insertion of Endotracheal Airway into Trachea, Via Natural or Artificial Opening (ICD-10-PCS; 2020-04-24)
PROC: 02HV33Z Insertion of Infusion Device into Superior Vena Cava, Percutaneous Approach (ICD-10-PCS; 2020-04-24)
PROC: XW043E5 Introduction of Remdesivir Anti-infective into Central Vein, Percutaneous Approach, New Technology Group 5 (ICD-10-PCS; 2020-04-25)
PROC: XW14325 Transfusion of Convalescent Plasma (Nonautologous) into Central Vein, Percutaneous Approach, New Technology Group 5 (ICD-10-PCS; 2020-04-25)
PROC: 0BH17EZ Insertion of Endotracheal Airway into Trachea, Via Natural or Artificial Opening (ICD-10-PCS; 2020-04-28)
PROC: 0DJ08ZZ Inspection of Upper Intestinal Tract, Via Natural or Artificial Opening Endoscopic (ICD-10-PCS; 2020-05-08)
PROC: 0DB48ZX Excision of Esophagogastric Junction, Via Natural or Artificial Opening Endoscopic, Diagnostic (ICD-10-PCS; 2020-05-08)
PROC: 0DB68ZX Excision of Stomach, Via Natural or Artificial Opening Endoscopic, Diagnostic (ICD-10-PCS; 2020-05-08)
PROC: 0B110F4 Bypass Trachea to Cutaneous with Tracheostomy Device, Open Approach (ICD-10-PCS; 2020-05-15)
PROC: 0DH63UZ Insertion of Feeding Device into Stomach, Percutaneous Approach (ICD-10-PCS; 2020-05-15)
DX: A41.9 Sepsis, unspecified organism (principal); U07.1 COVID-19; J12.89 Other viral pneumonia; J96.01 Acute respiratory failure with hypoxia; K29.71 Gastritis, unspecified, with bleeding; Z68.42 Body mass index [BMI] 45.0-49.9, adult; R65.20 Severe sepsis without septic shock; R00.1 Bradycardia, unspecified; Z66 Do not resuscitate; Z51.5 Encounter for palliative care; E66.9 Obesity, unspecified; I10 Essential (primary) hypertension; E11.9 Type 2 diabetes mellitus without complications; J30.2 Other seasonal allergic rhinitis; R34 Anuria and oliguria; D64.9 Anemia, unspecified; K25.9 Gastric ulcer, unspecified as acute or chronic, without hemorrhage or perforation; K21.00 Gastro-esophageal reflux disease with esophagitis, without bleeding; K44.9 Diaphragmatic hernia without obstruction or gangrene; B37.9 Candidiasis, unspecified
CPT/HCPCS: 36415; 36569; 51702; 71045; 71275; 76937; 80048; 80053; 81000; 82533; 82728; 82805; 82962; 83540; 83605; 83735; 83880; 84100; 84145; 84478; 84484; 85007; 85014; 85018; 85025; 85027; 85379; 85384; 85610; 85730; 86141; 86850; 86900; 86901; 86920; 87040; 87070; 87077; 87081; 87106; 87186; 87205; 87635; 87804; 88305; 93005; 94002; 94003; 94640; 94760; 94799; 96372; 96374; 99291